=== PATIENT | male | born 1940 | race Caucasian/White ===

== ENCOUNTER 2020-08-24 06:24 | Outpatient (REF) | payer MEDICARE, SELFPAY ==
[2020-08-24 11:14] LABS: MANUAL DIFF FLAG NO
[2020-08-24 11:25] LABS: Basophils Absolute Auto 0.1 X10*3/uL (0.0-0.2); Basophils Percent Auto 0.8 % (0-2); Eosinophils Absolute Auto 0.1 X10*3/uL (0.0-0.4); Eosinophils Percent Auto 1.4 % (0-4); Hematocrit 48.1 % (42-52); Hemoglobin 15.8 g/dl (14.0-18.0); Imm Gran Abs Auto 0.03 X10*3/uL (0.00-0.03); Imm Gran Pct Auto 0.4 % (0.0-0.4); Lymphocytes Percent Auto 23.9 % (20-40); Mean Corpuscular HGB Conc 32.8 g/dl (31.0-36.0); Mean Corpuscular Hemoglobin 30.3 pg (27.0-33.0); Mean Corpuscular Volume 92.3 fL (80-98); Mean Platelet Volume 10.9 fL (9.4-12.4); Monocytes Absolute Auto 0.6 X10*3/uL (0.1-1.2); Monocytes Percent Auto 6.7 % (2-11); Neutrophils Absolute Auto 5.7 X10*3/uL (2.0-8.3); Neutrophils Percent Auto 66.8 % (45-73); Platelet Count 222 X10*3/uL (160-400); Red Blood Count 5.21 X10*6/uL (4.60-5.80); Red Cell Distribution Width 14.5 % (11.0-16.0); White Blood Count 8.5 X10*3/uL (4.8-10.8)
[2020-08-24 11:49] LABS: Alanine Aminotransferase 20 U/L (0-40); Albumin Level 4.2 g/dL (3.5-5.0); Alkaline Phosphatase 69 U/L (39-117); Anion Gap 14 (12-20); Aspartate Amino Transferase 18 U/L (5-37); Bilirubin Total 0.8 mg/dL (0.0-1.0); Blood Urea Nitrogen 22 mg/dL (9-16); Calcium 8.6 mg/dL (8.4-10.2); Carbon Dioxide 30 mmol/L (22-29); Chloride 103 mmol/L (96-108); Cholesterol 200 mg/dL; Estimated Glomerular Filt Rate > 60; Glucose Fasting 113 mg/dL (60-99); HDL Cholesterol 45 mg/dL; LDL Cholesterol Calculated 124 mg/dl; Potassium 3.8 mmol/L (3.3-5.1); Sodium 143 mmol/L (135-145); Total Protein 6.6 g/dL (6.5-8.0); Triglycerides 158 mg/dL; Uric Acid 7.2 mg/dL (3.4-7.0)
[2020-08-24 12:14] LABS: Prostate Specific Antigen 1.51 ng/mL (<0.05-4.0)
== END 2020-08-24 06:25 | disposition home or self-care (01) ==
LOC: HO.HMGCLDS 06:24
PROVIDERS: PCP Internal Medicine Medical Oncology; Visit Provider Internal Medicine Medical Oncology
DX: I10 Essential (primary) hypertension (principal); E66.9 Obesity, unspecified; E78.5 Hyperlipidemia, unspecified; Z12.5 Encounter for screening for malignant neoplasm of prostate
CPT/HCPCS: 36415; 80053; 80061; 84153; 84550; 85025

== ENCOUNTER 2020-12-04 08:53 | Day surgery (SDC) | payer MEDICARE, SELFPAY ==
[2020-11-29 10:35] VITALS: BMI 33.8
--- NOTE | 2020-12-03 09:31 | P.CONAN_ITS ---
Documented by User: Irene Gentile 12/03/20 09:32 HPI - Anesthesia Eval Consult details Narrative: 79yo M for Colonoscopy [facility] Past Medical History Medical History BPH (benign prostatic hyperplasia) History of kidney stones HTN (hypertension) Hyperlipidemia Surgical History Surgical History History of lithotripsy Hx of colonoscopy Hx of cystoscopy Social History Social History Patient Tobacco Use Status: Current everyday Tobacco user Tobacco use type: Cigarette Are you DNR?: Yes Advance Directives: No Advance Directives Information Provided: No Advance Directives on File: No Recently lost weight without trying: No Eating poorly because of decreased appetite: No Nutrition Risks: No Nutritional Risk Meds Allergies Allergy/AdvReac Type Severity Reaction Status Date / Time Iodinated Contrast Media Allergy Intermediate VOMITING Verified 12/04/20 08:54 [IV Dye, Iodine Containing] Home Medications Medication Instructions Recorded Confirmed Last Taken Type jaubtpch-tyvnt-ejn2-C-ana-bor 1 tab PO DAILY 11/29/20 11/29/20 Unknown History [Bbgmdgecyqe-Tvfkp-[facility] Complex] hydrochlorothiazide 1 tab PO DAILY 11/29/20 11/29/20 Unknown History multivitamin 1 tab PO DAILY 11/29/20 11/29/20 Unknown History potassium citrate 1 tab PO DAILY 11/29/20 11/29/20 Unknown History Exam Exam Date and Time: December 03, 2020 0931 Height,Weight and Vital Signs: Height 5 ft 10 in Weight 107.048 kg Assessment and Plan Assessment Anesthesia Assessment: Chart Reviewed Documented by User: Kady Alberto 12/04/20 10:43 [facility] Past Medical History Medical History BPH (benign prostatic hyperplasia) History of kidney stones HTN (hypertension) Hyperlipidemia Surgical History Surgical History History of lithotripsy Hx of colonoscopy Hx of cystoscopy Social History Social History Patient Tobacco Use Status: Current everyday Tobacco user Tobacco use type: Cigarette Are you DNR?: Yes Advance Directives: No Advance Directives Information Provided: No Advance Directives on File: No Recently lost weight without trying: No Eating poorly because of decreased appetite: No Nutrition Risks: No Nutritional Risk Meds Allergies Allergy/AdvReac Type Severity Reaction Status Date / Time Iodinated Contrast Media Allergy Intermediate VOMITING Verified 12/04/20 08:54 [IV Dye, Iodine Containing] Home Medications Medication Instructions Recorded Confirmed Last Taken Type jwbrkebn-gyfrd-rwq4-C-ana-bor 1 tab PO DAILY 11/29/20 11/29/20 Unknown History [Xwzdqqlmwuh-Lveuh-[facility] Complex] hydrochlorothiazide 1 tab PO DAILY 11/29/20 11/29/20 Unknown History multivitamin 1 tab PO DAILY 11/29/20 11/29/20 Unknown History potassium citrate 1 tab PO DAILY 11/29/20 11/29/20 Unknown History Exam Airway Mallampati Class: II TM Dist: >3cm Neck ROM: Limited Loose/Missing/Broken Teeth: No Heart: RRR Lungs: CTA Assessment and Plan Assessment Anesthesia Assessment: Anesthesia Plan Discussed and Chart Reviewed Final Anesthetic Review NPO: Yes ASA Class: II Final Preanesthetic Review: Meds/Allgs Chart Reviewed and Consent Obtained/Reviewed Patient Risk: Low Procedure Risk: Low Anesthetic Plan Anesthetic Plan: MAC: Disposition: Standard PACU
[2020-12-04 09:20] VITALS: BP 138/59; PULSE 73; RESP 18; TEMP 36.7; O2SAT 98
[2020-12-04] MEDS: Lactated Ringers 1,000 ML 100 ML IVCONT (09:36)
--- NOTE | 2020-12-04 10:15 | MHC.SHP ---
Pre-Procedural Eval Section A The patient is an INPATIENT: No Changes since office visit: No Cold of Flu in the past 2 weeks, No New Medical Problems, No Changes in Medication and No Patient answered all questions The History & Physical has been completed within 30 days and I have reviewed it.: Yes Section B Chief Complaint: Screening Allergies: Allergies Allergy/AdvReac Type Severity Reaction Status Date / Time Iodinated Contrast Media Allergy Intermediate VOMITING Verified 12/04/20 08:54 [IV Dye, Iodine Containing] Plan I have reviewed the history and physical and performed a pertinent physical examination on my patient. No changes have occurred unless specified.
--- NOTE | 2020-12-04 11:14 | PM.OP ---
Brief Operative Note Date of Service: 12/04/20 Pre-op diagnosis: screening Post-op diagnosis: same Procedure: colonoscopy to 70 cm Surgeon: Ted Curran Anesthesia: MAC Was an [employer] Psychologist used for this Procedure?: No Estimated blood loss (mL): 0 Pathology: none sent Condition: stable Disposition: PACU
[2020-12-04 11:15] VITALS: BP 107/62; PULSE 67; RESP 18; TEMP 36; O2SAT 96
[2020-12-04 11:33] VITALS: BP 131/68; PULSE 75; RESP 16; O2SAT 96
--- NOTE | 2020-12-04 21:32 | OP_ITS ---
SURGEON: Ted Curran MD INDICATIONS: Colon cancer screening. PREOPERATIVE DIAGNOSIS: POSTOPERATIVE DIAGNOSIS: PROCEDURE PERFORMED: Colonoscopy to 70 cm. ESTIMATED BLOOD LOSS: COMPLICATIONS: ANESTHESIA: ASSISTANTS: SPECIMENS: MEDICATIONS: Monitored anesthesia care. DESCRIPTION OF PROCEDURE: History and physical performed. The risks and benefits of the procedure were explained to the patient. Informed consent was obtained. The patient was placed in the left lateral decubitus position. A digital rectal exam was performed and was found to be normal. The Olympus pediatric video colonoscope was introduced into the rectum and advanced to 70 cm. The scope could be advanced no further due to acute angulation of the colon. Examination was performed and the scope was removed. He tolerated the procedure well and was taken to recovery area in stable condition. FINDINGS: The visualized colonic mucosa was within normal limits without evidence of masses, ulcers, or polyps at about 70 cm. There was an acute angulation of the colon that did not permit passage of the colonoscope. The mucosa appeared normal without any evidence of polyps. Retroflexed examination was normal. IMPRESSION: Incomplete colonoscopy to 70 cm. RECOMMENDATION: Consider CT colonography for further evaluation. MD CASEY Mcdonald/JAGJIT / [id number]
== END 2020-12-04 12:20 | disposition home or self-care (01) ==
PROVIDERS: PCP Internal Medicine Medical Oncology; Visit Provider Internal Medicine Gastroenterology
PROC: 0DJD8ZZ Inspection of Lower Intestinal Tract, Via Natural or Artificial Opening Endoscopic (ICD-10-PCS; CPT 45378; principal; 2020-12-04 10:20)
DX: Z12.11 Encounter for screening for malignant neoplasm of colon (principal); K56.609 Unspecified intestinal obstruction, unspecified as to partial versus complete obstruction; N40.0 Benign prostatic hyperplasia without lower urinary tract symptoms; Z87.442 Personal history of urinary calculi; E78.5 Hyperlipidemia, unspecified; Z79.899 Other long term (current) drug therapy; Z91.041 Radiographic dye allergy status; F17.210 Nicotine dependence, cigarettes, uncomplicated
CPT/HCPCS: 45330

== ENCOUNTER 2020-12-17 09:39 | Outpatient (REF) | payer MEDICARE, SELFPAY ==
[2020-12-17 11:12] LABS: MANUAL DIFF FLAG NO
[2020-12-17 11:21] LABS: Basophils Absolute Auto 0.1 X10*3/uL (0.0-0.2); Basophils Percent Auto 0.9 % (0-2); Eosinophils Absolute Auto 0.1 X10*3/uL (0.0-0.4); Eosinophils Percent Auto 0.9 % (0-4); Hematocrit 48.5 % (42-52); Imm Gran Abs Auto 0.02 X10*3/uL (0.00-0.03); Imm Gran Pct Auto 0.2 % (0.0-0.4); Lymphocytes Absolute Auto 2.2 X10*3/uL (1.2-4.9); Lymphocytes Percent Auto 27.2 % (20-40); Mean Corpuscular Hemoglobin 30.7 pg (27.0-33.0); Mean Corpuscular Volume 93.1 fL (80-98); Mean Platelet Volume 10.7 fL (9.4-12.4); Monocytes Absolute Auto 0.5 X10*3/uL (0.1-1.2); Monocytes Percent Auto 6.6 % (2-11); Neutrophils Absolute Auto 5.2 X10*3/uL (2.0-8.3); Neutrophils Percent Auto 64.2 % (45-73); Platelet Count 230 X10*3/uL (160-400); Red Blood Count 5.21 X10*6/uL (4.60-5.80); Red Cell Distribution Width 14.1 % (11.0-16.0); White Blood Count 8.2 X10*3/uL (4.8-10.8)
[2020-12-17 11:44] LABS: Alanine Aminotransferase 18 U/L (0-40); Albumin Level 4.2 g/dL (3.5-5.0); Alkaline Phosphatase 73 U/L (39-117); Anion Gap 16 (12-20); Aspartate Amino Transferase 17 U/L (5-37); Bilirubin Total 0.7 mg/dL (0.0-1.0); Blood Urea Nitrogen 20 mg/dL (9-16); Calcium 9.3 mg/dL (8.4-10.2); Carbon Dioxide 27 mmol/L (22-29); Chloride 106 mmol/L (96-108); Estimated Glomerular Filt Rate > 60; Glucose Random 103 mg/dL (60-115); Potassium 4.6 mmol/L (3.3-5.1); Sodium 144 mmol/L (135-145); Total Protein 6.6 g/dL (6.5-8.0)
== END 2020-12-17 09:40 | disposition home or self-care (01) ==
LOC: HO.HMGCLDS 09:39
PROVIDERS: PCP Internal Medicine Medical Oncology; Visit Provider Internal Medicine Medical Oncology
DX: I10 Essential (primary) hypertension (principal); E66.9 Obesity, unspecified; E78.5 Hyperlipidemia, unspecified
CPT/HCPCS: 36415; 80053; 85025

== ENCOUNTER 2021-01-28 08:50 | Outpatient (REF) | payer MEDICARE, SELFPAY ==
--- NOTE | ~2021-01-28 | US_ITS ---
EXAMINATION: US RETROPERITONEAL LIMITED (RENAL ONLY) CLINICAL INFORMATION: Renal cyst. COMPARISON: Previous renal ultrasounds most recent December 2019 TECHNIQUE: Grayscale and color imaging of the kidneys FINDINGS: RIGHT KIDNEY: 10.8 x 5.4 x 6.3 cm (SAG x AP x TRV). The kidney is normal in size, contour, and echogenicity. Renal cortical thickness is normal. There is a 1.4 x 0.9 x 1.3 cm cyst in the upper pole. No calculi. No hydronephrosis. LEFT KIDNEY: 12.3 x 6.8 x 5.7 cm (SAG x AP x TRV). The kidney is normal in size, contour, and echogenicity. Renal cortical thickness is normal. There are 2 left renal cysts measuring 1.6 x 1.3 x 1.5 cm in the lower pole and 0.6 x 0.6 x 1 cm in the lower pole. No calculi. No hydronephrosis. US/US renal BI IMPRESSION: Stable small bilateral renal cysts.
== END 2021-01-28 08:51 | disposition home or self-care (01) ==
LOC: HO.HMGCX 08:50
PROVIDERS: PCP Internal Medicine Medical Oncology; Visit Provider Urology
DX: N28.1 Cyst of kidney, acquired (principal)
CPT/HCPCS: 76775

== ENCOUNTER 2021-03-13 08:44 | Outpatient (REF) | payer MEDICARE, SELFPAY ==
--- NOTE | ~2021-03-13 | XR_ITS ---
EXAMINATION: XR CHEST CLINICAL INFORMATION: CHF COMPARISON: None TECHNIQUE: 2 views of the chest were obtained. FINDINGS: The cardiac silhouette is enlarged. There is pulmonary venous redistribution. There are increased interstitial markings and small right pleural effusion. Findings are suggestive of mild CHF. There is increased thoracic kyphosis and degenerative changes of the spine. XR/XR chest 2V IMPRESSION: Mild CHF.
[2021-03-13 11:22] LABS: MANUAL DIFF FLAG NO
[2021-03-13 11:30] LABS: Basophils Absolute Auto 0.1 X10*3/uL (0.0-0.2); Basophils Percent Auto 0.8 % (0-2); Eosinophils Absolute Auto 0.1 X10*3/uL (0.0-0.4); Eosinophils Percent Auto 0.9 % (0-4); Hematocrit 43.2 % (42-52); Hemoglobin 14.2 g/dl (14.0-18.0); Imm Gran Abs Auto 0.02 X10*3/uL (0.00-0.03); Imm Gran Pct Auto 0.3 % (0.0-0.4); Lymphocytes Absolute Auto 1.6 X10*3/uL (1.2-4.9); Lymphocytes Percent Auto 19.6 % (20-40); Mean Corpuscular HGB Conc 32.9 g/dl (31.0-36.0); Mean Corpuscular Hemoglobin 30.3 pg (27.0-33.0); Mean Corpuscular Volume 92.1 fL (80-98); Mean Platelet Volume 10.5 fL (9.4-12.4); Monocytes Absolute Auto 0.5 X10*3/uL (0.1-1.2); Monocytes Percent Auto 6.3 % (2-11); Neutrophils Absolute Auto 5.8 X10*3/uL (2.0-8.3); Neutrophils Percent Auto 72.1 % (45-73); Platelet Count 216 X10*3/uL (160-400); Red Blood Count 4.69 X10*6/uL (4.60-5.80); Red Cell Distribution Width 14.6 % (11.0-16.0)
[2021-03-13 11:58] LABS: B Type Natriuretic Peptide 265 pg/mL (<100)
[2021-03-13 12:05] LABS: Alanine Aminotransferase 31 U/L (0-40); Albumin Level 4.1 g/dL (3.5-5.0); Alkaline Phosphatase 71 U/L (39-117); Anion Gap 14 (12-20); Aspartate Amino Transferase 18 U/L (5-37); Bilirubin Total 0.8 mg/dL (0.0-1.0); Blood Urea Nitrogen 20 mg/dL (9-16); Calcium 9.3 mg/dL (8.4-10.2); Carbon Dioxide 25 mmol/L (22-29); Chloride 107 mmol/L (96-108); Estimated Glomerular Filt Rate > 60; Glucose Random 139 mg/dL (60-115); Sodium 142 mmol/L (135-145); Total Protein 6.1 g/dL (6.5-8.0)
== END 2021-03-13 08:45 | disposition home or self-care (01) ==
LOC: HO.HMGCLDS 08:44
PROVIDERS: PCP Internal Medicine Medical Oncology; Visit Provider Internal Medicine Medical Oncology
DX: I11.0 Hypertensive heart disease with heart failure (principal); I50.9 Heart failure, unspecified; E66.9 Obesity, unspecified; E78.5 Hyperlipidemia, unspecified
CPT/HCPCS: 36415; 71046; 80053; 83880; 85025

== ENCOUNTER 2021-03-22 12:17 | Outpatient (REF) | payer MEDICARE, SELFPAY ==
[2021-03-22 14:27] LABS: Alanine Aminotransferase 41 U/L (0-40); Albumin Level 4.5 g/dL (3.5-5.0); Alkaline Phosphatase 75 U/L (39-117); Anion Gap 19 (12-20); Aspartate Amino Transferase 33 U/L (5-37); Bilirubin Total 1.4 mg/dL (0.0-1.0); Blood Urea Nitrogen 48 mg/dL (9-16); Calcium 10.9 mg/dL (8.4-10.2); Carbon Dioxide 37 mmol/L (22-29); Chloride 91 mmol/L (96-108); Estimated Glomerular Filt Rate 54; Glucose Random 133 mg/dL (60-115); Potassium 2.6 mmol/L (3.3-5.1); Sodium 144 mmol/L (135-145); Total Protein 7.2 g/dL (6.5-8.0)
[2021-03-22 14:28] LABS: B Type Natriuretic Peptide 286 pg/mL (<100)
[2021-03-22 14:47] LABS: Thyroid Stimulating Hormone 0.87 uIU/mL (0.32-4.0)
== END 2021-03-22 12:18 | disposition home or self-care (01) ==
LOC: HO.HMGCLDS 12:17
PROVIDERS: PCP Internal Medicine Medical Oncology; Visit Provider Internal Medicine Medical Oncology
DX: I10 Essential (primary) hypertension (principal); E66.9 Obesity, unspecified
CPT/HCPCS: 36415; 80053; 83880; 84443

== ENCOUNTER 2021-03-25 10:09 | Outpatient (REF) | payer MEDICARE, SELFPAY ==
[2021-03-25 11:56] LABS: Anion Gap 16 (12-20); Blood Urea Nitrogen 29 mg/dL (9-16); Calcium 9.6 mg/dL (8.4-10.2); Carbon Dioxide 30 mmol/L (22-29); Chloride 104 mmol/L (96-108); Estimated Glomerular Filt Rate > 60; Potassium 4.6 mmol/L (3.3-5.1); Sodium 145 mmol/L (135-145)
[2021-03-26 16:16] LABS: Calcium (PTHI) 9.5 mg/dL (8.6-10.3); PTHI 72 pg/mL (14-64)
== END 2021-03-25 10:10 | disposition home or self-care (01) ==
LOC: HO.HMGCLDS 10:09
PROVIDERS: PCP Internal Medicine Medical Oncology; Visit Provider Internal Medicine Medical Oncology
DX: I11.0 Hypertensive heart disease with heart failure (principal); I50.9 Heart failure, unspecified; E66.9 Obesity, unspecified; E78.5 Hyperlipidemia, unspecified; I48.91 Unspecified atrial fibrillation
CPT/HCPCS: 36415; 80051; 82310; 82565; 83970; 84520; 93005; 99202

== ENCOUNTER → 2021-03-29 07:52 | Outpatient (REF) | payer MEDICARE, SELFPAY ==
--- NOTE | 2021-03-29 08:00 | CA_ITS ---
Transthoracic Echocardiogram Patient (Last, First, Middle): [place], Gender: Male Date of : 1940 Age: 80 Procedure Date: 03/29/2021 Procedure Type: Transthoracic Echocardiogram Location: OP Height: 175.26 cm Weight: 102.06 kg BSA: 2.17 m2 Heart Rate: bpm BP: 130 / 62 mmHg Doctor Of Veterinary Medicine: DSG Referring MD: Scott Hays MD Symptoms: I10 HTN I50.0 CHF Study Quality: Fair ECG Rhythm: Atrial Fibrillation Conclusions: - The left ventricular systolic function is normal. The calculated ejection fraction is 62% by biplane method. - E/E prime ratio is >15, consistent with elevated filling pressures. - The basal inferior segment is hypokinetic. The basal inferolateral segment is akinetic. - There is severe aortic valve stenosis. - Mild pulmonary hypertension is present. Findings Left Ventricle Normal left ventricular cavity size. There is mildly increased left ventricular wall thickness. The left ventricular systolic function is normal. The calculated ejection fraction is 62% by biplane method. There is evidence of regional wall motion abnormalities. Diastolic function is indeterminate on the basis of available data. E/E prime ratio is >15, consistent with elevated filling pressures. Wall Motion Rest Echo Findings The basal inferior segment is hypokinetic. The basal inferolateral segment is akinetic. Right Ventricle Normal right ventricular cavity size and systolic function. Atria Moderate biatrial enlargement. Aortic Valve There is severe calcification of the aortic valve. There is severe aortic valve stenosis. The peak aortic velocity is 4.91 m/s with a calculated peak gradient of 96 mmHg. The mean gradient is 60 mmHg. The aortic valve area is 0.65 cm2. There is mild aortic valve regurgitation. Mitral Valve There is mild anterior mitral leaflet thickening. There is mild mitral valve regurgitation. There is no mitral valve stenosis. Pulmonic Valve The pulmonic valve was not well visualized. Tricuspid Valve There is mild tricuspid valve regurgitation. The right ventricular systolic pressure is 36 mmHg. Mild pulmonary hypertension is present. Great Vessels The aortic annulus and asc aorta are normal in size. Venous The inferior vena cava is normal in size and collapses greater than 50% with inspiration. Pericardium/Pleural There is no evidence of pericardial effusion. Prior Study Comparison No prior study available for comparison. Measurements 2D Linear Measurements IVSd: 1.25 0.6-0.9/0.6-1.0 cm LVIDd: 5.28 3.9-5.3/4.2-5.9 cm LVIDd Index: 2.43 2.4-3.2/2.2-3.1 cm/m2 LVIDs: 3.85 2.0-3.6 cm LVPWd: 1.18 0.7-1.1 cm Ao Root: 2.50 2.1-3.5 cm LA Diam: 5.20 2.7-3.8/3.0-4.0 cm LAIDs Index: 2.40 1.5-2.3 cm/m2 LV Mass: 323.56 67-162/88-224 g LV Mass Index: 149.11 43-95/49-115 g/m2 LVOT Diam: 2.00 3.0+(-)1.3 cm 2D Systolic Function EF 4C: 61.00 >55% EF 2C: 59.20 >55% EF BiP: 62.00 >55% Mitral Valve MV Pk E: 1.11 MV Decel Time: 135.00 E'Lateral: 6.20 E'Medial: 6.90 E/E' Med: 16.10 E/E' Lat: 17.90 PHT: 40.00 MVA PHT: 5.50 Decel [place]: 8.21 Aortic Valve AoV Pk Marquez: 4.91 AoV Mn Marquez: 3.65 AoV VTI: 1.23 AoV Pk Grad: 96.00 Aov Mn Grad: 60.00 ABDULKADIR Cont.VTI: 0.65 AI Pk Marquez: 3.75 AI [place]: 1.44 LVOT LVOT Pk Marquez: 1.14 LVOT Mn Marquez: 0.81 LVOT VTI: 0.26 LVOT Pk Grad: 5.00 LVOT Mn Grad: 3.00 LVOT Diam: 2.00 LVOT Area: 3.14 Diastolic Function MV Pk E: 1.11 E'Medial: 6.90 E/E' Med: 16.10 E' Laterial: 6.20 E/E' Lat: 17.90 Right Ventricle TAPSE (mm): 2.44 Tricuspid Valve TR Pk Marquez: 2.86 TR Pk Grad: 33.00 RA Press: 3.00 RVSP: 36.00 Great Vessels Aorta Ao Root-2D: 2.50 2.0-3.7 cm Ao Asc: 3.30 2.1-3.4 cm Updated in Other Vendor System with Status of Final Herbie Fitzpatrick MD electronically signed on 03/29/2021 12:19:08 PM with status of Final
== END ==
LOC: HO.CARD 07:52
PROVIDERS: Visit Provider Internal Medicine Medical Oncology
DX: I11.0 Hypertensive heart disease with heart failure (principal); I50.9 Heart failure, unspecified
CPT/HCPCS: 93306

== ENCOUNTER 2021-04-17 09:30 | Outpatient (REF) | payer MEDICARE, SELFPAY ==
[2021-04-17 11:37] LABS: MANUAL DIFF FLAG NO
[2021-04-17 11:48] LABS: INTERNATIONAL NORM RATIO 1.4 (0.9-1.1); Prothrombin Time 15.6 SEC (9.9-13.0)
[2021-04-17 11:53] LABS: Basophils Absolute Auto 0.1 X10*3/uL (0.0-0.2); Eosinophils Percent Auto 0.5 % (0-4); Hematocrit 46.1 % (42-52); Hemoglobin 15.2 g/dl (14.0-18.0); Imm Gran Abs Auto 0.03 X10*3/uL (0.00-0.03); Imm Gran Pct Auto 0.4 % (0.0-0.4); Lymphocytes Absolute Auto 2.1 X10*3/uL (1.2-4.9); Lymphocytes Percent Auto 25.6 % (20-40); Mean Corpuscular Hemoglobin 30.2 pg (27.0-33.0); Mean Corpuscular Volume 91.5 fL (80-98); Mean Platelet Volume 10.4 fL (9.4-12.4); Monocytes Absolute Auto 0.4 X10*3/uL (0.1-1.2); Monocytes Percent Auto 4.5 % (2-11); Neutrophils Absolute Auto 5.4 X10*3/uL (2.0-8.3); Platelet Count 223 X10*3/uL (160-400); Red Blood Count 5.04 X10*6/uL (4.60-5.80); Red Cell Distribution Width 14.3 % (11.0-16.0)
[2021-04-17 12:03] LABS: Anion Gap 16 (12-20); Blood Urea Nitrogen 25 mg/dL (9-16); Calcium 9.3 mg/dL (8.4-10.2); Carbon Dioxide 26 mmol/L (22-29); Chloride 104 mmol/L (96-108); Estimated Glomerular Filt Rate > 60; Glucose Random 137 mg/dL (60-115); Sodium 142 mmol/L (135-145)
[2021-04-17 12:13] LABS: PSA,Total (Free>4and<10) 1.94 ng/mL (0.00-4.00)
== END 2021-04-17 09:31 | disposition home or self-care (01) ==
LOC: HO.HMGCLDS 09:30
PROVIDERS: Urology; PCP Internal Medicine Medical Oncology; Visit Provider Internal Medicine Cardiovascular Disease
DX: Z12.5 Encounter for screening for malignant neoplasm of prostate (principal); I50.22 Chronic systolic (congestive) heart failure; R97.20 Elevated prostate specific antigen [PSA]
CPT/HCPCS: 36415; 80048; 84153; 85025; 85610

== ENCOUNTER → 2021-04-19 08:26 | Outpatient (BNVA) | payer MEDICARE, SELFPAY | PROVIDERS: Visit Provider Urology | DX: N40.0 Benign prostatic hyperplasia without lower urinary tract symptoms (principal); N20.0 Calculus of kidney | CPT/HCPCS: Q3014 ==

== ENCOUNTER 2021-11-19 07:57 | Outpatient (REF) | payer MEDICARE, SELFPAY ==
[2021-11-19 11:25] LABS: MANUAL DIFF FLAG NO
[2021-11-19 11:30] LABS: Basophils Absolute Auto 0.1 X10*3/uL (0.0-0.2); Basophils Percent Auto 0.8 % (0-2); Eosinophils Absolute Auto 0.1 X10*3/uL (0.0-0.4); Eosinophils Percent Auto 0.9 % (0-4); Hemoglobin 12.4 g/dl (14.0-18.0); Imm Gran Abs Auto 0.02 X10*3/uL (0.00-0.03); Imm Gran Pct Auto 0.3 % (0.0-0.4); Immature Retic Fraction 21.7 % (2.3-13.4); Lymphocytes Absolute Auto 1.7 X10*3/uL (1.2-4.9); Lymphocytes Percent Auto 22.4 % (20-40); Mean Corpuscular HGB Conc 31.8 g/dl (31.0-36.0); Mean Corpuscular Hemoglobin 30.4 pg (27.0-33.0); Mean Corpuscular Volume 95.6 fL (80.0-98.0); Mean Platelet Volume 10.8 fL (9.4-12.4); Monocytes Absolute Auto 0.4 X10*3/uL (0.1-1.2); Monocytes Percent Auto 5.6 % (2-11); Neutrophils Absolute Auto 5.4 x10*3/uL (2.0-8.3); Platelet Count 213 X10*3/uL (160-400); Red Blood Count 4.08 X10*6/uL (4.60-5.80); Red Cell Distribution Width 16.9 % (11.0-16.0); Reticulocytes Absolute 0.162 X10*6/uL (0.026-0.095); White Blood Count 7.7 X10*3/uL (4.8-10.8)
[2021-11-19 12:04] LABS: Ferritin 233 ng/mL (20-250)
[2021-11-19 12:05] LABS: Alanine Aminotransferase 32 U/L (0-40); Albumin Level 3.9 g/dL (3.5-5.0); Alkaline Phosphatase 88 U/L (39-117); Anion Gap 13 (12-20); Aspartate Amino Transferase 29 U/L (5-37); Bilirubin Total 0.9 mg/dL (0.0-1.0); Blood Urea Nitrogen 21 mg/dL (9-16); Calcium 9.3 mg/dL (8.4-10.2); Carbon Dioxide 26 mmol/L (22-29); Chloride 108 mmol/L (96-108); Estimated Glomerular Filt Rate > 60; Glucose Random 155 mg/dL (60-115); Potassium 4.8 mmol/L (3.3-5.1); Sodium 142 mmol/L (135-145); Total Protein 6.2 g/dL (6.5-8.0)
== END 2021-11-19 07:58 | disposition home or self-care (01) ==
LOC: HO.HMGCLDS 07:57
PROVIDERS: PCP Internal Medicine Medical Oncology; Visit Provider Internal Medicine Medical Oncology
DX: E66.9 Obesity, unspecified (principal); E78.5 Hyperlipidemia, unspecified; N40.0 Benign prostatic hyperplasia without lower urinary tract symptoms
CPT/HCPCS: 36415; 80053; 82728; 85025; 85045

== ENCOUNTER 2021-12-12 06:23 | Day surgery (SDC) | payer MEDICARE, SELFPAY ==
[2021-12-06 10:42] VITALS: BMI 28.4
--- NOTE | 2021-12-11 09:24 | P.CONAN_ITS ---
Documented by User: Irene Gentile NP 12/11/21 09:43 HPI - Anesthesia Eval Consult details Narrative: 80yo M for Upper Endoscopy and Colonoscopy Eliquis for afib / TAVR (09/2021) - Cardiology OK'd holding preop [facility] Active Problems Active Problems: All Active Problems (Updated 12/06/21 @ 10:39 by Gisell Sequeira, RN) Acute congestive heart failure (Acute) Afib (Acute) Severe aortic stenosis (Acute) Nephrolithiasis (Acute) BPH (benign prostatic hyperplasia) (Acute) Past Medical History Medical History Bilateral hip pain CHF (congestive heart failure) Constipation GERD (gastroesophageal reflux disease) History of kidney stones HTN (hypertension) Hx of aortic valve stenosis Hyperlipidemia Low back pain Surgical History Surgical History (Updated 12/06/21 @ 10:36 by Gisell Sequeira, RN) Aortic valve replaced History of lithotripsy History of prostate surgery Hx of colonoscopy Hx of cystoscopy Social History Social History Are you a primary child care specialist to a significant other at home: No Do you presently have visiting nurse or other home services: No Patient Tobacco Use Status: Former Tobacco user Quit Date: 2018 Tobacco use type: Cigarette Use of substances other than those prescribed or required for medical reasons: No Have you been hit, kicked, punched, or otherwise hurt by someone within the past year? If so, by whom?: No Are you DNR?: No Advance Directives: No Advance Directives Information Provided: Yes Advance Directives on File: No Recently lost weight without trying: No Nutrition Risks: Surgical patient >75years Poor oral hygiene: No Meds Allergies Allergy/AdvReac Type Severity Reaction Status Date / Time Iodinated Contrast Media Allergy Intermediate VOMITING Verified 12/06/21 10:42 [IV Dye, Iodine Containing] Home Medications Medication Instructions Recorded Confirmed Last Taken Type glucosamine 375 li-ceagkbuza-dxi 1 tab PO DAILY 11/29/20 12/06/21 Unknown History no1 500 mg-C 15 mg-ana 0.5 mg tablet (Bkhogxsiwru-Kdnxcbjublg-FZA Complex) hydrochlorothiazide 50 mg tablet 0.5 tab PO DAILY 11/29/20 12/06/21 Unknown History multivitamin 1 tab PO DAILY 11/29/20 12/06/21 Unknown History potassium chloride 20 mEq 20 meq PO BEDTIME 04/19/21 12/06/21 Unknown History tablet,extended release omeprazole 20 mg capsule,delayed 1 cap PO QAM 12/06/21 12/12/21 12/12/21 History release aspirin 81 mg capsule mg 12/12/21 12/12/21 History Exam Exam Date and Time: December 11, 2021 0924 Height,Weight and Vital Signs: Height 5 ft 10 in Weight 89.811 kg Pertinent Lab Results Pertinent Lab Results: Laboratory Tests 11/19/21 11/19/21 08:07 08:07 WBC 7.7 Hgb 12.4 L Hct 39.0 L Plt Count 213 Sodium 142 Potassium 4.8 Chloride 108 Carbon Dioxide 26 BUN 21 H Creatinine 0.91 Narrative Narrative: ECHO 2021 per cardiology note EF 60% Mean AV grad of 16mmHg trace perivalvular aortic insufficiency EKG fib @ 52, RBBB? Assessment and Plan Assessment Anesthesia Assessment: Chart Reviewed Documented by User: Evelin Swanson MD 12/12/21 07:34 PMFSH Past Medical History Medical History Bilateral hip pain CHF (congestive heart failure) Constipation GERD (gastroesophageal reflux disease) History of kidney stones HTN (hypertension) Hx of aortic valve stenosis Hyperlipidemia Low back pain Functional capacity: independent ambulation Family History Family history of problems with anesthesia: No Surgical History Surgical History (Updated 12/06/21 @ 10:36 by Gisell Sequeira RN) Aortic valve replaced History of lithotripsy History of prostate surgery Hx of colonoscopy Hx of cystoscopy History of Problems with Anesthesia: No Social History Social History Are you a primary child care specialist to a significant other at home: No Do you presently have visiting nurse or other home services: No Patient Tobacco Use Status: Former Tobacco user Quit Date: 2018 Tobacco use type: Cigarette Use of substances other than those prescribed or required for medical reasons: No Have you been hit, kicked, punched, or otherwise hurt by someone within the past year? If so, by whom?: No Are you DNR?: No Advance Directives: No Advance Directives Information Provided: Yes Advance Directives on File: No Recently lost weight without trying: No Nutrition Risks: Surgical patient >75years Poor oral hygiene: No Meds Allergies Allergy/AdvReac Type Severity Reaction Status Date / Time Iodinated Contrast Media Allergy Intermediate VOMITING Verified 12/06/21 10:42 [IV Dye, Iodine Containing] Home Medications Medication Instructions Recorded Confirmed Last Taken Type glucosamine 375 af-veikobrgq-ngo 1 tab PO DAILY 11/29/20 12/06/21 Unknown History no1 500 mg-C 15 mg-ana 0.5 mg tablet (Gvjyyselbth-Mwaencnsdnf-UYX Complex) hydrochlorothiazide 50 mg tablet 0.5 tab PO DAILY 11/29/20 12/06/21 Unknown History multivitamin 1 tab PO DAILY 11/29/20 12/06/21 Unknown History potassium chloride 20 mEq 20 meq PO BEDTIME 04/19/21 12/06/21 Unknown History tablet,extended release omeprazole 20 mg capsule,delayed 1 cap PO QAM 12/06/21 12/12/21 12/12/21 History release aspirin 81 mg capsule mg 12/12/21 12/12/21 History Exam Airway Mallampati Class: II TM Dist: >3cm Neck ROM: Full Heart: irreg. Lungs: CTA Assessment and Plan Final Anesthetic Review Family History of Problems with Anesthesia: No History of Problems with Anesthesia: No ASA Class: III Final Preanesthetic Review: No Changes in Pt Med Stat, Meds/Allgs Chart Reviewed, Consent Obtained/Reviewed and Anes Risks/Benef Reviewed Patient Risk: Intermediate Procedure Risk: Low Anesthetic Plan Anesthetic Plan: MAC: Disposition: Standard PACU
[2021-12-12 06:37] VITALS: BP 155/52; PULSE 50; RESP 16; TEMP 36.1; O2SAT 97; BMI 28.7
[2021-12-12] MEDS: Lactated Ringers 1,000 ML 50 ML IVCONT (06:56)
--- NOTE | 2021-12-12 07:21 | MHC.SHP ---
Pre-Procedural Eval Section A Date of Service: 12/12/21 The patient is an INPATIENT: No Changes since office visit: No Cold of Flu in the past 2 weeks, No New Medical Problems, No Changes in Medication and No Patient answered all questions The History & Physical has been completed within 30 days and I have reviewed it.: Yes Section B Chief Complaint: Other fecal abnormalities,anemia Allergies: Allergies Allergy/AdvReac Type Severity Reaction Status Date / Time Iodinated Contrast Media Allergy Intermediate VOMITING Verified 12/06/21 10:42 [IV Dye, Iodine Containing] Plan I have reviewed the history and physical and performed a pertinent physical examination on my patient. No changes have occurred unless specified.
[2021-12-12 08:23] VITALS: BP 128/58; PULSE 56; RESP 16; TEMP 36.3; O2SAT 99
--- NOTE | 2021-12-12 08:27 | PM.OP ---
Brief Operative Note Date of Service: 12/12/21 Pre-op diagnosis: anemia, heme positive stool Post-op diagnosis: same (erosive gastritis, colon polyps) Procedure: egd, colonoscopy Surgeon: Ted Curran Anesthesia: MAC Was an Interstate Planner used for this Procedure?: No Estimated blood loss (mL): 2 Pathology: other (antral biopsies, colon polyps x2) Condition: stable Disposition: PACU
[2021-12-12 08:36] VITALS: BP 119/61; PULSE 51; RESP 18; TEMP 36.3; O2SAT 99
--- NOTE | 2021-12-12 10:09 | OP_ITS ---
SURGEON: Ted Curran MD INDICATIONS: Anemia and Hemoccult-positive stool. PREOPERATIVE DIAGNOSIS: POSTOPERATIVE DIAGNOSIS: PROCEDURE PERFORMED: 1. Upper endoscopy with biopsy. 2. Colonoscopy to the terminal ileum with biopsy and cold snare polypectomy. ESTIMATED BLOOD LOSS: COMPLICATIONS: ANESTHESIA: ASSISTANTS: SPECIMENS: MEDICATIONS: Monitored anesthesia care. DESCRIPTION OF PROCEDURE: History and physical were performed. The risks and benefits of the procedure were explained to the patient. An informed consent was obtained and the patient was placed in the left lateral decubitus position. The Olympus video gastroscope was introduced into the esophagus, stomach, and duodenum. Examination was performed. The scope was removed. He was repositioned for colonoscopy. Digital rectal exam was performed and was found to be normal. The Olympus pediatric video colonoscope was introduced into the rectum and advanced to the cecum without difficulty. The cecum was identified by transillumination, palpation, and identification of ileocecal valve. Examination was performed. The scope was removed. He tolerated both procedures well and was returned to recovery area in stable condition. FINDINGS: UPPER ENDOSCOPY: Esophagus: The esophagus was normal. There was no esophagitis. Stomach: The stomach showed erosive gastritis in the antrum. Biopsies were obtained from the antrum. Duodenum: There was mild duodenitis involving the bulb. There was no ulcer. Colonoscopy: On advancing the scope, the acute angulation that had been previously encountered was also encountered on this procedure. There was a slight puckering of the mucosa prior to the acute angulation suggestive of possible inguinal hernia containing a loop of colon. This was between 40 and 60 cm. The scope was reduced and pulled back and pressure was applied over the left inguinal area and the scope was then advanced without difficulty. The cecum was then easily reached. The terminal ileum was normal. In the cecum was a less than 5 mm sessile polyp, which was removed with biopsy forceps. No other abnormalities were identified in the cecum. At 20 cm was a 6 mm polyp, which was removed with a cold snare and biopsy forceps. Retroflexed examination showed internal hemorrhoids. The quality of the prep was good. IMPRESSION: 1. Erosive gastritis. 2. Colon polyps. RECOMMENDATION: Follow up the biopsy results. MD CASEY Mcdonald/RAOULL / [id number] [facility]
== END 2021-12-12 09:26 | disposition home or self-care (01) ==
PROVIDERS: PCP Internal Medicine Medical Oncology; Visit Provider Internal Medicine Gastroenterology
PROC: (CPT 45385; principal; 2021-12-12 07:30)
DX: R19.5 Other fecal abnormalities (principal); D64.9 Anemia, unspecified; K63.5 Polyp of colon; K64.8 Other hemorrhoids; K56.2 Volvulus; K29.60 Other gastritis without bleeding; K29.80 Duodenitis without bleeding; N40.0 Benign prostatic hyperplasia without lower urinary tract symptoms; I10 Essential (primary) hypertension; E78.5 Hyperlipidemia, unspecified; Z95.2 Presence of prosthetic heart valve; Z79.01 Long term (current) use of anticoagulants; Z79.82 Long term (current) use of aspirin; Z79.899 Other long term (current) drug therapy; Z87.442 Personal history of urinary calculi; F17.210 Nicotine dependence, cigarettes, uncomplicated
CPT/HCPCS: 45385; 45380; 88305; 88342

== ENCOUNTER 2021-12-19 20:51 | Emergency (ER) | payer MEDICARE, SELFPAY ==
--- NOTE | ~2021-12-19 | CT_ITS ---
EXAMINATION: CT BRAIN AND CT CERVICAL SPINE WITHOUT CONTRAST. CLINICAL INFORMATION: Head injury. Fall. COMPARISON: None TECHNIQUE: 5 mm thin axial and reformatted 2 mm thin sagittal and coronal images of brain were obtained. Axial 3 mm thin and reformatted 2 mm thin sagittal and coronal images of cervical spine were obtained without contrast. DLP 1214 FINDINGS: There is no acute intra-axial, extra-axial bleed, masses or midline shift. Both lateral ventricles are symmetrical in size and configuration without enlargement. Bone windows reveal no calvarial abnormality. Bilateral paranasal sinuses and mastoid air cells are well-aerated. There is moderate size left parietal scalp hematoma without calvarial fracture. Bilateral paranasal sinuses and mastoid air cells are well-aerated. Cervical spine: There is normal cervical lordosis with loss of C4-C5, C5-C6 and C6-C7 disc heights with mild ventral and posterior spondylosis. The vertebral heights and alignment appears normal. The craniovertebral junction and the C1-C2 alignment is normal. There is no visible acute fracture, dislocation or subluxation seen. The prevertebral and paravertebral soft tissues are normal. CT/CT cervical spine wo con IMPRESSION: Left parietal scalp hematoma without calvarial fracture. No acute intracranial process seen. There are degenerative disc changes cervical spine with spondylosis but no visible acute fracture, dislocation or subluxation seen.
--- NOTE | ~2021-12-19 | CT_ITS ---
EXAMINATION: CT BRAIN AND CT CERVICAL SPINE WITHOUT CONTRAST. CLINICAL INFORMATION: Head injury. Fall. COMPARISON: None TECHNIQUE: 5 mm thin axial and reformatted 2 mm thin sagittal and coronal images of brain were obtained. Axial 3 mm thin and reformatted 2 mm thin sagittal and coronal images of cervical spine were obtained without contrast. DLP 1214 FINDINGS: There is no acute intra-axial, extra-axial bleed, masses or midline shift. Both lateral ventricles are symmetrical in size and configuration without enlargement. Bone windows reveal no calvarial abnormality. Bilateral paranasal sinuses and mastoid air cells are well-aerated. There is moderate size left parietal scalp hematoma without calvarial fracture. Bilateral paranasal sinuses and mastoid air cells are well-aerated. Cervical spine: There is normal cervical lordosis with loss of C4-C5, C5-C6 and C6-C7 disc heights with mild ventral and posterior spondylosis. The vertebral heights and alignment appears normal. The craniovertebral junction and the C1-C2 alignment is normal. There is no visible acute fracture, dislocation or subluxation seen. The prevertebral and paravertebral soft tissues are normal. CT/CT head/brain wo con IMPRESSION: Left parietal scalp hematoma without calvarial fracture. No acute intracranial process seen. There are degenerative disc changes cervical spine with spondylosis but no visible acute fracture, dislocation or subluxation seen.
--- NOTE | 2021-12-19 21:07 | ED_ITS ---
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 Had a few drinks. Subsequently accidentally fell. Hitting his head. Patient is on Eliquis. Denies any loss of consciousness no nausea no vomiting. No chest pain. Moving all arms and legs. Patient is from home. Lives with daughter. Related Data Home Medications Medication Instructions Recorded Confirmed glucosamine 375 mg-prhmyiuyn-qvv 1 tab PO DAILY 11/29/20 12/06/21 no1 500 mg-C 15 mg-ana 0.5 mg tablet (Cfabygseylq-Sjxmrhrmgce-YJH Complex) hydrochlorothiazide 50 mg tablet 0.5 tab PO DAILY 11/29/20 12/06/21 multivitamin 1 tab PO DAILY 11/29/20 12/06/21 potassium chloride 20 mEq 20 meq PO BEDTIME 04/19/21 12/06/21 tablet,extended release omeprazole 20 mg capsule,delayed 1 cap PO QAM 12/06/21 12/12/21 release aspirin 81 mg capsule mg 12/12/21 Previous Rx's Medication Instructions Recorded apixaban 5 mg tablet 5 mg PO BID #60 tabs 03/25/21 furosemide 20 mg tablet (Lasix) 20 mg PO DAILY #60 tabs 03/25/21 terazosin 10 mg capsule 10 mg PO BEDTIME 90 days #90 caps 04/19/21 Allergies Allergy/AdvReac Type Severity Reaction Status Date / Time Iodinated Contrast Media Allergy Intermediate VOMITING Verified 12/06/21 10:42 [IV Dye, Iodine Containing] Review of Systems Review of Systems: No fever no chills no chest pain or shortness of breath no nausea no vomiting Yes all other systems are reviewed and are negative [facility] Past Medical History Attestation statement: The following information was validated with the patient. Medical History Bilateral hip pain CHF (congestive heart failure) Constipation GERD (gastroesophageal reflux disease) History of kidney stones HTN (hypertension) Hx of aortic valve stenosis Hyperlipidemia Low back pain Surgical History Aortic valve replaced History of lithotripsy History of prostate surgery Hx of colonoscopy Hx of cystoscopy Social History Social History Are you a primary personal care aide to a significant other at home: No Do you presently have visiting nurse or other home services: No Patient Tobacco Use Status: Former Tobacco user Quit Date: 2018 Tobacco use type: Cigarette Advance Directives: No Advance Directives Information Provided: Yes Physical Exam Vital Signs: Vital Signs: Last Vital Signs Temp 97.8 F 12/19/21 22:08 Pulse 51 12/19/21 22:08 Resp 16 12/19/21 22:08 BP 137/53 L 12/19/21 22:08 Pulse Ox 96 12/19/21 22:08 O2 Del Method 12/19/21 22:08 BMI result Body Mass Index 28.1 Appearance: Alert. Oriented X3. No acute distress. positive abrasion contusion to the forehead Eyes: Pupils equal, round and reactive to light. ENT: Pharynx normal. Neck: Normal inspection. Neck supple. No lymph nodes noted. No crepitus. No posterior C-spine tenderness elicited C-spine immobilized secondary to distracting injury CVS: Normal heart rate and rhythm. Pulses normal. Normal S1 and S2 Respiratory: No respiratory distress. Breath sounds normal. No Wheezing. No rales. No chest wall tenderness elicited on palpation Abdomen: Soft and nontender. No rigidity. No distention. good BS x4 Skin: Skin warm and dry. Normal skin color. Normal skin turgor. Extremities: No lower extremity edema. Neurovascular intact to all extremities. No Lacerations. No Rash Neuro: Oriented X 3. No motor deficit. No sensory deficit. Moving all extermities. No slurred speech MDM - Head Injury MDM Narrative Medical decision making narrative: CT scan of the head and C-spine were both grossly negative for any acute evidence of bleeding. No fracture no malalignment. Patient's alcohol was approximately 100. Will discharge patient home to family. Currently in stable condition. Head injury precautions. Medical Records Attestation: I reviewed the patient's medical records. Lab Data Attestation: I reviewed the patient's lab results. Result diagrams: 12/19/21 21:34 12/19/21 21:34 Labs: Lab Results 12/19/21 12/19/21 12/19/21 Range/Units 21:34 21:34 21:34 WBC 9.3 (4.8-10.8) X10*3/uL RBC 4.59 L (4.60-5.80) X10*6/uL Hgb 14.0 (14.0-18.0) g/dl Hct 41.7 L (42.0-52.0) % MCV 90.8 (80.0-98.0) fL MCH 30.5 (27.0-33.0) pg MCHC 33.6 (31.0-36.0) g/dl RDW 14.6 (11.0-16.0) % Plt Count 192 (160-400) X10*3/uL MPV 10.6 (9.4-12.4) fL Immature Gran % (Auto) 0.8 H (0.0-0.4) % Neut % (Auto) 69.5 (45-73) % Lymph % (Auto) 22.2 (20-40) % Ponce % (Auto) 5.8 (2-11) % Eos % (Auto) 0.9 (0-4) % Baso % (Auto) 0.8 (0-2) % Lymph # (Auto) 2.1 (1.2-4.9) X10*3/uL Ponce # (Auto) 0.5 (0.1-1.2) X10*3/uL Eos # (Auto) 0.1 (0.0-0.4) X10*3/uL Baso # (Auto) 0.1 (0.0-0.2) X10*3/uL Abs Immat Gran (auto) 0.07 H (0.00-0.03) X10*3/uL Absolute Neuts (auto) 6.5 (2.0-8.3) x10*3/uL Absolute Nucleated RBC 0.000 (0.0-0.012) X10*3/uL Nucleated RBC % (auto) 0.0 (0.0-0.2) /100WBC Sodium 140 (135-145) mmol/L Potassium 3.1 L D (3.3-5.1) mmol/L Chloride 104 (96-108) mmol/L Carbon Dioxide 23 (22-29) mmol/L Anion Gap 16 (12-20) BUN 24 H (9-16) mg/dL Creatinine 1.03 (0.5-1.4) mg/dL Estim Creat Clear Calc 64.2 Estimated GFR > 60 Random Glucose 118 H (60-115) mg/dL Calcium 8.6 D (8.4-10.2) mg/dL Ethyl Alcohol 106 mg/dL Discharge Plan Discharge Clinical Impression: Head injury Patient Disposition: Home, Self-Care Instructions: Head Injury (ED), Alcohol Intoxication (ED) Prescriptions: No Action terazosin 10 mg capsule 10 mg PO BEDTIME 90 Days Qty: 90 3RF multivitamin Tablet 1 tab PO DAILY hydrochlorothiazide 50 mg tablet 0.5 tab PO DAILY Wvittsjpjbb-Dmorl-LVY Complex 806-947-86-0.5 mg Tablet 1 tab PO DAILY omeprazole 20 mg capsule,delayed release(DR/EC) 1 cap PO QAM aspirin 81 mg Capsule potassium chloride 20 mEq tablet extended release 20 meq PO BEDTIME furosemide [Lasix] 20 mg tablet 20 mg PO DAILY Qty: 60 3RF apixaban 5 mg tablet 5 mg PO BID Qty: 60 3RF Referrals: Physician,Unknown J [Primary Care Provider] - ( Please monitor patient carefully tonight. Any nausea vomiting change in mental status return to the emergency department.)
[2021-12-19 21:09] VITALS: BP 128/36; BP 154/62; PULSE 56; PULSE 64; RESP 19; TEMP 36.6; O2SAT 100; O2SAT 97; BMI 28.1
[2021-12-19 21:39] LABS: MANUAL DIFF FLAG NO
[2021-12-19 21:48] LABS: Basophils Absolute Auto 0.1 X10*3/uL (0.0-0.2); Basophils Percent Auto 0.8 % (0-2); Eosinophils Absolute Auto 0.1 X10*3/uL (0.0-0.4); Eosinophils Percent Auto 0.9 % (0-4); Hematocrit 41.7 % (42.0-52.0); Imm Gran Abs Auto 0.07 X10*3/uL (0.00-0.03); Imm Gran Pct Auto 0.8 % (0.0-0.4); Lymphocytes Absolute Auto 2.1 X10*3/uL (1.2-4.9); Lymphocytes Percent Auto 22.2 % (20-40); Mean Corpuscular HGB Conc 33.6 g/dl (31.0-36.0); Mean Corpuscular Hemoglobin 30.5 pg (27.0-33.0); Mean Corpuscular Volume 90.8 fL (80.0-98.0); Mean Platelet Volume 10.6 fL (9.4-12.4); Monocytes Absolute Auto 0.5 X10*3/uL (0.1-1.2); Monocytes Percent Auto 5.8 % (2-11); Neutrophils Absolute Auto 6.5 x10*3/uL (2.0-8.3); Neutrophils Percent Auto 69.5 % (45-73); Platelet Count 192 X10*3/uL (160-400); Red Blood Count 4.59 X10*6/uL (4.60-5.80); Red Cell Distribution Width 14.6 % (11.0-16.0); White Blood Count 9.3 X10*3/uL (4.8-10.8)
[2021-12-19 21:56] LABS: Anion Gap 16 (12-20); Blood Urea Nitrogen 24 mg/dL (9-16); Calcium 8.6 mg/dL (8.4-10.2); Carbon Dioxide 23 mmol/L (22-29); Chloride 104 mmol/L (96-108); Creatinine Clr Calc Pharmacy 64.2; Estimated Glomerular Filt Rate > 60; Glucose Random 118 mg/dL (60-115); Potassium 3.1 mmol/L (3.3-5.1); Sodium 140 mmol/L (135-145)
[2021-12-19 22:03] LABS: Ethanol 106 mg/dL
[2021-12-19 22:08] VITALS: BP 137/53; PULSE 51; RESP 16; TEMP 36.6; O2SAT 96
[2021-12-19] MEDS: Diphth,Pertus(ACell),Tet Adult 0.5 ML SYRINGE IM (23:25)
== END 2021-12-19 23:35 | disposition home or self-care (01) ==
PROVIDERS: Emergency Provider Emergency Medicine Emergency Medical Services
DX: S09.90XA Unspecified injury of head, initial encounter (principal); S00.81XA Abrasion of other part of head, initial encounter; I11.0 Hypertensive heart disease with heart failure; I50.9 Heart failure, unspecified; Z95.2 Presence of prosthetic heart valve; Z79.01 Long term (current) use of anticoagulants; W19.XXXA Unspecified fall, initial encounter; Y93.9 Activity, unspecified; Y92.9 Unspecified place or not applicable; Y99.9 Unspecified external cause status
CPT/HCPCS: 36415; 70450; 72125; 80048; 82077; 85025; 90471; 90715; 99283; 99284

== ENCOUNTER 2021-12-31 06:33 | Outpatient (REF) | payer MEDICARE, SELFPAY ==
[2021-12-31 11:47] LABS: Hematocrit 43.9 % (42.0-52.0); Hemoglobin 14.4 g/dl (14.0-18.0); Mean Corpuscular HGB Conc 32.8 g/dl (31.0-36.0); Mean Corpuscular Hemoglobin 30.4 pg (27.0-33.0); Mean Corpuscular Volume 92.6 fL (80.0-98.0); Platelet Count 223 X10*3/uL (160-400); Red Blood Count 4.74 X10*6/uL (4.60-5.80); Red Cell Distribution Width 14.5 % (11.0-16.0); White Blood Count 8.1 X10*3/uL (4.8-10.8)
[2021-12-31 12:14] LABS: Atypical Lymph Absolute Manual 0.3 x10*3/uL; Atypical Lymphs Percent Manual 4 % (0-6); Band Neutrophils Percent 0 % (3-5); Lymphocytes Absolute Manual 2.4 X10*3/uL (1.2-4.9); Lymphocytes Percent Manual 30 % (20-40); Monocytes Absolute Manual 0.2 X10*3/uL (0.1-1.2); Monocytes Percent Manual 2 % (2-11); Neutrophils Absolute Manual 5.2 X10*3/uL (2.0-8.3); Neutrophils Percent Manual 64 % (45-73)
[2021-12-31 12:17] LABS: Platelet Estimate NORMAL (NORMAL); Platelet Morphology Comment NORMAL; RBC Morphology NORMAL
[2021-12-31 12:29] LABS: Prostate Specific Antigen 1.44 ng/mL (<0.05-4.0)
[2021-12-31 12:39] LABS: Alanine Aminotransferase 25 U/L (0-40); Alkaline Phosphatase 89 U/L (39-117); Anion Gap 12 (12-20); Aspartate Amino Transferase 25 U/L (5-37); Bilirubin Total 0.8 mg/dL (0.0-1.0); Blood Urea Nitrogen 30 mg/dL (9-16); Calcium 8.8 mg/dL (8.4-10.2); Carbon Dioxide 28 mmol/L (22-29); Chloride 106 mmol/L (96-108); Cholesterol 201 mg/dL; Estimated Glomerular Filt Rate > 60; Glucose Fasting 116 mg/dL (60-99); HDL Cholesterol 35 mg/dL; LDL Cholesterol Calculated 140 mg/dl; Potassium 3.7 mmol/L (3.3-5.1); Sodium 142 mmol/L (135-145); Total Protein 6.2 g/dL (6.5-8.0); Triglycerides 132 mg/dL
[2021-12-31 13:37] LABS: Creatinine Urine 102.03 mg/dL
[2021-12-31 14:11] LABS: Microalbum/Creatinine Ratio Ur 14.7 ug/mg cr
== END 2021-12-31 06:34 | disposition home or self-care (01) ==
LOC: HO.HMGCLDS 06:33
PROVIDERS: PCP Internal Medicine Medical Oncology; Visit Provider Internal Medicine Medical Oncology
DX: Z12.5 Encounter for screening for malignant neoplasm of prostate (principal); I11.0 Hypertensive heart disease with heart failure; I50.9 Heart failure, unspecified; E78.5 Hyperlipidemia, unspecified; N40.0 Benign prostatic hyperplasia without lower urinary tract symptoms
CPT/HCPCS: 36415; 80053; 80061; 82043; 84153; 85007; 85025; 85027

== ENCOUNTER 2022-02-21 09:03 | Outpatient (REF) | payer MEDICARE, SELFPAY ==
[2022-02-21 12:21] LABS: Anion Gap 18 (12-20); Blood Urea Nitrogen 19 mg/dL (9-16); Calcium 9.1 mg/dL (8.4-10.2); Carbon Dioxide 25 mmol/L (22-29); Chloride 104 mmol/L (96-108); Estimated Glomerular Filt Rate > 60; Glucose Random 133 mg/dL (60-115); Potassium 4.8 mmol/L (3.3-5.1); Sodium 142 mmol/L (135-145)
== END 2022-02-21 09:04 | disposition home or self-care (01) ==
LOC: HO.HMGCLDS 09:03
PROVIDERS: PCP Internal Medicine Medical Oncology; Visit Provider Physician Assistant
DX: I10 Essential (primary) hypertension (principal)
CPT/HCPCS: 36415; 80048

== ENCOUNTER 2022-03-31 09:48 | Outpatient (REF) | payer MEDICARE, SELFPAY ==
--- NOTE | ~2022-03-31 | US_ITS ---
EXAMINATION: US RETROPERITONEAL LIMITED (RENAL ONLY) CLINICAL INFORMATION: Calculus of kidney. COMPARISON: Ultrasound renal 01/28/2021. Ultrasound renal cyst only 01/23/2020. TECHNIQUE: Real-time imaging of the kidneys. FINDINGS: RIGHT KIDNEY: 11.7 x 4.9 x 5.7 cm (SAG x AP x TRV). The kidney is normal in size, contour, and echogenicity. Renal cortical thickness is normal. No renal calculi or hydronephrosis. There is anechoic cyst lower pole measuring 1.3 x 1.1 x 1.4 cm LEFT KIDNEY: 12.2 x 5.7 x 5.6 cm (SAG x AP x TRV). The kidney is normal in size, contour, and echogenicity. Renal cortical thickness is normal. No renal calculi or hydronephrosis. There are several anechoic cysts. Lower pole cysts measure 2.3 x 2.6. 2.2 cm and 0.9 x 0.9 x 1.1 cm. The midpole cyst measures 1.2 x 1.2 x 1.1 cm and 0.6 x 0.6 x 0.5 cm. US/US renal BI IMPRESSION: Multiple left renal and a solitary right renal simple cyst. There are no echogenic renal calculi or hydronephrosis.
== END 2022-03-31 09:49 | disposition home or self-care (01) ==
LOC: HO.HMGCX 09:48
PROVIDERS: PCP Internal Medicine Medical Oncology; Visit Provider Urology
DX: N20.0 Calculus of kidney (principal)
CPT/HCPCS: 76775

== ENCOUNTER 2022-05-01 09:22 | Inpatient (IN) | payer MEDICARE, SELFPAY ==
--- NOTE | 2022-05-01 | ECG_ITS ---
Test Reason : cp Blood Pressure : / mmHG Vent. Rate : 069 BPM Atrial Rate : 000 BPM P-R Int : 000 ms QRS Dur : 132 ms QT Int : 474 ms P-R-T Axes : 000 063 -05 degrees QTc Int : 507 ms Atrial fibrillation with premature ventricular or aberrantly conducted complexes Right bundle branch block Abnormal ECG When compared with ECG of 24-JUL-2011 11:32, Atrial fibrillation has replaced Sinus rhythm Right bundle branch block is now Present Referred By: Saulo Lara Electronically Signed By:BRANDO FRANCOIS MD
--- NOTE | ~2022-05-01 | CT_ITS ---
EXAMINATION: CT ABDOMEN AND PELVIS WITHOUT CONTRAST CLINICAL INFORMATION: Hematuria. History of colic. Evaluate for stone or mass. COMPARISON: Renal ultrasound 03/31/2022. CT performed 10/29/2011 TECHNIQUE: Multidetector volumetric imaging was performed from the superior aspect of the liver through the pubic symphysis. Sagittal and coronal reformatted images were obtained on the technologist's workstation. This CT examination was performed using dose optimization techniques as appropriate, variously including the following: *Automated exposure control *Adjustment of mA and/or kV according to patient size (this includes techniques or standardized protocols for targeted exams where dose is matched to indication/reason for exam; i.e. extremities or head) *Use of iterative reconstruction technique DLP: 597 mGy-cm FINDINGS: LUNG BASES: The visualized lung bases are unremarkable. LIVER, GALLBLADDER, AND BILIARY TREE: The liver is normal in size, shape, and attenuation. Redemonstration of a cyst in the left lobe of the liver along the falciform. No solid hepatic lesion or biliary ductal dilatation is present. The gallbladder is unremarkable with no evidence of radiopaque gallstones, gallbladder wall thickening, or obvious pericholecystic inflammatory changes. PANCREAS: Unremarkable. SPLEEN: Unremarkable. ADRENAL GLANDS: Bilateral adrenal gland thickening with no focal nodule. KIDNEYS AND URETERS: The kidneys are normal in size, shape, and attenuation. No hydronephrosis or hydroureter. Simple cysts of both kidneys for which no specific follow-up is recommended. 0.3 cm left lower pole renal calculus is 12 cm from the posterior axillary line. BLADDER: Abnormal appearance of the bladder. Multiple bladder diverticula. Within the bladder lumen there is a hyperattenuating lobulated structure measuring 6 x 4.3 x 5.2 cm. GASTROINTESTINAL TRACT: The stomach is unremarkable. Normal caliber small bowel. No obstruction. No colonic wall thickening or acute inflammation. Normal appendix. No free air or free fluid. ABDOMINAL WALL: Prior ventral abdominal wall hernia repair with mesh. Small fat-containing left inguinal hernia. LYMPH NODES: Normal. VASCULAR: Normal caliber aorta with moderate atherosclerotic vascular calcification. PELVIC VISCERA: Enlarged prostate measuring 5.5 cm transverse. The seminal vesicles are unremarkable. OSSEOUS STRUCTURES: No acute or suspicious osseous abnormality. Degenerative changes throughout the spine. Vacuum disc phenomenon throughout the lumbar spine. CT/CT abdomen pelvis wo IV con IMPRESSION: 1. Abnormal appearance of the bladder. Hyperattenuating lobulated structure within the bladder lumen. This could represent blood products. Cannot exclude a bladder mass. Consider cystoscopy. 2. Nonobstructing left lower pole renal calculus. Fleischner guidelines were followed.
[2022-05-01 09:56] VITALS: BP 145/57; PULSE 50; RESP 18; O2SAT 98; BMI 28.1
[2022-05-01 10:10] LABS: MANUAL DIFF FLAG NO
[2022-05-01 10:15] LABS: Basophils Absolute Auto 0.1 X10*3/uL (0.0-0.2); Basophils Percent Auto 0.9 % (0-2); Eosinophils Percent Auto 0.4 % (0-4); Hematocrit 46.1 % (42.0-52.0); Hemoglobin 15.2 g/dl (14.0-18.0); Imm Gran Abs Auto 0.04 X10*3/uL (0.00-0.03); Imm Gran Pct Auto 0.5 % (0.0-0.4); Lymphocytes Absolute Auto 1.4 X10*3/uL (1.2-4.9); Lymphocytes Percent Auto 16.6 % (20-40); Mean Corpuscular Hemoglobin 30.1 pg (27.0-33.0); Mean Corpuscular Volume 91.3 fL (80.0-98.0); Mean Platelet Volume 9.7 fL (9.4-12.4); Monocytes Absolute Auto 0.4 X10*3/uL (0.1-1.2); Monocytes Percent Auto 4.8 % (2-11); Neutrophils Absolute Auto 6.5 x10*3/uL (2.0-8.3); Neutrophils Percent Auto 76.8 % (45-73); Platelet Count 196 X10*3/uL (160-400); Red Blood Count 5.05 X10*6/uL (4.60-5.80); Red Cell Distribution Width 15.7 % (11.0-16.0); White Blood Count 8.5 X10*3/uL (4.8-10.8)
[2022-05-01 10:28] LABS: Anion Gap 16 (12-20); Blood Urea Nitrogen 25 mg/dL (9-16); Calcium 9.4 mg/dL (8.4-10.2); Carbon Dioxide 22 mmol/L (22-29); Chloride 106 mmol/L (96-108); Creatinine Clr Calc Pharmacy 77.8; Estimated Glomerular Filt Rate > 60; Glucose Random 121 mg/dL (60-115); Potassium 4.4 mmol/L (3.3-5.1); Sodium 140 mmol/L (135-145)
[2022-05-01 10:32] LABS: Appearance Urine Turbid; Color Urine RED; Glucose Urine UA 100 mg/dL (Negative); Nitrite Urine Positive (Negative); PH 6.5 (5.0-9.0); Specific Gravity - Urine 1.025 (1.005-1.025); UMIC TRIGGER UACC YES; Urine Blood Large (3+) (Negative); Urine Ketones Trace mg/dL (Negative); Urine Protein 100 (2+) mg/dL (Neg-Trace)
[2022-05-01 10:34] LABS: Leukocyte Esterase Urine Trace (Negative)
[2022-05-01 10:36] LABS: UACC Culture Trigger YES; WBC Urine 21-50 /HPF (0-5)
[2022-05-01 10:37] LABS: Bacteria Urine None Seen (None Seen); RBC Urine >20 /HPF (0-2)
[2022-05-01 10:44] VITALS: BP 139/44; PULSE 54; RESP 20; TEMP 36.9; O2SAT 96
--- OUTSIDE RECORDS SUMMARY | 2022-05-01 10:50 | XMS_ITS | Continuity of Care Document ---
:1940 Author Organization [facility] Address [address] [phone]- Care Team Providers Name Role Phone Scott Hays MD Primary Care Physician Encounter [facility] [place] Date(s): 10/28/21 - 03/14/[address] [address] Encounter Diagnosis Nonrheumatic aortic valve disorder, unspecified (Final) - Discharge Disposition: A-D/C Home Attending Physician: Jd Rodriguez MD Admitting Physician: Jd Rodriguez MD Referring Physician: Jd Rodriguez MD Allergies, Adverse Reactions, Alerts Substance Reaction Severity Status Contrast Dye Active Medications acetaminophen 325 mg oral tablet 650 mg, By Mouth, Every 8 hours, PRN, Refills 0, Maintenance, Pain , Mild, 10/03/21 13:41:00 EDT, Partial fill upon patient request if the prescription is for a schedule II opioid drug. Start Date: 10/03/21 Status: Orderedapixaban 5 mg oral tablet 1 tablet = 5 mg, By Mouth, 2 times a day, # 60 tablet, 0 Refills, Maintenance, 05/01/21 9:18:00 EDT,Tablet, Partial fill upon patient request if the prescription is for a schedule II opioid drug. Start Date: 05/01/21 Status: Orderedaspirin 81 mg oral capsule = 81 mg, By Mouth, Daily, # 30 capsule, 0 Refills, Maintenance, 10/03/21 13:40:00 EDT, Capsule, [facility], Partial fill upon patient request if the prescription is for a schedule II opioid drug., 178, cm, 10/03/21 13:18:00 EDT, Height,... Start Date: 10/03/21 Status: Orderedfurosemide 40 mg oral tablet 40 mg, 1, tablet, By Mouth, Daily, Refills 0, Maintenance, 05/01/21 9:20:00 EDT, Partial fill upon patient request if the prescription is for a schedule II opioid drug. Start Date: 05/01/21 Status: Orderedglucosamine 500 mg oral capsule 1 capsule = 500 mg, By Mouth, Daily, # 90 capsule, 0 Refills, Maintenance, 05/01/21 9:19:00 EDT, Capsule, Partial fill upon patient request if the prescription is for a schedule II opioid drug. Start Date: 05/01/21 Status: Orderedhydrochlorothiazide 25 mg oral tablet 25 mg, 1, tablet, By Mouth, Daily, Refills 0, Maintenance, 05/01/21 9:20:00 EDT, Partial fill upon patient request if the prescription is for a schedule II opioid drug. Start Date: 05/01/21 Status: OrderedMultivitamin Daily, 1 tablet daily, 0 Refills, Maintenance, 05/01/21 9:21:00 EDT, Partial fill upon patient request if the prescription is for a schedule II opioid drug. Start Date: 05/01/21 Status: Orderedpotassium citrate 10 mEq oral tablet 1 tablet = 10 mEq, By Mouth, Daily, 0 Refills, Maintenance, 05/01/21 9:21:00 EDT, Partial fill upon patient request if the prescription is for a schedule II opioid drug. Start Date: 05/01/21 Status: Orderedterazosin 10 mg oral capsule 10 mg, 1, capsule, By Mouth, Daily at bedtime, Refills 0, Maintenance, 05/01/21 9:22:00 EDT, Partialfill upon patient request if the prescription is for a schedule II opioid drug. Start Date: 05/01/21 Status: Ordered Problem List Condition Effective Dates Status Health Status Informant Obese class I(Confirmed) Active Care Team PersonnelName: Scott Hays MD Address: [address] [place] [address] [address] [place], [place] [address]
--- OUTSIDE RECORDS SUMMARY | 2022-05-01 10:50 | XMS_ITS | Continuity of Care Document ---
:1940 Author Organization [facility] Address [address] [place] [phone]- Care Team Providers Name Role Phone Lis CHAIREZ, Scott Jordan Primary Care Physician Encounter [facility] [place] Date(s): 04/09/21 - 05/14/[address] [address] Attending Physician: Joe Wesley MD Admitting Physician: Joe Wesley MD Allergies, Adverse Reactions, Alerts Substance Reaction Severity Status Contrast Dye Active Medications apixaban 5 mg oral tablet 1 tablet = 5 mg, By Mouth, 2 times a day, # 60 tablet, 0 Refills, Maintenance, 05/01/21 9:18:00 EDT,Tablet, Partial fill upon patient request if the prescription is for a schedule II opioid drug. Start Date: 05/01/21 Status: Orderedfamotidine 20 mg oral tablet 20 mg, 1, tablet, By Mouth, 2 times a day, take 1 tablet morning prior to scheduled CTA scan. Take next tablet in the evening prior to scheduled CTA exam. Take last tablet morning of scheduled CTA exam., # 3 tablet, Refills 0, Tot. Refills 0, Maintena... Start Date: 05/14/21 Status: Orderedfurosemide 40 mg oral tablet 40 [...] II opioid drug. Start Date: 05/01/21 Status: OrderedpredniSONE 50 mg oral tablet 1 tablet = 50 mg, By Mouth, 2 times a day, take 1 tablet morning prior to scheduled CTA scan. Take next tablet in the evening prior to scheduled CTA exam. Take last tablet morning of scheduled CTA exam., # 3 tablet, 0 Refills, Maintenance, 05/14/21 10... Start Date: 05/14/21 Status: Orderedterazosin 10 mg oral capsule 10 mg, 1, capsule, By Mouth, Daily at bedtime, Refills 0, Maintenance, 05/01/21 9:22:00 EDT, Partialfill upon patient request if the prescription is for a schedule II opioid drug. Start Date: 05/01/21 Status: Ordered
--- OUTSIDE RECORDS SUMMARY | 2022-05-01 10:50 | XMS_ITS | Continuity of Care Document ---
:1940 Author Organization [facility] Address [address] [place] [phone]- Care Team Providers Name Role Phone Lis CHAIREZ, Scott Jordan Primary Care Physician [place] [facility] [place] - 04/09/[address] [address] Discharge Disposition: A-D/C Home Attending Physician: Joe Wesley MD Admitting Physician: Joe Wesley MD Referring Physician: Joe Wesley MD
--- OUTSIDE RECORDS SUMMARY | 2022-05-01 10:50 | XMS_ITS | Continuity of Care Document ---
:1940 Author Organization [facility] Address [address] [place] [address]- Care Team Providers Name Role Phone Scott Hays MD Primary Care Physician [place] [facility] [place](s[place] 10/22/21 - 11/21/21 [facility] [address] [place] [id number]- Allergies, Adverse Reactions, Alerts Substance Reaction Severity [...]
--- OUTSIDE RECORDS SUMMARY | 2022-05-01 10:50 | XMS_ITS | Continuity of Care Document ---
:1940 Author Organization [facility] Address [address] [place] [address]- Care Team Providers Name Role Phone Lis CHAIREZ, Scott Jordan Primary Care Physician [place] [facility] [place] 10/03/[address] [id number] Discharge Disposition: A-D/C Home Attending Physician: Felecia CHAIREZ, Abdirahman Hussein Admitting Physician: Ernesto Patel MD Referring Physician: Jennifer CHAIREZ, Jd Ramos Allergies, Adverse Reactions, Alerts Substance Reaction Severity [...] Health Status Informant Obese class I(Confirmed) Active Results Radiology Reports Exam Date Time Procedure Performing Provider Status 10/03/21 6:17 AM Chest Portable Chago Rodas; Auth (Verified) Notes:(Chest Portable) Reason For Exam: S/P TAVR;PostopRESULT: Chest Portable Chest Portable Reason: Postop TAVR; Clinical Question(s): Cardiac Tamponade COMPARISON: Chest radiograph 10/02/2021 FINDINGS: LINES AND TUBES: None. LUNGS AND PLEURA: Improving aeration of the right lung base without significant effusion or atelectasis bilaterally. No pneumothorax. HEART, MEDIASTINUM AND EMILIANO: Mild to moderate cardiomegaly unchanged.. TAVR prosthesis in place. Normal upper mediastinal and hilar contour. BONES AND SOFT TISSUES: No acute abnormality. IMPRESSION: Mild to moderate persistent cardiomegaly. Status post TAVR. I have personally reviewed the images and I agree with this report. WSN: [id number] Ordering Physician: Tani Cobian Dictated By: Piyush Decker DO Dictated Date/Time: 10/03/21 10:22 a Reviewed By: Christopher Christopher MD, V Signed By: Christopher Christopher MD, V Signed Date/Time: 10/03/21 10:27 am Transcribed By: DONALD Transcribed Date/Time: 10/03/21 10:00 am Exam Date Time Procedure Performing Provider Status 10/02/21 9:52 AM Chest Portable April Cabrera; Ronan (Verif ied) Notes:(Chest Portable) Reason For Exam: Other:RESULT: Chest Portable Chest Portable INDICATION: Postop / Postop COMPARISON: None. FINDINGS: LINES AND TUBES: None. LUNGS AND PLEURA: Mild blunting of the right costophrenic angle. Left lung and pleural space are clear. No pneumothorax. HEART, MEDIASTINUM AND EMILIANO: Mild prominence of the cardiac silhouette. Status post TAVR. BONES AND SOFT TISSUES: No acute abnormality. IMPRESSION: Mild right basilar atelectasis and/or small pleural effusion. WSN: [id number] Ordering Physician: Jd Rodriguez Dictated By: Johnathan Wong MD Dictated Date/Time: 10/02/21 12:32 p Reviewed By: Johnathan Wong MD Signed By: Johnathan Wong MD Signed Date/Time: 10/02/21 12:32 pm Transcribed By: DONALD Transcribed Date/Time: 10/02/21 12:31 pm Vital Signs Most recent to oldest [Reference 1 2 3 Range]: Height 178 cm 178 cm 178 cm (10/03/21 1:18 PM) (10/03/21 7:15 AM) (10/03/21 4:20 A M) Weight 95.8 kg 96.6 kg 96.6 kg (10/03/21 6:34 AM) (10/02/21 7:18 AM) (10/02/21 7:16 A M) Oxygen Saturation [94-100 %] 97 % 98 % 94 % (10/03/21 1:18 PM) (10/03/21 7:15 AM) (10/03/21 4:20 A M) Pulse Rate [55-90 bpm] 52 bpm 78 bpm 46 bpm *L* (10/03/21 7:15 AM) *L* (10/03/21 1:18 PM) (10/03/21 4:20 AM ) Body Mass Index [18.5-24.99] 30.49 *>HHI* (10/02/21 7:18 AM) Blood Pressure [90-138/55-84 mm 164/61 mm Hg 164/53 mm Hg 146/57 mm Hg Hg] *H* *H* *H* (10/03/21 1:18 PM) (10/03/21 7:15 AM) (10/03/21 4:20 A M) Respiratory Rate [16-30 br/min] 18 br/min 18 br/min 18 br/min (10/03/21 1:18 PM) (10/03/21 7:15 AM) (10/03/21 12:17 AM) Temperature [96.8-100.4 DegF] 97.9 DegF 97.6 DegF 97 .7 DegF (10/03/21 1:18 PM) (10/03/21 7:15 AM) (10/03/21 4:20 A M) Mode of Delivery (Oxygen) Room air Room air Room a ir (10/03/21 1:18 PM) (10/03/21 7:15 AM) (10/03/21 4:20 A M) Blood pressure sites Arm, right Arm, right Arm, right (10/03/21 1:18 PM) (10/03/21 7:15 AM) (10/03/21 4:20 A M) Temperature Route Oral Oral Oral (10/03/21 1:18 PM) (10/03/21 7:15 AM) (10/03/21 12:17 AM) Weight Obtained Via Bed scale Standing scale (10/03/21 6:34 AM) (10/02/21 7:16 AM)
--- OUTSIDE RECORDS SUMMARY | 2022-05-01 10:50 | XMS_ITS | Continuity of Care Document ---
:1940 Author Organization [facility] Address [address] [place] [phone]- Care Team Providers Name Role Phone Scott Hays MD Primary Care Physician [place] [facility] [place] [facility] [address] [place] [id number] Attending Physician: Lauren Hobbs Admitting Physician: Lauren Hobbs Referring Physician: AdmtrLauren Allergies, Adverse Reactions, Alerts Substance Reaction Severity [...] tablet, By Mouth, 2 times a day, 07/02/21 take 1 tablet morning 07/02/21 take 1 tablet evening07/03/21 take 1 tablet morning before coming to the hospital for your procedure., # 3 tablet, Refills 0, Tot. Refills 0, Maintenance, 06/14/21 15:28:... Start Date: 06/14/21 Status: Orderedfurosemide 40 mg oral tablet 40 [...] mg, By Mouth, 2 times a day, 07/02/21 take 1 tablet morning 07/02/21 take 1 tablet evening07/03/21 take 1 tablet morning before coming to the hospital for your procedure., # 3 tablet, 0 Refills, Maintenance, 06/14/21 15:28:00 EST, [facility]... Start Date: 06/14/21 Status: Orderedterazosin 10 mg oral capsule 10 mg, 1, capsule, By Mouth, Daily at bedtime, Refills 0, Maintenance, 05/01/21 9:22:00 EDT, Partialfill upon patient request if the prescription is for a schedule II opioid drug. Start Date: 05/01/21 Status: Ordered
--- OUTSIDE RECORDS SUMMARY | 2022-05-01 10:50 | XMS_ITS | Continuity of Care Document ---
:1940 Author Organization [facility] Address [address] [place] [id number]- Care Team Providers Name Role Phone Lis CHAIREZ, Scott Jordan Primary Care Physician Encounter [facility] [place] Date(s): 06/13/21 - 07/26/[address] [id number] Attending Physician: Abdirahman Izquierdo MD Referring Physician: Jd Rodriguez MD Allergies, [...]
--- OUTSIDE RECORDS SUMMARY | 2022-05-01 10:50 | XMS_ITS | Continuity of Care Document ---
:1940 Author Organization [facility] Address [address] [place] [id number]- Care Team Providers Name Role Phone Lis CHAIREZ, Scott Jordan Primary Care Physician Encounter [facility] [place] Date(s): 05/01/21 - 05/01/[address] [address]- Discharge Disposition: A-D/C Home Attending Physician: Jd Rodriguez MD Admitting Physician: Jd Rodriguez MD Referring Physician: Zulema Tracy MD Allergies, Adverse Reactions, Alerts Substance Reaction Severity Status Contrast Dye Active Medications apixaban 5 mg oral tablet 1 tablet = 5 mg, By Mouth, 2 times a day, # 60 tablet, 0 Refills, Maintenance, 05/01/21 9:18:00 EDT,Tablet, Partial fill upon patient request if the prescription is for a schedule II opioid drug. Start Date: 05/01/21 Status: Orderedfurosemide 40 mg oral tablet 40 [...] opioid drug. Start Date: 05/01/21 Status: Ordered Vital Signs Most recent to oldest 1 2 3 [Reference Range]: Height 178 cm 178 cm (05/01/21 7:45 AM) (05/01/21 7:45 AM) Weight 101.9 kg 101.9 kg (05/01/21 7:45 AM) (05/01/21 7:45 AM) Oxygen Saturation [94-100 %] 96 % 95 % 96 % (05/01/21 3:00 PM) (05/01/21 2:30 PM) (05/01/21 2:1 5 PM) Pulse Rate [55-90 bpm] 64 bpm (05/01/21 7:45 AM) Body Mass Index [18.5-24.99] 32.16 *>HHI* (05/01/21 7:45 AM) Blood Pressure [90-138/55-84 mm 138/46 mm Hg 132/59 mm Hg 123/40 mm Hg Hg] (05/01/21 3:30 PM) (05/01/21 3:00 PM) (05/01/21 2:3 0 PM) Respiratory Rate [16-30 br/min] 24 br/min 19 br/min 20 br/min (05/01/21 3:30 PM) (05/01/21 3:00 PM) (05/01/21 2:3 0 PM) Temperature [96.8-100.4 DegF] 97.6 DegF (05/01/21 7:45 AM) Mode of Delivery (Oxygen) Room air Room air Room a ir (05/01/21 3:00 PM) (05/01/21 2:30 PM) (05/01/21 2:1 5 PM) Blood pressure sites Arm, left Arm, left Arm, left (05/01/21 3:00 PM) (05/01/21 2:30 PM) (05/01/21 2:1 5 PM) Temperature Route Temporal (05/01/21 7:45 AM) Dry Weight 101.9 kg 101.9 kg (05/01/21 7:45 AM) (05/01/21 7:45 AM) Weight Obtained Via Standing scale Standing scale (05/01/21 7:45 AM) (05/01/21 7:45 AM) Dry Weight Obtained Via Standing scale Standing scale (05/01/21 7:45 AM) (05/01/21 7:45 AM)
--- NOTE | 2022-05-01 11:06 | ED_ITS ---
HPI - Male Genitourinary General Chief complaint: Urogenital-Male Stated complaint: Urine in Blood Time Seen by Provider: 05/01/22 10:34 Source: patient Mode of arrival: ambulatory Limitations: no limitations History of Present Illness HPI Narrative: Is an 81-year-old male with a history of renal colic, congestive heart failure, AFib, aortic valve replacement on Eliquis who presents with hematuria for 2 days. Patient reports some slight discomfort with urination but no associated back pain, abdominal pain, fever or vomiting. Patient held his Eliquis and aspirin last night as well as this morning. He reports he has had history of intermittent hematuria in the past seen by Urology. He has had cystoscopies. No history of prostate cancer or bladder cancer. Patient did have a prostate procedure will 15 yrs ago in which they shaved his prostate. Related Data Home Medications Medication Instructions Recorded Confirmed glucosamine 375 ut-tmbdunryd-iwz 1 tab PO DAILY 11/29/20 12/06/21 no1 500 mg-C 15 mg-ana 0.5 mg tablet (Fczhnyocaiv-Wdgpaonmnno-AMI Complex) hydrochlorothiazide 50 mg tablet 0.5 tab PO DAILY 11/29/20 12/06/21 multivitamin 1 tab PO DAILY 11/29/20 12/06/21 potassium chloride 20 mEq 20 meq PO BEDTIME 04/19/21 12/06/21 tablet,extended release omeprazole 20 mg capsule,delayed 1 cap PO QAM 12/06/21 12/12/21 release aspirin 81 mg capsule mg 12/12/21 Previous Rx's Medication Instructions Recorded apixaban 5 mg tablet 5 mg PO BID #60 tabs 03/25/21 furosemide 20 mg tablet (Lasix) 20 mg PO DAILY #60 tabs 03/25/21 terazosin 10 mg capsule 10 mg PO BEDTIME 90 days #90 caps 04/19/21 Allergies Allergy/AdvReac Type Severity Reaction Status Date / Time Iodinated Contrast Media Allergy Intermediate VOMITING Verified 12/06/21 10:42 [IV Dye, Iodine Containing] Review of Systems Review of Systems: Yes all other systems are reviewed and are negative Constitutional: Constitutional: Reports no additional constitutional complaints, Denies body ache(s), Denies chills, Denies fever(s), Denies headache(s) and Denies weakness Eyes: Eyes: Reports no additional eye complaints and Denies change in vision ENT: Reports system reviewed and no additional complaints, except as documented, Denies dizziness, Denies headache(s), Denies nasal congestion, Denies nasal discharge and Denies neck pain Cardiovascular: Cardiovascular: Reports no additional cardiovascular complaints, Denies chest pain, Denies leg edema and Denies dyspnea Respiratory: Respiratory: Reports no additional respiratory complaints, Denies cough and Denies dyspnea Gastrointestinal: Gastrointestinal: Reports no additional gastrointestinal complaints, Denies abdominal pain, Denies diarrhea, Denies nausea and Denies vomiting Genitourinary: Genitourinary: Reports hematuria, Reports dysuria, Denies flank pain, Denies testicular mass, Denies testicular pain, Denies urinary hesitancy, Denies urinary incontinence and Denies urinary urgency Musculoskeletal: Musculoskeletal: Reports no additional musculoskeletal complaints, Denies back pain, Denies arthralgias, Denies joint swelling, Denies neck pain, Denies numbness and Denies tingling Integumentary/Breasts: Skin/Breast: Reports system reviewed and no additional complaints, except as docu and Denies rash Neurologic: Reports system reviewed and no additional complaints, except as documented, Denies Abnormal speech present, Denies dizziness, Denies headache(s), Denies numbness, Denies tingling and Denies weakness PMFSH Past Medical History Attestation statement: The following information was validated with the patient. Source: old records reviewed and nursing notes reviewed Medical History Bilateral hip pain BPH (benign prostatic hyperplasia) CHF (congestive heart failure) Constipation GERD (gastroesophageal reflux disease) History of kidney stones HTN (hypertension) Hx of aortic valve stenosis Hyperlipidemia Low back pain Surgical History Aortic valve replaced History of lithotripsy History of prostate surgery Hx of colonoscopy Hx of cystoscopy Social History Social History Are you a primary acute care certified nursing assistant to a significant other at home: No Do you presently have visiting nurse or other home services: No Patient Tobacco Use Status: Former Tobacco user Quit Date: 2018 Tobacco use type: Cigarette Advance Directives: No Physical Exam Vital Signs: Vital Signs: Last Vital Signs Temp 98.1 F 05/01/22 12:10 Pulse 43 L 05/01/22 13:51 Resp 20 05/01/22 13:51 BP 129/43 L 05/01/22 13:51 Pulse Ox 99 05/01/22 13:51 O2 Del Method 05/01/22 13:51 BMI result Body Mass Index 28.1 Const: General: cooperative, healthy appearing, comfortable and no acute distress Orientation/consciousness: patient oriented x3 Limitations: no limitations HEENT: Head: Yes normal to inspection Ears: hearing grossly normal bilaterally General nose exam: Normal external nose present Face and sinus: Yes normal facial exam Mouth: Normal oral and palatal mucosa present Throat: Yes posterior oropharynx normal Eyes: General: appearance normal, both eyes and all related structures Pupils: Equal, round and reactive pupils present Neck: Neck: Yes normal visual inspection Chest: Chest palpation & inspection: normal inspection of the chest Resp: Effort & Inspection: normal respiratory effort Auscultation: clear to auscultation bilaterally Cardio: Rate: regular rate Rhythm: regular rhythm Peripheral pulses: Peripheral pulses 2+ throughout GI: Inspection: Yes normal to inspection Palpation (GI): Soft to palpation and nontender Auscultation: normal bowel sounds : General: Yes no CVA tenderness Back/Spine/Pelvis: Back: no CVA tenderness Thoracic/Lumbar Spine: thoracic and lumbar spine normal to inspection Skin: General skin exam: no rashes or lesions noted Neuro: General: patient oriented x3, no focal motor deficits and normal sensation to monofilament Cranial nerves: Yes Equal, round and reactive pupils present Cognition (Neuro): normal cognition Speech: No Abnormal speech present Gait exam (Neuro): Normal gait present Motor exam (neuro): 5/5 motor strength present throughout Extrem: General: Yes normal to inspection Course Course Course Narrative: CT is negative for renal colic. There are some blood clots and products seen within the bladder. No other acute finding on CT scan. Patient has been irrigating with CBI for 5 hours. Patient continues with gross hematuria. Patient is on Eliquis and aspirin. Will consult Urology. Anticipate admission for observation Consultations Consultation #1: Spoke to Urology. Plan for cystoscopy tomorrow. Should consult Medicine for admission Consultation #2: Dr Villa will admit MDM - Male Genitourinary MDM Narrative Medical decision making narrative: 81-year-old male here with gross hematuria with some slight dysuria for the last 2 days. No flank pain, abdominal pain, fever or vomiting. Urine from triage is grossly bloody and also appears infected. Patient will need labs, blood cultures, lactic acid. Patient history of renal colic. No no reports of flank or abdominal pain however will check CT abdomen pelvis without contrast. Patient will have a Portillo catheter place with CBI for irrigation Medical Records Attestation: I reviewed the patient's medical records. Lab Data Attestation: I reviewed the patient's lab results. Result diagrams: 05/01/22 10:06 05/01/22 10:06 Labs: Lab Results 05/01/22 05/01/22 05/01/22 Range/Units 10:06 10:06 10:13 WBC 8.5 (4.8-10.8) X10*3/uL RBC 5.05 (4.60-5.80) X10*6/uL Hgb 15.2 (14.0-18.0) g/dl Hct 46.1 (42.0-52.0) % MCV 91.3 (80.0-98.0) fL MCH 30.1 (27.0-33.0) pg MCHC 33.0 (31.0-36.0) g/dl RDW 15.7 (11.0-16.0) % Plt Count 196 (160-400) X10*3/uL MPV 9.7 (9.4-12.4) fL Immature Gran % (Auto) 0.5 H (0.0-0.4) % Neut % (Auto) 76.8 H (45-73) % Lymph % (Auto) 16.6 L (20-40) % [place] % (Auto) 4.8 (2-11) % Eos % (Auto) 0.4 (0-4) % Baso % (Auto) 0.9 (0-2) % Lymph # (Auto) 1.4 (1.2-4.9) X10*3/uL [place] # (Auto) 0.4 (0.1-1.2) X10*3/uL Eos # (Auto) 0.0 (0.0-0.4) X10*3/uL Baso # (Auto) 0.1 (0.0-0.2) X10*3/uL Abs Immat Gran (auto) 0.04 H (0.00-0.03) X10*3/uL Absolute Neuts (auto) 6.5 (2.0-8.3) x10*3/uL Absolute Nucleated RBC 0.000 (0.0-0.012) X10*3/uL Nucleated RBC % (auto) 0.0 (0.0-0.2) /100WBC Sodium 140 (135-145) mmol/L Potassium 4.4 (3.3-5.1) mmol/L Chloride 106 (96-108) mmol/L Carbon Dioxide 22 (22-29) mmol/L Anion Gap 16 (12-20) BUN 25 H (9-16) mg/dL Creatinine 0.85 (0.5-1.4) mg/dL Estim Creat Clear Calc 77.8 Estimated GFR > 60 Random Glucose 121 H (60-115) mg/dL Lactic Acid (0.5-2.0) mmol/L Calcium 9.4 (8.4-10.2) mg/dL Urine Color RED Urine Appearance Turbid Urine pH 6.5 (5.0-9.0) Ur Specific [place] 1.025 (1.005-1.025) Urine Protein 100 (2+) H (Neg-Trace) mg/dL Urine Glucose (UA) 100 H (Negative) mg/dL Urine Ketones Trace (Negative) mg/dL Urine Blood Large (3+) H (Negative) Urine Nitrite Positive H (Negative) Ur Leukocyte Esterase Trace H (Negative) Urine RBC >20 H (0-2) /HPF Urine WBC 21-50 (0-5) /HPF Ur Squamous Epith Cells Not Reportable Urine Bacteria None Seen (None Seen) Hyaline Casts Not Reportable 05/01/22 Range/Units 11:00 WBC (4.8-10.8) X10*3/uL RBC (4.60-5.80) X10*6/uL Hgb (14.0-18.0) g/dl Hct (42.0-52.0) % MCV (80.0-98.0) fL MCH (27.0-33.0) pg MCHC (31.0-36.0) g/dl RDW (11.0-16.0) % Plt Count (160-400) X10*3/uL MPV (9.4-12.4) fL Immature Gran % (Auto) (0.0-0.4) % Neut % (Auto) (45-73) % Lymph % (Auto) (20-40) % [place] % (Auto) (2-11) % Eos % (Auto) (0-4) % Baso % (Auto) (0-2) % Lymph # (Auto) (1.2-4.9) X10*3/uL [place] # (Auto) (0.1-1.2) X10*3/uL Eos # (Auto) (0.0-0.4) X10*3/uL Baso # (Auto) (0.0-0.2) X10*3/uL Abs Immat Gran (auto) (0.00-0.03) X10*3/uL Absolute Neuts (auto) (2.0-8.3) x10*3/uL Absolute Nucleated RBC (0.0-0.012) X10*3/uL Nucleated RBC % (auto) (0.0-0.2) /100WBC Sodium (135-145) mmol/L Potassium (3.3-5.1) mmol/L Chloride (96-108) mmol/L Carbon Dioxide (22-29) mmol/L Anion Gap (12-20) BUN (9-16) mg/dL Creatinine (0.5-1.4) mg/dL Estim Creat Clear Calc Estimated GFR Random Glucose (60-115) mg/dL Lactic Acid 1.1 (0.5-2.0) mmol/L Calcium (8.4-10.2) mg/dL Urine Color Urine Appearance Urine pH (5.0-9.0) Ur Specific [place] (1.005-1.025) Urine Protein (Neg-Trace) mg/dL Urine Glucose (UA) (Negative) mg/dL Urine Ketones (Negative) mg/dL Urine Blood (Negative) Urine Nitrite (Negative) Ur Leukocyte Esterase (Negative) Urine RBC (0-2) /HPF Urine WBC (0-5) /HPF Ur Squamous Epith Cells Urine Bacteria (None Seen) Hyaline Casts Imaging Data CT scan - abdomen: Attestation: I personally reviewed and interpreted this imaging study as follows: Radiologist's impression: FINDINGS: LUNG BASES: The visualized lung bases are unremarkable.? LIVER, GALLBLADDER, AND BILIARY TREE: The liver is normal in size, shape, and attenuation. Redemonstration of a cyst in the left lobe of the liver along the falciform. No solid hepatic lesion or biliary ductal dilatation is present. The gallbladder is unremarkable with no evidence of radiopaque gallstones, gallbladder wall thickening, or obvious pericholecystic inflammatory changes.? PANCREAS: Unremarkable.? SPLEEN: Unremarkable.? ADRENAL GLANDS: Bilateral adrenal gland thickening with no focal nodule.? KIDNEYS AND URETERS: The kidneys are normal in size, shape, and attenuation. No hydronephrosis or hydroureter. Simple cysts of both kidneys for which no specific follow-up is recommended. 0.3 cm left lower pole renal calculus is 12 cm from the posterior axillary line. BLADDER: Abnormal appearance of the bladder. Multiple bladder diverticula. Within the bladder lumen there is a hyperattenuating lobulated structure measuring 6 x 4.3 x 5.2 cm.? GASTROINTESTINAL TRACT: The stomach is unremarkable. Normal caliber small bowel. No obstruction. No colonic wall thickening or acute inflammation. Normal appendix. No free air or free fluid.? ABDOMINAL WALL: Prior ventral abdominal wall hernia repair with mesh. Small fat-containing left inguinal hernia.? LYMPH NODES: Normal. VASCULAR: Normal caliber aorta with moderate atherosclerotic vascular calcification. PELVIC VISCERA: Enlarged prostate measuring 5.5 cm transverse. The seminal vesicles are unremarkable.? OSSEOUS STRUCTURES: No acute or suspicious osseous abnormality. Degenerative changes throughout the spine. Vacuum disc phenomenon throughout the lumbar spine.? CT/CT abdomen pelvis wo IV con IMPRESSION: 1.? Abnormal appearance of the bladder. Hyperattenuating lobulated structure within the bladder lumen. This could represent blood products. Cannot exclude a bladder mass. Consider cystoscopy. 2.? Nonobstructing left lower pole renal calculus. ? Discharge Plan Discharge Clinical Impression: Urinary tract infection, Gross hematuria Patient Disposition: Admitted As Inpatient
[2022-05-01 11:18] LABS: Lactic Acid 1.1 mmol/L (0.5-2.0)
[2022-05-01] MEDS: cefTRIAXone sodium 1 GM in 0.9 % Sodium Chloride 50 ML IV (11:34)
[2022-05-01] MEDS: Lidocaine HCl 2 % Urojet 10 ML JEL.PF.APP TOPICAL (11:34)
[2022-05-01 12:10] VITALS: BP 121/52; PULSE 51; RESP 18; TEMP 36.7; O2SAT 97
--- NOTE | 2022-05-01 12:18 | PC.NURSE ---
3 way 18g cath placed. tolerated well. cbi set up and already clearing up after 500ml output. from dark red to light pink in color. no noted clots at this time.
--- NOTE | 2022-05-01 13:27 | PC.NURSE ---
tolerating cbi well. still light pink output on second 3l bag
[2022-05-01 13:51] VITALS: BP 129/43; PULSE 43; RESP 20; O2SAT 99
--- NOTE | 2022-05-01 15:04 | PC.NURSE ---
CBI ON PAUSE FOR NOW. WILL REASSESS.
--- NOTE | 2022-05-01 15:47 | P.HPHOSP_ITS ---
History of Present Illness Date of Service: 05/01/22 Chief Complaint: Hematuria This is 81-year-old male with pertinent history of aortic wall replacement on Eliquis, congestive heart failure, unspecified ejection fraction, essential hypertension ER, gastroesophageal reflux disease, benign prostatic hyperplasia, history of recurrent kidney stones who presents to the emergency department for evaluation of hematuria. Patient states he 1st noticed hematuria Thursday evening. He did not take his eliquis or aspirin but hematuria did not subside. It was painless with yared blood in urine. No blood clots. Patient continued to stay home and decided to present today at the behest of his daughter. The hematuria was continuous and painless throughout. No abdominal or flank pain. No fever, chills, nausea, vomiting. Patient states he has a history of kidney stones and has had hematuria before. Also had a cystoscopy previously, unsure of findings. No history of bladder or prostate cancer. Does have BPH and is compliant with terazosin. Patient denies chest discomfort, palpitations, shortness of breath, dizziness, lightheadedness, changes in bowel habits Review of Systems Constitutional: Constitutional: Reports no additional constitutional complaints Cardiovascular: Cardiovascular: Reports no additional cardiovascular complaints Respiratory: Respiratory: Reports no additional respiratory complaints Gastrointestinal: Gastrointestinal: Reports no additional gastrointestinal complaints Genitourinary: Genitourinary: Reports hematuria Neurologic: Reports system reviewed and no additional complaints, except as documented Psychiatric: Psychiatric: Reports no additional psychiatric complaints [facility] Medical History (Updated 05/01/22 @ 16:13 by Adela Villa MD) Bilateral hip pain BPH (benign prostatic hyperplasia) CHF (congestive heart failure) Constipation GERD (gastroesophageal reflux disease) History of kidney stones HTN (hypertension) Hx of aortic valve stenosis Hyperlipidemia Low back pain Surgical History Aortic valve replaced History of lithotripsy History of prostate surgery Hx of colonoscopy Hx of cystoscopy Social History Are you a primary director of health care marketing to a significant other at home: No Do you presently have visiting nurse or other home services: No Patient Tobacco Use Status: Former Tobacco user Quit Date: 2018 Tobacco use type: Cigarette Advance Directives: No Meds Allergies Allergy/AdvReac Type Severity Reaction Status Date / Time Iodinated Contrast Media Allergy Intermediate VOMITING Verified 12/06/21 10:42 [IV Dye, Iodine Containing] Active Medications: Current Medications Pharmacy Consult (Consult Rx Perform Med Rec) 1 each MISCELLANE ONCE PRN PRN Reason: Consult order Home Medications Medication Instructions Recorded Confirmed Last Taken Type glucosamine 375 mx-tvmepukwn-ljt 1 tab PO DAILY 11/29/20 12/06/21 Unknown History no1 500 mg-C 15 mg-ana 0.5 mg tablet (Eqzaxqrhirf-Qjycfucjkkz-WIF Complex) hydrochlorothiazide 50 mg tablet 0.5 tab PO DAILY 11/29/20 12/06/21 Unknown History multivitamin 1 tab PO DAILY 11/29/20 12/06/21 Unknown History potassium chloride 20 mEq 20 meq PO BEDTIME 04/19/21 12/06/21 Unknown History tablet,extended release omeprazole 20 mg capsule,delayed 1 cap PO QAM 12/06/21 12/12/21 12/12/21 History release aspirin 81 mg capsule mg 12/12/21 12/12/21 History Physical Exam Vital Signs and Narrative: Vital Signs: Last Vital Signs Temp 98.1 F 05/01/22 12:10 Pulse 43 L 05/01/22 13:51 Resp 20 05/01/22 13:51 BP 129/43 L 05/01/22 13:51 Pulse Ox 99 05/01/22 13:51 O2 Del Method 05/01/22 13:51 BMI result Body Mass Index 28.1 Elderly male lying in bed in no distress Neck supple, no JVD Regular rate and rhythm, S1-S2 heard Regular breath sounds bilaterally, no wheezing or crackles appreciated Abdomen soft nontender, no guarding, no rigidity ; Portillo catheter in place with CBI a Patient is awake, alert and oriented to self, place, time and person ; no focal motor deficit Psych: Normal mood No pedal edema Results Labs CBC and Chem 7: 05/01/22 10:06 05/01/22 10:06 Labs: Laboratory Results - last 24 hr 05/01/22 05/01/22 05/01/22 10:06 10:06 10:13 MCV 91.3 MCH 30.1 MCHC 33.0 RDW 15.7 Plt Count 196 MPV 9.7 Immature Gran % (Auto) 0.5 H Neut % (Auto) 76.8 H Lymph % (Auto) 16.[address] [place] % (Auto) 4.8 Eos % (Auto) 0.4 Baso % (Auto) 0.9 Lymph # (Auto) 1.4 [place] # (Auto) 0.4 Eos # (Auto) 0.0 Baso # (Auto) 0.1 Abs Immat Gran (auto) 0.04 H Absolute Neuts (auto) 6.5 Absolute Nucleated RBC 0.000 Nucleated RBC % (auto) 0.0 Anion Gap 16 Estim Creat Clear Calc 77.8 Estimated GFR > 60 Random Glucose 121 H Lactic Acid Calcium 9.4 Urine Color RED Urine Appearance Turbid Urine pH 6.5 Ur Specific [place] 1.025 Urine Protein 100 (2+) H Urine Glucose (UA) 100 H Urine Ketones Trace Urine Blood Large (3+) H Urine Nitrite Positive H Ur Leukocyte Esterase Trace H Urine RBC >20 H Urine WBC 21-50 Ur Squamous Epith Cells Not Reportable Urine Bacteria None Seen Hyaline Casts Not Reportable 05/01/22 11:00 MCV MCH MCHC RDW Plt Count MPV Immature Gran % (Auto) Neut % (Auto) Lymph % (Auto) [place] % (Auto) Eos % (Auto) Baso % (Auto) Lymph # (Auto) [place] # (Auto) Eos # (Auto) Baso # (Auto) Abs Immat Gran (auto) Absolute Neuts (auto) Absolute Nucleated RBC Nucleated RBC % (auto) Anion Gap Estim Creat Clear Calc Estimated GFR Random Glucose Lactic Acid 1.1 Calcium Urine Color Urine Appearance Urine pH Ur Specific [place] Urine Protein Urine Glucose (UA) Urine Ketones Urine Blood Urine Nitrite Ur Leukocyte Esterase Urine RBC Urine WBC Ur Squamous Epith Cells Urine Bacteria Hyaline Casts Imaging Radiologist's Impressions: Impressions Abdomen/Pelvis CT 05/01/22 11:25 IMPRESSION: 1. Abnormal appearance of the bladder. Hyperattenuating lobulated structure within the bladder lumen. This could represent blood products. Cannot exclude a bladder mass. Consider cystoscopy. 2. Nonobstructing left lower pole renal calculus. Fleischner guidelines were followed. Assessment and Plan (1) Gross hematuria: Status: Acute (2) Severe aortic stenosis: Status: Acute (3) BPH (benign prostatic hyperplasia): Status: Acute (4) Congestive heart failure: Status: Acute (5) HTN (hypertension): Status: Acute Plan This is 81-year-old male with pertinent history of aortic wall replacement on Eliquis, congestive heart failure, unspecified ejection fraction, essential hypertension ER, gastroesophageal reflux disease, benign prostatic hyperplasia, history of recurrent kidney stones who presents to the emergency department for evaluation of hematuria. #. Painless hematuria -Will admit patient with CBI. Urology consulted, noted plans for cytoscopy tomorrow. Will hold eliquis and aspirin. Monitor H&H and will keep npo after midnight #. Severe aortic stenosis s/p aortic valve replcement -Hold eliquis as above #. Congestive heart failure, unspecified EF -compensated. Hold lasix until hematuria resolves #. Essential hypertension -Hold until hematuria resolves. Resume as appropriate #. BPH -on terazosin #. GERD -on omeprazole DVT prophylaxis: SCDs Diet : Cardiac diet. Npo after midnight DNR/DNI. Discussed with daughter and patient at bedside. Admit as inpatient and will require two night minimum hospital stay for need for CBI. Urology consult and cystoscopy pending. Quality Stroke Does the patient have a stroke diagnosis?: No VTE Prior VTE?: No VTE Risk Level:: Medical - moderate - high VTE Device Contraindication: N/A - Device Ordered VTE Drug Contraindication: Treatment Not Indicated
--- NOTE | 2022-05-01 15:47 | PM.UROCN ---
History of Present Illness Consult details Consult date: 05/01/22 Narrative: New is an 81-year-old male with PM history of aortic wall replacement on Eliquis, congestive heart failure, hypertension, gastroesophageal reflux disease, benign prostatic hyperplasia, history of recurrent kidney stones who presents to the emergency department for evaluation for hematuria.? Patient states he 1st noticed hematuria 2 days ago. He did not take his eliquis or aspirin but hematuria did not subside. Denies pain with urination. Denies abdominal or flank pain.? No fever, chills, nausea, vomiting.? Patient states he has a history of kidney stones and has had hematuria before.?CoMorbidity h/o Nicotine use quit 2019. On terazsin for BPH followed by Dr. Kaplan.? Patient denies chest discomfort, palpitations, shortness of breath, dizziness, lightheadedness, changes in bowel habits. Catheter and CBI started in the ED. CAT Abd/pelvis completed. Pertinent CT findings: KIDNEYS AND URETERS: The kidneys are normal in size, shape, and attenuation. No hydronephrosis or hydroureter. Simple cysts of both kidneys for which no specific follow-up is recommended. 0.3 cm left lower pole renal calculus. BLADDER: Abnormal appearance of the bladder. Multiple bladder diverticula. Within the bladder lumen there is a hyperattenuating lobulated structure measuring 6 x 4.3 x 5.2 cm.? Review of Systems Review of Systems: 10 point ROS negative other than stated in HPI [facility] Past Medical History Medical History Bilateral hip pain BPH (benign prostatic hyperplasia) CHF (congestive heart failure) Constipation GERD (gastroesophageal reflux disease) History of kidney stones HTN (hypertension) Hx of aortic valve stenosis Hyperlipidemia Low back pain Surgical History Surgical History Aortic valve replaced History of lithotripsy History of prostate surgery Hx of colonoscopy Hx of cystoscopy Social History Social History Are you a primary home care and home health aides teacher to a significant other at home: No Do you presently have visiting nurse or other home services: No Patient Tobacco Use Status: Former Tobacco user Quit Date: 2018 Tobacco use type: Cigarette Advance Directives: No Meds Allergies Allergy/AdvReac Type Severity Reaction Status Date / Time Iodinated Contrast Media Allergy Intermediate VOMITING Verified 12/06/21 10:42 [IV Dye, Iodine Containing] Active Medications: Current Medications Pharmacy Consult (Consult Rx Perform Med Rec) 1 each MISCELLANE ONCE PRN PRN Reason: Consult order Home Medications Medication Instructions Recorded Confirmed Last Taken Type glucosamine 375 vf-stzkhroyu-fyx 1 tab PO BID 11/29/20 05/01/22 05/01/22 History no1 500 mg-C 15 mg-ana 0.5 mg tablet (Tvuuobgadlx-Oojyvucghnc-OYC Complex) hydrochlorothiazide 50 mg tablet 0.5 tab PO DAILY 11/29/20 05/01/22 05/01/22 History multivitamin 1 tab PO DAILY 11/29/20 05/01/22 05/01/22 History potassium chloride 20 mEq 20 meq PO BEDTIME 04/19/21 05/01/22 04/30/22 History tablet,extended release omeprazole 20 mg capsule,delayed 1 cap PO DAILY@0630 12/06/21 05/01/22 05/01/22 History release aspirin 81 mg tablet,delayed 81 mg PO DAILY 05/01/22 05/01/22 04/30/22 History release furosemide 20 mg tablet 2 tab PO DAILY 05/01/22 05/01/22 04/30/22 History lisinopril 5 mg tablet 1 tab PO DAILY 05/01/22 05/01/22 05/01/22 History Physical Exam Vital Signs: Vital Signs: Last Vital Signs Temp 98.1 F 05/01/22 12:10 Pulse 43 L 05/01/22 13:51 Resp 20 05/01/22 13:51 BP 129/43 L 05/01/22 13:51 Pulse Ox 99 05/01/22 13:51 O2 Del Method 05/01/22 13:51 BMI result Body Mass Index 28.1 Const: General: no acute distress and well developed Orientation/consciousness: patient oriented x3 HEENT: Head: Yes normocephalic and Yes atraumatic Eyes: Conjunctivae: conjunctivae normal Neck: Neck: Yes normal visual inspection Chest: Chest palpation & inspection: normal inspection of the chest Resp: Effort & Inspection: normal respiratory effort Cardio: Rate: regular rate GI: Inspection: Yes normal to inspection : Other: buitrago in place strawberry colored urine, CBI going: Skin: General skin exam: no rashes or lesions noted Neuro: General: patient oriented x3 Extrem: General: No pedal edema Psych: Appearance: grossly normal Affect: normal affect Results Labs Result diagrams: 05/01/22 10:06 05/01/22 10:06 Labs: Abnormal lab results 05/01/22 05/01/22 05/01/22 Range/Units 10:06 10:06 10:13 Immature Gran % (Auto) 0.5 H (0.0-0.4) % Neut % (Auto) 76.8 H (45-73) % Lymph % (Auto) 16.6 L (20-40) % Abs Immat Gran (auto) 0.04 H (0.00-0.03) X10*3/uL BUN 25 H (9-16) mg/dL Random Glucose 121 H (60-115) mg/dL Urine Protein 100 (2+) H (Neg-Trace) mg/dL Urine Glucose (UA) 100 H (Negative) mg/dL Urine Blood Large (3+) H (Negative) Urine Nitrite Positive H (Negative) Ur Leukocyte Esterase Trace H (Negative) Urine RBC >20 H (0-2) /HPF Short CBC 05/01/22 Range/Units 10:06 WBC 8.5 (4.8-10.8) X10*3/uL Hgb 15.2 (14.0-18.0) g/dl Hct 46.1 (42.0-52.0) % Plt Count 196 (160-400) X10*3/uL BMP 05/01/22 10:06 Sodium 140 Potassium 4.4 Chloride 106 Carbon Dioxide 22 BUN 25 H Creatinine 0.85 Calcium 9.4 Urine 05/01/22 Range/Units 10:13 Urine Color RED Urine Appearance Turbid Urine pH 6.5 (5.0-9.0) Ur Specific [place] 1.025 (1.005-1.025) Urine Protein 100 (2+) H (Neg-Trace) mg/dL Urine Glucose (UA) 100 H (Negative) mg/dL Imaging Abdomen CT scan report/results: report reviewed and image reviewed CT scan - pelvis: report reviewed and image reviewed Additional studies: Date of Service: 05/01/22 EXAMINATION: CT ABDOMEN AND PELVIS WITHOUT CONTRAST? CLINICAL INFORMATION: Hematuria. History of colic. Evaluate for stone or mass.? COMPARISON: Renal ultrasound 03/31/2022. CT performed 10/29/2011? FINDINGS: LUNG BASES: The visualized lung bases are unremarkable.? LIVER, GALLBLADDER, AND BILIARY TREE: The liver is normal in size, shape, and attenuation. Redemonstration of a cyst in the left lobe of the liver along the falciform. No solid hepatic lesion or biliary ductal dilatation is present. The gallbladder is unremarkable with no evidence of radiopaque gallstones, gallbladder wall thickening, or obvious pericholecystic inflammatory changes.? PANCREAS: Unremarkable.? SPLEEN: Unremarkable.? ADRENAL GLANDS: Bilateral adrenal gland thickening with no focal nodule.? KIDNEYS AND URETERS: The kidneys are normal in size, shape, and attenuation. No hydronephrosis or hydroureter. Simple cysts of both kidneys for which no specific follow-up is recommended. 0.3 cm left lower pole renal calculus is 12 cm from the posterior axillary line. BLADDER: Abnormal appearance of the bladder. Multiple bladder diverticula. Within the bladder lumen there is a hyperattenuating lobulated structure measuring 6 x 4.3 x 5.2 cm.? GASTROINTESTINAL TRACT: The stomach is unremarkable. Normal caliber small bowel. No obstruction. No colonic wall thickening or acute inflammation. Normal appendix. No free air or free fluid.? ABDOMINAL WALL: Prior ventral abdominal wall hernia repair with mesh. Small fat-containing left inguinal hernia.? LYMPH NODES: Normal. VASCULAR: Normal caliber aorta with moderate atherosclerotic vascular calcification. PELVIC VISCERA: Enlarged prostate measuring 5.5 cm transverse. The seminal vesicles are unremarkable.? OSSEOUS STRUCTURES: No acute or suspicious osseous abnormality. Degenerative changes throughout the spine. Vacuum disc phenomenon throughout the lumbar spine.? IMPRESSION: 1.? Abnormal appearance of the bladder. Hyperattenuating lobulated structure within the bladder lumen. This could represent blood products. Cannot exclude a bladder mass. Consider cystoscopy. 2.? Nonobstructing left lower pole renal calculus. Assessment and Plan (1) Gross hematuria: Status: Acute (2) BPH (benign prostatic hyperplasia): Status: Acute Plan Gentle IVF Hydration Continue bladder irrigation Cystoscopy tomorrow, NPO past MN Procedures Date of Service Date of Service: 05/01/22
--- NOTE | 2022-05-01 16:58 | PC.NURSE ---
Pt amabulates to the restroom to move the bowels. Bag #4 of CBI completed. Bag #5 started.
--- NOTE | 2022-05-01 17:11 | PHA.MEDREC ---
Pharmacy Consult ? Medication Reconciliation Pharmacy has completed the medication reconciliation. sPOKE WITH PATIENT IN ED. PATIENT HAD LIST OF MEDICATIONS WITH HIM
[2022-05-01 18:00] LABS: COVID-19 Test Negative (Negative)
[2022-05-01] MEDS: Tamsulosin HCL 0.4 MG CAPSULE PO (18:41)
--- NOTE | 2022-05-01 20:31 | PC.NURSE ---
Report given to JOHNATHAN Buckner at overflow
--- NOTE | 2022-05-01 21:43 | MHC.CM.PN ---
IMM 05/01. Met with admitted patient in ED overflow with bed assignment pending. A&Ox4. Lives alone. Independent. Drives. No DME/services. [employer]. Not vet connected. No services. HCP reviewed, completed and signed. Copies given. Uploaded into [facility] and [facility] [employer] HCP/daughter Zuleyka Daniel ([phone]). Pt to have cystoscopy in the morning. D/C plan: home without services. Daughter will transport. CM to follow for d/c needs.
[2022-05-01 22:28] VITALS: BP 144/46; PULSE 49; RESP 12; O2SAT 98
--- NOTE | 2022-05-01 22:46 | PC.NURSE ---
heart monitor applied approx 2019, notified heart rate 30s to 40s afib. asymptomatic. EKG being obtained currently. CBI flushed immediately upon transfer from ED for multiple small clots. CBI currently flowing and urine output from punch to light pink.
[2022-05-01] MEDS: Doxazosin Mesylate 2 MG TABLET 8 MG PO (23:05)
[2022-05-01] MEDS: 0.9 % Sodium Chloride Flush 3 ML SYRINGE IVFLUSH ×2 (23:05→23:55)
[2022-05-01 23:53] VITALS: BP 150/54; PULSE 56; RESP 20; TEMP 36.4; O2SAT 97
[2022-05-02] VITALS (10 sets, daily range): BP systolic 119–167; BP diastolic 47–72; PULSE 38–51; RESP 13–23; TEMP 36.3–36.6; O2SAT 95–97; BMI 28.1; BMI 28.5
--- NOTE | 2022-05-02 00:05 | PC.NURSE ---
CBI being maintained. Urine remains punch colored with small clots.
[2022-05-02 06:28] LABS: MANUAL DIFF FLAG NO
[2022-05-02 06:33] LABS: Basophils Absolute Auto 0.1 X10*3/uL (0.0-0.2); Basophils Percent Auto 0.9 % (0-2); Eosinophils Absolute Auto 0.1 X10*3/uL (0.0-0.4); Eosinophils Percent Auto 0.6 % (0-4); Hematocrit 42.3 % (42.0-52.0); Hemoglobin 13.9 g/dl (14.0-18.0); Imm Gran Abs Auto 0.04 X10*3/uL (0.00-0.03); Imm Gran Pct Auto 0.4 % (0.0-0.4); Lymphocytes Absolute Auto 1.7 X10*3/uL (1.2-4.9); Lymphocytes Percent Auto 17.6 % (20-40); Mean Corpuscular HGB Conc 32.9 g/dl (31.0-36.0); Mean Corpuscular Volume 91.4 fL (80.0-98.0); Mean Platelet Volume 10.2 fL (9.4-12.4); Monocytes Absolute Auto 0.6 X10*3/uL (0.1-1.2); Monocytes Percent Auto 6.5 % (2-11); Platelet Count 194 X10*3/uL (160-400); Red Blood Count 4.63 X10*6/uL (4.60-5.80); Red Cell Distribution Width 15.5 % (11.0-16.0); White Blood Count 9.5 X10*3/uL (4.8-10.8)
[2022-05-02 06:47] LABS: Anion Gap 16 (12-20); Blood Urea Nitrogen 23 mg/dL (9-16); Calcium 9.2 mg/dL (8.4-10.2); Carbon Dioxide 26 mmol/L (22-29); Chloride 107 mmol/L (96-108); Creatinine Clr Calc Pharmacy 78.7; Estimated Glomerular Filt Rate > 60; Glucose Random 107 mg/dL (60-115); Potassium 4.9 mmol/L (3.3-5.1); Sodium 144 mmol/L (135-145)
[2022-05-02] MEDS: 0.9 % Sodium Chloride Flush 3 ML SYRINGE IVFLUSH ×2 (08:23→21:31)
--- NOTE | 2022-05-02 09:28 | PC.NURSE ---
pt buitrago bag drained 3000ml, pt pads changed on bed. pt sitting up on the edge of the bed, no complaints
--- NOTE | 2022-05-02 10:44 | P.PNIM_ITS ---
Subjective Subjective Date of Service: 05/02/22 Interval History: f/u on hematuria interval history: persistent hematuria, ongoing cbi Review of Systems hematuria, no fever, no sob Physical Exam Vital Signs: Vital Signs: Last Vital Signs Temp 97.3 F 05/02/22 07:40 Pulse 48 L 05/02/22 07:40 Resp 13 05/02/22 07:40 BP 131/54 L 05/02/22 07:40 Pulse Ox 97 05/02/22 07:40 O2 Del Method 05/02/22 07:40 BMI result Body Mass Index 28.1 Const: Other: General: AO X 3, no acute distress Resp: CTA bilateral CVS: S1,S2,RRR GI: +BS, NT, no distention CBI in place with punch color Skin: No rash Neuro: motor grossly intact Psych: appropriate affect Objective Data Active Medications Acetaminophen (Acetaminophen 325 Mg Tablet) 650 mg PO Q6H PRN PRN Reason: Pain, Mild (Pain Scale 1-3) Doxazosin Mesylate (Doxazosin Mesylate 2 Mg Tablet) 8 mg PO BEDTIME [facility] Last Admin: 05/01/22 23:05 Dose: 8 mg Documented By: KAITLIN Melatonin (Melatonin 3 Mg Tablet) 6 mg PO BEDTIME PRN PRN Reason: Insomnia Omeprazole (Omeprazole 20 Mg Capsule.Dr) 20 mg PO DAILY@0630 [facility] Last Admin: 05/02/22 04:25 Dose: Not Given Documented By: SAMMIE Non-Admin Reason: NPO Ondansetron HCl (Ondansetron Hcl 4 Mg/2 Ml Vial) 4 mg IVPUSH Q8H PRN PRN Reason: Nausea and Vomiting Sodium Chloride (0.9 % Sodium Chloride Flush 3 Ml Syringe) 3 ml IVFLUSH QSHIFT [facility] Last Admin: 05/02/22 08:23 Dose: 3 ml Documented By: DICK Labs CBC & Chem 7: 05/02/22 06:09 05/02/22 06:09 Labs: Laboratory Results - last 24 hr 05/01/22 05/01/22 05/01/22 10:13 11:00 17:39 MCV MCH MCHC RDW Plt Count MPV Immature Gran % (Auto) Neut % (Auto) Lymph % (Auto) [place] % (Auto) Eos % (Auto) Baso % (Auto) Lymph # (Auto) [place] # (Auto) Eos # (Auto) Baso # (Auto) Abs Immat Gran (auto) Absolute Neuts (auto) Absolute Nucleated RBC Nucleated RBC % (auto) Anion Gap Estim Creat Clear Calc Estimated GFR Random Glucose Lactic Acid 1.1 Calcium Urine Color RED Urine Appearance Turbid Urine pH 6.5 Ur Specific [place] 1.025 Urine Protein 100 (2+) H Urine Glucose (UA) 100 H Urine Ketones Trace Urine Blood Large (3+) H Urine Nitrite Positive H Ur Leukocyte Esterase Trace H Urine RBC >20 H Urine WBC 21-50 Urine Bacteria None Seen COVID-19 ([place]) Negative COVID-19 Clin Com See Note 05/02/22 05/02/22 06:09 06:09 MCV 91.4 MCH 30.0 MCHC 32.9 RDW 15.5 Plt Count 194 MPV 10.2 Immature Gran % (Auto) 0.4 Neut % (Auto) 74.0 H Lymph % (Auto) 17.6 L [place] % (Auto) 6.5 Eos % (Auto) 0.6 Baso % (Auto) 0.9 Lymph # (Auto) 1.7 [place] # (Auto) 0.6 Eos # (Auto) 0.1 Baso # (Auto) 0.1 Abs Immat Gran (auto) 0.04 H Absolute Neuts (auto) 7.0 Absolute Nucleated RBC 0.000 Nucleated RBC % (auto) 0.0 Anion Gap 16 Estim Creat Clear Calc 78.7 Estimated GFR > 60 Random Glucose 107 Lactic Acid Calcium 9.2 Urine Color Urine Appearance Urine pH Ur Specific [place] Urine Protein Urine Glucose (UA) Urine Ketones Urine Blood Urine Nitrite Ur Leukocyte Esterase Urine RBC Urine WBC Urine Bacteria COVID-19 ([place]) COVID-19 Clin Com Assessment and Plan (1) Gross hematuria: Status: Acute Plan This is 81-year-old male with pertinent history of aortic wall replacement on Eliquis, congestive heart failure, unspecified ejection fraction, essential hypertension ER, gastroesophageal reflux disease, benign prostatic hyperplasia, history of recurrent kidney stones who presents to the emergency department for evaluation of hematuria. #. Painless hematuria with ongoing CBI, Cystoscopy planned for today. Hold Eliquis, ASA, Monitor H/H #. Severe aortic stenosis s/p aortic valve replcement -Hold eliquis as above #. Congestive heart failure, unspecified EF -compensated. Hold lasix until hematuria resolves #. Essential hypertension -Hold until hematuria resolves. Resume as appropriate #. BPH -on terazosin #. GERD -on omeprazole DVT prophylaxis: SCDs Diet : Cardiac diet. Npo after midnight DNR/DNI.? Discussed with daughter and patient at bedside. Admit as inpatient and will require two night minimum hospital stay for need for CBI.? Urology consult and cystoscopy pending.? Quality Stroke Does the patient have a stroke diagnosis?: No VTE Prior VTE?: No VTE Risk Level:: Medical - moderate - high VTE Device Contraindication: N/A - Device Ordered VTE Drug Contraindication: Treatment Not Indicated
--- NOTE | 2022-05-02 14:37 | HO.ANESPROP2 ---
HPI - Anesthesia Eval Consult details Narrative: 81yo male patient for cystoscopy, evacuation of hematoma, possible biopsy and fulguration [facility] Active Problems Active Problems: All Active Problems (Updated 05/01/22 @ 16:13 by Adela Villa MD) HTN (hypertension) (Acute) Congestive heart failure (Acute) Acute congestive heart failure (Acute) Afib (Acute) Severe aortic stenosis (Acute) Nephrolithiasis (Acute) Urinary tract infection (Acute) Gross hematuria (Acute) BPH (benign prostatic hyperplasia) (Acute) Past Medical History Medical History Bilateral hip pain BPH (benign prostatic hyperplasia) CHF (congestive heart failure) Constipation GERD (gastroesophageal reflux disease) History of kidney stones HTN (hypertension) Hx of aortic valve stenosis Hyperlipidemia Low back pain Family History Family history of problems with anesthesia: No Surgical History Surgical History Aortic valve replaced History of lithotripsy History of prostate surgery Hx of colonoscopy Hx of cystoscopy History of Problems with Anesthesia: No Social History Social History Are you a primary vp care management to a significant other at home: No Do you presently have visiting nurse or other home services: No Patient Tobacco Use Status: Former Tobacco user Quit Date: 2018 Tobacco use type: Cigarette Advance Directives: No service: Yes Current occupational status: retired Meds Allergies Allergy/AdvReac Type Severity Reaction Status Date / Time Iodinated Contrast Media Allergy Intermediate VOMITING Verified 12/06/21 10:42 [IV Dye, Iodine Containing] Active Medications: Current Medications Acetaminophen (Acetaminophen 325 Mg Tablet) 650 mg PO Q6H PRN PRN Reason: Pain, Mild (Pain Scale 1-3) Doxazosin Mesylate (Doxazosin Mesylate 2 Mg Tablet) 8 mg PO BEDTIME [facility] Last Admin: 05/01/22 23:05 Dose: 8 mg Melatonin (Melatonin 3 Mg Tablet) 6 mg PO BEDTIME PRN PRN Reason: Insomnia Omeprazole (Omeprazole 20 Mg Capsule.Dr) 20 mg PO DAILY@0630 [facility] Last Admin: 05/02/22 04:25 Dose: Not Given Ondansetron HCl (Ondansetron Hcl 4 Mg/2 Ml Vial) 4 mg IVPUSH Q8H PRN PRN Reason: Nausea and Vomiting Sodium Chloride (0.9 % Sodium Chloride Flush 3 Ml Syringe) [facility] Last Admin: 05/02/22 08:23 Dose: 3 ml Home Medications Medication Instructions Recorded Confirmed Last Taken Type glucosamine 375 vs-ibtnbpoco-cgr 1 tab PO BID 11/29/20 05/01/22 05/01/22 History no1 500 mg-C 15 mg-ana 0.5 mg tablet (Wfpcnojzlyc-Fjfkaemjuoj-IAB Complex) hydrochlorothiazide 50 mg tablet 0.5 tab PO DAILY 11/29/20 05/01/22 05/01/22 History multivitamin 1 tab PO DAILY 11/29/20 05/01/22 05/01/22 History potassium chloride 20 mEq 20 meq PO BEDTIME 04/19/21 05/01/22 04/30/22 History tablet,extended release omeprazole 20 mg capsule,delayed 1 cap PO DAILY@0630 12/06/21 05/01/22 05/01/22 History release aspirin 81 mg tablet,delayed 81 mg PO DAILY 05/01/22 05/01/22 04/30/22 History release furosemide 20 mg tablet 2 tab PO DAILY 05/01/22 05/01/22 04/30/22 History lisinopril 5 mg tablet 1 tab PO DAILY 05/01/22 05/01/22 05/01/22 History Exam Exam Date and Time: May 02, 2022 1437 Height,Weight and Vital Signs: Height 5 ft 10 in Weight 88.904 kg Last Vital Signs Temp 97.3 F 05/02/22 07:40 Pulse 48 L 05/02/22 07:40 Resp 13 05/02/22 07:40 BP 131/54 L 05/02/22 07:40 Pulse Ox 97 05/02/22 07:40 O2 Del Method 05/02/22 07:40 Pertinent Lab Results Pertinent Lab Results: Laboratory Tests 05/01/22 05/01/22 05/01/22 10:06 10:06 10:13 WBC 8.5 RBC 5.05 Hgb 15.2 Hct 46.1 MCV 91.3 MCH 30.1 MCHC 33.0 RDW 15.7 Plt Count 196 MPV 9.7 Immature Gran % (Auto) 0.5 H Neut % (Auto) 76.8 H Lymph % (Auto) 16.6 L [place] % (Auto) 4.8 Eos % (Auto) 0.4 Baso % (Auto) 0.9 Lymph # (Auto) 1.4 [place] # (Auto) 0.4 Eos # (Auto) 0.0 Baso # (Auto) 0.1 Abs Immat Gran (auto) 0.04 H Absolute Neuts (auto) 6.5 Absolute Nucleated RBC 0.000 Nucleated RBC % (auto) 0.0 Sodium 140 Potassium 4.4 Chloride 106 Carbon Dioxide 22 Anion Gap 16 BUN 25 H Creatinine 0.85 Estim Creat Clear Calc 77.8 Estimated GFR > 60 Random Glucose 121 H Lactic Acid Calcium 9.4 Urine Color RED Urine Appearance Turbid Urine pH 6.5 Ur Specific [place] 1.025 Urine Protein 100 (2+) H Urine Glucose (UA) 100 H Urine Ketones Trace Urine Blood Large (3+) H Urine Nitrite Positive H Ur Leukocyte Esterase Trace H Urine RBC >20 H Urine WBC 21-50 Ur Squamous Epith Cells Not Reportable Urine Bacteria None Seen Hyaline Casts Not Reportable COVID-19 ([place]) COVID-19 Clin Com 05/01/22 05/01/22 05/02/22 11:00 17:39 06:09 WBC 9.5 RBC 4.63 Hgb 13.9 L Hct 42.3 MCV 91.4 MCH 30.0 MCHC 32.9 RDW 15.5 Plt Count 194 MPV 10.2 Immature Gran % (Auto) 0.4 Neut % (Auto) 74.0 H Lymph % (Auto) 17.6 L [place] % (Auto) 6.5 Eos % (Auto) 0.6 Baso % (Auto) 0.9 Lymph # (Auto) 1.7 [place] # (Auto) 0.6 Eos # (Auto) 0.1 Baso # (Auto) 0.1 Abs Immat Gran (auto) 0.04 H Absolute Neuts (auto) 7.0 Absolute Nucleated RBC 0.000 Nucleated RBC % (auto) 0.0 Sodium Potassium Chloride Carbon Dioxide Anion Gap BUN Creatinine Estim Creat Clear Calc Estimated GFR Random Glucose Lactic Acid 1.1 Calcium Urine Color Urine Appearance Urine pH Ur Specific [place] Urine Protein Urine Glucose (UA) Urine Ketones Urine Blood Urine Nitrite Ur Leukocyte Esterase Urine RBC Urine WBC Ur Squamous Epith Cells Urine Bacteria Hyaline Casts COVID-19 ([place]) Negative COVID-19 Clin Com See Note 05/02/22 06:09 WBC RBC Hgb Hct MCV MCH MCHC RDW Plt Count MPV Immature Gran % (Auto) Neut % (Auto) Lymph % (Auto) [place] % (Auto) Eos % (Auto) Baso % (Auto) Lymph # (Auto) [place] # (Auto) Eos # (Auto) Baso # (Auto) Abs Immat Gran (auto) Absolute Neuts (auto) Absolute Nucleated RBC Nucleated RBC % (auto) Sodium 144 Potassium 4.9 Chloride 107 Carbon Dioxide 26 Anion Gap 16 BUN 23 H Creatinine 0.84 Estim Creat Clear Calc 78.7 Estimated GFR > 60 Random Glucose 107 Lactic Acid Calcium 9.2 Urine Color Urine Appearance Urine pH Ur Specific [place] Urine Protein Urine Glucose (UA) Urine Ketones Urine Blood Urine Nitrite Ur Leukocyte Esterase Urine RBC Urine WBC Ur Squamous Epith Cells Urine Bacteria Hyaline Casts COVID-19 ([place]) COVID-19 Clin Com Assessment and Plan Final Anesthetic Review Family History of Problems with Anesthesia: No History of Problems with Anesthesia: No
--- NOTE | 2022-05-02 16:20 | HO.ANESPROP2 ---
[facility] Active Problems Active Problems: All Active Problems (Updated 05/01/22 @ 16:13 by Adela Villa MD) HTN (hypertension) (Acute) Congestive heart failure (Acute) Acute congestive heart failure (Acute) Afib (Acute) Severe aortic stenosis (Acute) Nephrolithiasis (Acute) Urinary tract infection (Acute) Gross hematuria (Acute) BPH (benign prostatic hyperplasia) (Acute) Past Medical History Medical History Bilateral hip pain BPH (benign prostatic hyperplasia) CHF (congestive heart failure) Constipation GERD (gastroesophageal reflux disease) History of kidney stones HTN (hypertension) Hx of aortic valve stenosis Hyperlipidemia Low back pain Functional capacity: independent ambulation Family History Family history of problems with anesthesia: No Surgical History Surgical History Aortic valve replaced History of lithotripsy History of prostate surgery Hx of colonoscopy Hx of cystoscopy History of Problems with Anesthesia: No Social History Social History Are you a primary care coordinator to a significant other at home: No Do you presently have visiting nurse or other home services: No Patient Tobacco Use Status: Former Tobacco user Quit Date: 2018 Tobacco use type: Cigarette service: Yes Current occupational status: retired Meds Allergies Allergy/AdvReac Type Severity Reaction Status Date / Time Iodinated Contrast Media Allergy Intermediate VOMITING Verified 12/06/21 10:42 [IV Dye, Iodine Containing] Active Medications: Current Medications Acetaminophen (Acetaminophen 325 Mg Tablet) 650 mg PO Q6H PRN PRN Reason: Pain, Mild (Pain Scale 1-3) Doxazosin Mesylate (Doxazosin Mesylate 2 Mg Tablet) 8 mg PO BEDTIME [facility] Last Admin: 05/01/22 23:05 Dose: 8 mg Melatonin (Melatonin 3 Mg Tablet) 6 mg PO BEDTIME PRN PRN Reason: Insomnia Omeprazole (Omeprazole 20 Mg Capsule.Dr) 20 mg PO DAILY@0630 [facility] Last Admin: 05/02/22 04:25 Dose: Not Given Ondansetron HCl (Ondansetron Hcl 4 Mg/2 Ml Vial) 4 mg IVPUSH Q8H PRN PRN Reason: Nausea and Vomiting Sodium Chloride (0.9 % Sodium Chloride Flush 3 Ml Syringe) 3 ml IVFLUSH QSHIFT [facility] Last Admin: 05/02/22 08:23 Dose: 3 ml Home Medications Medication Instructions Recorded Confirmed Last Taken Type glucosamine 375 eg-xddkcjqld-cap 1 tab PO BID 11/29/20 05/01/22 05/01/22 History no1 500 mg-C 15 mg-ana 0.5 mg tablet (Xwpkbkzptht-Iussparrmix-XNA Complex) hydrochlorothiazide 50 mg tablet 0.5 tab PO DAILY 11/29/20 05/01/22 05/01/22 History multivitamin 1 tab PO DAILY 11/29/20 05/01/22 05/01/22 History potassium chloride 20 mEq 20 meq PO BEDTIME 04/19/21 05/01/22 04/30/22 History tablet,extended release omeprazole 20 mg capsule,delayed 1 cap PO DAILY@0630 12/06/21 05/01/22 05/01/22 History release aspirin 81 mg tablet,delayed 81 mg PO DAILY 05/01/22 05/01/22 04/30/22 History release furosemide 20 mg tablet 2 tab PO DAILY 05/01/22 05/01/22 04/30/22 History lisinopril 5 mg tablet 1 tab PO DAILY 05/01/22 05/01/22 05/01/22 History Exam Exam Date and Time: May 02, 2022 1620 Height,Weight and Vital Signs: Height 5 ft 10 in Weight 88.904 kg Last Vital Signs Temp 97.8 F 05/02/22 15:45 Pulse 45 L 05/02/22 15:45 Resp 16 05/02/22 15:45 BP 119/49 L 05/02/22 15:45 Pulse Ox 96 05/02/22 15:45 O2 Del Method 05/02/22 15:45 Pertinent Lab Results Pertinent Lab Results: Laboratory Tests 05/01/22 05/01/22 05/01/22 10:06 10:06 10:13 WBC 8.5 RBC 5.05 Hgb 15.2 Hct 46.1 MCV 91.3 MCH 30.1 MCHC 33.0 RDW 15.7 Plt Count 196 MPV 9.7 Immature Gran % (Auto) 0.5 H Neut % (Auto) 76.8 H Lymph % (Auto) 16.6 L Wirt % (Auto) 4.8 Eos % (Auto) 0.4 Baso % (Auto) 0.9 Lymph # (Auto) 1.4 Wirt # (Auto) 0.4 Eos # (Auto) 0.0 Baso # (Auto) 0.1 Abs Immat Gran (auto) 0.04 H Absolute Neuts (auto) 6.5 Absolute Nucleated RBC 0.000 Nucleated RBC % (auto) 0.0 Sodium 140 Potassium 4.4 Chloride 106 Carbon Dioxide 22 Anion Gap 16 BUN 25 H Creatinine 0.85 Estim Creat Clear Calc 77.8 Estimated GFR > 60 Random Glucose 121 H Lactic Acid Calcium 9.4 Urine Color RED Urine Appearance Turbid Urine pH 6.5 Ur Specific [place] 1.025 Urine Protein 100 (2+) H Urine Glucose (UA) 100 H Urine Ketones Trace Urine Blood Large (3+) H Urine Nitrite Positive H Ur Leukocyte Esterase Trace H Urine RBC >20 H Urine WBC 21-50 Ur Squamous Epith Cells Not Reportable Urine Bacteria None Seen Hyaline Casts Not Reportable COVID-19 ([place]) COVID-19 Clin Com 05/01/22 05/01/22 05/02/22 11:00 17:39 06:09 WBC 9.5 RBC 4.63 Hgb 13.9 L Hct 42.3 MCV 91.4 MCH 30.0 MCHC 32.9 RDW 15.5 Plt Count 194 MPV 10.2 Immature Gran % (Auto) 0.4 Neut % (Auto) 74.0 H Lymph % (Auto) 17.6 L Wirt % (Auto) 6.5 Eos % (Auto) 0.6 Baso % (Auto) 0.9 Lymph # (Auto) 1.7 Wirt # (Auto) 0.6 Eos # (Auto) 0.1 Baso # (Auto) 0.1 Abs Immat Gran (auto) 0.04 H Absolute Neuts (auto) 7.0 Absolute Nucleated RBC 0.000 Nucleated RBC % (auto) 0.0 Sodium Potassium Chloride Carbon Dioxide Anion Gap BUN Creatinine Estim Creat Clear Calc Estimated GFR Random Glucose Lactic Acid 1.1 Calcium Urine Color Urine Appearance Urine pH Ur Specific [place] Urine Protein Urine Glucose (UA) Urine Ketones Urine Blood Urine Nitrite Ur Leukocyte Esterase Urine RBC Urine WBC Ur Squamous Epith Cells Urine Bacteria Hyaline Casts COVID-19 ([place]) Negative COVID-19 Clin Com See Note 05/02/22 06:09 WBC RBC Hgb Hct MCV MCH MCHC RDW Plt Count MPV Immature Gran % (Auto) Neut % (Auto) Lymph % (Auto) Wirt % (Auto) Eos % (Auto) Baso % (Auto) Lymph # (Auto) Wirt # (Auto) Eos # (Auto) Baso # (Auto) Abs Immat Gran (auto) Absolute Neuts (auto) Absolute Nucleated RBC Nucleated RBC % (auto) Sodium 144 Potassium 4.9 Chloride 107 Carbon Dioxide 26 Anion Gap 16 BUN 23 H Creatinine 0.84 Estim Creat Clear Calc 78.7 Estimated GFR > 60 Random Glucose 107 Lactic Acid Calcium 9.2 Urine Color Urine Appearance Urine pH Ur Specific [place] Urine Protein Urine Glucose (UA) Urine Ketones Urine Blood Urine Nitrite Ur Leukocyte Esterase Urine RBC Urine WBC Ur Squamous Epith Cells Urine Bacteria Hyaline Casts COVID-19 ([place]) COVID-19 Clin Com Assessment and Plan Final Anesthetic Review Family History of Problems with Anesthesia: No History of Problems with Anesthesia: No
--- NOTE | 2022-05-02 16:54 | PC.NURSE ---
Patient on cellphone with daughter/hcp, Zuleyka, to review plan of care. Patient upset regarding perceived delay in surgery and needing to remain in hospital overnight. Patient Dnr/DNI status reviewed and clarification form completed. Patient adamant does not want any heroic measures will consent ONLY to endotracheal intubation for airway protection during the procedure if needed. No further Resuscitation measures to be utilized. Daughter and HCP made aware of form and patient preference.
[2022-05-02] MEDS: Gentamicin Sulfate/NaCl 80 MG/100 ML PIGGYBACK 100 MG IV (17:20)
--- NOTE | 2022-05-02 19:03 | W.PM.OPN ---
Operative Note Operative Note Date of Service: 05/02/22 Narrative: PREOP DIAGNOSIS: GROSS HEMATURIA POSTOP DIAGNOSIS: SAME Enlarged prostate PROCEDURE: CYSTOSCOPY EVACUATION BLADDER CLOTS ANESTHESIA: General Indications: New is an 81-year-old male with PM history of aortic wall replacement on Eliquis, congestive heart failure, hypertension, gastroesophageal reflux disease, benign prostatic hyperplasia, history of recurrent kidney stones who presents to the emergency department for evaluation for hematuria.? CoMorbidity h/o Nicotine use quit 2018. Pertinent CT findings:? KIDNEYS AND URETERS: The kidneys are normal in size, shape, and attenuation. No hydronephrosis or hydroureter. . 0.3 cm left lower pole renal calculus. BLADDER: Abnormal appearance of the bladder. Multiple bladder diverticula. Within the bladder lumen there is a hyperattenuating lobulated structure measuring 6 x 4.3 x 5.2 cm.? Details of procedure: The patient was brought into the operating room placed on the OR table in supine position. Antibiotics - Ampicillin 2 gm and Gentamycin 80 mg adminstered IV. General anesthesia was administered. The patient was repositioned into lithotomy position, prepped and draped in the usual sterile fashion. Time-out was done per protocol. The 24 fr resectoscope was passed under direct visualization. The bulbous urethra was within normal limits. The prostatic urethra was noted to have trilobar enlargement. Visualization of the bladder with 30 and 70 degree lens, moderate clots, significant trabeculations, small bladder diverticul, no suspicious lesions noted, the right lobe of the prostate was bulging into the bladder neck, prostate mildly inflamed, no active bleeding. The CristalWrapp evacuator was used to irrigate out the clot material. A [address] catheter 30 cc balloon was passed without difficulty. CBI was started in the OR with normal saline. The patient was brought out of anesthesia and taken to recovery in stable condition. Complications: None Drains: [address]
[2022-05-02] MEDS: Doxazosin Mesylate 2 MG TABLET 8 MG PO (21:31)
[2022-05-03] VITALS (9 sets, daily range): BP systolic 90–161; BP diastolic 56–68; PULSE 37–92; RESP 18–20; TEMP 36–36.9; O2SAT 93–98
[2022-05-03] MEDS: Omeprazole 20 MG CAPSULE.DR PO (06:17)
--- NOTE | 2022-05-03 09:00 | HO.PM.IMPN ---
Subjective Subjective Date of Service: 05/03/22 Interval History: f/u on hematuria interval history: persistent hematuria s/p cystoscopy, cbi clear this morning Review of Systems hematuria, no fever, no sob Physical Exam Vital Signs: Vital Signs: Last Vital Signs Temp 97.3 F 05/03/22 07:55 Pulse 42 L 05/03/22 07:55 Resp 20 05/03/22 07:55 BP 161/67 H 05/03/22 07:55 Pulse Ox 97 05/03/22 07:55 O2 Del Method 05/03/22 07:55 BMI result Body Mass Index 28.5 Const: Other: General: AO X 3, no acute distress Resp: CTA bilateral CVS: S1,S2,RRR GI: +BS, NT, no distention CBI in place with punch color Skin: No rash Neuro: motor grossly intact Psych: appropriate affect Objective Data Active Medications Acetaminophen (Acetaminophen 325 Mg Tablet) 650 mg PO Q6H PRN PRN Reason: Pain, Mild (Pain Scale 1-3) Doxazosin Mesylate (Doxazosin Mesylate 2 Mg Tablet) 8 mg PO BEDTIME [facility] Last Admin: 05/02/22 21:31 Dose: 8 mg Documented By: REYES Melatonin (Melatonin 3 Mg Tablet) 6 mg PO BEDTIME PRN PRN Reason: Insomnia Omeprazole (Omeprazole 20 Mg Capsule.Dr) 20 mg PO DAILY@0630 [facility] Last Admin: 05/03/22 06:17 Dose: 20 mg Documented By: REYES Ondansetron HCl (Ondansetron Hcl 4 Mg/2 Ml Vial) 4 mg IVPUSH Q8H PRN PRN Reason: Nausea and Vomiting Sodium Chloride (0.9 % Sodium Chloride Flush 3 Ml Syringe) 3 ml IVFLUSH QSHIFT [facility] Last Admin: 05/02/22 21:31 Dose: 3 ml Documented By: REYES Labs CBC & Chem 7: 05/02/22 06:09 05/02/22 06:09 Microbiology Microbiology Results: Microbiology 05/01/22 11:00 Blood Culture - Preliminary Blood - Venous No growth after 24 hours. 05/01/22 11:01 Blood Culture - Preliminary Blood - Venous No growth after 24 hours. 05/01/22 00:00 Urine Culture - Final Urine clean catch - Urine pineda top No growth. Assessment and Plan (1) Gross hematuria: Status: Acute Plan This is 81-year-old male with pertinent history of aortic wall replacement on Eliquis, congestive heart failure, unspecified ejection fraction, essential hypertension ER, gastroesophageal reflux disease, benign prostatic hyperplasia, history of recurrent kidney stones who presents to the emergency department for evaluation of hematuria. #. Painless hematuria with ongoing CBI, Cystoscopy 05/02 showing ?Within the bladder lumen there is a hyperattenuating lobulated structure measuring 6 x 4.3 x 5.2 cm--concern for bladder cancer . Holding Eliquis, ASA, Monitor H/H, attempt to clamp CBI #. Severe aortic stenosis s/p aortic valve replcement -Hold eliquis as above #. Congestive heart failure, unspecified EF -compensated. Hold lasix until hematuria resolves #. Essential hypertension -Hold until hematuria resolves. Resume as appropriate #. BPH -on terazosin #. GERD -on omeprazole DVT prophylaxis: SCDs Diet : Cardiac diet. Npo after midnight DNR/DNI.? Discussed with daughter and patient at bedside. need for inpatient: Ongoing hematurina on CBI Quality Stroke Does the patient have a stroke diagnosis?: No VTE Prior VTE?: No VTE Risk Level:: Medical - moderate - high VTE Device Contraindication: N/A - Device Ordered VTE Drug Contraindication: Treatment Not Indicated
--- NOTE | 2022-05-03 10:32 | P.PNUR_ITS ---
Subjective Subjective Date of Service: 05/03/22 Patient reports: no new complaints and feels better Interval history: New is an 81-year-old male with PM history of aortic wall replacement on Eliquis, congestive heart failure, hypertension, gastroesophageal reflux disease, benign prostatic hyperplasia, history of recurrent kidney stones who presented to the emergency department for evaluation for hematuria.?CoMorbidity h/o Nicotine use quit 2019. On terazsin for BPH.? Patient denies chest discomfort, palpitations, shortness of breath, dizziness, lightheadedness, changes in bowel habits. Catheter and CBI started in the ED 05/01/22.? CAT Abd/pelvis 05/01/[address] findings:? KIDNEYS AND URETERS: No hydronephrosis or hydroureter. Simple cysts of both kidneys for which no specific follow-up is recommended. 0.3 cm left lower pole renal calculus. BLADDER: Abnormal appearance of the bladder. Multiple bladder diverticula. Within the bladder lumen there is a hyperattenuating lobulated structure measuring 6 x 4.3 x 5.2 cm.? s/p Cysto evacuation bladder clots 05/02/22 - Findings: No suspicious lesions, Enlarged Prostate. Recommend start 5 alpha reductase inhibitor, proscar or avodart, continue terazosin 05/03/22 Urine persistent hematuria, Continue CBI Physical Exam Vital Signs: Vital Signs: Last Vital Signs Temp 97.3 F 05/03/22 07:55 Pulse 42 L 05/03/22 07:55 Resp 20 05/03/22 07:55 BP 161/67 H 05/03/22 07:55 Pulse Ox 97 05/03/22 07:55 O2 Del Method 05/03/22 07:55 BMI result Body Mass Index 28.5 Const: General: no acute distress and well developed Orientation /consciousness: patient oriented x3 HEENT: Head: Yes normocephalic and Yes atraumatic Eyes: Conjunctivae: conjunctivae normal Neck: Neck: Yes normal visual inspection Chest: Chest palpation & inspection: normal inspection of the chest Resp: Effort & Inspection: normal respiratory effort Cardio: Rate: regular rate GI: Inspection: Yes normal to inspection : Other: CBI discontinued earlier this AM, urine blood tinged, martines color no clots. Skin: General skin exam: no rashes or lesions noted Neuro: General: patient oriented x3 Psych: Appearance: grossly normal Affect: normal affect Urology Results Labs CBC & Chem 7: 05/02/22 06:09 05/02/22 06:09 Progress Note: A&P Assessment and plan (1) Gross hematuria: Status: Acute (2) BPH (benign prostatic hyperplasia): Status: Acute Plan s/p Cysto evacuation bladder clots 05/02/22 - Findings: No suspicious lesions, Enlarged Prostate. Recommend start 5 alpha reductase inhibitor, proscar or avodart, continue terazosin 05/03/22 Urine persistent hematuria, Continue CBI Time Spent With Patient Time: Total time spent is greater than 50% in coordination of care (as documented) at patient's floor/unit and/or counseling patient: Progress Note: Quality Stroke Does the patient have a stroke diagnosis?: No
[2022-05-03] MEDS: 0.9 % Sodium Chloride Flush 3 ML SYRINGE IVFLUSH ×2 (10:58→16:21)
--- NOTE | 2022-05-03 17:37 | HO.POSTANES ---
Post Anesthesia Evaluation Post Anesthesia Evaluation Vital Signs: Vital Signs Temp Pulse Resp BP Pulse Ox O2 Del Method 05/03/22 15:28 98 F 92 18 90/68 93 Room Air 05/03/22 15:22 97.1 F 38 L 18 151/61 H 98 Room Air 05/03/22 12:00 97.7 F 41 L 20 152/58 H 98 Room Air 05/03/22 07:55 97.3 F 42 L 20 161/67 H 97 Room Air Mental Status: Awake Pain Control: Satisfactory Nausea/Vomiting: None Hydration: Adequate Anesthesia-Related Issues: No Anes. Related Issues
[2022-05-03] MEDS: Doxazosin Mesylate 2 MG TABLET 8 MG PO (20:46)
[2022-05-04] MEDS: 0.9 % Sodium Chloride Flush 3 ML SYRINGE IVFLUSH ×2 (00:27→07:43)
[2022-05-04 03:52] VITALS: BP 153/72; PULSE 38; RESP 18; TEMP 36.6; O2SAT 97
[2022-05-04] MEDS: Omeprazole 20 MG CAPSULE.DR PO (06:18)
--- NOTE | 2022-05-04 07:31 | PM.DS ---
DS: Providers Provider Date of Service: 05/04/22 Date of admission: 05/01/22 15:47 Primary care physician: Scott Hays MD Consults: 05/01/22 15:24 Consult to Urology Stat Consulting Provider: Silvestre Villanueva Reason for consultation: hematuria DS: Diagnosis Discharge Diagnosis (1) Gross hematuria: Status: Acute (2) BPH (benign prostatic hyperplasia): Status: Acute DS: Summary Hospital Course Hospital Course: Chief Complaint: Hematuria This is 81-year-old male with pertinent history of aortic wall replacement on Eliquis, congestive heart failure, unspecified ejection fraction, essential hypertension ER, gastroesophageal reflux disease, benign prostatic hyperplasia, history of recurrent kidney stones who presents to the emergency department for evaluation of hematuria.? Patient states he 1st noticed hematuria Thursday evening. He did not take his eliquis or aspirin but hematuria did not subside. It was painless with yared blood in urine.? No blood clots.? Patient continued to stay home and decided to present today at the behest of his daughter.? The hematuria was continuous and painless throughout. No abdominal or flank pain.? No fever, chills, nausea, vomiting.? Patient states he has a history of kidney stones and has had hematuria before.? Also had a cystoscopy previously, unsure of findings.? No history of bladder or prostate cancer.? Does have BPH and is compliant with terazosin.? Patient denies chest discomfort, palpitations, shortness of breath, dizziness, lightheadedness, changes in bowel habits Hospital course: #. Painless hematuria with ongoing CBI. CT of abdomen and pelvis showed hyperattenuating lobulated structure measuring 6 x 4.3 x 5.2 cm But Cystoscopy on 05/[address] Villanueva showed clot, enlarged prostate and no suspcious lesions. He was on CBI before and after cystoscopy and urine is now clear. #. Severe aortic stenosis s/p aortic valve replcement -Hold eliquis as above #. Congestive heart failure, unspecified EF -compensated. Hold lasix until hematuria resolves #. Essential hypertension -Hold until hematuria resolves. Resume as appropriate #. BPH -on terazosin #. GERD -on omeprazole Time Spent with Patient Time attestation: Total time spent providing and/or coordinating discharge services: Discharge coordination time: Greater than 30 minutes Quality: Safe Use of Opioids Does Pt have an Active Cancer Diagnosis on the Problem List?: No Quality: Stroke Does the patient have a stroke diagnosis?: No Physical Exam Vital Signs: Vital Signs: Last Vital Signs Temp 97.9 F 05/04/22 03:52 Pulse 38 L 05/04/22 03:52 Resp 18 05/04/22 03:52 BP 153/72 H 05/04/22 03:52 Pulse Ox 97 05/04/22 03:52 O2 Del Method 05/04/22 03:52 BMI result Body Mass Index 28.5 DS: Data Data Completed and Pending Labs on day of discharge: Preliminary micro results at discharge 05/01/22 11:00 Blood Culture - Preliminary Blood - Venous No growth after 48 hours. 05/01/22 11:01 Blood Culture - Preliminary Blood - Venous No growth after 48 hours. Discharge Plan Discharge Anticipated Discharge Date/Time: 05/04/22 07:27 Patient Disposition: Home, Self-Care Discharge Diagnosis: Gross hematuria Referrals: Scott Hays MD [Primary Care Provider] - 1 Week Discharge Medications: Continued terazosin 10 mg capsule 10 mg PO BEDTIME 90 Days Qty: 90 3RF multivitamin Tablet 1 tab PO DAILY hydrochlorothiazide 50 mg tablet 0.5 tab PO DAILY Gbcqvmszqrn-Hlgbz-EMO Complex [id number] mg Tablet 1 tab PO BID aspirin 81 mg Tablet,Delayed Release (Dr/Ec) 81 mg PO DAILY lisinopril 5 mg tablet 1 tab PO DAILY furosemide 20 mg tablet 2 tab PO DAILY omeprazole 20 mg capsule,delayed release(DR/EC) 1 cap PO DAILY@0630 potassium chloride 20 mEq tablet extended release 20 meq PO BEDTIME apixaban 5 mg tablet 5 mg PO BID Qty: 60 3RF Diet: Advance to usual diet Activity on Discharge: As tolerated Stand Alone Forms: Patient Portal Discharge page Care Plan Goals: Resolution of hematuria Health Concerns: hematuria, enlarged prostate Plan of Treatment: thierry royal for now Assessment: as above
[2022-05-04 07:41] VITALS: BP 148/67; PULSE 48; RESP 20; TEMP 36.3; O2SAT 98
[2022-05-04 08:26] LABS: Hematocrit 43.2 % (42.0-52.0); Hemoglobin 13.9 g/dl (14.0-18.0); Mean Corpuscular HGB Conc 32.2 g/dl (31.0-36.0); Mean Corpuscular Volume 93.1 fL (80.0-98.0); Mean Platelet Volume 10.1 fL (9.4-12.4); Platelet Count 184 X10*3/uL (160-400); Red Blood Count 4.64 X10*6/uL (4.60-5.80); Red Cell Distribution Width 15.6 % (11.0-16.0); White Blood Count 9.2 X10*3/uL (4.8-10.8)
--- NOTE | 2022-05-04 09:52 | P.PNUR_ITS ---
Subjective Subjective Date of Service: 05/04/22 Patient reports: no new complaints Interval history: New is an 81-year-old male with PM history of aortic wall replacement on Eliquis, congestive heart failure, hypertension, gastroesophageal reflux disease, benign prostatic hyperplasia, history of recurrent kidney stones who presented to the emergency department for evaluation for hematuria.?CoMorbidity h/o Nicotine use quit 2019. On terazsin for BPH.? Patient denies chest discomfort, palpitations, shortness of breath, dizziness, lightheadedness, changes in bowel habits. Catheter and CBI started in the ED 05/01/22.? CAT Abd/pelvis 05/01/[address] findings:? KIDNEYS AND URETERS: No hydronephrosis or hydroureter. Simple cysts of both kidneys for which no specific follow-up is recommended. 0.3 cm left lower pole renal calculus. BLADDER: Abnormal appearance of the bladder. Multiple bladder diverticula. Within the bladder lumen there is a hyperattenuating lobulated structure measuring 6 x 4.3 x 5.2 cm.? s/p Cysto evacuation bladder clots 05/02/22 - Findings: No suspicious lesions, Enlarged Prostate. Recommend start 5 alpha reductase inhibitor, proscar or avodart, continue terazosin 05/04/22 - Urine is clear off CBI today, plan d/c with buitrago Physical Exam Vital Signs: Vital Signs: Last Vital Signs Temp 97.3 F 05/04/22 07:41 Pulse 48 L 05/04/22 07:41 Resp 20 05/04/22 07:41 BP 148/67 H 05/04/22 07:41 Pulse Ox 98 05/04/22 07:41 O2 Del Method 05/04/22 07:41 BMI result Body Mass Index 28.5 Const: General: no acute distress and well developed Orientation/cons ciousness: patient oriented x3 HEENT: Head: Yes normocephalic and Yes atraumatic Eyes: Conjunctivae: conjunctivae normal Neck: Neck: Yes normal visual inspection Chest: Chest palpation & inspection: normal inspection of the chest Resp: Effort & Inspection: normal respiratory effort Cardio: Rate: regular rate GI: Inspection: Yes normal to inspection : Other: buitrago, draining well Skin: General skin exam: no rashes or lesions noted Neuro: General: patient oriented x3 Psych: Appearance: grossly normal Affect: normal affect Urology Results Labs CBC & Chem 7: 05/04/22 07:48 05/02/22 06:09 Labs: Laboratory Results - last 24 hr 05/04/22 05/04/22 07:48 07:48 WBC Cancelled 9.2 RBC Cancelled 4.64 Hgb Cancelled 13.9 L Hct Cancelled 43.2 MCV Cancelled 93.1 MCH Cancelled 30.0 MCHC Cancelled 32.2 RDW Cancelled 15.6 Plt Count Cancelled 184 MPV Cancelled 10.1 Absolute Nucleated RBC Cancelled 0.000 Nucleated RBC % (auto) Cancelled 0.0 Progress Note: A&P Assessment and plan (1) Gross hematuria: Status: Acute (2) BPH (benign prostatic hyperplasia): Status: Acute Plan s/p Cysto evacuation bladder clots 05/02/22 - Findings: No suspicious lesions, Enlarged Prostate. Recommend start 5 alpha reductase inhibitor, proscar or avodart, continue terazosin 05/04/22 - Urine clear off CBI, Discharge with buitrago FU next week for voiding trial with me in the office. VNA services Time Spent With Patient Time: Total time spent is greater than 50% in coordination of care (as documented) at patient's floor/unit and/or counseling patient: Progress Note: Quality Stroke Does the patient have a stroke diagnosis?: No
--- NOTE | 2022-05-04 10:54 | W.MHC.F2F ---
Service Date Service Date: 05/04/22 Encounter Date of encounter: 05/04/22 Reasons for Services Signs and symptoms assessed: buitrago catheter care Reason for long-term: postoperative assessment and/or care, GI/ assessment and other (irrigate with normal saline prn for clots ) MD Overseeing Care: Silvestre Villanueva Homebound: Leaving the home is medically contraindicated at this time without the asist of a device and/or another person due th the listed conditions above and below. Reason homebound: other Homebound supporting statement: Status post cystoscopy clot evacuation for gross hematuria, discharged with buitrago to gravity Certification: Based on the above findings, I certify that this patient is confined to the home and needs intermittent long-term care, physical therapy and/or speech therapy, or continues to need occupational therapy. The patient is under my care, and I have initiated the establishment of the plan of care. The patient will be followed by a physician who will periodically review the plan of care.
--- NOTE | 2022-05-04 10:56 | MHC.CM.PN ---
Patient has been medically cleared for dc to home today. Patient's Urologist here at the hospital requested a VNA d/t Patient going home with a buitrago catheter in place. CM met with Patient who explains that his Daughter is a PA and he is not opposed to the VNA but would feel comfortable going home without the VNA if obtaining a VNA were an issue. A referral was made to Darek MCKOY, who is aware of today's dc. IMM addressed with Patient at bedside and the original was given to him and a copy has been placed on the chart.
[2022-05-04 11:31] VITALS: BP 161/72; PULSE 53; RESP 20; TEMP 36.5; O2SAT 95
== END 2022-05-04 13:45 | disposition home health service (06) | DRG 696 ==
LOC: HO.ED 16:01 → HO.EDOVER 16:09 → HO.IMC 05-02 16:05
PROVIDERS: Emergency Medicine; Nurse Practitioner Family; Urology; Admitting Provider Student in an Organized Health Care Education/Training Program; Emergency Provider Emergency Medicine; PCP Internal Medicine Medical Oncology; Visit Provider Internal Medicine
DX: R31.0 Gross hematuria (principal); N40.0 Benign prostatic hyperplasia without lower urinary tract symptoms; I11.0 Hypertensive heart disease with heart failure; I50.9 Heart failure, unspecified; N32.89 Other specified disorders of bladder; N32.3 Diverticulum of bladder; Z66 Do not resuscitate; K21.9 Gastro-esophageal reflux disease without esophagitis; Z20.822 Contact with and (suspected) exposure to COVID-19; Z95.2 Presence of prosthetic heart valve; Z87.442 Personal history of urinary calculi; Z87.891 Personal history of nicotine dependence; Z91.041 Radiographic dye allergy status; Z79.01 Long term (current) use of anticoagulants; Z79.82 Long term (current) use of aspirin; Z79.899 Other long term (current) drug therapy
CPT/HCPCS: 36415; 74176; 80048; 81001; 83605; 85025; 85027; 87040; 87086; 87635; 93005; 99285; C1758; J0290; J0461; J0690; J0696; J1100; J1580; J2250; J3010

== ENCOUNTER 2022-05-05 06:37 | Emergency (ER) | payer MEDICARE, SELFPAY ==
[2022-05-05 07:06] VITALS: BP 160/85; PULSE 56; RESP 18; TEMP 36.8; O2SAT 98; BMI 28.1
--- NOTE | 2022-05-05 07:25 | ED.MALEGU ---
HPI - Male Genitourinary General Chief complaint: Urogenital-Male Stated complaint: had surgery Thursday, feel unwell, has paperwork Time Seen by Provider: 05/05/22 07:24 Source: patient Mode of arrival: ambulatory Limitations: no limitations History of Present Illness HPI Narrative: Last week seen for hematuria, was admitted for bladder irrigation. Had a cystoscopy that was negative. Patient has a catheter and leg bag but is bleeding again. Denies fever or chills MD Complaint: other (hematuria) Onset (ago): day(s) Duration: intermittent Severity: moderate Relieving factors: none Exacerbating factors: none Related Data Home Medications Medication Instructions Recorded Confirmed glucosamine 375 gr-cbsuolinw-cgn 1 tab PO BID 11/29/20 05/01/22 no1 500 mg-C 15 mg-ana 0.5 mg tablet (Liwnfpbulgs-Gfwwaykbwvw-SVR Complex) hydrochlorothiazide 50 mg tablet 0.5 tab PO DAILY 11/29/20 05/01/22 multivitamin 1 tab PO DAILY 11/29/20 05/01/22 potassium chloride 20 mEq 20 meq PO BEDTIME 04/19/21 05/01/22 tablet,extended release omeprazole 20 mg capsule,delayed 1 cap PO DAILY@0630 12/06/21 05/01/22 release aspirin 81 mg tablet,delayed 81 mg PO DAILY 05/01/22 05/01/22 release furosemide 20 mg tablet 2 tab PO DAILY 05/01/22 05/01/22 lisinopril 5 mg tablet 1 tab PO DAILY 05/01/22 05/01/22 Previous Rx's Medication Instructions Recorded apixaban 5 mg tablet 5 mg PO BID #60 tabs 03/25/21 dutasteride 0.5 mg capsule 0.5 mg PO DAILY #180 caps 05/04/22 (Avodart) terazosin 10 mg capsule 10 mg PO BEDTIME #30 caps 05/04/22 Allergies Allergy/AdvReac Type Severity Reaction Status Date / Time Iodinated Contrast Media Allergy Intermediate VOMITING Verified 12/06/21 10:42 [IV Dye, Iodine Containing] Review of Systems Constitutional: Constitutional: Reports no additional constitutional complaints Eyes: Eyes: Reports no additional eye complaints ENT: Denies dizziness Cardiovascular: Cardiovascular: Reports no additional cardiovascular complaints Respiratory: Respiratory: Reports as per HPI Gastrointestinal: Gastrointestinal: Reports no additional gastrointestinal complaints Musculoskeletal: Musculoskeletal: Reports no additional musculoskeletal complaints Integumentary/Breasts: Skin/Breast: Denies rash Neurologic: Reports system reviewed and no additional complaints, except as documented, Denies dizziness and Denies Sensory deficit (Neuro) Psychiatric: Psychiatric: Denies anxiety [facility] Past Medical History Medical History Bilateral hip pain BPH (benign prostatic hyperplasia) CHF (congestive heart failure) Constipation GERD (gastroesophageal reflux disease) History of kidney stones HTN (hypertension) Hx of aortic valve stenosis Hyperlipidemia Low back pain Surgical History Aortic valve replaced History of lithotripsy History of prostate surgery Hx of colonoscopy Hx of cystoscopy Social History Social History Household Members: None Housing: Condominium Are you a primary care provider to a significant other at home: No Do you presently have visiting nurse or other home services: No Alcohol intake: former Patient Tobacco Use Status: Former Tobacco user Quit Date: 2016 Tobacco use type: Cigarette Cigarettes Per Day: 10 Advance Directives Date on File: 05/01/22 service: Yes Current occupational status: retired Physical Exam Vital Signs: Vital Signs: Last Vital Signs Temp 98.3 F 05/05/22 07:06 Pulse 56 05/05/22 07:06 Resp 18 05/05/22 07:06 BP 160/85 H 05/05/22 07:06 Pulse Ox 98 05/05/22 07:06 O2 Del Method 05/05/22 07:06 BMI result Body Mass Index 28.1 Const: General: healthy appearing Nutritional Appearance: average body habitus Orientation/consciousness: oriented to person and patient oriented x3 Limitations: no limitations HEENT: Head: Yes normal to inspection Ears: external ears normal General nose exam: Normal external nose present Mouth: Normal oral and palatal mucosa present and oropharynx normal Throat: Yes posterior oropharynx normal Eyes: General: appearance normal, both eyes and all related structures Neck: Other: supple Neck: Yes normal visual inspection Chest: Chest palpation & inspection: normal inspection of the chest Resp: Auscultation: clear to auscultation bilaterally Cardio: Jugular venous distension: no JVD Rate: regular rate Rhythm: regular rhythm Heart sounds: S1 normal heart sound present and S2 normal heart sound present GI: Inspection: Yes normal to inspection Palpation (GI): Soft to palpation, nontender and No hepatosplenomegaly present Auscultation: normal bowel sounds : General: Yes no CVA tenderness Back/Spine/Pelvis: Back: no CVA tenderness Skin: General skin exam: no rashes or lesions noted Neuro: General: oriented to person and patient oriented x3 Cranial nerves: Yes CN's II-XII intact bilaterally Motor exam (neuro): 5/5 motor strength present throughout Sensory Exam: No Sensory deficit (Neuro) Extrem: General: Yes normal to inspection Psych: Appearance: grossly normal Course Reevaluation(s) Reevaluation #1: Discussed with Dr. Villanueva no need for admission at this time will give a few hours of bladder irrigation Reevaluation #2: irrigation happened, bleeding improved will dc home Time: 11:22 [facility] - Male Genitourinary Lab Data Result diagrams: 05/05/22 07:47 05/05/22 07:47 Labs: Lab Results 05/05/22 05/05/22 05/05/22 Range/Units 07:47 07:47 07:47 WBC 9.8 (4.8-10.8) X10*3/uL RBC 4.77 (4.60-5.80) X10*6/uL Hgb 14.1 (14.0-18.0) g/dl Hct 44.2 (42.0-52.0) % MCV 92.7 (80.0-98.0) fL MCH 29.6 (27.0-33.0) pg MCHC 31.9 (31.0-36.0) g/dl RDW 15.3 (11.0-16.0) % Plt Count 184 (160-400) X10*3/uL MPV 9.9 (9.4-12.4) fL Immature Gran % (Auto) 0.4 (0.0-0.4) % Neut % (Auto) 80.8 H (45-73) % Lymph % (Auto) 12.4 L (20-40) % Cedar % (Auto) 5.4 (2-11) % Eos % (Auto) 0.2 (0-4) % Baso % (Auto) 0.8 (0-2) % Lymph # (Auto) 1.2 (1.2-4.9) X10*3/uL [place]edar # (Auto) 0.5 (0.1-1.2) X10*3/uL Eos # (Auto) 0.0 (0.0-0.4) X10*3/uL Baso # (Auto) 0.1 (0.0-0.2) X10*3/uL Abs Immat Gran (auto) 0.04 H (0.00-0.03) X10*3/uL Absolute Neuts (auto) 8.0 (2.0-8.3) x10*3/uL Absolute Nucleated RBC 0.000 (0.0-0.012) X10*3/uL Nucleated RBC % (auto) 0.0 (0.0-0.2) /100WBC Sodium 143 (135-145) mmol/L Potassium 4.8 (3.3-5.1) mmol/L Chloride 107 (96-108) mmol/L Carbon Dioxide 24 (22-29) mmol/L Anion Gap 17 (12-20) BUN 17 H (9-16) mg/dL Creatinine 0.82 (0.5-1.4) mg/dL Estim Creat Clear Calc 80.6 Estimated GFR > 60 Random Glucose 116 H (60-115) mg/dL Calcium 9.1 (8.4-10.2) mg/dL Urine Color RED Urine Appearance Hazy Urine pH 6.5 (5.0-9.0) Ur Specific [place] 1.025 (1.005-1.025) Urine Protein 300 (3+) H (Neg-Trace) mg/dL Urine Glucose (UA) 100 H (Negative) mg/dL Urine Ketones Trace (Negative) mg/dL Urine Blood Large (3+) H (Negative) Urine Nitrite See Note (Negative) Ur Leukocyte Esterase See Note (Negative) Urine RBC >20 H (0-2) /HPF Urine WBC 0-5 (0-5) /HPF Ur Squamous Epith Cells 0-2 (0-2) /HPF Urine Bacteria Trace (None Seen) Hyaline Casts 0-2 (0-2) /LPF Discharge Plan Discharge Clinical Impression: Hematuria Patient Disposition: Home, Self-Care Instructions: Hematuria (ED) Prescriptions: No Action dutasteride [Avodart] 0.5 mg capsule 0.5 mg PO DAILY Qty: 180 3RF multivitamin Tablet 1 tab PO DAILY hydrochlorothiazide 50 mg tablet 0.5 tab PO DAILY Rnlxzitefgj-Gahqn-CNZ Complex 380-675-42-0.5 mg Tablet 1 tab PO BID aspirin 81 mg Tablet,Delayed Release (Dr/Ec) 81 mg PO DAILY Hold Instructions: Resume on 05/07/22. lisinopril 5 mg tablet 1 tab PO DAILY furosemide 20 mg tablet 2 tab PO DAILY terazosin 10 mg capsule 10 mg PO BEDTIME Qty: 30 0RF omeprazole 20 mg capsule,delayed release(DR/EC) 1 cap PO DAILY@0630 potassium chloride 20 mEq tablet extended release 20 meq PO BEDTIME apixaban 5 mg tablet 5 mg PO BID Qty: 60 3RF Hold Instructions: Resume on 05/07/22. Referrals: Silvestre Villanueva MD [Physician] - 3 days
[2022-05-05] MEDS: Furosemide 20 MG TABLET PO (07:43)
[2022-05-05 07:51] LABS: MANUAL DIFF FLAG NO
[2022-05-05 07:55] LABS: Basophils Absolute Auto 0.1 X10*3/uL (0.0-0.2); Basophils Percent Auto 0.8 % (0-2); Eosinophils Percent Auto 0.2 % (0-4); Hematocrit 44.2 % (42.0-52.0); Hemoglobin 14.1 g/dl (14.0-18.0); Imm Gran Abs Auto 0.04 X10*3/uL (0.00-0.03); Imm Gran Pct Auto 0.4 % (0.0-0.4); Lymphocytes Absolute Auto 1.2 X10*3/uL (1.2-4.9); Lymphocytes Percent Auto 12.4 % (20-40); Mean Corpuscular HGB Conc 31.9 g/dl (31.0-36.0); Mean Corpuscular Hemoglobin 29.6 pg (27.0-33.0); Mean Corpuscular Volume 92.7 fL (80.0-98.0); Mean Platelet Volume 9.9 fL (9.4-12.4); Monocytes Absolute Auto 0.5 X10*3/uL (0.1-1.2); Monocytes Percent Auto 5.4 % (2-11); Neutrophils Percent Auto 80.8 % (45-73); Platelet Count 184 X10*3/uL (160-400); Red Blood Count 4.77 X10*6/uL (4.60-5.80); Red Cell Distribution Width 15.3 % (11.0-16.0); White Blood Count 9.8 X10*3/uL (4.8-10.8)
[2022-05-05 07:59] LABS: Appearance Urine Hazy; Glucose Urine UA 100 mg/dL (Negative); PH 6.5 (5.0-9.0); Specific Gravity - Urine 1.025 (1.005-1.025); UMIC TRIGGER UACC YES; Urine Blood Large (3+) (Negative); Urine Ketones Trace mg/dL (Negative); Urine Protein 300 (3+) mg/dL (Neg-Trace)
[2022-05-05 08:03] LABS: Color Urine RED
[2022-05-05 08:05] LABS: Anion Gap 17 (12-20); Blood Urea Nitrogen 17 mg/dL (9-16); Calcium 9.1 mg/dL (8.4-10.2); Carbon Dioxide 24 mmol/L (22-29); Chloride 107 mmol/L (96-108); Creatinine Clr Calc Pharmacy 80.6; Estimated Glomerular Filt Rate > 60; Glucose Random 116 mg/dL (60-115); Potassium 4.8 mmol/L (3.3-5.1); Sodium 143 mmol/L (135-145)
--- NOTE | 2022-05-05 08:05 | PC.NURSE ---
patient a/ox4 . nickyrla . heart rate regular at 60 beats per minute . lungs clear . skin pink warm and dry . abdomen soft not tender . positive bowel sounds in all four quadrants . patient has non pitting edema noted in lower extremities bilaterally . medicated with Lasix as ordered .patient has no pain . Labs obtained and sent . patient aware of plan of care .
[2022-05-05 08:07] LABS: RBC Urine >20 /HPF (0-2); Squamous Epithelial Cell Urine 0-2 /HPF (0-2)
[2022-05-05 08:08] LABS: Bacteria Urine Trace (None Seen); Hyaline Casts Urine 0-2 /LPF (0-2); WBC Urine 0-5 /HPF (0-5)
--- NOTE | 2022-05-05 10:37 | PC.NURSE ---
CBI initiated and completed as ordered by provider patient tolerated well instilled 6,000 ml of normal saline till urine ran clear . no blood clots noted at this time . patient was given new leg bag . will monitor for a period of time to see if CBI was successful . patient aware of plan of care .
--- NOTE | 2022-05-05 11:34 | PC.NURSE ---
patient a/ox4 . VSS . breathing even and unlabored . went over discharge instructions as ordered by provider . patient to follow up with urology . patient to return to Ed if symptoms worsen . patient aware of plan care .
== END 2022-05-05 11:36 | disposition home or self-care (01) ==
PROVIDERS: Emergency Provider Emergency Medicine; PCP Internal Medicine Medical Oncology
DX: R31.9 Hematuria, unspecified (principal); I11.0 Hypertensive heart disease with heart failure; I50.9 Heart failure, unspecified; E78.5 Hyperlipidemia, unspecified; I48.91 Unspecified atrial fibrillation; Z87.891 Personal history of nicotine dependence; Z79.01 Long term (current) use of anticoagulants; Z79.82 Long term (current) use of aspirin; Z79.899 Other long term (current) drug therapy; Z96.0 Presence of urogenital implants
CPT/HCPCS: 36415; 51700; 80048; 81001; 81003; 85025; 99284

== ENCOUNTER → 2022-05-09 08:21 | Outpatient (BNVA) | payer MEDICARE, SELFPAY | PROVIDERS: PCP Internal Medicine Medical Oncology; Visit Provider Urology | DX: Z13.89 Encounter for screening for other disorder (principal) | CPT/HCPCS: 51700; 51798; 99212 ==

== ENCOUNTER 2022-05-09 12:57 | Emergency (ER) | payer MEDICARE, SELFPAY ==
[2022-05-09 13:14] VITALS: BP 210/84; BP 214/88; PULSE 74; PULSE 87; RESP 20; TEMP 37.4; O2SAT 96; O2SAT 97; BMI 28.1
[2022-05-09 14:08] LABS: Appearance Urine Clear; Color Urine Yellow; Glucose Urine UA Negative (Negative); Leukocyte Esterase Urine Small (1+) (Negative); Nitrite Urine Negative (Negative); UMIC TRIGGER UACC YES; Urine Blood Large (3+) (Negative); Urine Ketones Negative (Negative); Urine Protein Trace mg/dL (Neg-Trace)
[2022-05-09 14:10] LABS: Bacteria Urine None Seen (None Seen); Hyaline Casts Urine 0-2 /LPF (0-2); RBC Urine >20 /HPF (0-2); Squamous Epithelial Cell Urine 0-2 /HPF (0-2); UACC Culture Trigger YES
--- NOTE | 2022-05-09 14:56 | ED_ITS ---
HPI - Male Genitourinary General Chief complaint: Urogenital-Male Stated complaint: URINARY RETENTION+PAIN S/P CATH REMOVAL Time Seen by Provider: 05/09/22 13:18 Source: patient and EMS Mode of arrival: EMS History of Present Illness HPI Narrative: 81-year-old male with a past medical history of aortic wall replacement on Eliquis and ASA, CHF, HTN, GERD, BPH, recurrent stones, recent admission to our facility for hematuria requiring CBI and CHF, s/p trial to void in the Urology office this morning where Portillo catheter was removed presenting to the ED complaining of urinary retention since 08:30AM with lower/ suprapubic abdominal tenderness. Denies fever, chills, nausea, vomiting, dysuria, lightheadedness/dizziness Onset (ago): hour(s) Related Data Home Medications Medication Instructions Recorded Confirmed glucosamine 375 cr-betqhcbdq-szl 1 tab PO BID 11/29/20 05/09/22 no1 500 mg-C 15 mg-ana 0.5 mg tablet (Ysqayqngfyx-Velyxexkxjp-GHD Complex) hydrochlorothiazide 50 mg tablet 0.5 tab PO DAILY 11/29/20 05/09/22 multivitamin 1 tab PO DAILY 11/29/20 05/09/22 potassium chloride 20 mEq 20 meq PO BEDTIME 04/19/21 05/09/22 tablet,extended release omeprazole 20 mg capsule,delayed 1 cap PO DAILY@0630 12/06/21 05/09/22 release aspirin 81 mg tablet,delayed 81 mg PO DAILY 05/01/22 05/09/22 release furosemide 20 mg tablet 2 tab PO DAILY 05/01/22 05/09/22 lisinopril 5 mg tablet 1 tab PO DAILY 05/01/22 05/09/22 Previous Rx's Medication Instructions Recorded apixaban 5 mg tablet 5 mg PO BID #60 tabs 03/25/21 dutasteride 0.5 mg capsule 0.5 mg PO DAILY #180 caps 05/04/22 (Avodart) terazosin 10 mg capsule 10 mg PO BEDTIME #30 caps 05/04/22 cefuroxime axetil 250 mg tablet 250 mg PO BID 7 days #14 tabs 05/09/22 Allergies Allergy/AdvReac Type Severity Reaction Status Date / Time Iodinated Contrast Media Allergy Intermediate VOMITING Verified 12/06/21 10:42 [IV Dye, Iodine Containing] Review of Systems Review of Systems: Constitutional: No Fever, No Chills, No Fatigue, No Malaise ENT/Mouth: No Ear Pain, No Nasal Congestion, No Sinus Pain, No Hoarseness, No sore throat, No Rhinorrhea, No Swallowing Difficulty Eyes: No Eye Pain, No Swelling, No Redness, No Discharge, No Vision Changes Cardiovascular: No Chest Pain, No SOB, No Edema, No Palpitations Respiratory: No Cough, No Sputum, No Dyspnea Gastrointestinal: No Nausea, No Vomiting, No Diarrhea, No Constipation, + Abdominal pain Genitourinary: No irregular bleeding, No Dysuria, No Urinary Frequency, No Hematuria, No Urinary Incontinence, +retention, No Urgency, No Flank Pain, No Urinary Flow Changes, No Hesitancy Musculoskeletal: No joint pain, No Myalgias, No Joint Swelling Skin: No Skin Lesions, No rash Neuro: No Weakness, No Numbness, No Paresthesias, No Headache Yes all other systems are reviewed and are negative Constitutional: Constitutional: Reports as per [facility] Past Medical History Attestation statement: The following information was validated with the patient. Medical History Bilateral hip pain BPH (benign prostatic hyperplasia) CHF (congestive heart failure) Constipation GERD (gastroesophageal reflux disease) History of kidney stones HTN (hypertension) Hx of aortic valve stenosis Hyperlipidemia Low back pain Surgical History Aortic valve replaced History of lithotripsy History of prostate surgery Hx of colonoscopy Hx of cystoscopy Social History Social History Household Members: None Housing: Condominium Are you a primary director of home care hospice to a significant other at home: No Do you presently have visiting nurse or other home services: No Alcohol intake: former Patient Tobacco Use Status: Former Tobacco user Quit Date: 2016 Tobacco use type: Cigarette Cigarettes Per Day: 10 Advance Directives: Yes Advance Directives on File: Yes Advance Directives Date on File: 05/01/22 service: Yes Current occupational status: retired Physical Exam Vital Signs: Vital Signs: Last Vital Signs Temp 99.3 F 05/09/22 13:14 Pulse 74 05/09/22 13:14 Resp 20 05/09/22 13:14 BP 214/88 H 05/09/22 13:14 Pulse Ox 97 05/09/22 13:14 O2 Del Method 05/09/22 13:14 BMI result Body Mass Index 28.1 Const: Other: uncomfortable General: cooperative, healthy appearing and no acute distress Orientation/consciousness: patient oriented x3 Limitations: no limitations HEENT: Head: Yes normal to inspection and Yes atraumatic Ears: hearing grossly normal bilaterally General nose exam: Normal external nose present Face and sinus: Yes normal facial exam Eyes: General: appearance normal, both eyes and all related structures EOM: EOMs intact bilaterally Neck: Neck: Yes normal visual inspection and Yes no meningeal signs Resp: Effort & Inspection: normal respiratory effort and no respiratory distress Auscultation: clear to auscultation bilaterally Cardio: Rate: regular rate Heart sounds: S1 normal heart sound present and S2 normal heart sound present GI: Inspection: Yes normal to inspection Palpation (GI): Soft to palpation, Tenderness to palpation present (GI) suprapubicly, no guarding and not rigid : General: Yes no CVA tenderness Back/Spine/Pelvis: Back: no CVA tenderness Skin: Rashes: no rashes Wounds: no wounds Neuro: General: patient oriented x3, tone normal and no meningeal signs Gait exam (Neuro): Normal gait present Extrem: General: Yes normal to inspection Course Course Course Narrative: - immediate return of 1000 mL of urine upon Portillo catheter placement. Initially blood tinged then cleared. Patient's symptoms immediately improved. -1516-- UA infected will initiate patient on Ceftin and discussed close Urology follow-up Results discussed with patient including worrisome signs and symptoms and strict return precautions, and when to return to the emergency department. They verbalized understanding and feel safe for discharge at this time. MDM - Male Genitourinary MDM Narrative Medical decision making narrative: 81-year-old male with a past medical history of aortic wall replacement on Eliquis and ASA, CHF, HTN, GERD, BPH, recurrent stones, presenting to the ED complaining of urinary retention since 08:30AM with lower/ suprapubic abdominal tenderness s/p trial to void in the urology office this morning. On exam hypertensive likely from pain, abdomen soft with suprapubic tenderness. 921 mL on bladder scan. Will place Portillo catheter and send UA Differential Diagnosis Differential diagnosis: Likely urinary tract infection and acute retention of urine Medical Records Attestation: I reviewed the patient's medical records. Lab Data Attestation: I reviewed the patient's lab results. Labs: Lab Results 05/09/22 Range/Units 14:01 Urine Color Yellow Urine Appearance Clear Urine pH 6.0 (5.0-9.0) Ur Specific [place] 1.010 (1.005-1.025) Urine Protein Trace (Neg-Trace) mg/dL Urine Glucose (UA) Negative (Negative) mg/dL Urine Ketones Negative (Negative) mg/dL Urine Blood Large (3+) H (Negative) Urine Nitrite Negative (Negative) Ur Leukocyte Esterase Small (1+) H (Negative) Urine RBC >20 H (0-2) /HPF Urine WBC 11-20 H (0-5) /HPF Ur Squamous Epith Cells 0-2 (0-2) /HPF Urine Bacteria None Seen (None Seen) Hyaline Casts 0-2 (0-2) /LPF Discharge Plan Discharge Clinical Impression: Acute urinary retention Patient Disposition: Home, Self-Care Instructions: Urinary Retention in Men (ED) Additional Instructions: urine urinary retention. Portillo catheter was placed, keep in until you follow- up with the urology office. Call today to make aware that you returned to the emergency department after your visit your urine appears infected. Ceftin as an antibiotic please take as prescribed If you develop urinary retention again, have abdominal pain, nausea, vomiting, fever return to the emergency department Prescriptions: New cefuroxime axetil 250 mg tablet 250 mg PO BID 7 Days Qty: 14 0RF No Action dutasteride [Avodart] 0.5 mg capsule 0.5 mg PO DAILY Qty: 180 3RF multivitamin Tablet 1 tab PO DAILY hydrochlorothiazide 50 mg tablet 0.5 tab PO DAILY Tyafugzgxpd-Blezq-XRZ Complex 603-087-61-0.5 mg Tablet 1 tab PO BID aspirin 81 mg Tablet,Delayed Release (Dr/Ec) 81 mg PO DAILY Hold Instructions: Resume on 05/07/22. lisinopril 5 mg tablet 1 tab PO DAILY furosemide 20 mg tablet 2 tab PO DAILY terazosin 10 mg capsule 10 mg PO BEDTIME Qty: 30 0RF omeprazole 20 mg capsule,delayed release(DR/EC) 1 cap PO DAILY@0630 potassium chloride 20 mEq tablet extended release 20 meq PO BEDTIME apixaban 5 mg tablet 5 mg PO BID Qty: 60 3RF Hold Instructions: Resume on 05/07/22. Referrals: [facility] [place] Urology Services [Provider Group] - 5 days ( call today)
[2022-05-09 16:21] VITALS: BP 116/61; PULSE 61; RESP 16; TEMP 36.9; O2SAT 96
== END 2022-05-09 16:24 | disposition home or self-care (01) ==
PROVIDERS: Physician Assistant; Emergency Provider Emergency Medicine; PCP Internal Medicine Medical Oncology
DX: R33.9 Retention of urine, unspecified (principal); Z79.01 Long term (current) use of anticoagulants; Z87.891 Personal history of nicotine dependence; Z79.899 Other long term (current) drug therapy
CPT/HCPCS: 51700; 51798; 81001; 87086; 99212; 99284

== ENCOUNTER 2022-05-11 14:57 | Inpatient (IN) | payer MEDICARE, SELFPAY ==
--- NOTE | ~2022-05-11 | CT_ITS ---
EXAMINATION: CT ABDOMEN AND PELVIS WITHOUT CONTRAST CLINICAL INFORMATION: Hematuria. COMPARISON: Most recent CT of the abdomen/pelvis dated 05/01/2022. TECHNIQUE: Multidetector volumetric imaging was performed from the superior aspect of the liver through the pubic symphysis. Sagittal and coronal reformatted images were obtained on the technologist's workstation. This CT examination was performed using dose optimization techniques as appropriate, variously including the following: *Automated exposure control *Adjustment of mA and/or kV according to patient size (this includes techniques or standardized protocols for targeted exams where dose is matched to indication/reason for exam; i.e. extremities or head) *Use of iterative reconstruction technique DLP: 628 mGy-cm FINDINGS: LUNG BASES: The visualized lung bases are unremarkable. LIVER, GALLBLADDER, AND BILIARY TREE: The liver is normal in size, shape, and attenuation. Hepatic hypodensities are unchanged and likely represent cysts. No new focal hepatic lesion or biliary ductal dilatation is present. The gallbladder is unremarkable with no evidence of radiopaque gallstones, gallbladder wall thickening, or obvious pericholecystic inflammatory changes. PANCREAS: Unremarkable. SPLEEN: Unremarkable. ADRENAL GLANDS: Mild bilateral adrenal gland thickening is unchanged. KIDNEYS AND URETERS: The kidneys are normal in size, shape, and attenuation. No hydronephrosis, hydroureter, or calculi seen. Simple left lower pole renal cyst, unchanged. Findings are not clinically significant. No perinephric stranding. BLADDER: Partially distended urinary bladder with a Portillo catheter in place. Mild wall thickening appears new when compared to the prior examination. There is layering hyperdensity within the bladder which could represent blood or blood products. Redemonstration of prostatomegaly with mass effect on the adjacent urinary bladder. GASTROINTESTINAL TRACT: No small or large bowel obstruction. No bowel wall thickening or inflammatory change. Unremarkable appendix. PERITONEAL CAVITY: No intra-abdominal free air or free fluid. ABDOMINAL WALL: Anterior abdominal wall hernia repair, unchanged. Small, fat-containing anterior abdominal wall hernia, unchanged. No associated bowel loops or inflammatory change. LYMPH NODES: No significant lymphadenopathy. VASCULAR: Atherosclerotic calcifications. No abdominal aortic dilatation. PELVIC VISCERA: Prostatomegaly is redemonstrated. Central prostate calcifications are again noted. OSSEOUS STRUCTURES: Degenerative disc disease within the lumbar spine. No acute osseous abnormality. CT/CT abdomen pelvis wo IV con IMPRESSION: 1. Partially distended urinary bladder with a Portillo catheter in place. Mild wall thickening appears new when compared to the prior examination. Layering hyperdensity within the bladder which could represent blood or blood products decreased when compared to the prior examination. Prostatomegaly is redemonstrated with mass effect on the adjacent urinary bladder. 2. No renal or ureteral stone. No hydronephrosis or hydroureter. 3. Additional chronic findings are unchanged. Fleischner guidelines were followed.
[2022-05-11 15:12] VITALS: BP 140/57; PULSE 65; RESP 18; TEMP 36.9; O2SAT 97; BMI 28.7
[2022-05-11 15:33] LABS: Hematocrit 43.8 % (42.0-52.0); Hemoglobin 14.6 g/dl (14.0-18.0); Mean Corpuscular HGB Conc 33.3 g/dl (31.0-36.0); Mean Corpuscular Hemoglobin 30.1 pg (27.0-33.0); Mean Corpuscular Volume 90.3 fL (80.0-98.0); Mean Platelet Volume 9.5 fL (9.4-12.4); Platelet Count 213 X10*3/uL (160-400); Red Blood Count 4.85 X10*6/uL (4.60-5.80); Red Cell Distribution Width 14.9 % (11.0-16.0); White Blood Count 11.3 X10*3/uL (4.8-10.8)
[2022-05-11 15:49] LABS: Appearance Urine Cloudy; Glucose Urine UA Negative (Negative); Leukocyte Esterase Urine Moderate (2+) (Negative); Nitrite Urine Negative (Negative); UMIC TRIGGER UACC YES; Urine Blood Large (3+) (Negative); Urine Ketones Negative (Negative); Urine Protein 100 (2+) mg/dL (Neg-Trace)
[2022-05-11 15:50] LABS: Color Urine RED
[2022-05-11 15:51] LABS: Bacteria Urine Trace (None Seen); Hyaline Casts Urine 0-2 /LPF (0-2); RBC Urine >20 /HPF (0-2); Squamous Epithelial Cell Urine 0-2 /HPF (0-2); WBC Urine 0-5 /HPF (0-5)
[2022-05-11 15:58] LABS: Anion Gap 17 (12-20); Blood Urea Nitrogen 21 mg/dL (9-16); Calcium 9.2 mg/dL (8.4-10.2); Carbon Dioxide 28 mmol/L (22-29); Chloride 99 mmol/L (96-108); Creatinine Clr Calc Pharmacy 64.7; Estimated Glomerular Filt Rate > 60; Glucose Random 126 mg/dL (60-115); Potassium 3.6 mmol/L (3.3-5.1); Sodium 140 mmol/L (135-145)
--- NOTE | 2022-05-11 17:02 | ED_ITS ---
HPI - Male Genitourinary General Chief complaint: Urogenital-Male Stated complaint: catheter bleeding Time Seen by Provider: 05/11/22 17:02 Source: patient Mode of arrival: ambulatory Limitations: no limitations History of Present Illness HPI Narrative: This is a 81-year-old male history of aortic wall replacement, GERD, kidney stones, hypertension, CHF, atrial fibrillation, BPH currently anticoagulated on apixaban presents to the emergency department with complaints of painless hematuria. According to patient he had stopped his blood thinners for a while per doctor's order, when he started taking them again he is now having hematuria. Reports this buitrago was placed on thursday after he failed a voiding trial,he had one in before Thursday as welll. He reports that at home he noted bright red blood within his leg bag, it also had some clots, he tells me he has had blood in urine before however never this much. Reports he was recently admitted for this 1 week ago and had a cystoscopy w/o any findings. Patient reports he is currently taking 250 mg p.o. b.i.d. of Ceftin for UTI. Patient denies fevers, chills, nausea, vomiting, abdominal pain, headache, vision changes, dizziness, chest pain, shortness of breath, bladder spasms. Related Data Home Medications Medication Instructions Recorded Confirmed glucosamine 375 hn-pirydlwuj-avi 1 tab PO BID 11/29/20 05/09/22 no1 500 mg-C 15 mg-ana 0.5 mg tablet (Xfajshthvfr-Rczazsokaxl-JGE Complex) hydrochlorothiazide 50 mg tablet 0.5 tab PO DAILY 11/29/20 05/09/22 multivitamin 1 tab PO DAILY 11/29/20 05/09/22 potassium chloride 20 mEq 20 meq PO BEDTIME 04/19/21 05/09/22 tablet,extended release omeprazole 20 mg capsule,delayed 1 cap PO DAILY@0630 12/06/21 05/09/22 release aspirin 81 mg tablet,delayed 81 mg PO DAILY 05/01/22 05/09/22 release furosemide 20 mg tablet 2 tab PO DAILY 05/01/22 05/09/22 lisinopril 5 mg tablet 1 tab PO DAILY 05/01/22 05/09/22 Previous Rx's Medication Instructions Recorded apixaban 5 mg tablet 5 mg PO BID #60 tabs 03/25/21 dutasteride 0.5 mg capsule 0.5 mg PO DAILY #180 caps 05/04/22 (Avodart) terazosin 10 mg capsule 10 mg PO BEDTIME #30 caps 05/04/22 cefuroxime axetil 250 mg tablet 250 mg PO BID 7 days #14 tabs 05/09/22 Allergies Allergy/AdvReac Type Severity Reaction Status Date / Time Iodinated Contrast Media Allergy Intermediate VOMITING Verified 12/06/21 10:42 [IV Dye, Iodine Containing] Review of Systems Review of Systems: Constitutional : No Weight loss, No Fever, No Chills, No Fatigue, No Malaise ENT/Mouth : No sore throat, No Rhinorrhea Eyes: No Eye Pain, No Swelling, No Redness Cardiovascular : No Chest Pain, No SOB, No Dyspnea on Exertion, No Orthopnea, No Edema, No Palpitations Respiratory : No Cough, No Sputum, No Wheezing Gastrointestinal : No Nausea, No Vomiting, No Diarrhea, No Constipation, No abdominal Pain, No Hematochezia, No Melena Genitourinary : No Dysuria, No Urinary Frequency, + Hematuria, Musculoskeletal : No joint pain, No Myalgias, No Joint Swelling Skin : No Skin Lesions, No rash Neuro : No Weakness, No Numbness, No Dizziness, No Headache Psych : No Anxiety/Panic, No Depression All other systems reviewed and are negative Yes all other systems are reviewed and are negative [facility] Past Medical History Attestation statement: The following information was validated with the patient. Source: old records reviewed and nursing notes reviewed Medical History Bilateral hip pain BPH (benign prostatic hyperplasia) CHF (congestive heart failure) Constipation GERD (gastroesophageal reflux disease) History of kidney stones HTN (hypertension) Hx of aortic valve stenosis Hyperlipidemia Low back pain Surgical History Aortic valve replaced History of lithotripsy History of prostate surgery Hx of colonoscopy Hx of cystoscopy Social History Social History Household Members: None Housing: Condominium Are you a primary point of care specialist to a significant other at home: No Do you presently have visiting nurse or other home services: No Alcohol intake: former Patient Tobacco Use Status: Former Tobacco user Quit Date: 2016 Tobacco use type: Cigarette Cigarettes Per Day: 10 Advance Directives: Yes Advance Directives on File: Yes Advance Directives Date on File: 05/01/22 service: Yes Current occupational status: retired Physical Exam Vital Signs: Vital Signs: Last Vital Signs Temp 98.4 F 05/11/22 15:12 Pulse 65 05/11/22 15:12 Resp 18 05/11/22 15:12 BP 140/57 H 05/11/22 15:12 Pulse Ox 97 05/11/22 15:12 O2 Del Method 05/11/22 15:12 BMI result Body Mass Index 28.7 vss Appearance: Alert.? Oriented X3.? No acute distress.? Head: Normocephalic, atraumatic, no step-offs or deformities Eyes: Pupils equal, round and reactive to light.? ENT: Pharynx normal.? Neck: Normal inspection.? Neck supple.? CVS: Normal heart rate and rhythm.? Pulses normal.? Respiratory: No respiratory distress.? Breath sounds normal.? Abdomen: Soft and nontender.? Skin: Skin warm and dry.? Normal skin color.? Normal skin turgor.? Extremities: No lower extremity edema.? No calf ttp. 5/5 strength to bilateral upper and lower extremities Back: No midline tenderness, no C-spine tenderness, full range of motion, no CVA tenderness bilaterally Neuro: Oriented X 3.? No motor deficit.? No sensory deficit. CN 2-12 intact Course Reevaluation(s) Reevaluation #1: CBC with slight leukocytosis, chemistry with no electrolyte abnormalities requiring intervention. Urine with infection despite patient currently being treated with p.o. antibiotics. Lactic acid elevated 2.1, will hydrate and give antibiotics for suspected UTI. Pending CT of the abdomen and pelvis then will do manual irrigation. Time: 18:13 Reevaluation #2: Repeat CBC w/o drop in H&H. CT of abdomen and pelvis pending. Time: 19:00 Reevaluation #3: CT of the abdomen and pelvis with a partially distended urinary bladder with Buitrago cath in place, mild wall thickening appears new when compared to prior examination. Hyperdensity within the bladder could represent blood, in this scenario most likely blood. At this time manual irrigation done, however still clots, will start CBI. When compared to previous urine it appears as though they are still infection despite patient being on Ceftin, therefore I gave 1 g of IV ceftriaxone. I did discuss this case with Urology patient will be admi tted for IV antibiotics for UTI and will be followed by Urology while in the hospital. Discussed this case with hospitalist who will admit patient. Time: 19:53 Medications Administered Discontinued Medications Generic Name Dose Route Start Last Admin Trade Name Freq PRN Reason Stop Dose Admin Sodium Chloride 1,000 mls @ 999 mls/hr 05/11/22 18:15 05/11/22 18:36 Ns IV 05/11/22 19:15 999 mls/hr .Q1H1M NAM Administration Ceftriaxone Sodium 1 gm/ 50 mls @ 100 mls/hr 05/11/22 18:12 05/11/22 18:36 Sodium Chloride IV 05/11/22 18:41 100 mls/hr ONCE ONE Administration MDM - Male Genitourinary MDM Narrative Medical decision making narrative: 1705 81-year-old male presents w/ painless yared hematuria in leg bag. Recently started his anticoagulant again. Upon chart review it is noted that patient was seen here and hospitalized from May 01 to May 04 for BPH, hematuria. Patient was admitted and had continuous bladder irrigation done, Urology was consulted and they did a cystoscopy, at that time aspirin and Eliquis were held. Cystoscopy showed no suspicious lesions, and a large prostate. Physical exam- benign however patient's leg bag is noted to be filled with dark red blood with clots. Plan at this time basic labs, blood cultures, lactic, urine. Will rule out infection, acute blood loss anemia. Patient not complaining of dizziness, headache, vision changes, weakness, no tachycardia unlikely symptomatic anemia. Medical Records Attestation: I reviewed the patient's medical records. Lab Data Attestation: I reviewed the patient's lab results. Result diagrams: 05/11/22 18:28 05/11/22 15:27 Labs: Lab Results 05/11/22 05/11/22 05/11/22 Range/Units 15:27 15: 15:28 WBC 11.3 H (4.8-10.8) X10*3/uL RBC 4.85 (4.60-5.80) X10*6/uL Hgb 14.6 (14.0-18.0) g/dl Hct 43.8 (42.0-52.0) % MCV 90.3 (80.0-98.0) fL MCH 30.1 (27.0-33.0) pg MCHC 33.3 (31.0-36.0) g/dl RDW 14.9 (11.0-16.0) % Plt Count 213 (160-400) X10*3/uL MPV 9.5 (9.4-12.4) fL Immature Gran % (Auto) (0.0-0.4) % Neut % (Auto) (45-73) % Lymph % (Auto) (20-40) % [place] % (Auto) (2-11) % Eos % (Auto) (0-4) % Baso % (Auto) (0-2) % Lymph # (Auto) (1.2-4.9) X10*3/uL [place] # (Auto) (0.1-1.2) X10*3/uL Eos # (Auto) (0.0-0.4) X10*3/uL Baso # (Auto) (0.0-0.2) X10*3/uL Abs Immat Gran (auto) (0.00-0.03) X10*3/uL Absolute Neuts (auto) (2.0-8.3) x10*3/uL Absolute Nucleated RBC 0.000 (0.0-0.012) X10*3/uL Nucleated RBC % (auto) 0.0 (0.0-0.2) /100WBC Sodium 140 (135-145) mmol/L Potassium 3.6 D (3.3-5.1) mmol/L Chloride 99 (96-108) mmol/L Carbon Dioxide 28 (22-29) mmol/L Anion Gap 17 (12-20) BUN 21 H (9-16) mg/dL Creatinine 1.03 (0.5-1.4) mg/dL Estim Creat Clear Calc 64.7 Estimated GFR > 60 Random Glucose 126 H (60-115) mg/dL Lactic Acid (0.5-2.0) mmol/L Calcium 9.2 (8.4-10.2) mg/dL Total Bilirubin 0.6 (0.0-1.0) mg/dL Direct Bilirubin 0.3 (0.0-0.5) mg/dL AST 31 (5-37) U/L ALT 42 H (0-40) U/L Alkaline Phosphatase 113 D (39-117) U/L Total Protein 6.5 (6.5-8.0) g/dL Albumin 4.1 (3.5-5.0) g/dL Urine Color RED Urine Appearance Cloudy Urine pH 6.0 (5.0-9.0) Ur Specific [place] 1.020 (1.005-1.025) Urine Protein 100 (2+) H (Neg-Trace) mg/dL Urine Glucose (UA) Negative (Negative) mg/dL Urine Ketones Negative (Negative) mg/dL Urine Blood Large (3+) H (Negative) Urine Nitrite Negative (Negative) Ur Leukocyte Esterase Moderate (2+) H (Negative) Urine RBC >20 H (0-2) /HPF Urine WBC 0-5 (0-5) /HPF Ur Squamous Epith Cells 0-2 (0-2) /HPF Urine Bacteria Trace (None Seen) Hyaline Casts 0-2 (0-2) /LPF Blood Type Antibody Screen 05/11/22 05/11/22 05/11/22 Range/Units 17:44 17:48 18:28 WBC 10.7 (4.8-10.8) X10*3/uL RBC 4.67 (4.60-5.80) X10*6/uL Hgb 14.3 (14.0-18.0) g/dl Hct 42.0 (42.0-52.0) % MCV 89.9 (80.0-98.0) fL MCH 30.6 (27.0-33.0) pg MCHC 34.0 (31.0-36.0) g/dl RDW 14.9 (11.0-16.0) % Plt Count 199 (160-400) X10*3/uL MPV 9.3 L (9.4-12.4) fL Immature Gran % (Auto) 0.4 (0.0-0.4) % Neut % (Auto) 71.2 (45-73) % Lymph % (Auto) 20.5 (20-40) % [place] % (Auto) 6.3 (2-11) % Eos % (Auto) 0.7 (0-4) % Baso % (Auto) 0.9 (0-2) % Lymph # (Auto) 2.2 (1.2-4.9) X10*3/uL [place] # (Auto) 0.7 (0.1-1.2) X10*3/uL Eos # (Auto) 0.1 (0.0-0.4) X10*3/uL Baso # (Auto) 0.1 (0.0-0.2) X10*3/uL Abs Immat Gran (auto) 0.04 H (0.00-0.03) X10*3/uL Absolute Neuts (auto) 7.6 (2.0-8.3) x10*3/uL Absolute Nucleated RBC 0.000 (0.0-0.012) X10*3/uL Nucleated RBC % (auto) 0.0 (0.0-0.2) /100WBC Sodium (135-145) mmol/L Potassium (3.3-5.1) mmol/L Chloride (96-108) mmol/L Carbon Dioxide (22-29) mmol/L Anion Gap (12-20) BUN (9-16) mg/dL Creatinine (0.5-1.4) mg/dL Estim Creat Clear Calc Estimated GFR Random Glucose (60-115) mg/dL Lactic Acid 2.1 H* (0.5-2.0) mmol/L Calcium (8.4-10.2) mg/dL Total Bilirubin (0.0-1.0) mg/dL Direct Bilirubin (0.0-0.5) mg/dL AST (5-37) U/L ALT (0-40) U/L Alkaline Phosphatase (39-117) U/L Total Protein (6.5-8.0) g/dL Albumin (3.5-5.0) g/dL Urine Color Urine Appearance Urine pH (5.0-9.0) Ur Specific [place] (1.005-1.025) Urine Protein (Neg-Trace) mg/dL Urine Glucose (UA) (Negative) mg/dL Urine Ketones (Negative) mg/dL Urine Blood (Negative) Urine Nitrite (Negative) Ur Leukocyte Esterase (Negative) Urine RBC (0-2) /HPF Urine WBC (0-5) /HPF Ur Squamous Epith Cells (0-2) /HPF Urine Bacteria (None Seen) Hyaline Casts (0-2) /LPF Blood Type O Positive Antibody Screen NEGATIVE Critical Care Time Critical Care Time Critical Care Time: Yes Total Critical Care Time: 35 Attestation: I attest to this time spent taking care of the patient, obtaining history, physical, reviewing labs, imaging, speaking to my attending, speaking to specialist. Discharge Plan Discharge Clinical Impression: Gross hematuria, Benign prostatic hyperplasia, Urinary tract infection Patient Disposition: Admitted As Inpatient
[2022-05-11 18:12] LABS: Lactic Acid 2.1 mmol/L (0.5-2.0)
[2022-05-11 18:32] LABS: MANUAL DIFF FLAG NO
[2022-05-11 18:34] LABS: Basophils Absolute Auto 0.1 X10*3/uL (0.0-0.2); Basophils Percent Auto 0.9 % (0-2); Eosinophils Absolute Auto 0.1 X10*3/uL (0.0-0.4); Eosinophils Percent Auto 0.7 % (0-4); Hemoglobin 14.3 g/dl (14.0-18.0); Imm Gran Abs Auto 0.04 X10*3/uL (0.00-0.03); Imm Gran Pct Auto 0.4 % (0.0-0.4); Lymphocytes Absolute Auto 2.2 X10*3/uL (1.2-4.9); Lymphocytes Percent Auto 20.5 % (20-40); Mean Corpuscular Hemoglobin 30.6 pg (27.0-33.0); Mean Corpuscular Volume 89.9 fL (80.0-98.0); Mean Platelet Volume 9.3 fL (9.4-12.4); Monocytes Absolute Auto 0.7 X10*3/uL (0.1-1.2); Monocytes Percent Auto 6.3 % (2-11); Neutrophils Absolute Auto 7.6 x10*3/uL (2.0-8.3); Neutrophils Percent Auto 71.2 % (45-73); Platelet Count 199 X10*3/uL (160-400); Red Blood Count 4.67 X10*6/uL (4.60-5.80); Red Cell Distribution Width 14.9 % (11.0-16.0); White Blood Count 10.7 X10*3/uL (4.8-10.8)
[2022-05-11] MEDS: 0.9 % Sodium Chloride 1,000 ML 999 ML IV (18:36)
[2022-05-11] MEDS: cefTRIAXone sodium 1 GM in 0.9 % Sodium Chloride 50 ML IV (18:36)
[2022-05-11 18:45] LABS: Alanine Aminotransferase 42 U/L (0-40); Albumin Level 4.1 g/dL (3.5-5.0); Alkaline Phosphatase 113 U/L (39-117); Aspartate Amino Transferase 31 U/L (5-37); Bilirubin Direct 0.3 mg/dL (0.0-0.5); Bilirubin Total 0.6 mg/dL (0.0-1.0); Total Protein 6.5 g/dL (6.5-8.0)
--- NOTE | 2022-05-11 19:44 | PC.NURSE ---
Bladder manually irrigated with 60cc sterile water per mdl. Pt tolerated well.
--- NOTE | 2022-05-11 19:52 | PM.IMHP ---
History of Present Illness Date of Service: 05/11/22 Chief Complaint: Hematuria This is 81-year-old male with pertinent history of aortic wall replacement on Eliquis, congestive heart failure, unspecified ejection fraction, essential hypertension ER, gastroesophageal reflux disease, benign prostatic hyperplasia, history of recurrent kidney stones who presents to the emergency department for evaluation of hematuria. Patient was recently admitted to [facility] on 05/01 and discharged on 05/04 for hematuria. Cystoscopy was done which did not reveal any significant lesions. Patient again had some blood clots on 05/05 and was discharged from the ER. Patient followed urology as an outpatient on 05/09 when he failed voiding trial and Portillo was re-inserted. He started Eliquis on 05/08 and noticed significant hematuria today. It is painless with yared blood in urine. No abdominal or flank pain.? No fever, chills, nausea, vomiting.? Patient states he has a history of kidney stones.?No history of bladder or prostate cancer.? Does have BPH and is compliant with terazosin.? Patient denies chest discomfort, palpitations, shortness of breath, dizziness, lightheadedness, changes in bowel habits. In the emergency department, urology was consulted who recommended CBI and will evaluate in am Review of Systems Constitutional: Constitutional: Reports no additional constitutional complaints Cardiovascular: Cardiovascular: Reports no additional cardiovascular complaints Respiratory: Respiratory: Reports no additional respiratory complaints Gastrointestinal: Gastrointestinal: Reports no additional gastrointestinal complaints Genitourinary: Genitourinary: Reports hematuria Neurologic: Reports system reviewed and no additional complaints, except as documented Psychiatric: Psychiatric: Reports no additional psychiatric complaints [facility] Medical History Bilateral hip pain BPH (benign prostatic hyperplasia) CHF (congestive heart failure) Constipation GERD (gastroesophageal reflux disease) History of kidney stones HTN (hypertension) Hx of aortic valve stenosis Hyperlipidemia Low back pain Surgical History Aortic valve replaced History of lithotripsy History of prostate surgery Hx of colonoscopy Hx of cystoscopy Social History Household Members: None Housing: Condominium Are you a primary patient care technician instructor to a significant other at home: No Do you presently have visiting nurse or other home services: No Alcohol intake: former Patient Tobacco Use Status: Former Tobacco user Quit Date: 2016 Tobacco use type: Cigarette Cigarettes Per Day: 10 Advance Directives: Yes Advance Directives on File: Yes Advance Directives Date on File: 05/01/22 service: Yes Current occupational status: retired Meds Allergies Allergy/AdvReac Type Severity Reaction Status Date / Time Iodinated Contrast Media Allergy Intermediate VOMITING Verified 12/06/21 10:42 [IV Dye, Iodine Containing] Active Medications: Current Medications Pharmacy Consult (Consult Rx Perform Med Rec) 1 each MISCELLANE ONCE PRN PRN Reason: Consult order Home Medications Medication Instructions Recorded Confirmed Last Taken Type glucosamine 375 lp-nhneyoeuf-cht 1 tab PO BID 11/29/20 05/09/22 05/01/22 History no1 500 mg-C 15 mg-ana 0.5 mg tablet (Ojrymmmjtyz-Mbuormctnug-ITU Complex) hydrochlorothiazide 50 mg tablet 0.5 tab PO DAILY 11/29/20 05/09/22 05/01/22 History multivitamin 1 tab PO DAILY 11/29/20 05/09/22 05/01/22 History potassium chloride 20 mEq 20 meq PO BEDTIME 04/19/21 05/09/22 04/30/22 History tablet,extended release omeprazole 20 mg capsule,delayed 1 cap PO DAILY@0630 12/06/21 05/09/22 05/01/22 History release aspirin 81 mg tablet,delayed 81 mg PO DAILY 05/01/22 05/09/22 04/30/22 History release furosemide 20 mg tablet 2 tab PO DAILY 05/01/22 05/09/22 04/30/22 History lisinopril 5 mg tablet 1 tab PO DAILY 05/01/22 05/09/22 05/01/22 History Physical Exam Vital Signs and Narrative: Vital Signs: Last Vital Signs Temp 98.4 F 05/11/22 15:12 Pulse 65 05/11/22 15:12 Resp 18 05/11/22 15:12 BP 140/57 H 05/11/22 15:12 Pulse Ox 97 05/11/22 15:12 O2 Del Method 05/11/22 15:12 BMI result Body Mass Index 28.7 Elderly male lying in bed in no distress Neck supple, no JVD Regular rate and rhythm, S1-S2 heard Regular breath sounds bilaterally, no wheezing or crackles appreciated Abdomen soft nontender, no guarding, no rigidity ; Portillo catheter in place with yared blood Patient is awake, alert and oriented to self, place, time and person ; no focal motor deficit Psych: Normal mood No pedal edema Results Labs CBC and Chem 7: 05/11/22 18:28 05/11/22 15:27 Labs: Laboratory Results - last 24 hr 05/11/22 05/11/22 05/11/22 15:27 15:27 15:28 MCV 90.3 MCH 30.1 MCHC 33.3 RDW 14.9 Plt Count 213 MPV 9.5 Immature Gran % (Auto) Neut % (Auto) Lymph % (Auto) [place] % (Auto) Eos % (Auto) Baso % (Auto) Lymph # (Auto) [place] # (Auto) Eos # (Auto) Baso # (Auto) Abs Immat Gran (auto) Absolute Neuts (auto) Absolute Nucleated RBC 0.000 Nucleated RBC % (auto) 0.0 Anion Gap 17 Estim Creat Clear Calc 64.7 Estimated GFR > 60 Random Glucose 126 H Lactic Acid Calcium 9.2 Total Bilirubin 0.6 Direct Bilirubin 0.3 AST 31 ALT 42 H Alkaline Phosphatase 113 D Total Protein 6.5 Albumin 4.1 Urine Color RED Urine Appearance Cloudy Urine pH 6.0 Ur Specific [place] 1.020 Urine Protein 100 (2+) H Urine Glucose (UA) Negative Urine Ketones Negative Urine Blood Large (3+) H Urine Nitrite Negative Ur Leukocyte Esterase Moderate (2+) H Urine RBC >20 H Urine WBC 0-5 Ur Squamous Epith Cells 0-2 Urine Bacteria Trace Hyaline Casts 0-2 Blood Type Antibody Screen 05/11/22 05/11/22 05/11/22 17:44 17:48 18:28 MCV 89.9 MCH 30.6 MCHC 34.0 RDW 14.9 Plt Count 199 MPV 9.3 L Immature Gran % (Auto) 0.4 Neut % (Auto) 71.2 Lymph % (Auto) 20.5 [place] % (Auto) 6.3 Eos % (Auto) 0.7 Baso % (Auto) 0.9 Lymph # (Auto) 2.2 [place] # (Auto) 0.7 Eos # (Auto) 0.1 Baso # (Auto) 0.1 Abs Immat Gran (auto) 0.04 H Absolute Neuts (auto) 7.6 Absolute Nucleated RBC 0.000 Nucleated RBC % (auto) 0.0 Anion Gap Estim Creat Clear Calc Estimated GFR Random Glucose Lactic Acid 2.1 H* Calcium Total Bilirubin Direct Bilirubin AST ALT Alkaline Phosphatase Total Protein Albumin Urine Color Urine Appearance Urine pH Ur Specific [place] Urine Protein Urine Glucose (UA) Urine Ketones Urine Blood Urine Nitrite Ur Leukocyte Esterase Urine RBC Urine WBC Ur Squamous Epith Cells Urine Bacteria Hyaline Casts Blood Type O Positive Antibody Screen NEGATIVE Imaging Radiologist's Impressions: Impressions Abdomen/Pelvis CT 05/11/22 18:11 IMPRESSION: 1. Partially distended urinary bladder with a Portillo catheter in place. Mild wall thickening appears new when compared to the prior examination. Layering hyperdensity within the bladder which could represent blood or blood products decreased when compared to the prior examination. Prostatomegaly is redemonstrated with mass effect on the adjacent urinary bladder. 2. No renal or ureteral stone. No hydronephrosis or hydroureter. 3. Additional chronic findings are unchanged. Fleischner guidelines were followed. Assessment and Plan (1) Gross hematuria: Status: Acute (2) Benign prostatic hyperplasia: Status: Acute (3) HTN (hypertension): Status: Acute (4) Congestive heart failure: Status: Acute (5) Severe aortic stenosis: Status: Acute (6) History of kidney stones: Status: Acute Plan This is 81-year-old male with pertinent history of aortic wall replacement on Eliquis, congestive heart failure, unspecified ejection fraction, essential hypertension ER, gastroesophageal reflux disease, benign prostatic hyperplasia, history of recurrent kidney stones who presents to the emergency department for evaluation of hematuria. #. Painless hematuria -Will admit patient with CBI. Urology consulted, will evaluate in am. Will hold eliquis and aspirin. Monitor H&H and will keep npo after midnight #. Severe aortic stenosis s/p aortic valve replcement -Hold eliquis as above. #. Congestive heart failure, unspecified EF -compensated. Hold lasix until hematuria resolves #. Essential hypertension -Hold until hematuria resolves. Resume as appropriate #. BPH -on terazosin #. GERD -on omeprazole Med rec pending DVT prophylaxis: SCDs Diet : Cardiac diet. Npo after midnight DNR/DNI.? Discussed with daughter and patient at bedside. Admit as inpatient and will require two night minimum hospital stay for need for CBI.? Urology consult pending. Quality Stroke Does the patient have a stroke diagnosis?: No VTE Prior VTE?: No VTE Risk Level:: Medical - moderate - high VTE Device Contraindication: N/A - Device Ordered VTE Drug Contraindication: Treatment Not Indicated
[2022-05-11 19:53] LABS: Reflex Lactate? Lactic Acid Added
[2022-05-11 21:14] LABS: COVID-19 Test Negative (Negative); IDNOW Serial# 08D9AD1C
[2022-05-11 21:40] VITALS: BP 144/45; PULSE 48; RESP 18; TEMP 36.7; O2SAT 96
--- NOTE | 2022-05-11 21:43 | PC.NURSE ---
Portillo cath removed and new 22G [address] catheter inserted as ordered for CBI. Procedure tolerated well by pt. At this time there is no flow to he CBI system as there seems to be a clot blocking its pathway. [place] text sent to Dr. Villa for further evaluation/instructions.
--- NOTE | 2022-05-11 21:54 | PC.NURSE ---
Yo text sent to Dr Kaplan per Dr. Villa.
[2022-05-11] MEDS: Lidocaine HCl 2 % Urojet 10 ML JEL.PF.APP TOPICAL ×2 (22:24)
[2022-05-11 23:54] VITALS: BP 158/66; PULSE 44; RESP 20; TEMP 36.6; O2SAT 98
[2022-05-12] VITALS (7 sets, daily range): BP systolic 133–178; BP diastolic 60–80; PULSE 38–78; RESP 17–20; TEMP 36.1–37.1; O2SAT 95–98; BMI 27.6
--- NOTE | 2022-05-12 | ECG_ITS ---
Test Reason : bradycardia Blood Pressure : / mmHG Vent. Rate : 047 BPM Atrial Rate : 000 BPM P-R Int : 000 ms QRS Dur : 128 ms QT Int : 508 ms P-R-T Axes : 000 081 -10 degrees QTc Int : 449 ms Atrial fibrillation with slow ventricular response Right bundle branch block Nonspecific T wave abnormality Abnormal ECG When compared with ECG of 01-MAY-2022 22:46, Criteria for Septal infarct are no longer Present No significant changes seen Referred By: Georgia Roger Electronically Signed By:BRANDO FRANCOIS MD
[2022-05-12] MEDS: LORazepam 0.5 MG TABLET PO (00:01)
[2022-05-12] MEDS: Morphine Sulfate 2 MG/ML CARTRIDGE IVPUSH (00:01)
[2022-05-12] MEDS: 0.9 % Sodium Chloride Flush 3 ML SYRINGE IVFLUSH ×4 (00:35→23:51)
[2022-05-12 05:32] LABS: MANUAL DIFF FLAG NO
[2022-05-12 05:37] LABS: Basophils Absolute Auto 0.1 X10*3/uL (0.0-0.2); Basophils Percent Auto 0.9 % (0-2); Eosinophils Absolute Auto 0.1 X10*3/uL (0.0-0.4); Eosinophils Percent Auto 1.1 % (0-4); Hematocrit 42.3 % (42.0-52.0); Hemoglobin 13.9 g/dl (14.0-18.0); Imm Gran Abs Auto 0.04 X10*3/uL (0.00-0.03); Imm Gran Pct Auto 0.4 % (0.0-0.4); Lymphocytes Absolute Auto 2.3 X10*3/uL (1.2-4.9); Lymphocytes Percent Auto 23.7 % (20-40); Mean Corpuscular HGB Conc 32.9 g/dl (31.0-36.0); Mean Corpuscular Hemoglobin 29.9 pg (27.0-33.0); Mean Platelet Volume 9.8 fL (9.4-12.4); Monocytes Absolute Auto 0.7 X10*3/uL (0.1-1.2); Monocytes Percent Auto 7.2 % (2-11); Neutrophils Absolute Auto 6.4 x10*3/uL (2.0-8.3); Neutrophils Percent Auto 66.7 % (45-73); Platelet Count 206 X10*3/uL (160-400); Red Blood Count 4.65 X10*6/uL (4.60-5.80); Red Cell Distribution Width 14.9 % (11.0-16.0); White Blood Count 9.6 X10*3/uL (4.8-10.8)
[2022-05-12 05:53] LABS: Anion Gap 12 (12-20); Blood Urea Nitrogen 17 mg/dL (9-16); Calcium 8.7 mg/dL (8.4-10.2); Carbon Dioxide 29 mmol/L (22-29); Chloride 104 mmol/L (96-108); Estimated Glomerular Filt Rate > 60; Glucose Random 99 mg/dL (60-115); Potassium 3.9 mmol/L (3.3-5.1); Sodium 141 mmol/L (135-145)
--- NOTE | 2022-05-12 09:15 | PHA.MEDREC ---
Pharmacy Consult ? Medication Reconciliation Pharmacy has completed the medication reconciliation. Spoke with patient in his room. Patient has a list of medications with him. He last took his medications yesterday am
--- NOTE | 2022-05-12 10:22 | MHC.CM.PN ---
IMM 05/12/22, EMR REVIEWED, PT ADMISTTED W/HEMATURIA AND CURRENTLY ON BREAK FROM CBI, CM MET W/PT WHO IS A&OX4, PT REPORTS HE LIVES ALONE, ONLY DME IS A INDWELLING MONTELONGO CATH THAT HE REPORTS WAS REMOVED AT UROLOGY OFFICE AND HE WAS SENT HOME TOO SOON SO HAD TO GO BACK IN D/T RETENTION AND HAD NEW MONTELONGO INSERTED AND NOW W/HEMATURIA. PT REPORTS A NEW VNA STARTED LAST THURSDAY HOWEVER HE DOES NOT RECALL THE NAME OF THE VNA COMPANY, PT REPORTS THEY TYPICALLY CALL DAILY SO HE WILL ASK WHEN THEY CALL TODAY. PT VERIFIES PCP IS JIM HENDERSON X4 AND HCP IS DTSALLY ANGELA [phone] AND COPY ON FILE IN EXPANSE. ANTIC PT WILL D/C HOME W/RESUMP OF VNA ONCE MEDICALLY CLEARED W/FAMILY FOR TRANSPORT
--- NOTE | 2022-05-12 15:55 | HO.PM.IMPN ---
Subjective Subjective Date of Service: 05/12/22 Interval History: Seen in follow-up for gross hematuria requiring CBI Interval history: Patient reports he is upset as he has not been seen yet by Urology. His CBI on hold at this time, passing clear yellow urine without evidence of clots. He reports feeling bladder spasms. Denies any nausea, vomiting, dysuria, abdominal pain. No shortness of breath, lightheadedness, chest pain. Review of Systems General: No fevers, malaise, unintentional weight loss Cardiovascular: No chest pain, palpitations, or leg edema Respiratory: No shortness of breath, wheezing, cough GI: No abdominal pain, nausea, vomiting, diarrhea, constipation, melena, hematochezia : +hematuria. No dysuria, hematuria, increased urinary frequency, decreased urinary output MSK: No myalgia, back pain Neuro: No headaches, weakness, paresthesias Skin: No rashes or lesions Physical Exam Vital Signs: Vital Signs: Last Vital Signs Temp 97.6 F 05/12/22 15:15 Pulse 44 L 05/12/22 15:15 Resp 17 05/12/22 15:15 BP 153/70 H 05/12/22 15:15 Pulse Ox 98 05/12/22 15:15 O2 Del Method 05/12/22 15:15 BMI result Body Mass Index 27.6 Constitutional - Awake and Alert, No apparent distress Eyes - PERRLA, EOMI Cardiovascular - S1S2, RRR, No edema Respiratory - Normal lung expansion, Normal respiratory effort, No respiratory distress, CTA bilaterally - No CVA tenderness. buitrago in place draininge clear yellow urin, no clots. CBI on hold Extremities - no calf tenderness bilaterally, no swelling Skin - Warm/Dry Neurological - Alert & oriented x3, CN II-XII in tact, 5/5 strength BUE and BLE Psychological - Appropriate affect Objective Data Active Medications Acetaminophen (Acetaminophen 325 Mg Tablet) 650 mg PO Q6H PRN PRN Reason: Pain, Mild (Pain Scale 1-3) Apixaban (Apixaban 5 Mg Tablet) 5 mg PO BID [facility] Aspirin (Aspirin Enteric Coated 81 Mg Tablet.) 81 mg PO DAILY [facility] Cefuroxime Axetil (Cefuroxime Axetil 250 Mg Tablet) 250 mg PO BID [facility] Doxazosin Mesylate (Doxazosin Mesylate 2 Mg Tablet) 8 mg PO DAILY NAM Furosemide (Furosemide 40 Mg Tablet) 40 mg PO DAILY NAM; Protocol Hydrochlorothiazide (Hydrochlorothiazide 25 Mg Tablet) 25 mg PO DAILY NAM; Protocol Lisinopril (Lisinopril 5 Mg Tablet) 5 mg PO DAILY NAM; Protocol Melatonin (Melatonin 3 Mg Tablet) 6 mg PO BEDTIME PRN PRN Reason: Insomnia Multivitamins/Vitamin C (Multivitamin Tablet) 1 tab PO DAILY NAM Non-Formulary Medication (Dutasteride [Avodart]) 0.5 mg PO DAILY NAM Omeprazole (Omeprazole 20 Mg Capsule.Dr) 20 mg PO DAILY@0630 NAM Ondansetron HCl (Ondansetron Hcl 4 Mg/2 Ml Vial) 4 mg IVPUSH Q8H PRN PRN Reason: Nausea and Vomiting Pharmacy Consult (Consult Rx Perform Med Rec) 1 each MISCELLANE ONCE PRN PRN Reason: Consult order Potassium Chloride (Potassium Chloride Er 20 Meq Tab.Er.Prt) 20 meq PO BEDTIME [facility] Sodium Chloride (0.9 % Sodium Chloride Flush 3 Ml Syringe) 3 ml IVFLUSH QSHIFT NAM Last Admin: 05/12/22 10:42 Dose: 3 ml Documented By: AUTUMN Labs CBC & Chem 7: 05/12/22 05:11 05/12/22 05:11 Labs: Laboratory Results - last 24 hr 05/11/22 05/11/22 05/11/22 15:27 15:27 17:44 MCV MCH MCHC RDW Plt Count MPV Immature Gran % (Auto) Neut % (Auto) Lymph % (Auto) [place] % (Auto) Eos % (Auto) Baso % (Auto) Lymph # (Auto) [place] # (Auto) Eos # (Auto) Baso # (Auto) Abs Immat Gran (auto) Absolute Neuts (auto) Absolute Nucleated RBC Nucleated RBC % (auto) Anion Gap 17 Estim Creat Clear Calc 64.7 Estimated GFR > 60 Random Glucose 126 H Lactic Acid Lactic Acid F/U @ 2Hr Calcium 9.2 Total Bilirubin 0.6 Direct Bilirubin 0.3 AST 31 ALT 42 H Alkaline Phosphatase 113 D Total Protein 6.5 Albumin 4.1 Urine Color RED Urine Appearance Cloudy Urine pH 6.0 Ur Specific [place] 1.020 Urine Protein 100 (2+) H Urine Glucose (UA) Negative Urine Ketones Negative Urine Blood Large (3+) H Urine Nitrite Negative Ur Leukocyte Esterase Moderate (2+) H Urine RBC >20 H Urine WBC 0-5 Ur Squamous Epith Cells 0-2 Urine Bacteria Trace Hyaline Casts 0-2 COVID-19 ([place]) COVID-19 Clin Com Blood Type O Positive Antibody Screen NEGATIVE 05/11/22 05/11/22 05/11/22 17:48 18:28 20:49 MCV 89.9 MCH 30.6 MCHC 34.0 RDW 14.9 Plt Count 199 MPV 9.3 L Immature Gran % (Auto) 0.4 Neut % (Auto) 71.2 Lymph % (Auto) 20.5 [place] % (Auto) 6.3 Eos % (Auto) 0.7 Baso % (Auto) 0.9 Lymph # (Auto) 2.2 [place] # (Auto) 0.7 Eos # (Auto) 0.1 Baso # (Auto) 0.1 Abs Immat Gran (auto) 0.04 H Absolute Neuts (auto) 7.6 Absolute Nucleated RBC 0.000 Nucleated RBC % (auto) 0.0 Anion Gap Estim Creat Clear Calc Estimated GFR Random Glucose Lactic Acid 2.1 H* Lactic Acid F/U @ 2Hr 1.0 Calcium Total Bilirubin Direct Bilirubin AST ALT Alkaline Phosphatase Total Protein Albumin Urine Color Urine Appearance Urine pH Ur Specific [place] Urine Protein Urine Glucose (UA) Urine Ketones Urine Blood Urine Nitrite Ur Leukocyte Esterase Urine RBC Urine WBC Ur Squamous Epith Cells Urine Bacteria Hyaline Casts COVID-19 ([place]) COVID-19 Clin Com Blood Type Antibody Screen 05/11/22 05/12/22 05/12/22 20:55 05:11 05:11 MCV 91.0 MCH 29.9 MCHC 32.9 RDW 14.9 Plt Count 206 MPV 9.8 Immature Gran % (Auto) 0.4 Neut % (Auto) 66.7 Lymph % (Auto) 23.7 [place] % (Auto) 7.2 Eos % (Auto) 1.1 Baso % (Auto) 0.9 Lymph # (Auto) 2.3 [place] # (Auto) 0.7 Eos # (Auto) 0.1 Baso # (Auto) 0.1 Abs Immat Gran (auto) 0.04 H Absolute Neuts (auto) 6.4 Absolute Nucleated RBC 0.000 Nucleated RBC % (auto) 0.0 Anion Gap 12 Estim Creat Clear Calc 77.0 Estimated GFR > 60 Random Glucose 99 Lactic Acid Lactic Acid F/U @ 2Hr Calcium 8.7 Total Bilirubin Direct Bilirubin AST ALT Alkaline Phosphatase Total Protein Albumin Urine Color Urine Appearance Urine pH Ur Specific [place] Urine Protein Urine Glucose (UA) Urine Ketones Urine Blood Urine Nitrite Ur Leukocyte Esterase Urine RBC Urine WBC Ur Squamous Epith Cells Urine Bacteria Hyaline Casts COVID-19 ([place]) Negative COVID-19 Clin Com See Note Blood Type Antibody Screen Assessment and Plan (1) Benign prostatic hyperplasia: Status: Acute (2) Gross hematuria: Status: Resolved Plan This is 81-year-old male with pertinent history of aortic wall replacement on Eliquis, congestive heart failure, unspecified ejection fraction, essential hypertension ER, gastroesophageal reflux disease, benign prostatic hyperplasia, history of recurrent kidney stones who presents to the emergency department for evaluation of hematuria. #. Painless hematuria -Continue CBI -Appreciate urology input -Hold asa and eliquis #. Severe aortic stenosis s/p aortic valve replcement -Hold eliquis as above. #. Congestive heart failure, unspecified EF -compensated. Hold lasix until hematuria resolves -Resume lasix am #. Essential hypertension -Hold until hematuria resolves. -Resume lisinopril. Resume remainder BP meds am if no further bleeding and BP stable #. BPH -on terazosin #. GERD -on omeprazole DVT prophylaxis: SCDs Diet : Cardiac diet. Npo after midnight DNR/DNI.? requires ongoing inpatient stay for maangement of gross hematuria requiring CBI and close monitoring of H/H and hemodynamically stability with expert consultation Quality Stroke Does the patient have a stroke diagnosis?: No VTE Prior VTE?: No VTE Risk Level:: Medical - moderate - high VTE Device Contraindication: N/A - Device Ordered VTE Drug Contraindication: Treatment Not Indicated
[2022-05-12] MEDS: lisinopriL 5 MG TABLET PO (17:14)
--- NOTE | 2022-05-12 19:06 | PC.NURSE ---
CBI stopped by Dr. Kaplan ,buitrago is draining pink tinged urine,no clots.
[2022-05-12] MEDS: Potassium Chloride ER 20 MEQ TAB.ER.PRT PO (21:06)
[2022-05-13] MEDS: Cyclobenzaprine HCl 10 MG TABLET PO (00:27)
[2022-05-13 02:58] VITALS: BP 168/73; PULSE 50; RESP 17; TEMP 36.2; O2SAT 97
[2022-05-13] MEDS: Omeprazole 20 MG CAPSULE.DR PO (06:12)
[2022-05-13 08:00] VITALS: BP 146/65; PULSE 50; RESP 18; TEMP 36.2; O2SAT 100
[2022-05-13] MEDS: lisinopriL 5 MG TABLET PO (08:04)
[2022-05-13] MEDS: Multivitamin TABLET 1 TAB PO (08:04)
[2022-05-13] MEDS: hydroCHLOROthiazide 25 MG TABLET PO (08:04)
[2022-05-13] MEDS: Doxazosin Mesylate 2 MG TABLET 8 MG PO (08:04)
[2022-05-13] MEDS: Furosemide 40 MG TABLET PO (08:04)
[2022-05-13] MEDS: 0.9 % Sodium Chloride Flush 3 ML SYRINGE IVFLUSH (08:05)
[2022-05-13 11:56] VITALS: BP 120/57; PULSE 52; RESP 18; TEMP 36.2; O2SAT 97
--- NOTE | 2022-05-13 13:12 | PM.DS ---
DS: Providers Provider Date of Service: 05/13/22 Date of admission: 05/11/22 19:50 Primary care physician: Scott Hays MD Consults: 05/11/22 20:02 Consult to Urology Stat Consulting Provider: Jacky Kaplan Reason for consultation: hematuria DS: Diagnosis Discharge Diagnosis (1) Benign prostatic hyperplasia: Status: Acute (2) Gross hematuria: Status: Resolved DS: Summary Hospital Course Hospital Course: 81-year-old male with pertinent history of aortic wall replacement on Eliquis, congestive heart failure, unspecified ejection fraction, essential hypertension ER, gastroesophageal reflux disease, benign prostatic hyperplasia, history of recurrent kidney stones who presents to the emergency department for evaluation of hematuria. Patient was recently admitted to [facility] on 05/01 and discharged on 05/04 for hematuria.? Cystoscopy was done which did not reveal any significant lesions.? Patient again had some blood clots on 05/05 and was discharged from the ER.? Patient followed urology as an outpatient on 05/09 when he failed voiding trial and Buitrago was re-inserted.? He started Eliquis on 05/08 and noticed significant hematuria today. It is painless with yared blood in urine. No abdominal or flank pain.? No fever, chills, nausea, vomiting.? Patient states he has a history of kidney stones.?No history of bladder or prostate cancer.? Does have BPH and is compliant with terazosin.? Patient denies chest discomfort, palpitations, shortness of breath, dizziness, lightheadedness, changes in bowel habits. In the emergency department, urology was consulted who recommended CBI?. Hospital course: patient admitted for gross hematuria for, has history of BPH- subsequently seen by Urology and is Eliquis and aspirin was placed on hold hematuria seems to be improving still has slightly pinkish urine but otherwise significantly hematuria seems to be improving. patient s/p Cysto evacuation bladder clots 05/02/22 - Findings:? No suspicious lesions, Enlarged Prostate. follow-up with Cardiology and Urology out patiently- and start Eliquis/aspirin when okay. patient will advised to continue his BPH medications. Has Buitrago urology recommended- to keep it for 1 week- and follow-up with Urology outpatient. Above management discussed with patient in detail length he understand and in agreement with the above plan. Time Spent with Patient Time attestation: Total time spent providing and/or coordinating discharge services: Discharge coordination time: Greater than 30 minutes Quality: Safe Use of Opioids Does Pt have an Active Cancer Diagnosis on the Problem List?: No Quality: Stroke Does the patient have a stroke diagnosis?: No Physical Exam Vital Signs: Vital Signs: Last Vital Signs Temp 97.2 F 05/13/22 11:56 Pulse 52 05/13/22 11:56 Resp 18 05/13/22 11:56 BP 120/57 L 05/13/22 11:56 Pulse Ox 97 05/13/22 11:56 O2 Del Method 05/13/22 11:56 BMI result Body Mass Index 27.6 Appearance: Alert.? Oriented X3.? not in distress.? Eyes: Pupils equal, round and reactive to light.? Sclera nonicteric.? ENT: Pharynx normal.? Moist mucous membranes. cvs: rrr, [id number] , no murmur res: clear to auscultation ,no rhonchii or wheezing abd: no rebound or guarding ,nt, bs present. : has buitrago ,slight pinkish colous ,no clots. ext pulses present , no cyanosis . neuro: axo3 , nonfocal. DS: Data Data Completed and Pending Completed studies during hospitalization [Text1]: Procedures Extirpation of Matter from Bladder, Via Natural or Artificial Opening Endoscopic (05/01/22) Labs on day of discharge: Preliminary micro results at discharge 05/11/22 17:44 Blood Culture - Preliminary Blood - Venous No growth after 24 hours. 05/11/22 17:48 Blood Culture - Preliminary Blood - Venous No growth after 24 hours. ? 05/11/22 05/11/22 05/11/22 ? 15:27 15:27 17:44 MCV ? ? ? MCH ? ? ? MCHC ? ? ? RDW ? ? ? Plt Count ? ? ? MPV ? ? ? Immature Gran % (Auto) ? ? ? Neut % (Auto) ? ? ? Lymph % (Auto) ? ? ? [place] % (Auto) ? ? ? Eos % (Auto) ? ? ? Baso % (Auto) ? ? ? Lymph # (Auto) ? ? ? [place] # (Auto) ? ? ? Eos # (Auto) ? ? ? Baso # (Auto) ? ? ? Abs Immat Gran (auto) ? ? ? Absolute Neuts (auto) ? ? ? Absolute Nucleated RBC ? ? ? Nucleated RBC % (auto) ? ? ? Anion Gap ?17 ? ? Estim Creat Clear Calc ?64.7 ? ? Estimated GFR ?> 60 ? ? Random Glucose ?126 H ? ? Lactic Acid ? ? ? Lactic Acid F/U @ 2Hr ? ? ? Calcium ?9.2 ? ? Total Bilirubin ?0.6 ? ? Direct Bilirubin ?0.3 ? ? AST ?31 ? ? ALT ?42 H ? ? Alkaline Phosphatase ?113? D ? ? Total Protein ?6.5 ? ? Albumin ?4.1 Additional Comments Additional comments: CT/CT abdomen pelvis wo IV con IMPRESSION: 1.? Partially distended urinary bladder with a Buitrago catheter in place. Mild wall thickening appears new when compared to the prior examination. Layering hyperdensity within the bladder which could represent blood or blood products decreased when compared to the prior examination. Prostatomegaly is redemonstrated with mass effect on the adjacent urinary bladder. ? 2.? No renal or ureteral stone. No hydronephrosis or hydroureter. ? 3.? Additional chronic findings are unchanged. ? Fleischner guidelines were followed. Discharge Plan Discharge Anticipated Discharge Date/Time: 05/13/22 13:02 Patient Disposition: Home Health Service Discharge Diagnosis: BPH, hematuria Referrals: Darek Huber [Outside] - 1 Day (RESUMPTION OF CARE ) Scott Hays MD [Primary Care Provider] - 1 Week Discharge Medications: New oxybutynin chloride 5 mg Tablet Extended Release 24hr 5 mg PO DAILY PRN (Reason: bladder spasm) Qty: 14 0RF Continued dutasteride [Avodart] 0.5 mg capsule 0.5 mg PO DAILY Qty: 180 3RF multivitamin Tablet 1 tab PO DAILY hydrochlorothiazide 50 mg tablet 0.5 tab PO DAILY [id number] Complex 196-255-62-0.5 mg Tablet 1 tab PO BID lisinopril 5 mg tablet 1 tab PO DAILY furosemide 20 mg tablet 2 tab PO DAILY omeprazole 20 mg capsule,delayed release(DR/EC) 1 cap PO DAILY@0630 cefuroxime axetil 250 mg tablet 250 mg PO BID 7 Days Qty: 14 0RF terazosin 10 mg capsule 10 mg PO DAILY potassium chloride 20 mEq tablet extended release 20 meq PO BEDTIME Held aspirin 81 mg Tablet,Delayed Release (Dr/Ec) 81 mg PO DAILY Hold Instructions: Resume on 05/07/22. apixaban 5 mg tablet 5 mg PO BID Qty: 60 3RF Hold Instructions: Resume on 05/07/22. Discharge Orders: Discharge Order (Routine); Ordered 05/13/22 Ordered By: Evan Marshall Diet: Advance to usual diet Activity on Discharge: As tolerated Stand Alone Forms: Patient Portal Discharge page Care Plan Goals: patient admitted for gross hematuria for, has history of BPH- subsequently seen by Urology and is Eliquis and aspirin was placed on hold hematuria seems to be improving still has slightly pinkish urine but otherwise significantly hematuria seems to be improving. follow-up with Cardiology and Urology out patiently- and start Eliquis/aspirin when okay. patient will advised to continue his BPH medications. Has Buitrago urology recommended- to keep it for 1 week- and follow-up with Urology outpatient. Health Concerns: as above. Plan of Treatment: As above. Assessment: As above.
--- NOTE | 2022-05-13 13:18 | MHC.CM.PN ---
PT MEDICALLY CLEARED TO D/C HOME W/RESUMP OF [facility] AND FAMILY FOR TRANSPORT.
== END 2022-05-13 15:50 | disposition home health service (06) | DRG 696 ==
LOC: HO.ED 19:52 → HO.EDOVER 19:57 → HO.S3 22:01
PROVIDERS: Physician Assistant; Admitting Provider Student in an Organized Health Care Education/Training Program; Emergency Provider Emergency Medicine; PCP Internal Medicine Medical Oncology; Visit Provider Internal Medicine
DX: R31.0 Gross hematuria (principal); I11.0 Hypertensive heart disease with heart failure; N39.0 Urinary tract infection, site not specified; Z66 Do not resuscitate; I50.9 Heart failure, unspecified; Z20.822 Contact with and (suspected) exposure to COVID-19; Z95.2 Presence of prosthetic heart valve; Z87.891 Personal history of nicotine dependence; Z87.442 Personal history of urinary calculi; Z91.041 Radiographic dye allergy status; Z79.82 Long term (current) use of aspirin; Z79.01 Long term (current) use of anticoagulants; Z79.899 Other long term (current) drug therapy
CPT/HCPCS: 36415; 51700; 51798; 74176; 80048; 80076; 81001; 83605; 85025; 85027; 86850; 86900; 86901; 87040; 87086; 87635; 93005; 99212; 99284; 99285; C1758; J0696; J2270

== ENCOUNTER → 2022-05-29 13:20 | Outpatient (BNVA) | payer MEDICARE, SELFPAY | PROVIDERS: PCP Internal Medicine Medical Oncology; Visit Provider Urology | DX: N40.0 Benign prostatic hyperplasia without lower urinary tract symptoms (principal); R31.0 Gross hematuria; N20.0 Calculus of kidney; Z87.442 Personal history of urinary calculi | CPT/HCPCS: 99212 ==

== ENCOUNTER 2022-06-10 06:02 | Day surgery (SDC) | payer MEDICARE, SELFPAY ==
[2022-06-04 16:42] VITALS: BMI 26.6
--- NOTE | 2022-06-09 09:43 | P.CONAN_ITS ---
Documented by User: Irene Gentile NP 06/09/22 09:54 HPI - Anesthesia Eval Consult details Narrative: 81yo M for TUR Prostate Cardiology cleared. Noted to be alysa prior to last procedure. Per cardiology clearance note, consider MAC instead of GA. See clearance note on chart for full cardiology recommendations. 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 PMFSH Active Problems Active Problems: All Active Problems (Updated 06/04/22 @ 16:37 by Gisell Sequeira RN) Acute congestive heart failure (Acute) Afib (Acute) Nephrolithiasis (Acute) History of kidney stones (Acute) Kidney stone on left side (Acute) Benign prostatic hyperplasia (Acute) Past Medical History Medical History (Updated 06/04/22 @ 16:37 by Gisell Sequeira RN) Bilateral hip pain BPH (benign prostatic hyperplasia) CHF (congestive heart failure) Congestive heart failure Constipation GERD (gastroesophageal reflux disease) Gross hematuria History of kidney stones HTN (hypertension) Hx of aortic valve stenosis Hyperlipidemia Indwelling Portillo catheter present Low back pain Severe aortic stenosis Family History Family history of problems with anesthesia: No Surgical History Surgical History (Updated 06/04/22 @ 16:39 by Gisell Sequeira RN) Aortic valve replaced History of lithotripsy History of prostate surgery Hx of colonoscopy Hx of cystoscopy History of Problems with Anesthesia: No Social History Social History Household Members: None Housing: Apartment Housing Other:: condo Are you a primary career development engineer to a significant other at home: No Do you presently have visiting nurse or other home services: Yes (VNA once a week) Alcohol intake: former Patient Tobacco Use Status: Former Tobacco user Quit Date: years ago Tobacco use type: Cigarette Cigarettes Per Day: 10 e-Cigarette/Vaping Use: Never Used Second Hand Smoke Exposure: No Have you been hit, kicked, punched, or otherwise hurt by someone within the past year? If so, by whom?: No Are you DNR?: No Advance Directives: Yes Advance Directives Information Provided: No Advance Directives on File: Yes Advance Directives Date on File: 05/01/22 Nutrition Risks: Surgical patient >75years service: Yes Current occupational status: retired Meds Allergies Allergy/AdvReac Type Severity Reaction Status Date / Time Iodinated Contrast Media Allergy Intermediate VOMITING Verified 05/29/22 13:39 [IV Dye, Iodine Containing] Home Medications Medication Instructions Recorded Confirmed Last Taken Type glucosamine 375 jk-mzzlmdpbe-evz 1 tab PO BID 11/29/20 06/04/22 05/11/22 History no1 500 mg-C 15 mg-ana 0.5 mg tablet (Fndesirosey-Ukunlnhyrem-MCF Complex) hydrochlorothiazide 50 mg tablet 0.5 tab PO DAILY 11/29/20 06/04/22 05/11/22 History multivitamin 1 tab PO DAILY 11/29/20 06/04/22 05/11/22 History potassium chloride 20 mEq 20 meq PO BEDTIME 04/19/21 06/04/22 05/11/22 History tablet,extended release omeprazole 20 mg capsule,delayed 1 cap PO DAILY@0630 12/06/21 06/04/22 06/10/22 History release aspirin 81 mg tablet,delayed 81 mg PO DAILY 05/01/22 05/29/22 05/27/22 History release furosemide 20 mg tablet 2 tab PO DAILY 05/01/22 06/04/22 05/11/22 History lisinopril 5 mg tablet 1 tab PO DAILY 05/01/22 06/04/22 05/11/22 History Exam Exam Date and Time: June 09, 2022 0943 Height,Weight and Vital Signs: Height 5 ft 10 in Weight 84.368 kg Pertinent Lab Results Pertinent Lab Results: Laboratory Tests 05/12/22 05/12/22 05:11 05:11 WBC 9.6 Hgb 13.9 L Hct 42.3 Plt Count 206 Sodium 141 Potassium 3.9 Chloride 104 Carbon Dioxide 29 BUN 17 H Creatinine 0.79 Narrative Narrative: ECHO 10/2021 per cardiology note EF 60% Mean AV grad of 16mmHg trace perivalvular aortic insufficiency EKG 04/2022 Vent. Rate : 047 BPM ? ? Atrial Rate : 000 BPM ?? P-R Int : 000 ms? QRS Dur : 128 ms ? ? QT Int : 508 ms ? ? ? P-R-T Axes : 000 081 -10 degrees ?? QTc Int : 449 ms ? Atrial fibrillation with slow ventricular response Right bundle branch block Nonspecific T wave abnormality Abnormal ECG When compared with ECG of 01-MAY-2022 22:46, Criteria for Septal infarct are no longer Present No significant changes seen Assessment and Plan Assessment Anesthesia Assessment: Chart Reviewed Final Anesthetic Review Family History of Problems with Anesthesia: No History of Problems with Anesthesia: No Documented by User: Rob Bradshaw MD 06/10/22 07:34 [facility] Past Medical History Medical History (Updated 06/04/22 @ 16:37 by Gisell Sequeira RN) Bilateral hip pain BPH (benign prostatic hyperplasia) CHF (congestive heart failure) Congestive heart failure Constipation GERD (gastroesophageal reflux disease) Gross hematuria History of kidney stones HTN (hypertension) Hx of aortic valve stenosis Hyperlipidemia Indwelling Portillo catheter present Low back pain Severe aortic stenosis Surgical History Surgical History (Updated 06/04/22 @ 16:39 by Gisell Sequeira, JOHNATHAN) Aortic valve replaced History of lithotripsy History of prostate surgery Hx of colonoscopy Hx of cystoscopy Social History Social History Household Members: None Housing: Apartment Housing Other:: condo Are you a primary career development engineer to a significant other at home: No Do you presently have visiting nurse or other home services: Yes (VNA once a week) Alcohol intake: former Patient Tobacco Use Status: Former Tobacco user Quit Date: years ago Tobacco use type: Cigarette Cigarettes Per Day: 10 e-Cigarette/Vaping Use: Never Used Second Hand Smoke Exposure: No Have you been hit, kicked, punched, or otherwise hurt by someone within the past year? If so, by whom?: No Are you DNR?: No Advance Directives: Yes Advance Directives Information Provided: No Advance Directives on File: Yes Advance Directives Date on File: 05/01/22 Nutrition Risks: Surgical patient >75years service: Yes Current occupational status: retired Meds Allergies Allergy/AdvReac Type Severity Reaction Status Date / Time Iodinated Contrast Media Allergy Intermediate VOMITING Verified 12/01/22 13:39 [IV Dye, Iodine Containing] Home Medications Medication Instructions Recorded Confirmed Last Taken Type glucosamine 375 il-dsfglhxtq-jnr 1 tab PO BID 11/29/20 06/04/22 05/11/22 History no1 500 mg-C 15 mg-ana 0.5 mg tablet (Erhmkqemmkh-Jzhphmryujq-UEE Complex) hydrochlorothiazide 50 mg tablet 0.5 tab PO DAILY 11/29/20 06/04/22 05/11/22 History multivitamin 1 tab PO DAILY 11/29/20 06/04/22 05/11/22 History potassium chloride 20 mEq 20 meq PO BEDTIME 04/19/21 06/04/22 05/11/22 History tablet,extended release omeprazole 20 mg capsule,delayed 1 cap PO DAILY@0630 12/06/21 06/04/22 06/10/22 History release aspirin 81 mg tablet,delayed 81 mg PO DAILY 05/01/22 05/29/22 05/27/22 History release furosemide 20 mg tablet 2 tab PO DAILY 05/01/22 06/04/22 05/11/22 History lisinopril 5 mg tablet 1 tab PO DAILY 05/01/22 06/04/22 05/11/22 History Exam Airway Mallampati Class: II TM Dist: >3cm Neck ROM: Full Heart: irr slow Lungs: clear Assessment and Plan Final Anesthetic Review NPO: Yes ASA Class: III Final Preanesthetic Review: No Changes in Pt Med Stat, Meds/Allgs Chart Reviewed, Consent Obtained/Reviewed and Anes Risks/Benef Reviewed Patient Risk: Intermediate Procedure Risk: Low Anesthetic Plan Anesthetic Plan: GA Disposition: Standard PACU
[2022-06-10] VITALS (14 sets, daily range): BP systolic 118–145; BP diastolic 41–65; PULSE 42–52; RESP 12–18; TEMP 36.3–37; O2SAT 95–99; BMI 26.6
[2022-06-10] MEDS: Lactated Ringers 1,000 ML 50 ML IVCONT (06:56)
[2022-06-10] MEDS: ceFAZolin Sodium/Dextrose,Iso 2 GM/50 ML PIGGYBACK IV (07:30)
[2022-06-10 07:40] LABS: COVID-19 Test Negative (Negative); IDNOW Serial# BCCEAD1C
--- NOTE | 2022-06-10 07:44 | MHC.SHP ---
Pre-Procedural Eval Section A Date of Service: 06/10/22 The patient is an INPATIENT: No The History & Physical has been completed within 30 days and I have reviewed it.: Yes Section B Chief Complaint: Gross hematuria Allergies: Allergies Allergy/AdvReac Type Severity Reaction Status Date / Time Iodinated Contrast Media Allergy Intermediate VOMITING Verified 05/29/22 13:39 [IV Dye, Iodine Containing] Plan Diagnosis/Plan: Unchanged I have reviewed the history and physical and performed a pertinent physical examination on my patient. No changes have occurred unless specified. Cystoscopy, TURP. Discussed risks to include but not limited to, blood in the urine, burning with urination, urgency. Time Spent With Patient Time: Total time managing care of this patient today ____ minutes.
--- NOTE | 2022-06-10 07:46 | PC.NURSE ---
late entry. durring preop assessment, pt with afib bradycardia 40-s50's with freq dip to 37 asymptomatic, denies chest pain/dizziness/light headedness states per stem crusher baseline is as low as 31. Dr. Bradshaw & Dr. Walker aware. & pt evaluated. ok to proceed with turp.
--- NOTE | 2022-06-10 07:49 | PC.NURSE ---
covid swabbed per admission protocol negative
--- NOTE | 2022-06-10 09:28 | W.PM.OPN ---
Operative Note Operative Note Date of Service: 06/10/22 Narrative: PREOP DIAGNOSIS: Bladder outlet obstruction, enlarged prostate, Urinary retention POSTOP DIAGNOSIS: Bladder outlet obstruction, enlarged prostate, Urinary retention PROCEDURE: CYSTOSCOPY TRANSURETHRAL RESECTION OF Prostate Anesthesia: General Details of procedure: The patient was brought into the operating room placed on the OR table in supine position. Gentamycin 120 mg, 2 g of Ancef IV. General anesthesia was administered. The patient was repositioned into lithotomy position, buitrago removed, prepped and draped in the usual sterile fashion. Time-out was done per protocol. The 24 Hungarian resectoscope was passed transurethrally into the bladder. The bulbous urethra was within normal limits. The prostatic urethra - trilobar enlargement with obstructive median lobe. Visualization of the bladder, trigone in normal position, moderate trabeculations and cellulle changes. The loop resectoscope was used to resect the prostate, the right, left and median lobe, care was taken to preserve the Veru, the Ellik was used to irrigate out the prostatic chips, the roller ball was used to obtain adequate hemostatsis.. Once there was good hemostasis the resectoscope was removed. A [address] catheter 30 cc balloon was passed without difficulty. 45 mL H20 injected into the balloon, buitrago placed on tension. CBI with Normal Saline was started in OR. The patient was brought out of anesthesia and taken to recovery in stable condition. Complications: None Drains: [address] catheter 30 cc balloon
[2022-06-10] MEDS: 0.9 % Sodium Chloride 1,000 ML 50 ML IVCONT (11:02)
--- NOTE | 2022-06-10 19:27 | PHA.MEDREC ---
Pharmacy Consult ? Medication Reconciliation Pharmacy has completed the medication reconciliation.
[2022-06-10] MEDS: Docusate Sodium 100 MG CAPSULE PO (21:14)
[2022-06-11 07:00] LABS: MANUAL DIFF FLAG NO
[2022-06-11 07:20] LABS: Anion Gap 13 (12-20); Blood Urea Nitrogen 20 mg/dL (9-16); Calcium 8.8 mg/dL (8.4-10.2); Carbon Dioxide 26 mmol/L (22-29); Chloride 106 mmol/L (96-108); Creatinine Clr Calc Pharmacy 83.3; Estimated Glomerular Filt Rate > 60; Glucose Random 95 mg/dL (60-115); Potassium 3.9 mmol/L (3.3-5.1); Sodium 141 mmol/L (135-145)
[2022-06-11 07:22] LABS: Basophils Absolute Auto 0.1 X10*3/uL (0.0-0.2); Basophils Percent Auto 0.6 % (0-2); Eosinophils Absolute Auto 0.1 X10*3/uL (0.0-0.4); Eosinophils Percent Auto 0.9 % (0-4); Hematocrit 41.7 % (42.0-52.0); Hemoglobin 13.5 g/dl (14.0-18.0); Imm Gran Abs Auto 0.05 X10*3/uL (0.00-0.03); Imm Gran Pct Auto 0.4 % (0.0-0.4); Lymphocytes Absolute Auto 2.2 X10*3/uL (1.2-4.9); Lymphocytes Percent Auto 20.1 % (20-40); Mean Corpuscular HGB Conc 32.4 g/dl (31.0-36.0); Mean Corpuscular Hemoglobin 29.6 pg (27.0-33.0); Mean Corpuscular Volume 91.4 fL (80.0-98.0); Mean Platelet Volume 10.1 fL (9.4-12.4); Monocytes Absolute Auto 0.6 X10*3/uL (0.1-1.2); Monocytes Percent Auto 5.6 % (2-11); Neutrophils Absolute Auto 8.1 x10*3/uL (2.0-8.3); Neutrophils Percent Auto 72.4 % (45-73); Platelet Count 202 X10*3/uL (160-400); Red Blood Count 4.56 X10*6/uL (4.60-5.80); Red Cell Distribution Width 14.6 % (11.0-16.0); White Blood Count 11.2 X10*3/uL (4.8-10.8)
[2022-06-11 07:33] VITALS: BP 148/68; PULSE 36; RESP 16; TEMP 36.2; O2SAT 98
[2022-06-11] MEDS: 0.9 % Sodium Chloride 1,000 ML 50 ML IVCONT (08:18)
--- NOTE | 2022-06-11 11:31 | PM.UROPN ---
Subjective Subjective Date of Service: 06/11/22 Patient reports: bowel movement and other (blood around buitrago, bladder spasms) Interval history: Roderik is s/p Turp for NEGRON, enlarged prostate urinary retention. The patient has been up OOB, ambulating. CBI, urine blood tinged no clots. Plan cont CBI. Physical Exam Vital Signs: Vital Signs: Last Vital Signs Temp 97.2 F 06/11/22 07:33 Pulse 36 L 06/11/22 07:33 Resp 16 06/11/22 07:33 BP 148/68 H 06/11/22 07:33 Pulse Ox 98 06/11/22 07:33 O2 Del Method 06/11/22 07:33 O2 Flow Rate 2 06/10/22 10:24 BMI result Body Mass Index 26.6 Const: General: healthy appearing, no acute distress and well developed Orientation/consciousness: patient oriented x3 HEENT: Head: Yes normocephalic and Yes atraumatic Eyes: Conjunctivae: conjunctivae normal Neck: Neck: Yes normal visual inspection Chest: Chest palpation & inspection: normal inspection of the chest Resp: Effort & Inspection: normal respiratory effort GI: Inspection: Yes normal to inspection Palpation (GI): Soft to palpation : Scrotum: scrotum normal Skin: General skin exam: no rashes or lesions noted Neuro: General: patient oriented x3 Extrem: General: No pedal edema Psych: Appearance: grossly normal Affect: normal affect Urology Results Labs CBC & Chem 7: 06/11/22 05:47 06/11/22 05:47 Labs: Laboratory Results - last 24 hr 06/11/22 06/11/22 05:47 05:47 WBC 11.2 H RBC 4.56 L Hgb 13.5 L Hct 41.7 L MCV 91.4 MCH 29.6 MCHC 32.4 RDW 14.6 Plt Count 202 MPV 10.1 Immature Gran % (Auto) 0.4 Neut % (Auto) 72.4 Lymph % (Auto) 20.1 [place] % (Auto) 5.6 Eos % (Auto) 0.9 Baso % (Auto) 0.6 Lymph # (Auto) 2.2 [place] # (Auto) 0.6 Eos # (Auto) 0.1 Baso # (Auto) 0.1 Abs Immat Gran (auto) 0.05 H Absolute Neuts (auto) 8.1 Absolute Nucleated RBC 0.000 Nucleated RBC % (auto) 0.0 Sodium 141 Potassium 3.9 Chloride 106 Carbon Dioxide 26 Anion Gap 13 BUN 20 H Creatinine 0.73 Estim Creat Clear Calc 83.3 Estimated GFR > 60 Random Glucose 95 Calcium 8.8 Progress Note: A&P Assessment and plan (1) Gross hematuria: Status: Resolved (2) BPH (benign prostatic hyperplasia): Status: Resolved (3) Urinary retention: Status: Acute Plan s/p Turp hematuria Cont CBI Time Spent With Patient Time: Total time managing care of this patient today ____ minutes.
[2022-06-11 13:28] VITALS: BP 123/60; PULSE 47; RESP 16; TEMP 36.6; O2SAT 97
[2022-06-11] MEDS: hydroCHLOROthiazide 25 MG TABLET PO (13:46)
[2022-06-11] MEDS: Omeprazole 20 MG CAPSULE.DR PO (13:47)
[2022-06-11] MEDS: lisinopriL 5 MG TABLET PO (13:47)
[2022-06-11] MEDS: Doxazosin Mesylate 2 MG TABLET 8 MG PO (13:47)
[2022-06-11 15:22] VITALS: BP 124/61; PULSE 62; RESP 17; TEMP 36.6; O2SAT 97
[2022-06-11] MEDS: 0.9 % Sodium Chloride Flush 3 ML SYRINGE IVFLUSH (15:29)
[2022-06-11 20:04] VITALS: BP 122/56; PULSE 40; RESP 18; TEMP 36.2; O2SAT 97
[2022-06-11] MEDS: Potassium Chloride ER 20 MEQ TAB.ER.PRT PO (20:08)
[2022-06-12] VITALS: BP 125/58; PULSE 35; RESP 14; TEMP 36; O2SAT 95
[2022-06-12] MEDS: Omeprazole 20 MG CAPSULE.DR PO (06:07)
[2022-06-12 08:00] VITALS: BP 127/49; PULSE 38; RESP 16; TEMP 36.8; O2SAT 98
[2022-06-12] MEDS: Furosemide 40 MG TABLET PO (09:04)
[2022-06-12] MEDS: 0.9 % Sodium Chloride Flush 3 ML SYRINGE IVFLUSH (09:04)
[2022-06-12] MEDS: hydroCHLOROthiazide 25 MG TABLET PO (09:05)
[2022-06-12] MEDS: Doxazosin Mesylate 2 MG TABLET 8 MG PO (09:05)
[2022-06-12] MEDS: lisinopriL 5 MG TABLET PO (09:05)
--- NOTE | 2022-06-12 09:32 | HO.POSTANES ---
Post Anesthesia Evaluation Post Anesthesia Evaluation Vital Signs: Vital Signs Temp Pulse Resp BP Pulse Ox O2 Del Method 06/12/22 08:00 98.3 F 38 L 16 127/49 L 98 Room Air 06/12/22 00:00 96.8 F 35 L 14 125/58 L 95 Room Air Anesthesia: General Mental Status: Awake Pain Control: Satisfactory Nausea/Vomiting: None Hydration: Adequate Anesthesia-Related Issues: No Anes. Related Issues
--- NOTE | 2022-06-12 13:31 | PM.DS ---
DS: Providers Provider Date of Service: 06/10/22 Date of discharge: 06/12/22 Primary care physician: Scott Hays MD Admitting clinician: Silvestre Villanueva Attending physician on admission: Silvestre Villanueva Attending physician on discharge: Silvestre Villanueva Discharging clinician: Silvestre Villanueva DS: Diagnosis Discharge Diagnosis (1) Gross hematuria: Status: Resolved (2) BPH (benign prostatic hyperplasia): Status: Resolved (3) Urinary retention: Status: Acute DS: Summary Hospital Course Hospital Course: Status post TURP 06/10/22, post op course, CBI for hematuria. buitrago d/c'd 06/12/22, voiding without difficulty, PVR 74 mL Status at Discharge Cognitive/behavioral status at discharge: Stabe Functional status at discharge: independent ambulation Overall status at discharge: patient is back to baseline Time Spent with Patient Time attestation: Total time managing care of this patient today ____ minutes. Discharge coordination time: Greater than 30 minutes Quality: Safe Use of Opioids Does Pt have an Active Cancer Diagnosis on the Problem List?: No Quality: Stroke Does the patient have a stroke diagnosis?: No Physical Exam Vital Signs: Vital Signs: Last Vital Signs Temp 98.3 F 06/12/22 08:00 Pulse 38 L 06/12/22 08:00 Resp 16 06/12/22 08:00 BP 127/49 L 06/12/22 08:00 Pulse Ox 98 06/12/22 08:00 O2 Del Method 06/12/22 08:00 O2 Flow Rate 2 06/10/22 10:24 BMI result Body Mass Index 26.6 Const: General: no acute distress and well developed Orientation/consciousness: patient oriented x3 HEENT: Head: Yes normocephalic and Yes atraumatic Eyes: Conjunctivae: conjunctivae normal Neck: Neck: Yes normal visual inspection Chest: Chest palpation & inspection: normal inspection of the chest Resp: Effort & Inspection: normal respiratory effort Cardio: Rate: regular rate GI: Inspection: Yes normal to inspection Palpation (GI): Soft to palpation : Penis: normal penis Scrotum: scrotum normal Skin: General skin exam: no rashes or lesions noted Neuro: General: patient oriented x3 Extrem: General: No pedal edema Psych: Appearance: grossly normal Affect: normal affect DS: Data Data Completed and Pending Completed studies during hospitalization [Text1]: Procedures Extirpation of Matter from Bladder, Via Natural or Artificial Opening Endoscopic (05/01/22) Pending studies at discharge: Pending at discharge 06/10/22 09:11 Surgical [PTH] Routine Discharge Plan Discharge Patient Disposition: Home, Self-Care Referrals: Scott Hays MD [Primary Care Provider] - 1 Week Discharge Medications: New cephalexin 500 mg capsule 500 mg PO BID 7 Days Qty: 14 0RF No Action dutasteride [Avodart] 0.5 mg capsule 0.5 mg PO DAILY Qty: 180 3RF terazosin 10 mg capsule 10 mg PO DAILY 90 Days Qty: 90 1RF multivitamin Tablet 1 tab PO DAILY hydrochlorothiazide 50 mg tablet 0.5 tab PO DAILY Easxtdmgdxv-Lvuto-QCM Complex [id number] mg Tablet 1 tab PO BID aspirin 81 mg Tablet,Delayed Release (Dr/Ec) 81 mg PO DAILY Hold Instructions: Resume on 05/19/22. lisinopril 5 mg tablet 1 tab PO DAILY furosemide 20 mg tablet 2 tab PO DAILY omeprazole 20 mg capsule,delayed release(DR/EC) 1 cap PO DAILY@0630 oxybutynin chloride 5 mg tablet extended release 24hr 5 mg PO BID PRN (Reason: bladder spasm) potassium chloride 20 mEq tablet extended release 20 meq PO BEDTIME apixaban 5 mg tablet 5 mg PO BID Qty: 60 3RF Hold Instructions: Resume on 05/19/22. Discharge Orders: Discharge Order (Routine); Ordered 06/12/22 Ordered By: Silvestre Villanueva Diet: Advance to usual diet Activity on Discharge: No heavy lifting
== END 2022-06-12 14:30 | disposition home or self-care (01) ==
LOC: HO.SSS 06:02 → HO.S3 18:24
PROVIDERS: PCP Internal Medicine Medical Oncology; Visit Provider Urology
PROC: 0VT08ZZ Resection of Prostate, Via Natural or Artificial Opening Endoscopic (ICD-10-PCS; CPT 52601; principal; 2022-06-10 07:30)
DX: N40.1 Benign prostatic hyperplasia with lower urinary tract symptoms (principal); N13.8 Other obstructive and reflux uropathy; R33.8 Other retention of urine; I11.0 Hypertensive heart disease with heart failure; I50.9 Heart failure, unspecified; I48.91 Unspecified atrial fibrillation; Z95.2 Presence of prosthetic heart valve; Z79.82 Long term (current) use of aspirin; Z79.899 Other long term (current) drug therapy; Z91.041 Radiographic dye allergy status; Z20.822 Contact with and (suspected) exposure to COVID-19
CPT/HCPCS: 52601; 36415; 80048; 85025; 87086; 87088; 87186; 87635; 88305; C1758; J0461; J0690; J1580; J2405; J3010

== ENCOUNTER 2022-06-18 10:40 | Outpatient (REF) | payer MEDICARE, SELFPAY | END 2022-06-18 10:41 | disposition home or self-care (01) | LOC: HO.LNP 10:40 | PROVIDERS: Visit Provider Internal Medicine Medical Oncology | DX: R31.9 Hematuria, unspecified (principal) | CPT/HCPCS: 51798; 87086; 99212 ==

== ENCOUNTER 2022-08-28 08:01 | Outpatient (REF) | payer MEDICARE, SELFPAY ==
[2022-08-28 11:32] LABS: MANUAL DIFF FLAG NO
[2022-08-28 11:42] LABS: Basophils Absolute Auto 0.1 X10*3/uL (0.0-0.2); Basophils Percent Auto 0.9 % (0-2); Eosinophils Absolute Auto 0.1 X10*3/uL (0.0-0.4); Eosinophils Percent Auto 0.7 % (0-4); Hematocrit 48.3 % (42.0-52.0); Hemoglobin 15.8 g/dl (14.0-18.0); Imm Gran Abs Auto 0.03 X10*3/uL (0.00-0.03); Imm Gran Pct Auto 0.4 % (0.0-0.4); Lymphocytes Absolute Auto 1.5 X10*3/uL (1.2-4.9); Lymphocytes Percent Auto 20.4 % (20-40); Mean Corpuscular HGB Conc 32.7 g/dl (31.0-36.0); Mean Corpuscular Volume 91.8 fL (80.0-98.0); Mean Platelet Volume 10.4 fL (9.4-12.4); Monocytes Absolute Auto 0.5 X10*3/uL (0.1-1.2); Monocytes Percent Auto 6.1 % (2-11); Neutrophils Absolute Auto 5.3 x10*3/uL (2.0-8.3); Neutrophils Percent Auto 71.5 % (45-73); Platelet Count 236 X10*3/uL (160-400); Red Blood Count 5.26 X10*6/uL (4.60-5.80); Red Cell Distribution Width 14.6 % (11.0-16.0); White Blood Count 7.4 X10*3/uL (4.8-10.8)
[2022-08-28 12:07] LABS: Alanine Aminotransferase 20 U/L (0-40); Albumin Level 4.1 g/dL (3.5-5.0); Alkaline Phosphatase 94 U/L (39-117); Anion Gap 13 (12-20); Aspartate Amino Transferase 22 U/L (5-37); Bilirubin Total 1.4 mg/dL (0.0-1.0); Blood Urea Nitrogen 21 mg/dL (9-16); Carbon Dioxide 30 mmol/L (22-29); Chloride 101 mmol/L (96-108); Cholesterol 223 mg/dL; Estimated Glomerular Filt Rate > 60; Glucose Fasting 106 mg/dL (60-99); HDL Cholesterol 43 mg/dL; LDL Cholesterol Calculated 159 mg/dl; Sodium 140 mmol/L (135-145); Total Protein 6.3 g/dL (6.5-8.0); Triglycerides 105 mg/dL
[2022-08-28 12:30] LABS: Prostate Specific Antigen 0.19 ng/mL (<0.05-4.0)
== END 2022-08-28 08:02 | disposition home or self-care (01) ==
LOC: HO.HMGCLDS 08:01
PROVIDERS: PCP Internal Medicine Medical Oncology; Visit Provider Internal Medicine Medical Oncology
DX: I11.0 Hypertensive heart disease with heart failure (principal); I50.9 Heart failure, unspecified; N40.0 Benign prostatic hyperplasia without lower urinary tract symptoms; E78.5 Hyperlipidemia, unspecified; Z12.5 Encounter for screening for malignant neoplasm of prostate
CPT/HCPCS: 36415; 80053; 80061; 84153; 85025

== ENCOUNTER 2022-09-29 10:03 | Outpatient (REF) | payer MEDICARE, SELFPAY ==
[2022-09-29 11:15] LABS: MANUAL DIFF FLAG NO
[2022-09-29 11:59] LABS: Basophils Absolute Auto 0.1 X10*3/uL (0.0-0.2); Basophils Percent Auto 0.9 % (0-2); Eosinophils Absolute Auto 0.1 X10*3/uL (0.0-0.4); Eosinophils Percent Auto 0.7 % (0-4); Hematocrit 47.4 % (42.0-52.0); Hemoglobin 15.7 g/dl (14.0-18.0); Imm Gran Abs Auto 0.04 X10*3/uL (0.00-0.03); Imm Gran Pct Auto 0.4 % (0.0-0.4); Lymphocytes Absolute Auto 2.3 X10*3/uL (1.2-4.9); Lymphocytes Percent Auto 23.1 % (20-40); Mean Corpuscular HGB Conc 33.1 g/dl (31.0-36.0); Mean Corpuscular Volume 90.5 fL (80.0-98.0); Mean Platelet Volume 10.3 fL (9.4-12.4); Monocytes Absolute Auto 0.5 X10*3/uL (0.1-1.2); Monocytes Percent Auto 5.5 % (2-11); Neutrophils Absolute Auto 6.9 x10*3/uL (2.0-8.3); Neutrophils Percent Auto 69.4 % (45-73); Platelet Count 225 X10*3/uL (160-400); Red Blood Count 5.24 X10*6/uL (4.60-5.80); Red Cell Distribution Width 14.9 % (11.0-16.0); White Blood Count 9.9 X10*3/uL (4.8-10.8)
[2022-09-29 12:31] LABS: Anion Gap 14 (12-20); Blood Urea Nitrogen 22 mg/dL (9-16); Calcium 9.4 mg/dL (8.4-10.2); Carbon Dioxide 29 mmol/L (22-29); Chloride 101 mmol/L (96-108); Estimated Glomerular Filt Rate > 60; Glucose Random 110 mg/dL (60-115); Potassium 3.7 mmol/L (3.3-5.1); Sodium 140 mmol/L (135-145)
== END 2022-09-29 10:04 | disposition home or self-care (01) ==
LOC: HO.HMGCLDS 10:03
PROVIDERS: PCP Internal Medicine Medical Oncology; Visit Provider Internal Medicine
DX: I48.91 Unspecified atrial fibrillation (principal)
CPT/HCPCS: 36415; 80048; 85025

== ENCOUNTER 2023-03-10 06:56 | Outpatient (REF) | payer MEDICARE, SELFPAY ==
[2023-03-10 11:22] LABS: MANUAL DIFF FLAG NO
[2023-03-10 11:39] LABS: Basophils Absolute Auto 0.1 X10*3/uL (0.0-0.2); Basophils Percent Auto 1.1 % (0-2); Eosinophils Absolute Auto 0.1 X10*3/uL (0.0-0.4); Eosinophils Percent Auto 1.7 % (0-4); Hematocrit 49.4 % (42.0-52.0); Hemoglobin 16.2 g/dl (14.0-18.0); Imm Gran Abs Auto 0.03 X10*3/uL (0.00-0.03); Imm Gran Pct Auto 0.4 % (0.0-0.4); Lymphocytes Absolute Auto 2.6 X10*3/uL (1.2-4.9); Lymphocytes Percent Auto 30.4 % (20-40); Mean Corpuscular HGB Conc 32.8 g/dl (31.0-36.0); Mean Corpuscular Hemoglobin 30.3 pg (27.0-33.0); Mean Corpuscular Volume 92.3 fL (80.0-98.0); Mean Platelet Volume 10.4 fL (9.4-12.4); Monocytes Absolute Auto 0.6 X10*3/uL (0.1-1.2); Monocytes Percent Auto 6.7 % (2-11); Neutrophils Percent Auto 59.7 % (45-73); Platelet Count 205 X10*3/uL (160-400); Red Blood Count 5.35 X10*6/uL (4.60-5.80); White Blood Count 8.4 X10*3/uL (4.8-10.8)
[2023-03-10 11:53] LABS: Alanine Aminotransferase 21 U/L (0-40); Albumin Level 3.9 g/dL (3.5-5.0); Alkaline Phosphatase 72 U/L (39-117); Anion Gap 11 (12-20); Aspartate Amino Transferase 23 U/L (5-37); Blood Urea Nitrogen 23 mg/dL (9-16); Calcium 9.3 mg/dL (8.4-10.2); Carbon Dioxide 26 mmol/L (22-29); Chloride 108 mmol/L (96-108); Cholesterol 193 mg/dL (<200); Estimated Glomerular Filt Rate > 60; Glucose Fasting 106 mg/dL (60-99); HDL Cholesterol 41 mg/dL (>40); LDL Cholesterol Calculated 131 mg/dL (<100); Potassium 3.7 mmol/L (3.3-5.1); Sodium 141 mmol/L (135-145); Total Protein 6.4 g/dL (6.5-8.0); Triglycerides 105 mg/dL (<150)
== END 2023-03-10 06:57 | disposition home or self-care (01) ==
LOC: HO.HMGCLDS 06:56
PROVIDERS: PCP Internal Medicine Medical Oncology; Visit Provider Internal Medicine Medical Oncology
DX: Z00.00 Encounter for general adult medical examination without abnormal findings (principal); I10 Essential (primary) hypertension; E78.5 Hyperlipidemia, unspecified; E66.3 Overweight
CPT/HCPCS: 36415; 80053; 80061; 85025

== ENCOUNTER 2023-06-09 06:31 | Outpatient (REF) | payer MEDICARE, SELFPAY ==
[2023-06-09 08:41] LABS: B Type Natriuretic Peptide 103 pg/mL (<100)
[2023-06-09 11:23] LABS: MANUAL DIFF FLAG NO
[2023-06-09 11:25] LABS: Basophils Absolute Auto 0.1 X10*3/uL (0.0-0.2); Basophils Percent Auto 1.3 % (0-2); Eosinophils Absolute Auto 0.1 X10*3/uL (0.0-0.4); Eosinophils Percent Auto 0.9 % (0-4); Hematocrit 49.8 % (42.0-52.0); Hemoglobin 16.3 g/dl (14.0-18.0); Imm Gran Abs Auto 0.01 X10*3/uL (0.00-0.03); Imm Gran Pct Auto 0.1 % (0.0-0.4); Lymphocytes Absolute Auto 1.8 X10*3/uL (1.2-4.9); Lymphocytes Percent Auto 26.2 % (20-40); Mean Corpuscular HGB Conc 32.7 g/dl (31.0-36.0); Mean Corpuscular Hemoglobin 30.6 pg (27.0-33.0); Mean Corpuscular Volume 93.6 fL (80.0-98.0); Mean Platelet Volume 10.8 fL (9.4-12.4); Monocytes Absolute Auto 0.4 X10*3/uL (0.1-1.2); Monocytes Percent Auto 6.5 % (2-11); Neutrophils Absolute Auto 4.4 x10*3/uL (2.0-8.3); Platelet Count 193 X10*3/uL (160-400); Red Blood Count 5.32 X10*6/uL (4.60-5.80); Red Cell Distribution Width 14.6 % (11.0-16.0); White Blood Count 6.7 X10*3/uL (4.8-10.8)
[2023-06-09 12:00] LABS: Prostate Specific Antigen 0.19 ng/mL (<0.05-4.0)
[2023-06-09 12:00] LABS: Alanine Aminotransferase 23 U/L (0-40); Alkaline Phosphatase 85 U/L (39-117); Anion Gap 12 (12-20); Aspartate Amino Transferase 23 U/L (5-37); Bilirubin Total 0.9 mg/dL (0.0-1.0); Blood Urea Nitrogen 21 mg/dL (9-16); Calcium 9.5 mg/dL (8.4-10.2); Carbon Dioxide 28 mmol/L (22-29); Chloride 106 mmol/L (96-108); Cholesterol 181 mg/dL (<200); Estimated Glomerular Filt Rate > 60; Glucose Fasting 110 mg/dL (60-99); HDL Cholesterol 41 mg/dL (>40); LDL Cholesterol Calculated 121 mg/dL (<100); Potassium 3.8 mmol/L (3.3-5.1); Sodium 142 mmol/L (135-145); Total Protein 6.7 g/dL (6.5-8.0); Triglycerides 97 mg/dL (<150)
== END 2023-06-09 06:32 | disposition home or self-care (01) ==
LOC: HO.HMGCLDS 06:31
PROVIDERS: PCP Internal Medicine Medical Oncology; Visit Provider Internal Medicine Medical Oncology
DX: Z12.5 Encounter for screening for malignant neoplasm of prostate (principal); I11.0 Hypertensive heart disease with heart failure; I50.9 Heart failure, unspecified; I35.0 Nonrheumatic aortic (valve) stenosis; E66.3 Overweight
CPT/HCPCS: 36415; 80053; 80061; 83880; 84153; 85025

== ENCOUNTER 2023-09-10 07:26 | Outpatient (REF) | payer MEDICARE, SELFPAY ==
[2023-09-10 09:29] LABS: B Type Natriuretic Peptide 91 pg/mL (<100)
[2023-09-10 11:38] LABS: MANUAL DIFF FLAG NO
[2023-09-10 11:47] LABS: Basophils Absolute Auto 0.1 X10*3/uL (0.0-0.2); Basophils Percent Auto 1.3 % (0-2); Eosinophils Absolute Auto 0.1 X10*3/uL (0.0-0.4); Hematocrit 50.2 % (42.0-52.0); Hemoglobin 16.7 g/dl (14.0-18.0); Imm Gran Abs Auto 0.01 X10*3/uL (0.00-0.03); Imm Gran Pct Auto 0.1 % (0.0-0.4); Lymphocytes Absolute Auto 2.4 X10*3/uL (1.2-4.9); Lymphocytes Percent Auto 33.8 % (20-40); Mean Corpuscular HGB Conc 33.3 g/dl (31.0-36.0); Mean Corpuscular Hemoglobin 30.4 pg (27.0-33.0); Mean Corpuscular Volume 91.3 fL (80.0-98.0); Mean Platelet Volume 10.4 fL (9.4-12.4); Monocytes Absolute Auto 0.5 X10*3/uL (0.1-1.2); Monocytes Percent Auto 6.6 % (2-11); Neutrophils Absolute Auto 4.1 x10*3/uL (2.0-8.3); Neutrophils Percent Auto 57.2 % (45-73); Platelet Count 198 X10*3/uL (160-400); Red Cell Distribution Width 15.8 % (11.0-16.0); White Blood Count 7.2 X10*3/uL (4.8-10.8)
[2023-09-10 12:08] LABS: Alanine Aminotransferase 19 U/L (0-40); Albumin Level 3.9 g/dL (3.5-5.0); Alkaline Phosphatase 99 U/L (39-117); Anion Gap 15 (12-20); Aspartate Amino Transferase 23 U/L (5-37); Bilirubin Total 1.2 mg/dL (0.0-1.0); Blood Urea Nitrogen 24 mg/dL (9-16); Calcium 9.7 mg/dL (8.4-10.2); Carbon Dioxide 26 mmol/L (22-29); Chloride 106 mmol/L (96-108); Cholesterol 190 mg/dL (<200); Estimated Glomerular Filt Rate > 60; Glucose Fasting 99 mg/dL (60-99); HDL Cholesterol 41 mg/dL (>40); LDL Cholesterol Calculated 133 mg/dL (<100); Potassium 3.8 mmol/L (3.3-5.1); Sodium 143 mmol/L (135-145); Total Protein 6.6 g/dL (6.5-8.0); Triglycerides 80 mg/dL (<150)
== END 2023-09-10 07:27 | disposition home or self-care (01) ==
LOC: HO.HMGCLDS 07:26
PROVIDERS: PCP Internal Medicine Medical Oncology; Visit Provider Internal Medicine Medical Oncology
DX: I11.0 Hypertensive heart disease with heart failure (principal); I50.9 Heart failure, unspecified; I35.0 Nonrheumatic aortic (valve) stenosis; E66.3 Overweight
CPT/HCPCS: 36415; 80053; 80061; 83880; 85025

== ENCOUNTER 2024-01-06 06:16 | Outpatient (REF) | payer MEDICARE, SELFPAY ==
[2024-01-06 08:27] LABS: B Type Natriuretic Peptide 129 pg/mL (<100)
[2024-01-06 10:03] LABS: MANUAL DIFF FLAG NO
[2024-01-06 10:12] LABS: Basophils Absolute Auto 0.1 X10*3/uL (0.0-0.2); Eosinophils Absolute Auto 0.1 X10*3/uL (0.0-0.4); Eosinophils Percent Auto 1.5 % (0-4); Hematocrit 46.9 % (42.0-52.0); Imm Gran Abs Auto 0.02 X10*3/uL (0.00-0.03); Imm Gran Pct Auto 0.3 % (0.0-0.4); Lymphocytes Absolute Auto 1.8 X10*3/uL (1.2-4.9); Mean Corpuscular HGB Conc 34.1 g/dl (31.0-36.0); Mean Corpuscular Hemoglobin 31.8 pg (27.0-33.0); Mean Corpuscular Volume 93.2 fL (80.0-98.0); Mean Platelet Volume 10.1 fL (9.4-12.4); Monocytes Absolute Auto 0.5 X10*3/uL (0.1-1.2); Monocytes Percent Auto 7.1 % (2-11); Neutrophils Absolute Auto 4.3 x10*3/uL (2.0-8.3); Neutrophils Percent Auto 63.1 % (45-73); Platelet Count 190 X10*3/uL (160-400); Red Blood Count 5.03 X10*6/uL (4.60-5.80); Red Cell Distribution Width 15.3 % (11.0-16.0); White Blood Count 6.8 X10*3/uL (4.8-10.8)
[2024-01-06 10:38] LABS: Alanine Aminotransferase 22 U/L (0-40); Albumin Level 3.7 g/dL (3.5-5.0); Alkaline Phosphatase 96 U/L (39-117); Anion Gap 12 (12-20); Aspartate Amino Transferase 22 U/L (5-37); Bilirubin Total 1.1 mg/dL (0.0-1.0); Blood Urea Nitrogen 23 mg/dL (9-16); Carbon Dioxide 26 mmol/L (22-29); Chloride 108 mmol/L (96-108); Cholesterol 160 mg/dL (<200); Estimated Glomerular Filt Rate > 60; Glucose Fasting 119 mg/dL (60-99); HDL Cholesterol 39 mg/dL (>40); LDL Cholesterol Calculated 109 mg/dL (<100); Potassium 3.6 mmol/L (3.3-5.1); Sodium 142 mmol/L (135-145); Total Protein 6.2 g/dL (6.5-8.0); Triglycerides 62 mg/dL (<150)
== END 2024-01-06 06:17 | disposition home or self-care (01) ==
LOC: HO.HMGCLDS 06:16
PROVIDERS: PCP Internal Medicine Medical Oncology; Visit Provider Internal Medicine Medical Oncology
DX: E78.5 Hyperlipidemia, unspecified (principal); I50.9 Heart failure, unspecified; I35.0 Nonrheumatic aortic (valve) stenosis; E66.3 Overweight; I48.20 Chronic atrial fibrillation, unspecified
CPT/HCPCS: 36415; 80053; 80061; 83880; 85025

== ENCOUNTER 2024-02-16 13:58 | Outpatient (REF) | payer MEDICARE, SELFPAY ==
[2024-02-16 16:40] LABS: Blood Urea Nitrogen 19 mg/dL (9-16); Estimated Glomerular Filt Rate > 60
== END 2024-02-16 13:59 | disposition home or self-care (01) ==
LOC: HO.HMGCLDS 13:58
PROVIDERS: PCP Internal Medicine Medical Oncology; Visit Provider Radiology Vascular & Interventional Radiology
DX: R79.9 Abnormal finding of blood chemistry, unspecified (principal); R94.4 Abnormal results of kidney function studies
CPT/HCPCS: 36415; 82565; 84520

== ENCOUNTER 2024-08-02 15:43 | Outpatient (REF) | payer MEDICARE, SELFPAY ==
--- NOTE | ~2024-08-02 | XR_ITS ---
EXAMINATION: XR FOOT, LEFT CLINICAL INFORMATION: PERIPHERAL EDEMA, LEFT LEG PAIN COMPARISON: None available. TECHNIQUE: AP, lateral, and oblique views of the left foot. FINDINGS: No fracture, dislocation, or suspicious bone lesion. Mild pes planus deformity. Moderate size plantar calcaneal spur. Mild arthritic changes in the first MTP joint. Mild arthritic changes in the intertarsal joints. Diffuse subcutaneous soft tissue edema. XR/XR foot LT min 3V IMPRESSION: 1. No acute bony abnormalities. 2. Diffuse subcutaneous soft tissue edema. Electronically signed by: Cuong Farooq MD 08/02/2024 04:47 PM EST
--- NOTE | ~2024-08-02 | XR_ITS ---
EXAMINATION: XR TIBIA AND FIBULA, LEFT CLINICAL INFORMATION: Pain and swelling, no known injury. COMPARISON: None available. TECHNIQUE: AP and lateral views of the left tibia and fibula were obtained. FINDINGS: No fracture, dislocation, or suspicious bone lesion. The imaged joints appear normal. Diffuse subcutaneous soft tissue edema. XR/XR tibia fibula LT 2V IMPRESSION: No acute bony abnormalities. Diffuse subcutaneous soft tissue edema. Electronically signed by: Cuong Farooq MD 08/02/2024 04:45 PM EST
--- NOTE | ~2024-08-02 | XR_ITS ---
EXAMINATION: XR ANKLE, LEFT CLINICAL INFORMATION: PERIPHERAL EDEMA, LEFT LEG PAIN ; no known injury. COMPARISON: None available. TECHNIQUE: AP, lateral, and mortise views of the left ankle. FINDINGS: No fracture, dislocation, or suspicious bone lesion. No malalignment. The talar dome is intact. The ankle mortise is preserved. The syndesmosis is normal. The subtalar joints appear normal. There is a moderate-sized plantar calcaneal spur. There is diffuse subcutaneous soft tissue edema present. XR/XR ankle LT min 3V IMPRESSION: No acute bony findings left ankle. Diffuse subcutaneous soft tissue edema. Electronically signed by: Cuogn Farooq MD 08/02/2024 04:44 PM EST
--- OUTSIDE RECORDS SUMMARY | 2024-08-02 15:50 | XMS_ITS | Clinical Summary ---
Author Organization [facility] [employer] Address [address] [place] [address] Phone Care Team Providers Care Senior Buyer Planner Name Role Phone Scott Hays MD Primary Care Provider [phone] Allergies Active Allergy Reactions Criticality Noted Date Comments Iodinated Contrast Media Flushing,Nausea And Vomiting 04/15/2021 Medications Medication Sig Dispensed Refills Start Date End Date Status furosemide (LASIX) 20 mg tablet Take 2 tablets (40 mg total) by mouth 1 (one) time each day. 06/19/2023 Active apixaban (ELIQUIS) 5 mg tablet Take 1 tablet (5 mg total) by mouth 1 (one) time each day. Active dutasteride (AVODART) 0.5 mg capsule Take 1 capsule (0.5 mg total) by mouth 1 (one) time each day. Active aspirin 81 mg EC tablet Take 1 tablet (81 mg total) by mouth 1 (one) time each day. 05/28/2022 Active omeprazole (PriLOSEC) [address] capsule Take 1 capsule (20 mg total) by mouth 1 (one) time each day. Active glucos sul 2KCl/msm/chond/C/Mn (GLUCOSAMINE CHONDROITIN ORAL) Take 500 mg by mouth 2 (two) times a day. Active terazosin (HYTRIN) 10 mg capsule Take 1 capsule (10 mg total) by mouth at bedtime. Active hydroCHLOROthiazide (HYDRODIURIL) 50 mg tablet Take 0.5 tablets (25 mg total) by mouth 1 (one) time each day. 04/15/2021 Active multivit-min/iron/foli c acid/K (ADULTS MULTIVITAMIN ORAL) Take 1 tablet by mouth 1 (one) time each day. Active lisinopriL (PRINIVIL,ZESTRIL) 10 mg tablet Take 1 tablet (10 mg total) by mouth 1 (one) time each day. for 180 days Active potassium chloride (KLOR-CON) 10 mEq CR tablet Take 1 tablet (10 mEq total) by mouth 1 (one) time each day. 90 tablet 06/20/2024 Active Active Problems Problem Noted Date Diagnosed Date Bradycardia 11/02/2023 Overview (06/12/2024): Last Assessment & Plan: Longstanding and unchanged. Patient has no symptoms related to this. Continue to monitor. Avoid all AV tommy blocking agents. 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 Rodriguez - Preprocedural cardiac cath of note showed no obstructive coronary disease - Most recent echo on 10/13/2023 showed mild, concentric left ventricular hypertrophy with normal cavity size and systolic function, normal regional wall motion with an ejection fraction of 60 to 65%, moderate biatrial enlargement, enlarged RV size with mildly reduced systolic function, status post TAVR bioprosthesis in the aortic position-valve is well-seated with physiologic performance and no aortic insufficiency, mild pulmonary hypertension with RV systolic pressure 41 mmHg- compared with prior echo from 2022, RV function had dropped slightly and PA pressures were slightly higher Last Assessment & Plan: symptomatically doing well with well-functioning valve. Exam is also reassuring. At this point, we will continue with surveillance echocardiograms yearly. I will order one for next year. Otherwise, recommended he start a regular exercise program-possibly days 3 of cardiac rehab which she enjoyed in the past. See below regarding blood pressure management. Hypertension 04/11/2021 Overview (06/12/2024): Last Assessment & Plan: Suboptimal control today and has been suboptimally controlled during prior visits. At this point, I taken the liberty to increase his lisinopril to 10 mg. To offset, I am cutting his potassium supplement to 10 mEq. My hope is that the reduction in afterload will assist in pump function and possibly improve PA pressures. Furthermore, it will reduce risk of stroke in the future. For now continue current hydrochlorothiazide. He is on an unusual regimen of both hydrochlorothiazide and loop diuretic. I will verify that he is not taking both at the same time and only taking the diuretic as needed. Repeat BMP in one month. Pt has an upcoming appointment with his PCP in month or so anyways and will be getting lab work prior. Atrial fibrillation 04/11/2021 Overview (06/12/2024): - Auto rate controlled and on Eliquis for CVA prophylaxis Last Assessment & Plan: Continue Eliquis 5 twice daily for CVA prophylaxis Immunizations Name Administration Dates Next Due Influenza Quadravalent, 0.5m l (Fluad) 65yo and older 03/27/2023,03/21/2022,02/16/2020 Influenza Quadravalent, 0.5m l (Fluzone High-dose) 65yo and older 03/08/2021,03/09/2018,03/11/2017 Influenza trivalent, 0.5mL ( Fluad) 65yo and older 03/02/2019 Tdap Tetanus diptheria acell ular pertussis (Boostrix; Adacel) 7yo and older 2021 Medical History Medical History Date Comments Renal lithiasis DX:Renal lithias is BPH (benign prostatic hyperplasia) DX:BPH (benign prostatic hyperplasia) Overweight DX:Overweight Family History Medical History Relation Name Comments No Known Problems Daughter COPD Father Hypertension Father Breast cancer Mother Other cancer Mother No Known Problems Son Relation Name Status Comments Daughter Alive Father Mother Son Alive Social History Tobacco Use Types Packs/Day Years Used Date Smoking Tobacco: Former Smokeless Tobacco: Never Alcohol Use Standard Drinks/Week Comments Not Currently 0 (1 standard drink = 0.6 oz pur e alcohol) Sex and Gender Information Value Date Recorded Sex Assigned at Not on file Gender Identity Not on file Sexual Orientation Not on file Obstetrics History Last Filed Vital Signs Vital Sign Reading Time Taken Comments Blood Pressure 140/60 11/02/2023 8:49 AM EDT Sit ting L Arm Pulse 51 11/02/2023 8:49 AM EDT Temperature - - Respiratory Rate - - Oxygen Saturation - - Inhaled Oxygen Concentration - - Weight 94.8 kg (209 lb) 11/02/2023 8:49 AM EDT Height 177.8 cm (5' 10 ) 11/02/2023 8:49 AM EDT Body Mass Index 29.99 11/02/2023 8:49 AM EDT Plan of Treatment Upcoming Encounters Date Type Department Care Team (Late st Contact Info) Description 11/01/2024 10:00 AM EDT Ancillary Procedure [facility] - [address] [place] [address] Health Maintenance Due Date Last Done Comments Zoster Vaccines (1 of 2) 12/20/1991 Pneumococcal Vaccine: 65+ Years (1 of 1 - PCV) 2006 RSV Immunization Patients 60+ Years Old (1 - 1-dose 75+ series) 2016 Cholesterol Screening (Lipid Panel) 06/08/2022 Depression Screening 06/08/2022 Falls Risk Assessment 06/08/2022 Hypertension/CHF/CAD Annual BMP Blood Test 06/08/2022 Social Influencers of Health Screening 06/08/2022 Medicare Annual Wellness Visit 01/10/2024 01/09/2023 COVID-19 Vaccine ( - season) 2024 Influenza Vaccine (#1) 2024 3, 03/21/2022, 03/08/2021, Additional history exists DTaP,Tdap,and Td Vaccines (2 - Td or Tdap) 12/20/2031 2021 HIB Vaccines Aged Out No longer eligi ble based on patient's age to complete this topic HPV Vaccines Aged Out No longer eligi ble based on patient's age to complete this topic Hepatitis A Vaccines Aged Out No long er eligible based on patient's age to complete this topic Hepatitis B Vaccines Aged Out No long er eligible based on patient's age to complete this topic IPV Vaccines Aged Out No longer eligi ble based on patient's age to complete this topic MMR Vaccines Aged Out No longer eligi ble based on patient's age to complete this topic Meningococcal ACWY Vaccine Aged Out N o longer eligible based on patient's age to complete this topic RSV Immunization Patients Under 20 months Aged Out No longer eligible based on patient's age to complete this topic Varicella Vaccines Aged Out No longer eligible based on patient's age to complete this topic Care Teams Senior Buyer Planner Relationship Specialty Start Date End Date Scott Hays MD [address] [place] [address] PCP - General 04/11/21
== END 2024-08-02 15:44 | disposition home or self-care (01) ==
LOC: HO.XRAY 15:43
PROVIDERS: PCP Internal Medicine Medical Oncology; Visit Provider Internal Medicine Medical Oncology
DX: R60.9 Edema, unspecified (principal); M79.605 Pain in left leg; M79.672 Pain in left foot
CPT/HCPCS: 73590; 73610; 73630

== ENCOUNTER → 2024-08-02 15:52 | Outpatient (BNV) | payer MEDICARE, SELFPAY | PROVIDERS: PCP Internal Medicine Medical Oncology; Visit Provider Radiology Diagnostic Radiology | DX: R22.42 Localized swelling, mass and lump, left lower limb (principal) | CPT/HCPCS: 73590; 73610; 73630 ==

== ENCOUNTER 2024-08-17 08:32 | Outpatient (AMB) | payer MEDICARE, SELFPAY ==
--- NOTE | 2024-08-17 08:33 | A.OFFVIS_ITS ---
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 Patient tripped and fell when he was going for a walk in the morning. He states that he has a lot of swelling his his foot and ankle. He is having a little tenderness around his ankle. Patient mentions that he did his own at home exercises which gave him a lot of relief. 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 Andino is an 83-year-old male who presents to the office today for left ankle injury that he sustained on 07/27/2024. He reports that he was walking outside when he twisted his ankle resulting in a mechanical fall. He was able to crawl to a nearby mailbox to assist with standing up. He waited a few days to see if his symptoms would improve. However, he reports that his pain began to increase and therefore he presented to his PCP office who sent him for x-rays and a referral to orthopedics. [facility] Medical History Bilateral hip pain BPH (benign prostatic hyperplasia) CHF (congestive heart failure) Congestive heart failure Constipation GERD (gastroesophageal reflux disease) Gross hematuria History of kidney stones HTN (hypertension) Hx of aortic valve stenosis Hyperlipidemia Indwelling Portillo catheter present Low back pain Severe aortic stenosis Surgical History Aortic valve replaced History of lithotripsy History of prostate surgery Hx of colonoscopy Hx of cystoscopy Social History Household Members: None Housing: Apartment Housing Other:: condo Are you a primary manager long term care to a significant other at home: No Do you presently have visiting nurse or other home services: Yes ([facility] once a week) Alcohol intake: former Comment: aware of trip hazard Patient Tobacco Use Status: Former Tobacco user Tobacco use type: Cigarette Cigarettes Per Day: 10 e-Cigarette/Vaping Use: Never Used Second Hand Smoke Exposure: No Advance Directives Date on File: 05/01/22 service: Yes Current occupational status: retired Review of Systems Const All systems reviewed & are unremarkable except as noted in HPI and below Physical Exam Const General: cooperative, healthy appearing and no acute distress Resp Effort & Inspection: normal respiratory effort and able to speak in complete sentences Cardio Rate: regular rate Peripheral pulses: Peripheral pulses 2+ throughout Skin Lesions: no lesions Rashes: no rashes Extrem Other: Left ankle mild to moderate circumferential edema. Slight tenderness to palpation over the peroneal tendons. No tenderness to palpation over the tibial or deltoid tendons. Able to dorsiflex and plantar flex. Sensation intact. Pedal pulse intact Assessment & Plan Assessment & Plan (1) Left ankle sprain: Code(s): S93.402A - Sprain of unspecified ligament of left ankle, initial encounter Category: Medical Plan Mr. Andino is an 83-year-old male who presents to the office today for left ankle injury that he sustained on 07/27/2024. He reports that he was walking outside when he twisted his ankle resulting in a mechanical fall. He was able to crawl to a nearby mailbox to assist with standing up. He waited a few days to see if his symptoms would improve. However, he reports that his pain began to increase and therefore he presented to his PCP office who sent him for x-rays and a referral to orthopedics. Since his injury, the patient has tried to remain as active as possible walking in his home. He does report that his symptoms have been gradually improving. While in the office today we discussed weaning back into normal activities as tolerated. He may have episodes of edema that waxes and wanes. He will use pain as his guide to resume back to normal activities. We deferred on physical therapy as the patient is doing very well. He will follow up p.r.n., sooner if needed. X-rays of the left ankle which were obtained on 08/02/2024 were reviewed by me, Nubia Lazo PA-C, revealed no acute fracture or dislocation. Coding Level of Care Code New Pt Level 3 (54104) Diagnoses Left ankle sprain S93.402A
--- OUTSIDE RECORDS SUMMARY | 2024-08-17 08:36 | XMS_ITS | Patient Health Record ---
Author Organization [facility] Address [address] [place] [address] Care Team Providers Care Power Originator Name Role Phone Scott Hays MD [facility] Unavailable [phone] ALLERGIES Allergen (clinical drug ingredient) Drug/Non Drug Allergy documented on EMR Reaction Allergy Type Onset Date Status IVP DYE (uncoded) Unknown Allergy Ac tive REASON FOR REFERRAL No Information MEDICATIONS Medication SIG (Take, Route, Frequency, Duration) Notes Start Date End Date Status MiraLax (colon prep) 8.3 oun ce ((238) grams mixed with Gatorade or Crystal Light orally begin at 5:00 p.m. the day before the procedure for 1 day 11/21/2020 Active Glucosamine Chondr Complex Active Eliquis 5 MG as directed Orally Active Omeprazole 20 MG 1 capsule 30 minutes before morning meal Orally Once a day for 30 day(s) Active Furosemide 20 MG 1 tablet Orally Once a day for 30 day(s) Active Terazosin HCl 10 MG Orally Active Potassium Citrate ER 10 MEQ (1080 MG) 1 tablet with meals Orally Twice a day Active Multivitamin Active hydroCHLOROthiazide 50 MG Orally Active IMMUNIZATIONS Vaccine Route Administration Date Status Comme nts Influenza Unknown 04/11/2020 Administered Influenza Unknown 05/21/2021 Administered SOCIAL HISTORY Tobacco Use: Social History Observation Description Date Details (start date - stop date) Current Smoker NA - NA Sex Assigned At : Social History Observation Description Sex Assigned At Unknown Tobacco Use/Smoking Question Answer Notes Patient is a current smoker When did you start smoking? 18 years old How often do you smoke cigarettes? every day How many cigarettes a day do you smoke? 6-10 How soon after you wake up do you smoke your fir st cigarette? 31-60 minutes Are you interested in quitting? Ready to quit Alcohol Screen Question Answer Notes Did you have a drink contain ing alcohol in the past year? Yes How often did you have a dri nk containing alcohol in the past year? 2 to 4 times a month (2 points) How often did you have 6 or more drinks on one occasion in the past year? Never (0 point) Points 2 Interpretation Negative PROBLEMS Problem Type ICD Code Onset Dates Problem Status W/U Status Risk SNOMED Code Notes Problem Colon cancer screening (Z12.11) Active confirmed 887496850 Problem nursing home current use of diuretic (Z79.899) Active confirmed 12864639286137978 Problem Anemia, unspecified type (D64.9) Active confirmed 721796867 Problem Heme positive stool (R19.5) Active confirmed 87880279 Problem Iron deficiency anemia (D50.9) Active confirmed Iron deficien cy anemia (26699558) Problem Erosive gastritis (K29.60) Active confirmed Erosive gastrit is (0890249981800298) PLAN OF TREATMENT Future Test Test Name Order Date COLONOSCOPY 11/21/2020 UPPER GI ENDOSCOPY 11/20/2021 COLONOSCOPY 11/20/2021 Insurance Providers Payer Name Payer Address Payer Phone Subscriber Number Group Number Insured Name Patient Relationship to Insured Coverage Start Date Coverage End Date MEDICARE OF [place] [address] [place] [address] [id number] UBALDO BROWN Self - patient is the insured [employer] ATT[employer] CLAIMS [address] [place] [phone] [id number] UBALDO BROWN Self - patient is the insured MEDICAL (GENERAL) HISTORY Medical History History ICD Code nephrolithiasis BPH hypertension hyperlipidemia elevated BMI aortic stenosis Surgical History Surgery Date(Month/Year) TAVR procedure multiple ESWL/cystoscopies Colonoscopy 01/16 to 70 cm, patient decli larissa CT colonography Hospitalization History Reason Date(Month/Year) in and out of [facility] for aortic stenos is 2021
--- OUTSIDE RECORDS SUMMARY | 2024-08-17 08:36 | XMS_ITS | Clinical Summary ---
Author Organization [facility] Address [address] [place] [address] Phone Care Team Providers Care Laborer Driver Name Role Phone Scott Hays MD Primary Care Provider [phone] Allergies Active Allergy Reactions Criticality Noted Date Comments Iodinated Contrast Media Flushing,Nausea And Vomiting 04/15/2021 Medications furosemide (LASIX) 20 mg tablet Take 2 tablets (40 mg total) by mouth 1 (one) time each day. 3 Active apixaban (ELIQUIS) 5 mg tablet Take 1 tablet (5 mg total) by mouth 1 (one) time each day. Active dutasteride (AVODART) 0.5 mg capsule Take 1 capsule (0.5 mg total) by mouth 1 (one) time each day. Active aspirin 81 mg EC tablet Take 1 tablet (81 mg total) by mouth 1 (one) time each day. 2 Active omeprazole (PriLOSEC) [address] capsule Take 1 capsule (20 mg total) by mouth 1 (one) time each day. Active glucos sul 2KCl/msm/chond/C/ Mn (GLUCOSAMINE CHONDROITIN ORAL) Take 500 mg by mouth 2 (two) times a day. Active terazosin (HYTRIN) 10 mg capsule Take 1 capsule (10 mg total) by mouth at bedtime. Active hydroCHLOROthiazi de (HYDRODIURIL) 50 mg tablet Take 0.5 tablets (25 mg total) by mouth 1 (one) time each day. 1 Active multivit-min/iron /folic acid/K (ADULTS MULTIVITAMIN ORAL) Take 1 tablet by mouth 1 (one) time each day. Active lisinopriL (PRINIVIL,ZESTRIL ) 10 mg tablet Take 1 tablet (10 mg total) by mouth 1 (one) time each day. for 180 days Active potassium chloride (KLOR-CON) 10 mEq CR tablet Take 1 tablet (10 mEq total) by mouth 1 (one) time each day. 90 tablet Active Active Problems Problem Noted Date Diagnosed [...] the fall 2020-echo at the time at [facility] confirm severe aortic stenosis - Status [...] Recorded Sex Assigned at Not on file Legal Sex Male 3:57 PM EST Gender Identity Not on file Sexual Orientation [...] Description 11/01/2024 10:00 AM EDT Ancillary Procedure [facility] [address] [facility] [address] [place] [address] Health Maintenance Due Date Last Done Comments Pneumococcal Vaccine: 50+ Years (1 of 1 - PCV) 12/20/1991 Zoster Vaccines (1 of 2) 12/20/1991 RSV Immunization Patients 60+ Years Old (1 - 1-dose 75+ series) 2016 Cholesterol Screening (Lipid Panel) 06/08/2022 Depression Screening 06/08/2022 Falls Risk Assessment 06/08/2022 Hypertension/CHF/CAD Annual BMP Blood Test 06/08/2022 Social Influencers of Health Screening 06/08/2022 Medicare Annual Wellness Visit 01/10/2024 01/09/2023 COVID-19 Vaccine ( season) 2024 Influenza Vaccine (#1) 2024 3, [...] patient's age to complete this topic Meningococcal B Vacine Aged Out No lo nger eligible based on patient's age to complete this topic RSV Immunization Patients Under 20 months Aged Out No longer eligible based on patient's age to complete this topic Varicella Vaccines Aged Out No longer eligible based on patient's age to complete this topic Insurance MEDICARE [facility] Care Teams Laborer Driver Relationship Specialty Start Date End Date Scott Hays MD [address] [address] PCP - General 04/11/21
--- OUTSIDE RECORDS SUMMARY | 2024-08-17 08:36 | XMS_ITS ---
Author Organization Scott Hays III, MD Address [address] [place] [address] [place] [address] Care Team Providers Care Ultrasound Manager Name Role Phone Scott Hays Primary Care Provider Allergies Allergen (clinical drug ingredient) Drug/Non Drug Allergy documented on EMR Reaction Allergy Type Onset Date Status Iodinated contrast media (substance) Iodinated Diagnostic Agents Unknown Drug Allergy Active Results Component Value Reference Range Notes XR ankle LT min 3V Reviewed date:08/03/2024 11:51:24 AM Interpretation: Performing Lab: Notes/Report: [address] [address] XRay Report Signed Patient: New Brown MR#: [id number] [birth year] : 1940 Acct:[id number] Age/Sex: 83 / M ADM Date: 08/02/24 Loc: HO.XRAY Attending Dr: Scott Hays MD Ordering Physician: Scott Hays MD Date of Service: 08/02/24 Procedure(s): XR ankle LT min 3V Accession Number(s): [id number] cc: Scott Hays MD EXAMINATION: XR ANKLE, LEFT CLINICAL INFORMATION: PERIPHERAL EDEMA, LEFT LEG PAIN ; no known injury. COMPARISON: None available. TECHNIQUE: AP, lateral, and mortise views of the left ankle. FINDINGS: No fracture, dislocation, or suspicious bone lesion. No malalignment. The talar dome is intact. The ankle mortise is preserved. The syndesmosis is normal. The subtalar joints appear normal. There is a moderate-sized plantar calcaneal spur. There is diffuse subcutaneous soft tissue edema present. XR/XR ankle LT min 3V IMPRESSION: No acute bony findings left ankle. Diffuse subcutaneous soft tissue edema. Electronically signed by: Cuong Farooq MD 08/02/2024 04:44 PM EST RP Dictated By: Cuong Farooq MD Signed By: <Electronically signed by Cuong Farooq MD in OV> 08/02/24 1644 DD/ 1600 TD/TT: 08/02/24 1612 It Systems Analyst: [place] [address] XRay Report Signed Patient: Derrick Brown MR#: [id number] [birth year] : 1940 Acct:[id number] Age/Sex: 83 / M ADM Date: 08/02/24 Loc: HO.XRAY Attending Dr: Scott Hays MD Ordering Physician: Scott Hays MD Date of Service: 08/02/24 Procedure(s): XR ankle LT min 3V Accession Number(s): [id number] cc: Scott Hays MD EXAMINATION: XR ANKLE, LEFT CLINICAL INFORMATION: PERIPHERAL EDEMA, LE FT LEG PAIN ; no known injury. COMPARISON: None available. TECHNIQUE: AP, lateral, and mor tise views of the left ankle. FINDINGS: No fracture, disloca tion, or suspicious bone lesion. No malalignment. The talar dome is in tact. The ankle mortise is preserved. The syndesmosis is normal. The subtalar joints appear normal. There is a moderate-sized plantar calcaneal spur. There is diffuse sub cutaneous soft tissue edema present. X R/XR ankle LT min 3V IMPRESSION: No acute bony findin gs left ankle. Diffuse subcutaneous soft tissue edema. Electronically naveed d by: Cuong Farooq MD 08/02/2024 04:44 PM EST RP Dictated By: Cuong Farooq MD Signed By: <Radha franco signed by Cuong Farooq MD in OV> 08/02/24 1644 DD/ 1600 TD/TT: 08/02/24 161 It Systems Analyst: XR tibia fibula LT 2V Reviewed date:08/03/2024 11:51:24 AM Interpretation: Performing Lab: Notes/Report: [address] [address] XRay Report Signed Patient: New Brown MR#: [id number] [birth year] : 1940 Acct:[id number] Age/Sex: 83 / M ADM Date: 08/02/24 Loc: HO.XRJAZMIN Attending Dr: Scott Hays MD Ordering Physician: Scott Hays MD Date of Service: 08/02/24 Procedure(s): XR tibia fibula LT 2V Accession Number(s): [id number] cc: Scott Hays MD EXAMINATION: XR TIBIA AND FIBULA, LEFT CLINICAL INFORMATION: Pain and swelling, no known injury. COMPARISON: None available. TECHNIQUE: AP and lateral views of the left tibia and fibula were obtained. FINDINGS: No fracture, dislocation, or suspicious bone lesion. The imaged joints appear normal. Diffuse subcutaneous soft tissue edema. XR/XR tibia fibula LT 2V IMPRESSION: No acute bony abnormalities. Diffuse subcutaneous soft tissue edema. Electronically signed by: Cuong Farooq MD 08/02/2024 04:45 PM EST RP Dictated By: Cuong Farooq MD Signed By: <Electronically signed by Cuong Farooq MD in OV> 08/02/241644 DD/ 1552 TD/TT: 08/02/24 161 It Systems Analyst: [address] [address] XRay Report Signed Patient: Derrick Brown MR#: [id number] [birth year] : 1940 Acct:[id number] Age/Sex: 83 / M ADM Date: 08/02/24 Loc: HO.XRJAZMIN Attending Dr: Scott Hays MD Ordering Physician: Scott Hays MD Date of Service: 08/02/24 Procedure(s): XR tib ia fibula LT 2V Accession Number(s): [id number] cc: Scott Hays MD EXAMINATION: XR TIBIA AND FIBULA, LEFT CLINICAL INFORMATION: Pain and swelling, n o known injury. COMPARISON: None available. TECHNIQUE: AP and lateral views of the left tibia and fibula were obtained. FINDINGS: No fracture, disloca tion, or suspicious bone lesion. The imaged joints appear normal. Diffuse subcutaneous soft tissue edema. X R/XR tibia fibula LT 2V IMPRESSION: No acute bony abnormalities. Diffuse subcutaneous soft tissue edema. Electronically naveed d by: Cuong Farooq MD 08/02/2024 04:45 PM [facility] Dictated By: Cuong Farooq MD Signed By: <Electron ically signed by Cuong Farooq MD in OV> 08/02/24 1645 DD/ 1552 TD/TT: 08/02/24 1612 It Systems Analyst: XR foot LT min 3V Reviewed date:08/03/2024 11:51:24 AM Interpretation: Performing Lab: Notes/Report: [address] [address] XRay Report Signed Patient: New Brown MR#: [id number] [birth year] : 1940 Acct:[id number] Age/Sex: 83 / M ADM Date: 08/02/24 Loc: HO.XRAY Attending Dr: Scott Hays MD Ordering Physician: Scott Hays MD Date of Service: 08/02/24 Procedure(s): XR foot LT min 3V Accession Number(s): [id number] cc: Scott Hays MD EXAMINATION: XR FOOT, LEFT CLINICAL INFORMATION: PERIPHERAL EDEMA, LEFT LEG PAIN COMPARISON: None available. TECHNIQUE: AP, lateral, and oblique views of the left foot. FINDINGS: No fracture, dislocation, or suspicious bone lesion. Mild pes planus deformity. Moderate size plantar calcaneal spur. Mild arthritic changes in the first MTP joint. Mild arthritic changes in the intertarsal joints. Diffuse subcutaneous soft tissue edema. XR/XR foot LT min 3V IMPRESSION: 1. No acute bony abnormalities. 2. Diffuse subcutaneous soft tissue edema. Electronically signed by: Cuong Farooq MD 08/02/2024 04:47 PM EST RP Dictated By: Cuong Farooq MD Signed By: <Electronically signed by Cuong Farooq MD in OV> 08/02/24 164 DD/ 1553 TD/TT: 08/02/24 1612 It Systems Analyst: [place] [address] XRay Report Signed Patient: Derrick Brown ick MR#: [id number] [birth year] : 1940 Acct:[id number] Age/Sex: 83 / M ADM Date: 08/02/24 Loc: HO.XRAY Attending Dr: Scott Hays MD Ordering Physician: Scott Hays MD Date of Service: 08/02/24 Procedure(s): XR foot LT min 3V Accession Number(s): [id number] cc: Scott Hays MD EXAMINATION: XR FOOT, LEFT CLINICAL INFORMATION: PERIPHERAL EDEMA, LEFT LEG PAIN COMPARISON: None available. TECHNIQUE: AP, lateral, and obl ique views of the left foot. FINDINGS: No fracture, disloca tion, or suspicious bone lesion. Mild pes planus deformity. Moderate size planta r calcaneal spur. Mild arthritic jaimes es in the first MTP joint. Mild arthritic jaimes es in the intertarsal joints. Diffuse subcutaneous soft tissue edema. X R/XR foot LT min 3V IMPRESSION: 1. No acute bony abnormalities. 2. Diffuse subcutane ous soft tissue edema. Electronically naveed d by: Cuong Farooq MD 08/02/2024 04:47 PM EST RP Dictated By: Cuong Farooq MD Signed By: <Electron joan signed by Cuong Farooq MD in OV> 08/02/24 164 DD/ 1553 TD/TT: 08/02/24 1612 It Systems Analyst: Reason For Referral Reason Consult and Treat Diagnosis 1 Left leg pain (M79.6 05) Diagnosis 2 Left foot pain (M79. 672) Diagnosis 3 Ankle pain (M25.579) Referral Organization Scott Hays III, MD Referring Provider First Name Scott Referring Provider Last Name Lis Referring Provider Speciality Internal M edicine Referred Provider [facility] er, Orthopedic Surgeons Referred Provider Specialty Orthopedic S maday General Notes DeannaChasity BUN PANNER 08/03 10:28:48 AM > Ref/demo/progress note /X rays faxed to [facility] de[facility] asking for appt Deanna PICKARD Chasity [facility] 08/09/2024 10:56:41 I called [facility] [phone] spoke to administrative assistant front desk pt has appt with Nubia ZAVALA on 08/17/2024 at 9am Referral Priority Routine Referral Appointment Date 08/17/2024 REASON FOR VISIT left lower leg swelling and painful x 1 week, Hypertension, Benign prostatic hypertrophy, Ureterolithiasis, CHF, Atrial fibrillation, Anticoagulated, Tobacco dependence Medications Medication SIG (Take, Route, Frequency, Duration) Notes Start Date End Date Status Omeprazole 20 MG 1 capsule 30 minutes before morning meal Orally Once a day 11/18/2021 Active Potassium Chloride ER 20 MEQ TAKE ONE TA BLET BY MOUTH EVERY DAY WITH FOOD Active Lisinopril 5 MG 1 tablet Orally Once a day Active Furosemide 20 MG TAKE TWO TABLETS BY MOUTH ONCE DAILY Oral Active Eliquis 5 MG TAKE ONE TABLET BY MOUTH TWICE A DAY Active Glucosamine Chondr 1500 Complx Active hydroCHLOROthiazide 25 MG TAKE ONE TABLE T BY MOUTH EVERY DAY Active Terazosin HCl 10 MG TAKE ONE CAPSULE BY MOUTH EVERY DAY AT BEDTIME Active Dutasteride 0.5 MG TAKE ONE CAPSULE BY MOUTH EVERY DAY Active Amoxicillin 500 MG TAKE 4 CAPSULES BY MOUTH BEFORE DENTAL WORK Active Aspirin 81 81 MG 1 tablet Orally Once a day Active Multivitamin Active Social History Tobacco Use: Social History [...] Additional Findings: Tobacco Non-User Ex-cigaret te smoker Problems Problem Type SNOMED Code ICD Code Onset Dates Problem Status W/U Status Risk Notes Problem [id number] Sprain of left ankle, unspecified ligament, initial encounter (S93.402A) Active confirmed X-rays obtained today showed no fracture. Diffuse soft tissue edema was noted. This is a severe sprain that significantly limited ambulation. The left foot will need for mobilization and orthopedic care. He is referred for urgent orthopedic care. Until that happens he will stay at home and elevate the leg and avoid weightbearing. I have recommended acetaminophen for pain. Vital Signs Temperature 98.1 degrees Fahrenheit 08/02/19 25 Blood pressure systolic 140 mm Hg 08/02/19 25 Blood pressure diastolic 76 mm Hg 025 Heart Rate 49 /min 08/02/2024 Height 70 in 08/02/2024 Weight 204 lbs 08/02/2024 BMI 29.27 kg/m2 08/02/2024 Oximetry 97.0 % 08/02/2024 Encounters Encounter Location Date Provider Diagnosis Scott Hays III, MD [address] [place] [address] [place] [address] 08/02/2024 Scott Hays Sprain of left ankle , unspecified ligament, initial encounter S93.402A ; Essential hypertension I10 ; BPH w/o urinary obs/LUTS N40.0 ; Ureterolithiasis N20.1 ; Hyperlipidemia E78.5 ; Overweight E66.3 ; Critical aortic valve stenosis I35.0 ; CHF (congestive heart failure) I50.9 ; Tobacco dependence F17.200 and Anticoagulated Z79.01 Assessments Encounter Date Diagnosis (ICD Code) Assessment Notes T reatment Notes Treatment Clinical Notes 08/02/2024 Sprain of left ankle , unspecified ligament, [...] weightbearing. I have recommended acetaminophen for pain. 08/02/2024 Essential hypertensi on (ICD-10 - I10) His blood pressure is stable. No change in his regimen was needed today. 08/02/2024 BPH w/o urinary obs/LUTS (ICD-10 - N40.0) He rises frrom sleep once or twice a night. He is trying to limit nocturnal fluids. We discussed lifestyle modifications he could make to reduce nocturia. 08/02/2024 Ureterolithiasis (ICD-10 - N20.1) Since his last visit he has had no episodes of renal colic or hematuria. 08/02/2024 Hyperlipidemia (ICD- 10 - E78.5) Comprehensive blood work has been ordered prior to his next visiit. 08/02/2024 Overweight (ICD-10 - E66.3) He has gained 3 pounds. We discussed his weight loss strategy and detail. He will lose weight at a rate of one half of a pound per week. 08/02/2024 Critical aortic valv e stenosis (ICD-10 - I35.0) His aortic stenosis has been read repaired via TAVR. He is very pleased with the result. 08/02/2024 CHF (congestive hear t failure) (ICD-10 - I50.9) His heart failure is well compensated he is asymptomatic today. 08/02/2024 Tobacco dependence (ICD-10 - F17.200) He continues to smoke a few cigarettes daily. We made a plan to reduce smoking and then discontinue the use of tobacco. 08/02/2024 Anticoagulated (ICD- 10 - Z79.01) He is anticoagulated because of his atrial fibrillation. No major bleeding episodes have been witnessed. He was instructed to stop this medication 3 days prior to the procedure. He will resume once a day following. Plan Of Treatment Medication Medication Name Sig Start Date Stop Date Notes Omeprazole 20 MG 1 capsule 30 minutes before morning meal Orally Once a day 11/18/2021 Potassium Chloride ER 20 MEQ TAKE ONE TA BLET BY MOUTH EVERY DAY WITH FOOD Lisinopril 5 MG 1 tablet Orally Once a day Furosemide 20 MG TAKE TWO TABLETS BY MOUTH ONCE DAILY Oral Eliquis 5 MG TAKE ONE TABLET BY M OUTH TWICE A DAY Glucosamine Chondr 1500 Complx hydroCHLOROthiazide 25 MG TAKE ONE TABLE T BY MOUTH EVERY DAY Terazosin HCl 10 MG TAKE ONE CAPSULE BY MOUTH EVERY DAY AT BEDTIME Dutasteride 0.5 MG TAKE ONE CAPSULE BY MOUTH EVERY DAY Amoxicillin 500 MG TAKE 4 CAPSULES BY M OUTH BEFORE DENTAL WORK Aspirin 81 81 MG 1 tablet Orally Once a day Multivitamin Referrals Referral Date Details 08/02/2024 08/02/2024, Consult and Treat, [facility] Next Appt Details Follow Up: 1 D, Tomorrow shanit edward, Reason: Telehealth, To discuss X-ray results and further treatment plan Provider Name:Scott Hays, 09/14/2024 10:45:00 AM, [address] [place] [address] [place], [place], [address], Provider Name:Scott Hays, 01/17/2025 10:00:00 AM, [address] [place] [address] [place], [place], [address], Progress Notes * Antolin BROWNkDOB: [birth year] (83 yo M)Acc No.[id number]:08/02/2024 Patient:?New BROWN Provider:?Scott Hays MD :1940???Age:83 Y???Sex:Male Lyndon e:08/02/2024 Address:[address] [place] [address] [place], [phone] Subjective: * Chief Complaints: * ???Left lower leg swelling a nd painful x 1 weekHypertensionBenign prostatic hypertrophyUreterolithiasisCHFAtrial fibrillationAnticoagulatedTobacco dependence * HPI: ???COVID-19 Screening:?Questions?Have you had any new onset fever, chills, cough, congestion, sore throat, shortness of breath, muscle aches??No ???:? The patient, an 83-year-old male, reported a fall that occurred a week ago while he was out for a walk in the morning. He tripped and fell, but did not hit his head. He reported that he was not paying attention to the ground when he fell. Following the fall, he experienced a lot of bleeding and soft tissue injury. He also reported that his ankle was very tender and he had difficulty walking. The patient also mentioned that he had a lot of bleeding and a hematoma. The patient's symptoms seemed to improve initially but worsened after a few days. The patient denied any chest pain, trouble swallowing, or head injury. * ROS:?General/Constitutional:?pain?Left ankle and foot.?Chills?denies.?Fatigue?admits.?Fever?denies.?ENT:?Decreased hearing?denies.?Respiratory:?Denies?Chest pain.?Cough?denies.?Cardiovascular:?Chest pain with exertion?denies.?Dyspnea on exertion?denies.?Shortness of breath?with exertion.?Gastrointestinal:?Constipation?occasional.?Decreased appetite?denies.?Diarrhea?denies.?Heartburn?denies.?Nausea?denies.?Rectal bleeding?denies.?Vomiting?denies.?Hematology:?bruising?Left ankle and foot.?petechiae?denies.?Swollen glands?none have been noted.?Genitourinary:?Frequent urination?once a night.?Musculoskeletal:?Muscle aches?denies.?Painful joints?denies.?Sciatica?denies.?Weakness?denies.?Podiatric:?Admits?Difficulty walking,?Pain to weight-bearing on left ankle, severe, limits ambulation.?Skin:?Itching?denies.?Rash?denies.?Skin lesion(s)?denies.?Neurologic:?Difficulty speaking?denies.?Dizziness?denies.?Headache?denies.?Low back pain?denies.?Psychiatric:?Depressed mood?denies.? * Medical History:? 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 .? He has no siblings. * Social History:?Tobacco Use:?Tobacco Use/Smoking?Patient is a?current smoker ?How often do you smoke cigarettes??some days, but not every day ?How many cigarettes a day do you smoke??5 or less ?How soon after you wake up do you smoke your first cigarette??after 60 minutes ?Are you interested in quitting??Ready to quit ?Additional Findings: Tobacco User?Light cigarette smoker ((1-9 cigs/day) ?Additional Findings: Tobacco Non-User?Ex-cigarette smoker ???He is and has two children a son, Kenan, and a daughter, Oseas. 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 He was born in [place]. * Medications:?TakingTerazosin HCl 10 MG Capsule TAKE ONE CAPSULE BY MOUTH EVERY DAY AT BEDTIME Amoxicillin 500 MG Capsule TAKE 4 CAPSULES BY MOUTH BEFORE DENTAL WORK Eliquis 5 MG Tablet TAKE ONE TABLET [...] TAKE ONE CAPSULE BY MOUTH EVERY DAY Medication List reviewed and reconciled with the patientTaking Terazosin HCl 10 MG Capsule TAKE ONE CAPSULE BY MOUTH EVERY DAY AT BEDTIME Taking Amoxicillin 500 MG Capsule TAKE 4 CAPSULES BY MOUTH BEFORE DENTAL WORK Taking Eliquis 5 MG Tablet TAKE ONE [...] TAKE ONE CAPSULE BY MOUTH EVERY DAY Medication List reviewed and reconciled with the patient * Allergies:?Iodinated Diagnos tic Agentsno[Allergies Verified] Objective: * Vitals:?Ht: 70, Wt:204, BMI: 29.27, BP:140/76, HR:49, Temp:98.1, Oxygen sat %:97.0, Ht-cm: 177.8, Wt-k.53. * Examination: ???General Examination: ?GENERAL APPEARANCE:?pleasant, well nourished, well developed, in no acute distress, calm and relaxed, overweight, elderly man.?HEAD:?atraumatic, normocephalic.?EYES:?eomi, perrla, anicteric, conjugate.?EARS:?normal.?NOSE:?septum intact.?ORAL CAVITY:?normal, unremarkable.?NECK/THYROID:?no jugular venous distention, no carotid bruit, thyroid normal.?LYMPH NODES:?no enlarged lymph nodes,spleen normal.?SKIN:?no suspicious lesions, anicteric.?HEART:?no clicks, gallops, murmurs, or rubs, irregular rhythm, S1, S2 normal, no s3, or vascular bruits.?LUNGS:?clear to auscultation .?BREASTS:??no masses palpable bilaterally.?ABDOMEN:?bowel sounds normal, no ascites, no organomegaly, no mass, overweight.?RECTAL EXAM:?not examined.?MUSCULOSKELETAL:?Antalgic gait on the left, severe edema dorsum left foot and distal left leg, pain to range of motion of ankle, extensive bruising distal leg and foot.?PERIPHERAL PULSES:?normal.?NEUROLOGIC:?alert and oriented, cranial nerves 2-12 grossly intact, deep tendon reflexes 2+ symmetrical, motor strength normal upper and lower extremities, sensory exam intact.?PSYCH:?alert, oriented.? Assessment: * Assessment: 1.?Sprain of left ankle, uns pecified ligament, initial encounter - S93.402A (Primary)???Notes :X-rays obtained today showed no fracture.? Diffuse soft tissue edema was noted.? This is a severe sprain that significantly limited ambulation.? The left foot will need for mobilization and orthopedic care.? He is referred for urgent orthopedic care.? Until that happens he will stay at home and elevate the leg and avoid weightbearing.? I have recommended acetaminophen for pain.???2.?Essential hypertension - I10???Notes :His blood pressure is stable. No change in his regimen was needed today.???3.?BPH w/o urinary obs/LUTS - N40.0???Notes :He rises frrom sleep once or twice a night. He is trying to limit nocturnal fluids. We discussed lifestyle modifications he could make to reduce nocturia.???4.?Ureterolithiasis - N20.1???Notes :Since his last visit he has had no episodes of renal colic or hematuria.???5.?Hyperlipidemia - E78.5???Notes :Comprehensive blood work has been ordered prior to his next visiit.???6.?Overweight - E66.3???Notes :He has gained 3 pounds. We discussed his weight loss strategy and detail. He will lose weight at a rate of one half of a pound per week.???7.?Critical aortic valve stenosis - I35.0???Notes :His aortic stenosis has been read repaired via TAVR. He is very pleased with the result.???8.?CHF (congestive heart failure) - I50.9???Notes :His heart failure is well compensated he is asymptomatic today.???9.?Tobacco dependence - F17.200???Notes :He continues to smoke a few cigarettes daily. We made a plan to reduce smoking and then discontinue the use of tobacco.???10.?Anticoagulated - Z79.01???Notes :He is anticoagulated because of his atrial fibrillation. No major bleeding episodes have been witnessed. He was instructed to stop this medication 3 days prior to the procedure. He will resume once a day following.??? Plan: * Treatment: * Imaging:? * ?Imaging: XR ankle LT mi n 3V (Performed Date - 08/02/2024) ?Imaging: XR tibia fibul a LT 2V (Performed Date - 08/02/2024) ?Imaging: XR foot LT min 3V (Performed Date - 08/02/2024) * Procedure Codes:?49385 MEASU RE BLOOD OXYGEN LEVEL * Preventive Medicine:? ??Counseling:?Care goal follow-up plan:?Counseling for abnormal BMI given?Yes ?Above Normal BMI Follow-up?Dietary management education, guidance, and counseling, Dietary needs education, Exercise promotion: strength training, Exercise promotion: stretching, Feeding regime, Giving encouragement to exercise, Lifestyle education regarding diet, Nutrition / feeding management, Nutrition therapy, Prescribed activity/exercise education, Prescribed diet education, Prescribed dietary intake, Special diet education, Weight monitoring , Intervention, Order not done: Medical or Other reason not done ?Smoking/Tobacco Use?Patient counseled on the dangers of tobacco use and urged to quit.?08/02/2024 ?Patient Lifestyle Goals?Patient wants to quit ?Treatment Goals?Set a quit date, Cut down by 1 cigarette a week ?Barriers?Stress, Social smoker ?Self-Management Plan?Make a plan to cut down number of cigarettes over time and set a date to work towards quitting * Follow Up:?1 D, Tomorrow shanti edward (Reason: Telehealth, To discuss X-ray results and further treatment plan) * Images: * Sign off status: Completed true * Provider:?Scott Hays MD Date:?09/2024 Generated for Abilioi sonia/Miguel/eTransmitting on:?08/17/2024 08:36 AM EST History and Physical Notes * HPI (History of Present Illness) Category Sub-Category Detail Notes COVID-19 Screening Questions Have you had any new onset fever, chills, cough, congestion, sore throat, shortness of breath, muscle aches?: No Examination Category Sub-Category Detail Notes General Examination GENERAL APPEARANCE: pleasant , well nourished, well developed, in no acute distress, calm and relaxed, overweight, elderly man HEAD: atraumatic, normocep halic EYES: eomi, perrla, anicte dayana, conjugate EARS: normal NOSE: septum intact NECK/THYROID: no jugular venous di stention, no carotid bruit, thyroid normal HEART: no clicks, gallops, murmurs, or rubs, irregular rhythm, S1, S2 normal, no s3, or vascular bruits LUNGS: clear to auscultatio n ABDOMEN: bowel sounds normal, no ascites, no organomegaly, no mass, overweight NEUROLOGIC: alert and oriented, cranial nerves 2-12 grossly intact, deep tendon reflexes 2+ symmetrical, motor strength normal upper and lower extremities, sensory exam intact SKIN: no suspicious lesion s, anicteric PERIPHERAL PULSES: normal BREASTS: no masses palpable b ilaterally MUSCULOSKELETAL: Antalgic gait on the left, severe edema dorsum left foot and distal left leg, pain to range of motion of ankle, extensive bruising distal leg and foot LYMPH NODES: no enlarged lymph no aidee,spleen normal RECTAL EXAM: not examined PSYCH: alert, oriented ORAL CAVITY: normal, unremarkable Consultation Request Notes Referral Date Referring Provider Referred Provider Not es 08/02/2024 Lis [facility], Orthopedic Surgeons Consult and Treat
--- OUTSIDE RECORDS SUMMARY | 2024-08-17 08:36 | XMS_ITS ---
Author Organization Scott Hays III, MD Address [address] [place] [address] [place] [address] Care Team Providers Care Automotive Sales Manager Name Role Phone Scott Hays Primary Care Provider REASON FOR VISIT Fall Social History Sex Assigned At : Social History Observation Description Sex Assigned At Male Encounters Encounter Location Date Provider Diagnosis Scott Hays III, MD [address] [place] [address] [place] [address] 08/02/2024 Scott Hays Plan Of Treatment Next Appt Details Provider Name:Scott Hays, 09/14/2024 10:45:00 AM, [address] [place] [address] [place], [address], Provider Name:Scott Hays, 01/17/2025 10:00:00 AM, [address] [place] [address] [place], [address], Progress Notes * Antolin BROWNkDOB: 2 (83 yo M)Acc No.[id number]:08/02/2024 Patient:?New BROWN :1940???Age:83 Y???Sex:Male Address:[address] [place], [place] [address] * true * Date:? Generated for Braxton scott/Miguel/Cb on:?08/17/2024 08:36 AM EST
--- OUTSIDE RECORDS SUMMARY | 2024-08-17 08:36 | XMS_ITS ---
Author Organization Scott Hays III, MD Address [address] [place] [address] [place] [address] Care Team Providers Care Global Creative Chairman Name Role Phone Scott Hays Primary Care [...] Provider Diagnosis Scott Hays III, MD [address] [place] [address] [place] [address] 08/03/2024 Scott Hays Sprain of left ankle [...] scheduled, Debbi son: OV Provider Name:Scott Hays, 09/14/2024 10:45:00 AM, [address] [place] [address] [address], [place], [address], Provider Name:Scott Hays, 01/17/2025 10:00:00 AM, [address] [place] [address] [address], [place], [address], Progress Notes * Elvira BROWNOB: 2 (83 yo M)Acc No.[id number]:08/03/2024 Patient:?New BROWN Provider:?Scott Hays MD :1940???Age:83 Y???Sex:Male Lyndon e:08/03/2024 Address:[address] [place] [address] [place], [id number] Subjective: * Chief Complaints: * ???Left ankle sprainHyperten sionUreterolithiasisCongestive heart failureBenign prostatic hypertrophyAnticoagulatedAtrial fibrillationTobacco dependence * HPI: ???COVID-19 Screening:? He came to the office yyesterday with edema and bruising and pain in the left ankle and severe difficulty walking.? The x-ray reports of the left leg showed no fracture but do show significant edema.? He has been referred to orthopedic surgery clinic for stabilization of the severe sprain which will likely require able.? He will remain anticoagulated and have no change in his medications.? He denies any recent chest pain.? He was instructed to use acetaminophen for pain and to elevate the leg 0.9 use and to minimize weight bearing until the edema resolves. ?Questions?Have you had any new onset fever, chills, cough, congestion, sore throat, shortness of breath, muscle aches??No * ROS:?General/Constitutional:?pain?Left foot and ankle.?Chills?denies.?Fatigue?admits.?Fever?denies.?ENT:?Decreased hearing?denies.?Respiratory:?Cough?non-productive.?Cardiovascular:?Chest pain with exertion?denies.?Dyspnea on exertion?denies.?Shortness of breath?with exertion.?Gastrointestinal:?Constipation?denies.?Decreased appetite?denies.?Diarrhea?denies.?Heartburn?denies.?Nausea?denies.?Rectal bleeding?denies.?Vomiting?denies.?Hematology:?bruising?denies.?petechiae?denies.?Swollen glands?none have been noted.?Genitourinary:?Frequent urination?twice a night.?Musculoskeletal:?Muscle aches?denies.?Painful joints?Last ankle.?Sciatica?denies.?Weakness?denies.?Skin:?Itching?denies.?Rash?denies.?Skin lesion(s)?denies.?Neurologic:?Difficulty speaking?denies.?Dizziness?denies.?Headache?denies.?Low back pain?denies.?Psychiatric:?Depressed mood?denies.? * Medical History:? 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 He was born in [place]. * Medications:?TakingTerazosin HCl 10 MG Capsule TAKE [...] Allergies:?Iodinated Diagnos tic Agentsno[Allergies Verified] Objective: * Vitals:? * Examination: ???General Examination: ?GENERAL APPEARANCE:?pleasant, well nourished, well developed, in no acute distress, calm and relaxed, overweight, man.?HEAD:?atraumatic, normocephalic.?EYES:?eomi, perrla, anicteric, conjugate.?EARS:?normal.?NOSE:?septum intact.?ORAL CAVITY:?normal, unremarkable.?NECK/THYROID:?no jugular venous distention, no carotid bruit, thyroid normal.?LYMPH NODES:?no enlarged lymph nodes,spleen normal.?SKIN:?no suspicious lesions, anicteric.?HEART:?no clicks, gallops, murmurs, or rubs, irregular rhythm, S1, S2 normal, no s3, or vascular bruits.?LUNGS:?, diminished breath sounds throughout, no wheezes, rales, rhonchi, good air movement.?BREASTS:??no masses palpable bilaterally.?ABDOMEN:?bowel sounds normal, no ascites, no organomegaly, no mass, overweight.?RECTAL EXAM:?not examined.?MUSCULOSKELETAL:?Left ankle and foot edematous with bruising above the ankle size of foot, dorsum of foot and toes, significant pain to weight-bearing, gait antalgic.?PERIPHERAL PULSES:?normal.?NEUROLOGIC:?alert and oriented, cranial nerves 2-12 grossly intact, deep tendon reflexes 2+ symmetrical, motor strength normal upper and lower extremities, sensory exam intact.?PSYCH:?alert, oriented.? Assessment: * Assessment: 1.?Sprain of left ankle, uns pecified ligament, initial encounter - S93402A (Primary)???Notes :X-rays obtained today showed no fracture. Diffuse soft tissue edema was noted. This is a severe sprain that significantly limited ambulation. The left foot will need for mobilization and orthopedic care. He is referred for urgent orthopedic care. Until that happens he will stay at home and elevate the leg and avoid weightbearing. I have recommended acetaminophen for pain.???2.?Essential hypertension [...] of one half of a pound per week.???7.?Chronic atrial fibrillation - I48.20???Notes :His heart rate today was irregularly irregular at a controlled rate. No sign of congestive heart failure or tachycardia.???8.?Tobacco dependence - F17.200???Notes :He continues to smoke a few cigarettes daily. We made a plan to reduce smoking and then discontinue the use of tobacco.???9.?Anticoagulated - Z79.01???Notes :He is anticoagulated because of his atrial fibrillation. No major bleeding episodes have been witnessed. He was instructed to stop this medication 3 days prior to the procedure. He will resume once a day following.??? Plan: * Treatment: * Procedure Codes:? * Preventive Medicine:? ??Counseling:?Care goal follow-up plan:?Counseling [...] dangers of tobacco use and urged to quit.?08/03/2024 ?Patient Lifestyle Goals?Patient wants to quit ?Treatment Goals?Cut down by 1 cigarette a week, Set a quit date ?Barriers?Stress, Social smoker ?Self-Management Plan?Make a plan to cut down number of cigarettes over time and set a date to work towards quitting * Follow Up:?as scheduled ([place] son: OV) * Images: * Sign off status: Completed true * Provider:?Scott Hays MD Date:?10/2024 Generated for Braxton scott/Miguel/eTransmitting on:?08/17/2024 08:36 AM EST History and Physical [...]
== END 2024-08-17 09:24 | disposition home or self-care (01) ==
PROVIDERS: PCP Internal Medicine Medical Oncology; Visit Provider Physician Assistant
DX: S93.402A Sprain of unspecified ligament of left ankle, initial encounter (principal)
CPT/HCPCS: 99203

== ENCOUNTER → 2024-08-17 08:32 | Outpatient (BNVA) | payer MEDICARE, SELFPAY | PROVIDERS: PCP Internal Medicine Medical Oncology; Visit Provider Physician Assistant | DX: S93.402A Sprain of unspecified ligament of left ankle, initial encounter (principal); W19.XXXA Unspecified fall, initial encounter; Y93.01 Activity, walking, marching and hiking; Y92.9 Unspecified place or not applicable; Y99.9 Unspecified external cause status | CPT/HCPCS: 99202 ==

== ENCOUNTER 2024-09-07 06:24 | Outpatient (REF) | payer MEDICARE, SELFPAY ==
--- OUTSIDE RECORDS SUMMARY | 2024-09-07 06:27 | XMS_ITS | Patient Health Record ---
Author Organization [facility] Address [address] [place] [address] Care Team Providers Care Steward/Stewardess Wine Name Role Phone Scott Hays MD Primary Care Provider UnavailTed García Jr Unavailable Allergies Allergen (clinical drug ingredient) Drug/Non Drug Allergy documented on EMR Reaction Allergy Type Onset Date Status IVP DYE (uncoded) Unknown Allergy Ac tive Reason For Referral No Information Medications Medication SIG (Take, Route, Frequency, Duration) [...] Multivitamin Active hydroCHLOROthiazide 50 MG Orally Active Immunizations Vaccine Route Administration Date Status Comme nts Influenza Unknown 04/11/2020 Administered Influenza Unknown 05/21/2021 Administered Social History Tobacco Use: Social History Observation Description Date Details (start date - stop date) Current Smoker NA - NA Tobacco Use/Smoking Question Answer Notes Patient is [...] Never (0 point) Points 2 Interpretation Negative Section Notes: smokes cigarettes 10 a day; one glass of wine a week smokes cigarettes 10 a day; one glass of wine a week Problems Problem Type SNOMED Code ICD Code Onset Dates Problem Status W/U Status Risk Notes Problem 900263825 Colon cancer screening (Z12.11) Active confirmed Problem Iron deficiency anemia (58165127) Iron deficiency anemia (D50.9) Active confirmed Problem 01906607 Heme positive stool (R19.5) Active confirmed Problem 285923505 Anemia, unspecified type (D64.9) Active confirmed Problem Erosive gastritis (0158664676251455) Erosive gastritis (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) Active confirmed Problem 62983891836706651 intermediate card tender current use of diuretic (Z79.899) Active confirmed Plan Of Treatment Future Test Test Name Order Date COLONOSCOPY 11/21/2020 UPPER GI ENDOSCOPY 11/20/2021 COLONOSCOPY 11/20/2021 Insurance Providers Payer Name Payer Address Payer Phone Subscriber Number Group Number Insured Name Patient Relationship to Insured Coverage Start Date Coverage End Date MEDICARE OF [place] [address] [place] [address] [id number] UBALDO BROWN Self - patient is the insured MED[employer] ATTN CLAIMS [address] [place] [address] [id number] UBALDO BROWN Self - patient is the insured Medical (General) History Medical History History ICD Code nephrolithiasis BPH hypertension hyperlipidemia elevated BMI aortic stenosis Surgical History Surgery Date(Month/Year) TAVR procedure multiple ESWL/cystoscopies Colonoscopy 01/16 to 70 cm, patient decli larissa CT colonography Hospitalization History Reason Date(Month/Year) in and out of [facility] for aortic stenos is 2021
--- OUTSIDE RECORDS SUMMARY | 2024-09-07 06:28 | XMS_ITS ---
Author Organization Scott Hays III, MD Address [address] [place] [address] [place] [address] Care Team Providers Care Choir Teacher Name Role Phone Scott Hays Primary Care Provider [phone] REASON FOR VISIT Fall Social History Sex Assigned At : Social History Observation Description Sex Assigned At Male Encounters Encounter Location Date Provider Diagnosis Scott Hays III, MD [address] [place] [address] [place] [address] 08/02/2024 Scott Hays Plan Of Treatment Next Appt Details Provider Name:Scott Hays, 09/14/2024 10:45:00 AM, [address] [place] [address] [place], [address], Provider Name:Scott Hays, 01/17/2025 10:00:00 AM, [address] [place] [address] [place], [address], Progress Notes * Antolin BROWNkDOB: 2 (83 yo M)Acc No.[id number]:08/02/2024 Patient:?New BROWN :1940???Age:83 Y???Sex:Male Address:[address] [place] [address] * true * Date:? Generated for Braxton scott/Miguel/Cb on:?09/07/2024 06:27 AM EDT
--- OUTSIDE RECORDS SUMMARY | 2024-09-07 06:28 | XMS_ITS ---
Author Organization Scott Hays III, MD Address [address] [place] [address] [place] [address] Care Team Providers Care Porcelain Enamel Laborer Name Role Phone Scott Hays Primary Care [...] Date Provider Diagnosis Scott Hays III, MD [address] [place] [address] [place] [address] 08/03/2024 Scott Hays Sprain of left ankle [...] OV Provider Name:Scott Hays, 09/14/2024 10:45:00 AM, [address] [place] [address] [address], [place], [address], Provider Name:Scott Hays, 01/17/2025 10:00:00 AM, [address] [place] [address] [address], [place], [address], Progress Notes * Elvira BROWNOB: 2 (83 yo M)Acc No.[id number]:08/03/2024 Patient:?New BROWN Provider:?Scott Hays MD :1940???Age:83 Y???Sex:Male Lyndon e:08/03/2024 Address:[address] [place] [address] [place], [place] Subjective: * Chief Complaints: * ???Left ankle [...] colonoscopy 2010catract surgery 2018Aortic valve implant, Serial: [id number], Model: [id number], Size: 23MM, [facility] 10/02/2021quamous cell 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 * Medications:?TakingTerazosin HCl 10 MG Capsule TAKE [...] work towards quitting * Follow Up:?as scheduled ([place] son: OV) * Images: * Sign off status: Completed true * Provider:?Scott Hays MD Date:?10/2024 Generated for Abilioi sonia/Miguel/eTransmitting on:?09/07/2024 06:27 AM EDT History and Physical Notes * [...]
--- OUTSIDE RECORDS SUMMARY | 2024-09-07 06:28 | XMS_ITS ---
Author Organization Scott Hays III, MD Address [address] [place] [address] [place] [address] Care Team Providers Care Advertising Consultant Name Role Phone Scott Hays Primary Care Provider Allergies Allergen (clinical drug ingredient) Drug/Non Drug Allergy documented on EMR Reaction Allergy Type Onset Date Status Iodinated contrast media (substance) Iodinated Diagnostic Agents Unknown Drug Allergy Active Results Component Value Reference Range Notes XR ankle LT min 3V Reviewed date:08/03/2024 11:51:24 AM Interpretation: Performing Lab: Notes/Report: [address] [address] XRay Report Signed Patient: New Brown MR#: [id number] [birth year] : 1940 Acct:[id number] Age/Sex: 83 / M ADM Date: 08/02/24 Loc: HO.XRAY Attending Dr: Scott Hays MD Ordering Physician: Scott Hays MD Date of Service: 08/02/24 Procedure(s): XR ankle LT min 3V Accession Number(s): [id number] cc: Scott Hays MD EXAMINATION: XR ANKLE, [...] 08/02/24 1644 DD/ 1600 TD/TT: 08/02/24 1612 Train Attendant: [place] [address] XRay Report Signed Patient: Derrick Brown MR#: [id number] [birth year] : 1940 Acct:[id number] Age/Sex: 83 / M ADM Date: 08/02/24 Loc: HO.XRAY Attending Dr: Scott Hays MD Ordering Physician: Scott Hays MD Date of Service: 08/02/24 Procedure(s): XR ankle LT min 3V Accession Number(s): [id number] cc: Scott Hays MD EXAMINATION: XR ANKLE, [...] 08/02/24 1644 DD/ 1600 TD/TT: 08/02/24 161 Train Attendant: XR tibia fibula LT 2V Reviewed date:08/03/2024 11:51:24 AM Interpretation: Performing Lab: Notes/Report: [address] [address] XRay Report Signed Patient: New Brown MR#: [id number] [birth year] : 1940 Acct:[id number] Age/Sex: 83 / M ADM Date: 08/02/24 Loc: HO.XRJAZMIN Attending Dr: Scott Hays MD Ordering Physician: Scott Hays MD Date of Service: 08/02/24 Procedure(s): XR tibia fibula LT 2V Accession Number(s): [id number] cc: Scott Hays MD EXAMINATION: XR TIBIA [...] OV> 08/02/241644 DD/ 1552 TD/TT: 08/02/24 161 Train Attendant: [address] [address] XRay Report Signed Patient: Derrick Brown MR#: [id number] [birth year] : 1940 Acct:[id number] Age/Sex: 83 / M ADM Date: 08/02/24 Loc: HO.XRJAZMIN Attending Dr: Scott Hays MD Ordering Physician: Scott Hays MD Date of Service: 08/02/24 Procedure(s): XR tib ia fibula LT 2V Accession Number(s): [id number] cc: Scott Hays MD EXAMINATION: XR TIBIA [...] by: Cuong Farooq MD 08/02/2024 04:45 PM [facility] Dictated By: Cuong Farooq MD Signed By: <Electron ically signed by Cuong Farooq MD in OV> 08/02/24 1645 DD/ 1552 TD/TT: 08/02/24 1612 Train Attendant: XR foot LT min 3V Reviewed date:08/03/2024 11:51:24 AM Interpretation: Performing Lab: Notes/Report: [address] [address] XRay Report Signed Patient: New Brown MR#: [id number] [birth year] : 1940 Acct:[id number] Age/Sex: 83 / M ADM Date: 08/02/24 Loc: HO.XRAY Attending Dr: Scott Hays MD Ordering Physician: Scott Hays MD Date of Service: 08/02/24 Procedure(s): XR foot LT min 3V Accession Number(s): [id number] cc: Scott Hays MD EXAMINATION: XR FOOT, [...] 08/02/24 164 DD/ 1553 TD/TT: 08/02/24 1612 Train Attendant: [place] [address] XRay Report Signed Patient: Derrick Brown ick MR#: [id number] [birth year] : 1940 Acct:[id number] Age/Sex: 83 / M ADM Date: 08/02/24 Loc: HO.XRAY Attending Dr: Scott Hays MD Ordering Physician: Scott Hays MD Date of Service: 08/02/24 Procedure(s): XR foot LT min 3V Accession Number(s): [id number] cc: Scott Hays MD EXAMINATION: XR FOOT, [...] 08/02/24 164 DD/ 1553 TD/TT: 08/02/24 1612 Train Attendant: Reason For Referral Reason Consult and Treat Diagnosis 1 Left leg pain (M79.6 05) Diagnosis 2 Left foot pain (M79. 672) Diagnosis 3 Ankle pain (M25.579) Referral Organization Scott Hays III, MD Referring Provider First Name Scott Referring Provider Last Name Lis Referring Provider Speciality Internal M edicine Referred Provider [facility], Orthopedic Surgeons Referred Provider Specialty Orthopedic S maday General Notes DeannaChasity GINNING OPERATOR 08/03 10:28:48 AM > Ref/demo/progress note /X rays faxed to [facility] de[facility] asking for appt Deanna PICKARD Chasity [facility] 08/09/2024 10:56:41 I called [facility] [phone] spoke to front load trash truck driver pt has appt with Nubia ZAVALA on [...] Problem Status W/U Status Risk Notes Problem [id number] Sprain of left ankle, unspecified ligament, initial [...] Date Provider Diagnosis Scott Hays III, MD [address] [place] [address] [place] [address] 08/02/2024 Scott Hays Sprain of left ankle [...] 08/02/2024 08/02/2024, Consult and Treat, Orthopedic Surgeons [facility] Next Appt Details Follow Up: 1 D, Tomorrow shanti edward, Reason: Telehealth, To discuss X-ray results and further treatment plan Provider Name:Scott Hays, 09/14/2024 10:45:00 AM, [address] [place] [address] [address], [place], [address], Provider Name:Scott Hays, 01/17/2025 10:00:00 AM, [address] [place] [address] [address], [place], [address], Progress Notes * Antolin BROWNkDOB: 2 (83 yo M)Acc No.[id number]:08/02/2024 Patient:?New BROWN Provider:?Scott Hays MD :1940???Age:83 Y???Sex:Male Lyndon e:08/02/2024 Address:[address] [place] [address] [place], [id number] Subjective: * Chief Complaints: * ???Left lower [...] colonoscopy 2010catract surgery 2018Aortic valve implant, Serial: [id number], Model: [id number], Size: 23MM, [facility] 10/02/2021quamous cell removed from lower right [...] 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 * Medications:?TakingTerazosin HCl 10 MG Capsule TAKE [...] 3V (Performed Date - 08/02/2024) * Procedure Codes:?09511 MEASU RE BLOOD OXYGEN LEVEL * Preventive [...] Hays MD Date:?09/2024 Generated for Abilioi sonia/Miguel/eTransmitting on:?09/07/2024 06:27 AM [...] Provider Referred Provider Not es 08/02/2024 [facility], Orthopedic Surgeons Consult and Treat
--- OUTSIDE RECORDS SUMMARY | 2024-09-07 06:28 | XMS_ITS | Clinical Summary ---
Author Organization [facility] Address [address] [place] [address] Phone Care Team Providers Care Ordering Box Operator Name Role Phone Scott Hays MD Primary Care Provider [phone] Allergies Active Allergy Reactions Criticality Noted Date [...] the fall 2020-echo at the time at [facility] confirm severe aortic stenosis - Status [...] Description 11/01/2024 10:00 AM EDT Ancillary Procedure [facility] [address] [facility] [address] [place] [address] Health Maintenance Due Date Last [...] age to complete this topic Insurance MEDICARE [facility] Care Teams Ordering Box Operator Relationship Specialty Start Date End Date Scott Hays MD [address] [address] PCP - General 04/11/21
[2024-09-07 09:53] LABS: B Type Natriuretic Peptide 168 pg/mL (<100)
[2024-09-07 10:17] LABS: MANUAL DIFF FLAG NO
[2024-09-07 10:28] LABS: Basophils Absolute Auto 0.1 X10*3/uL (0.0-0.2); Eosinophils Absolute Auto 0.1 X10*3/uL (0.0-0.4); Eosinophils Percent Auto 0.8 % (0-4); Hematocrit 47.5 % (42.0-52.0); Hemoglobin 15.5 g/dl (14.0-18.0); Imm Gran Abs Auto 0.02 X10*3/uL (0.00-0.03); Imm Gran Pct Auto 0.3 % (0.0-0.4); Lymphocytes Absolute Auto 1.8 X10*3/uL (1.2-4.9); Lymphocytes Percent Auto 24.8 % (20-40); Mean Corpuscular HGB Conc 32.6 g/dl (31.0-36.0); Mean Corpuscular Hemoglobin 30.5 pg (27.0-33.0); Mean Corpuscular Volume 93.3 fL (80.0-98.0); Mean Platelet Volume 10.3 fL (9.4-12.4); Monocytes Absolute Auto 0.6 X10*3/uL (0.1-1.2); Monocytes Percent Auto 7.6 % (2-11); Neutrophils Absolute Auto 4.7 x10*3/uL (2.0-8.3); Neutrophils Percent Auto 65.5 % (45-73); Platelet Count 198 X10*3/uL (160-400); Red Blood Count 5.09 X10*6/uL (4.60-5.80); Red Cell Distribution Width 15.4 % (11.0-16.0); White Blood Count 7.2 X10*3/uL (4.8-10.8)
[2024-09-07 10:39] LABS: Alanine Aminotransferase 18 U/L (0-40); Albumin Level 3.7 g/dL (3.5-5.0); Alkaline Phosphatase 99 U/L (39-117); Anion Gap 12 (12-20); Aspartate Amino Transferase 28 U/L (5-37); Blood Urea Nitrogen 22 mg/dL (9-16); Calcium 9.4 mg/dL (8.4-10.2); Carbon Dioxide 28 mmol/L (22-29); Chloride 108 mmol/L (96-108); Cholesterol 159 mg/dL (<200); Estimated Glomerular Filt Rate > 60; Glucose Fasting 101 mg/dL (60-99); HDL Cholesterol 40 mg/dL (>40); LDL Cholesterol Calculated 105 mg/dL (<100); Potassium 4.1 mmol/L (3.3-5.1); Sodium 144 mmol/L (135-145); Total Protein 6.6 g/dL (6.5-8.0); Triglycerides 73 mg/dL (<150)
[2024-09-07 11:06] LABS: Prostate Specific Antigen 0.17 ng/mL (<0.05-4.0)
== END 2024-09-07 06:25 | disposition home or self-care (01) ==
LOC: HO.HMGCLDS 06:24
PROVIDERS: PCP Internal Medicine Medical Oncology; Visit Provider Internal Medicine Medical Oncology
DX: R50.9 Fever, unspecified (principal); I10 Essential (primary) hypertension; N40.0 Benign prostatic hyperplasia without lower urinary tract symptoms; E78.5 Hyperlipidemia, unspecified; E66.9 Obesity, unspecified; I48.20 Chronic atrial fibrillation, unspecified; Z12.5 Encounter for screening for malignant neoplasm of prostate
CPT/HCPCS: 36415; 80053; 80061; 83880; 84153; 85025

== ENCOUNTER 2025-01-10 06:29 | Outpatient (REF) | payer MEDICARE, SELFPAY ==
--- OUTSIDE RECORDS SUMMARY | 2024-08-03 07:30 | XMS_ITS ---
Author Organization Scott Hays III, MD Address [address] [place] [address] [place] [address] Care Team Providers Care Geodetic Survey Director Name Role Phone Scott Hays Primary Care Provider Allergies Allergen (clinical drug ingredient) Drug/Non Drug [...] Date Provider Diagnosis Scott Hays III, MD [address] [place] [address] [place] [address] 08/03/2024 Scott Hays Sprain of left ankle [...] as scheduled, Debbi son: OV Provider Name:Scott Hays, 01/17/2025 10:00:00 AM, [address] [place] [address] [place], [address], Progress Notes * Antolin BROWNkDOB: 2 (83 yo M)Acc No.[id number]:08/03/2024 Patient: New AVILES Provider: Abhijit Hays MD :1940 A ge:83 Y S ex:Male Date:08/03/2024 Address:[id number] Subjective: * Chief Complaints: * L eft [...] of cyst in the right groin colonoscopy 2010catract surgery 2018Aortic valve implant, Serial: [id number], Model: [id number], Size: 23MM, [facility] 10/02/2021quamous cell removed from lower right [...] Oseas. 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 He was born in [place]. * Medications: T akingTerazosin HCl 10 MG [...] Hays MD Date: 0 08/03/2024 Generated for Braxton scott/Miguel/Dayronitting on: 0 01/10/2025 06:31 AM EDT History and Physical Notes * [...]
--- OUTSIDE RECORDS SUMMARY | 2025-01-10 06:31 | XMS_ITS | Patient Health Record ---
Author Organization [facility] Address [address] [facility] [address] [place] [address] Care Team Providers Care Transmission Engineer Name Role Phone Scott Hays MD Primary Care Provider Unavailab Abdirahman Bird Unavailable [phone] Angelo Sharp Unavailable [phone] Reason For Referral No Information Medications Medication SIG (Take, Route, Frequency, Duration) Notes Start Date End Date Status Potassium Chloride Mona ER 1 0 MEQ 1 tablet with food Orally Twice a day Active Terazosin HCl 10 MG 1 capsule at bedtime Orally Once a day Active Glucosamine Chond Complex/MSM - as directed Orally Active Multivitamin - 1 tablet Orally Once a day Active Furosemide 20 MG 1 tablet Orally Once a day Active Aspirin 81 81 MG 1 tablet Orally Once a day Active hydroCHLOROthiazide 25 MG 1 tablet in th e morning Orally Once a day Active Eliquis 5 MG as directed Orally 02/09/2024 Active Omeprazole 20 MG 1 tablet 30 minutes before morning meal Orally Once a day; Duration: 30 day(s) 02/09/2024 Active Dutasteride-Tamsulosin HCl 0.5-0.4 MG 1 capsule Orally Once a day Active Lisinopril 5 MG 1 tablet Orally Once a day; Duration: 30 day(s) 02/09/2024 Active Social History Tobacco Use: Social History Observation Description Date Details (start date - stop date) Current Smoker NA - NA Tobacco Control (Standard) Question Answer Notes Tobacco use: Current smoker How many cigarettes a day do you smoke? 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) Active confirmed Problem Benign prostatic hypertrophy without outflow obstruction (270965561) Benign prostatic hyperplasia without lower urinary tract symptoms (N40.0) Active confirmed Problem Chronic atrial fibrillation (disorder) (233559988) Chronic atrial fibrillation, unspecified (I48.20) Active confirmed Problem Hyperlipidaemia (21036645) Hyperlipidemia, unspecified hyperlipidemia type (E78.5) Active confirmed Problem Essential hypertension (89141743) Hypertension, unspecified type (I10) Active confirmed Problem Encounter for surgical aftercare following surgery of skin or subcutaneous tissue (Z48.817) Active confirmed Vital Signs Heart Rate 58 /min 03/30/2024 Temperature 97.6 degrees Fahrenheit 03/30/2024 Respiratory Rate 18 /min 03/30/2024 Blood pressure diastolic 78 mm Hg 03/30/2024 Oximetry 97 % 03/30/2024 Height-cm 177.8 cm 03/30/2024 Weight-kg 89.81 kg 03/30/2024 Height 70 in 03/30/2024 Blood pressure systolic 132 mm Hg 03/30/2024 Weight 198 lbs 03/30/2024 BMI 28.41 kg/m2 03/30/2024 Encounters Encounter Location Date Provider Diagnosis [facility] [address] [address] 03/24/2024 Abdirahman Castle Atherosclerosis of [place] arteries of other extremities with ulceration I70.25 ; Encounter for surgical aftercare following surgery of skin or subcutaneous tissue Z48.817 ; Nicotine dependence, unspecified, uncomplicated F17.200 ; Overweight E66.3 ; Chronic atrial fibrillation, unspecified I48.20 ; Hyperlipidemia, unspecified E78.5 and Hypertension, unspecified type I10 [facility] [address] [address] 03/30/2024 Angelo Sharp Atherosclerosis of [place] arteries of other extremities with ulceration I70.25 ; Encounter for surgical aftercare following surgery of skin or subcutaneous tissue Z48.817 ; Nicotine dependence, unspecified, uncomplicated F17.200 ; Overweight E66.3 ; Chronic atrial fibrillation, unspecified I48.20 ; Hyperlipidemia, unspecified E78.5 and Hypertension, unspecified type I10 [facility] [address] [facility] [address] [place] [address] 02/09/2024 Abdirahman Castle Assessments Encounter Date Diagnosis (ICD Code) Assessment Notes Treatment Notes Treatment Clinical Notes Section Notes 03/24/2024 Atherosclerosis of [place] arteries of other extremities with ulceration (ICD-10 - I70.25) New presents for his two week follow up for his right leg surgical wound. He reports dressing changes regularly with HFB. He continues with Tubi for compression at 15-20 per recommendations of vascular.with no reported pain or discomfort. He had angioplasty on 02/25/24 to BLE with stents to left leg. He had a FU with vascular last week. He has no acute concerns at todays visit. On assessment today, New is noted to be afebrile and other VS were within normal limits. The patient denies pain or discomfort related to wound. We removed dressings, with no suggestive s/s of an underlying infectious process. There was no foul odor noted. The wound has improved since last visit, based on measurements and assessment. The wound is noted with callus to periwound. I discussed the indication for debridement and he was agreeable to plan. I performed debridement to wound to remove devitalized tissue as outlined above. He tolerated procedure well. He tolerated well. The wound site were then cleansed with wound cleanser and thereafter, we applied puracol onto the wound site and zinc to nayeli wound areas. The site were then covered with a dry dressing. Patient was educated on elevating their legs and protect wound site Used Tubi for compression 15-20 per vascular recommendations perform the above dressing changes regularly I recommneded changing from HFB to puracol with probably resolution of wound at next appointment FU next week S/S of infection reviewed and when to go to ED 03/24/2024 Encounter for surgical aftercare following surgery of skin or subcutaneous tissue (ICD-10 - Z48.817) 03/30/2024 Atherosclerosis of [place] arteries of other extremities with ulceration (ICD-10 - I70.25) New presents today for a follow up visit for treatment of 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 He is typically seen by my colleague Abdirahman Castle NP. He underwent an angioplasty on 02/24 to BLE with stent placement of the left leg. He had a follow up with vascular, they recommended compression stockings 15-20mmhg. He will have a follow up with vascular in the near future. He is followed by dermatology regularly. He is changing his dressing every other day applying HFB, reports no drainage from the wound in the last several days. He is wearing tubigrip daily and elevates his legs. He continues to have leg edema. He has no complaints today. On exam, vital signs stable, afebrile, pleasant. I removed the dressing and examined the wound located on the right anterior melgar. Wound is scabbed with no drainage, no signs of local infection.We applied skin prep and covered the wound with dsd. Tubigrip was applied to the right leg. New's wound is resolved. I recommended applying moisturizer daily and keeping the scab covered until it falls off naturally. He will plan to purchase compression stockings 15-20mmhg. Leg elevation encouraged. He will follow up with vascular and dermatology as recommended. He does not need any further follow up. Thank you for allowing us to participate in your care. I Angelo GARCIA-Joaquin, examined, evaluated and treated the patient. Dr. Faviola Hernadez was available for any question or concerns that I may have had. 03/30/2024 Encounter for surgical aftercare following surgery of skin or subcutaneous tissue (ICD-10 - Z48.817) 03/24/2024 Nicotine dependence, unspecified, uncomplicated (ICD-10 - F17.200) 03/30/2024 Nicotine dependence, unspecified, uncomplicated (ICD-10 - F17.200) 03/24/2024 Overweight (ICD-10 - E66.3) 03/24/2024 Chronic atrial fibrillation, unspecified (ICD-10 - I48.20) 03/30/2024 Overweight (ICD-10 - E66.3) 03/24/2024 Hyperlipidemia, unspecified (ICD-10 - E78.5) 03/30/2024 Chronic atrial fibrillation, unspecified (ICD-10 - I48.20) 03/24/2024 Hypertension, unspecified type (ICD-10 - I10) 03/30/2024 Hyperlipidemia, unspecified (ICD-10 - E78.5) 03/30/2024 Hypertension, unspecified type (ICD-10 - I10) 03/24/2024 Other I, Abdirahman Castle , MSN, TRAVELING OPERATOR, PARTS RUNNER-C, examined, evaluated , and treated the patient. Dr. Faviola Hernadez was available for any questions or concerns that I may have had. 03/30/2024 Other Plan Of Treatment No Information Insurance Providers Payer Name Payer Address Payer Phone Subscriber Number Group Number Insured Name Patient Relationship to Insured Coverage Start Date Coverage End Date Medicare [address] [place], [place] [id number] [place] Self - patient is the insured 7 [facility] [address] [place], [place] [phone] [id number] [place] Self - patient is the insured 7 Medical (General) History Medical History History ICD Code Atherosclerosis of [place] arteries of ot her extremities with ulceration I70.25 Essential (primary) hypertension I10 Hyperlipidemia, unspecified hyperlipidem ia type E78.5 Chronic atrial fibrillation, unspecified I48.20 Benign prostatic hyperplasia without low er urinary tract symptoms N40.0
--- OUTSIDE RECORDS SUMMARY | 2025-01-10 06:32 | XMS_ITS | Patient Health Record ---
Author Organization [facility] Address [address] [place] [address] Care Team Providers Care Wax Molder Name Role Phone Scott Hays MD Primary [...] Problem Status W/U Status Risk Notes Problem [id number] Colon cancer screening (Z12.11) Active confirmed Problem Iron deficiency anemia (D50.9) Active confirmed Problem 23467073 Heme positive stool (R19.5) Active confirmed Problem 796894521 Anemia, unspecified type (D64.9) Active confirmed Problem Erosive gastritis (6268985188203354) Erosive gastritis (K29.60) Active confirmed Problem 05603272909448488 assisted current use of diuretic (Z79.899) Active confirmed Plan Of Treatment Future Test Test Name Order Date COLONOSCOPY 11/21/2020 UPPER GI ENDOSCOPY 11/20/2021 COLONOSCOPY 11/20/2021 Insurance Providers Payer Name Payer Address Payer Phone Subscriber Number Group Number Insured Name Patient Relationship to Insured Coverage Start Date Coverage End Date MEDICARE OF [place] [address] [place] [address] [phone] [id number] UBALDO BROWN Self - patient is the insured [employer] ATT[employer] CLAIMS [address] [place] [address] [id number] UBALDO BROWN Self - patient is the insured Medical (General) History Medical History History ICD Code nephrolithiasis BPH hypertension hyperlipidemia elevated BMI aortic stenosis Surgical History Surgery Date(Month/Year) TAVR procedure multiple ESWL/cystoscopies Colonoscopy 01/16 to 70 cm, patient decli larissa CT colonography Hospitalization History Reason Date(Month/Year) in and out of [facility] for aortic stenos is 2021
--- OUTSIDE RECORDS SUMMARY | 2025-01-10 06:32 | XMS_ITS | Clinical Summary ---
Author Organization [facility] Address [address] [place] [address] Phone Care Team Providers Care Ticket Seller Name Role Phone Scott Hays MD Primary Care Provider [phone] Allergies Active Allergy Reactions Criticality Noted Date Comments Iodinated Contrast Media Flushing,Nausea And Vomiting 04/15/2021 Medications apixaban (ELIQUIS) 5 mg tablet Take 1 [...] mouth 1 (one) time each day. 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 Rodriguez - Preprocedural cardiac cath of note showed no obstructive coronary disease - Echocardiogram: 11/01/2024, Mild concentric LV hypertrophy with normal cavity size and systolic function, normal regional wall motion with an ejection fraction of 65 to 70%. Mildly dilated right ventricle with mildly reduced systolic function, biatrial enlargement status post TAVR valve. The valve is well seated. Mild to moderate right atrial enlargement. Trace likely central AI. Acceleration time is normal at 79 ms, but gradients are higher than expected for this type of valve. DVI ratio is 0.39 indicating that the high gradients across the valve are not related to true stenosis but rather high flow state or hyperdynamic state rather than true aortic stenosis. Increased gradients of nonstenotic origin. Mild tricuspid regurgitation only, but there is evidence of pulmonary hypertension. Hypertension 04/11/2021 Overview (06/12/2024): Last Assessment & [...] be getting lab work prior. Atrial fibrillation (CMS/HCC V24, CMS/HCC V28) 1 Overview (06/12/2024): - Auto rate controlled and on Eliquis for CVA prophylaxis Last Assessment & Plan: Continue Eliquis 5 twice daily for CVA prophylaxis Encounters Date Type Department Care Team Description 11/16/2024 9:50 AM EDT Office Visit [facility] - [address] [place] [address] Zulema Kramer MD Atrial fibrillation, unspecified type (CMS/HCC V24, CMS/HCC V28) (Primary Dx); S/P TAVR (transcatheter aortic valve replacement); Primary hypertension; Bradycardia; Preop cardiovascular exam 11/01/2024 10:00 AM EDT Ancillary Procedure [facility] - [address] [place] [address] S/P TAVR (transcatheter aortic valve replacement) from Last 3 Months Immunizations Name Administration Dates Next Due Influenza [...] Types Packs/Day Years Used Date Smoking Tobacco: Every Day Cigarettes Smokeless Tobacco: Never Tobacco Cessation:Ready to Q uit: Not Asked; Counseling Given: Not Answered Alcohol Use Standard Drinks/Week Comments Not Currently 0 (1 standard drink = 0.6 oz pur e alcohol) Sex and Gender Information Value Date Recorded Sex Assigned at Not on file Legal Sex Male 3:57 PM EST Gender Identity Not on file Sexual Orientation Not on file Obstetrics History Last Filed Vital Signs Vital Sign Reading Time Taken Comments Blood Pressure 140/70 11/16/2024 9:42 AM EDT Pulse 49 11/16/2024 9:42 AM EDT Temperature - - Respiratory Rate - - Oxygen Saturation 96% 11/16/2024 9:42 AM EDT Inhaled Oxygen Concentration - - Weight 93 kg (205 lb) 11/16/2024 9:42 AM EDT Height 175.3 cm (5' 9 ) 11/16/2024 9:42 AM EDT Body Mass Index 30.27 11/16/2024 9:42 AM EDT Plan of Treatment Upcoming Encounters Date Type Department Care Team (Late st Contact Info) Description 11/07/2025 10:00 AM EDT Ancillary Procedure [facility] - [facility] [address] [facility] [address] [place] [address] Health Maintenance Due Date Last Done Comments Cholesterol Screening (Lipid Panel) 06/08/2022 Depression Screening 06/08/2022 Falls Risk Assessment 06/08/2022 Hypertension/CHF/CAD Annual BMP Blood Test 06/08/2022 Social Influencers of Health Screening 06/08/2022 Medicare Annual Wellness Visit 01/10/2024 01/09/2023 COVID-19 Vaccine ( season) 2024 03/10/2024, 03/27/2023, 04/06/2022, Additional history exists Influenza Vaccine (#1) 2025 4, 03/27/2023, 03/21/2022, Additional history exists DTaP,Tdap,and Td Vaccines (2 - Td or Tdap) 12/20/2031 2021 Zoster Vaccines Completed 01/28/2018, 10/27/2017 Pneumococcal Vaccine: 50+ Years Completed 12/24/2022 RSV Immunization Adult Patients Completed 04/03/2023 HIB Vaccines Aged Out No longer eligi [...] age to complete this topic Meningococcal B Vaccine Aged Out No l onger eligible based on patient's age to complete this topic RSV Immunization Patients Under 20 months Aged Out No longer eligible based on patient's age to complete this topic Varicella Vaccines Aged Out No longer eligible based on patient's age to complete this topic Procedures Procedure Name Priority Date/Time Associated Diagnosis Comments ECG 12-LEAD Routine 11/16/2024 9:56 AM EDT Atrial fibrillation, unspecified type (CMS/HCC V24, CMS/HCC V28) TRANSTHORACIC ECHOCARDIOGRAM (TTE) COMPLETE Routine 11/01/2024 10:39 AM EDT S/P TAVR (transcatheter aortic valve replacement) from Last 3 Months Results * ECG 12 lead (11/16/2024 9:56 AM EDT) Ventricular Rate ECG 49 BPM GEMUSE Atrial Rate 288 BPM GEMUSE QRS Duration 138 ms GEMUSE Q-T Interval 484 ms GEMUSE QTc 437 ms GEMUSE R [place] 134 degrees GEMUSE T [place] -5 degrees GEMUSE ECG Interpretation Atrial fibrillation with slow ventricular response with premature ventricular or aberrantly conducted complexes Right bundle branch block Septal infarct , age undetermined Possible Lateral infarct , age undetermined Abnormal ECG When compared with ECG of 01-AUG-2003 09:31, Atrial fibrillation has replaced Sinus rhythm Right bundle branch block is now Present Septal infarct is now Present Confirmed by ZULEMA KRAMER ([id number]) on 11/16/2024 4:12:33 PM GEMUSE 11/16/2024 9:56 AM EDT 11/16/2024 4:12 PM EDT us Zulema Kramer MD ECG ORDERABLES Final Result GEMUSE * (ABNORMAL) TRANSTHORACIC ECHOCARDIOGRAM (TTE) COMPLETE (11/01/2024 10:39 AM EDT) Left Atrium Minor [place] 6.6 cm CV PACS Left Atrium Major [place] 7.6 cm CV PACS LA Area Sys (A2C) 32 cm2 CV PACS LA Area Sys (A4C) 37 cm2 CV PACS LA Volume (BP) 140 mL CV PACS RA Area 27.7 cm2 CV PACS RA 2D Volume 86 mL CV PACS AV Mean Gradient 27 mmHg CV PACS Ao VTI 103.0 cm CV PACS AV Peak Marquez 3.6 m/s CV PACS AV Peak Gradient 51 mmHg CV PACS AV Area Continuity Equation 1.1 cm2 CV PACS AV Area Peak Velocity 1.3 cm2 CV PACS Aortic Sinus Valsalva 3.1 cm CV PACS Ascending Aorta 3.6 cm CV PACS IVC Proximal 2.5 cm CV PACS IVC Proximal 1.1 cm CV PACS IVSD 1.0 0.6 - 1.0 cm CV PACS LVIDD 5.8 4.2 - 5.8 cm CV PACS LVIDS 4.6(A) 2.5 - 4.0 cm CV PACS LVOT Diameter 1.9 cm CV PACS LVOT Mean Marquez 1.1 m/s CV PACS LVOT Mean Grad 5 mmHg CV PACS LVOT Mean Grad 5 mmHg CV PACS LVOT Peak VTI 39.9 cm CV PACS LVOT Peak Marquez 1.6 m/s CV PACS LVOT Peak Gradient 11 mmHg CV PACS LVPWD 1.1(A) 0.6 - 1.0 cm CV PACS LVOT Area 2.8 cm2 CV PACS LVOT Stroke Volume 113 mL CV PACS MV Mean Gradient 1 mmHg CV PACS MV VTI 44.1 cm CV PACS Mitral Valve Max Velocity 1.2 m/s CV PACS MV Peak Gradient 6 mmHg CV PACS MV Area Continuity Equation 2.[address] End Max Velocity 1.1 m/s CV PACS PA End Diastolic Pressure 5 mmHg CV PACS PV Acceleration Time 83 ms CV PACS RV Diastolic Basal Dimension 4.9(A) 2.5 - 4.1 cm CV PACS RV S' 13 cm/s CV PACS TAPSE 27 mm CV PACS TR Peak Velocity 3.26 m/s CV PACS TR Peak Gradient 43 mmHg CV PACS Relative Wall Thickness ratio 0.38 CV PACS LVOT:AV VTI Index 0.39 CV PACS FS 21 % CV PACS LV Mass 2D 248 g CV PACS MV VTI:LVOT VTI ratio 1.1 CV PACS LVOT flow 312 mL/s CV PACS AV Velocity Ratio 0.44 CV PACS BSA 2.1 m2 CV PACS LA Volume Index (BP) 68 mL/m2 CV PACS LVIDD Index 2.80 cm/m2 CV PACS LVIDS Index 2.22 cm/m2 CV PACS LV Mass Index 2D 120(A) 50 - 102 g/m2 CV PACS LVOT Stroke Index 55 mL/m2 CV PACS RA 2D Volume Index 42(A) 18 - 32 mL/m2 CV PACS ABDULKADIR Index (VTI) 0.53 cm2/m2 CV PACS ABDULKADIR Index (Pk Marquez) 0.63 cm2/m2 CV PACS Ascending Aorta Index 1.74 cm/m2 CV PACS Right Ventricular Peak Systolic Pressure 83 mmHg CV PACS Est. RA Pressure 40 mmHg CV PACS Anatomical Region Laterality Modality Ultrasound Narrative 11/06/2024 11:13 AM EDT Left ventricle cavity size is normal. Left ventricular systolic function is in the normal range with an ejection fraction of 65-70%. No regional LV wall motion abnormalities noted. Left ventricle wall thickness is normal. Right ventricle cavity is normal. Right ventricular systolic function is normal. A 23 mm TAVR bioprosthetic aortic valve is present. Prosthetic valve appears well-seated.Moderate stenosis 51mmHG peak 27mmHG mean gradient. Increased from 2023 Tricuspid valve demonstrates moderate regurgitation with a centrally directed jet. PPM right heart and atrial fib PULMONARY SYSTOLIC PRESSURE 42-55MMhg BIATRIAL ENLARGEMENT Left Ventricle Left ventricle cavity size is normal. Wall thickness is normal. Systolic function is normal with an ejection fraction of 65-70%. There are no regional LV wall motion abnormalities. Unable to assess diastolic function. Right Ventricle Right ventricle cavity appears normal. Systolic function is normal. Left Atrium Left atrium cavity is severely dilated. Right Atrium Right atrium cavity is normal. IVC/SVC Inferior vena cava structure is normal. RA pressures is estimated to be 8 mmHg (IVC diameter >21 mm and decreases >50% during inspiration). Mitral Valve The leaflets are mildly thickened. There is mild annular calcification. There is no significant mitral valve regurgitation. There is no significant stenosis noted. Tricuspid Valve Tricuspid valve structure is normal. There is moderate regurgitation with a central jet. There is no significant tricuspid valve stenosis. Aortic Valve The aortic valve is trileaflet. The leaflets are not thickened and exhibit normal excursion. The valve has been surgically replaced. There is a 23 mm TAVR Local.comward Jannet 3 bioprosthetic valve. The prosthetic valve appears well-seated. Mean PG 23mmHg AT 79ms There is no regurgitation or stenosis. Pulmonic Valve The pulmonic valve was not well visualized. There is mild pulmonic valve regurgitation. No significant pulmonary valve stenosis noted. Ascending Aorta The aorta appears normal in size. Pericardium Pericardium appears normal. There is no pericardial effusion. Study Details Overall the study quality was adequate. The underlying ECG rhythm was atrial fibrillation. Zulema Kramer MD CV ECHO PROCEDURES Final Result from Last 3 Months Insurance MEDICARE [facility] Care Teams Ticket Seller Relationship Specialty Start Date End Date Scott Hays MD [address] [address] PCP - General 04/11/21
[2025-01-10 09:10] LABS: B Type Natriuretic Peptide 197 pg/mL (<100)
[2025-01-10 10:13] LABS: MANUAL DIFF FLAG NO
[2025-01-10 10:41] LABS: Hematocrit 49.6 % (42.0-52.0); Hemoglobin 16.3 g/dl (14.0-18.0); Imm Gran Abs Auto 0.02 X10*3/uL (0.00-0.03); Imm Gran Pct Auto 0.3 % (0.0-0.4); Lymphocytes Absolute Auto 1.9 X10*3/uL (1.2-4.9); Mean Corpuscular HGB Conc 32.9 g/dl (31.0-36.0); Mean Corpuscular Hemoglobin 30.5 pg (27.0-33.0); Mean Corpuscular Volume 92.7 fL (80.0-98.0); NRBC Abs Auto 0.000 X10*3/uL (0.0-0.012); NRBC Pct Auto 0.0 /100WBC (0.0-0.2); Platelet Count 178 X10*3/uL (160-400); Red Blood Count 5.35 X10*6/uL (4.60-5.80); White Blood Count 6.7 X10*3/uL (4.8-10.8)
[2025-01-10 10:51] LABS: Alanine Aminotransferase 18 U/L (0-40); Albumin Level 4.0 g/dL (3.5-5.0); Alkaline Phosphatase 97 U/L (39-117); Anion Gap 13 (12-20); Aspartate Amino Transferase 30 U/L (5-37); Blood Urea Nitrogen 26 mg/dL (9-16); Calcium 9.2 mg/dL (8.4-10.2); Carbon Dioxide 27 mmol/L (22-29); Chloride 107 mmol/L (96-108); Cholesterol 181 mg/dL (<200); Estimated Glomerular Filt Rate > 60; HDL Cholesterol 45 mg/dL (>40); Potassium 4.4 mmol/L (3.3-5.1); Sodium 143 mmol/L (135-145); Total Protein 6.4 g/dL (6.5-8.0); Triglycerides 72 mg/dL (<150)
[2025-01-10 11:05] LABS: Prostate Specific Antigen 0.20 ng/mL (<0.05-4.0)
== END 2025-01-10 06:30 | disposition home or self-care (01) ==
LOC: HO.HMGCLDS 06:29
PROVIDERS: PCP Internal Medicine Medical Oncology; Visit Provider Emergency Medicine
DX: N40.0 Benign prostatic hyperplasia without lower urinary tract symptoms (principal); E78.5 Hyperlipidemia, unspecified; Z12.5 Encounter for screening for malignant neoplasm of prostate
CPT/HCPCS: 36415; 80053; 80061; 83880; 84153; 85025

== ENCOUNTER 2025-04-12 06:30 | Outpatient (REF) | payer MEDICARE, SELFPAY ==
--- OUTSIDE RECORDS SUMMARY | 2024-08-03 07:30 | XMS_ITS ---
Author Organization Scott Hays III, MD Address [address] [place] [address] [place] [address] Care Team Providers Care Cotton Farmer Name Role Phone Dr. Scott Hays III Primary Care Provider [phone] Allergies Allergen (clinical drug ingredient) Drug/Non Drug Allergy documented on EMR Reaction Allergy Type Onset Date Status Iodinated contrast media (substance) Iodinated Diagnostic Agents Unknown Drug Allergy Active REASON FOR VISIT Left ankle sprain, Hypertension, Ureterolithiasis, Congestive heart failure, Benign prostatic hypertrophy, Anticoagulated, Atrial fibrillation, Tobacco dependence Medications Medication SIG (Take, Route, Frequency, Duration) Notes Start Date End Date Status Terazosin HCl 10 MG TAKE ONE CAPSULE BY MOUTH EVERY DAY AT BEDTIME Active Amoxicillin 500 MG TAKE 4 CAPSULES BY MOUTH BEFORE DENTAL WORK Active Eliquis 5 MG TAKE ONE TABLET BY MOUTH TWICE A DAY Active Omeprazole 20 MG 1 capsule 30 minutes before morning meal Orally Once a day 11/18/2021 Active Potassium Chloride ER 20 MEQ TAKE ONE TA BLET BY MOUTH EVERY DAY WITH FOOD Active Multivitamin Active Dutasteride 0.5 MG TAKE ONE CAPSULE BY MOUTH EVERY DAY Active Glucosamine Chondr 1500 Complx Active hydroCHLOROthiazide 25 MG TAKE ONE TABLE T BY MOUTH EVERY DAY Active Furosemide 20 MG TAKE TWO TABLETS BY MOUTH ONCE DAILY Oral Active Aspirin 81 81 MG 1 tablet Orally Once a day Active Lisinopril 5 MG 1 tablet Orally Once a day Active Social History Tobacco Use: Social History Observation Description Date Details (start date - stop date) Current Smoker NA - NA Sex Assigned At : Social History Observation Description Sex Assigned At Male Tobacco Use/Smoking Question Answer Notes Patient is a current smoker How often do you smoke cigarettes? some days, bu t not every day How many cigarettes a day do you smoke? 5 or les s How soon after you wake up d o you smoke your first cigarette? after 60 minutes Are you interested in quitting? Ready to quit Additional Findings: Tobacco User Light cigarett e smoker ((1-9 cigs/day) Additional Findings: Tobacco Non-User Ex-cigaret te smoker Encounters Encounter Location Date Provider Diagnosis Scott Hays III, MD [address] [place] [address] DR [place], [place] [address] 08/03/2024 Scott Hays Sprain of left ankle , unspecified ligament, initial encounter S93.402A ; Essential hypertension I10 ; BPH w/o urinary obs/LUTS N40.0 ; Ureterolithiasis N20.1 ; Hyperlipidemia E78.5 ; Overweight E66.3 ; Chronic atrial fibrillation I48.20 ; Tobacco dependence F17.200 and Anticoagulated Z79.01 Assessments Encounter Date Diagnosis (ICD Code) Assessment Notes T reatment Notes Treatment Clinical Notes 08/03/2024 Sprain of left ankle , unspecified ligament, initial encounter (ICD-10 - S93.402A) X-rays obtained today showed no fracture. Diffuse soft tissue edema was noted. This is a severe sprain that significantly limited ambulation. The left foot will need for mobilization and orthopedic care. He is referred for urgent orthopedic care. Until that happens he will stay at home and elevate the leg and avoid weightbearing. I have recommended acetaminophen for pain. 08/03/2024 Essential hypertensi on (ICD-10 - I10) His blood pressure is stable. No change in his regimen was needed today. 08/03/2024 BPH w/o urinary obs/LUTS (ICD-10 - N40.0) He rises frrom sleep once or twice a night. He is trying to limit nocturnal fluids. We discussed lifestyle modifications he could make to reduce nocturia. 08/03/2024 Ureterolithiasis (ICD-10 - N20.1) Since his last visit he has had no episodes of renal colic or hematuria. 08/03/2024 Hyperlipidemia (ICD- 10 - E78.5) Comprehensive blood work has been ordered prior to his next visiit. 08/03/2024 Overweight (ICD-10 - E66.3) He has gained 3 pounds. We discussed his weight loss strategy and detail. He will lose weight at a rate of one half of a pound per week. 08/03/2024 Chronic atrial fibrillation (ICD-10 - I48.20) His heart rate today was irregularly irregular at a controlled rate. No sign of congestive heart failure or tachycardia. 08/03/2024 Tobacco dependence (ICD-10 - F17.200) He continues to smoke a few cigarettes daily. We made a plan to reduce smoking and then discontinue the use of tobacco. 08/03/2024 Anticoagulated (ICD- 10 - Z79.01) He is anticoagulated because of his atrial fibrillation. No major bleeding episodes have been witnessed. He was instructed to stop this medication 3 days prior to the procedure. He will resume once a day following. Plan Of Treatment Medication Medication Name Sig Start Date Stop Date Notes Terazosin HCl 10 MG TAKE ONE CAPSULE BY MOUTH EVERY DAY AT BEDTIME Amoxicillin 500 MG TAKE 4 CAPSULES BY M OUTH BEFORE DENTAL WORK Eliquis 5 MG TAKE ONE TABLET BY M OUTH TWICE A DAY Omeprazole 20 MG 1 capsule 30 minutes before morning meal Orally Once a day 11/18/2021 Potassium Chloride ER 20 MEQ TAKE ONE TA BLET BY MOUTH EVERY DAY WITH FOOD Multivitamin Dutasteride 0.5 MG TAKE ONE CAPSULE BY MOUTH EVERY DAY Glucosamine Chondr 1500 Complx hydroCHLOROthiazide 25 MG TAKE ONE TABLE T BY MOUTH EVERY DAY Furosemide 20 MG TAKE TWO TABLETS BY MOUTH ONCE DAILY Oral Aspirin 81 81 MG 1 tablet Orally Once a day Lisinopril 5 MG 1 tablet Orally Once a day Next Appt Details Follow Up: as scheduled, Debbi son: OV Provider Name:Scott Hays , 04/20/2025 09:30:00 AM, [address] [place] [address] [address], [place], [address], Provider Name:Scott Hays , 01/18/2026 10:00:00 AM, [address] [place] [address] [place], [address], Progress Notes * Elvira BROWNOB: 2 (83 yo M)Acc No.[id number]:08/03/2024 Patient: New AVILES Provider: Abhijit Hays MD :1940 A ge:83 Y S ex:Male Date:08/03/2024 Address:[address] [place] [address] [address], [id number] Subjective: * Chief Complaints: * L eft ankle sprainHypertensionUreterolithiasisCongestive heart failureBenign prostatic hypertrophyAnticoagulatedAtrial fibrillationTobacco dependence * HPI: C OVID-19 Screening: He came to the office yyesterday with edema and bruising and pain in the left ankle and severe difficulty walking. The x-ray reports of the left leg showed no fracture but do show significant edema. He has been referred to orthopedic surgery clinic for stabilization of the severe sprain which will likely require able. He will remain anticoagulated and have no change in his medications. He denies any recent chest pain. He was instructed to use acetaminophen for pain and to elevate the leg 0.9 use and to minimize weight bearing until the edema resolves. Questions H ave you had any new onset fever, chills, cough, congestion, sore throat, shortness of breath, muscle aches? N o * ROS: G eneral/Constitutional: pain L eft foot and ankle. C hills d enies. F atigue a dmits. F ever d enies. E NT: Decreased hearing d enies. R espiratory: Cough n on-productive. C ardiovascular: Chest pain with exertion d enies. D yspnea on exertion?denies. S hortness of breath w ith exertion. G astrointestinal: Constipation d enies. D ecreased appetite d enies.?Diarrhea d enies. H eartburn d enies. N ausea d enies. R ectal bleeding?denies. V omiting d enies. H ematology: bruising d enies. p etechiae d enies. S wollen glands n one have been noted. G enitourinary: Frequent urination t wice a night. M usculoskeletal: Muscle aches d enies. P ainful joints L ast ankle.?Sciatica d enies. W eakness d enies. S kin: Itching d enies. R shama d enies. S kin lesion(s)?denies. N eurologic: Difficulty speaking d enies. D izziness d enies.?Headache d enies. L ow back pain d enies. P sychiatric: Depressed mood d enies. 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 M other: 74 yrs, hyroid removed at early age, breast cancer, diagnosed with Cancer. 1 son(s) , 1 daughter(s) - healthy. . He has no siblings. * Social History: T obacco Use: T obacco Use/Smoking P atient is a c urrent smoker H ow often do you smoke cigarettes? s ome days, but not every day H ow many cigarettes a day do you smoke? 5 or less H ow soon after you wake up do you smoke your first cigarette? a fter 60 minutes A re you interested in quitting? R eulogio to quit A dditional Findings: Tobacco User L ight cigarette smoker ((1-9 cigs/day) A dditional Findings: Tobacco Non-User E x-cigarette smoker Lynda everett is and has two children a son, Kenan, and a daughter, Oseas. 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 He was born in [place]. * Medications: T akingTerazosin HCl 10 MG Capsule TAKE ONE CAPSULE BY MOUTH EVERY DAY AT BEDTIME Eliquis 5 MG Tablet TAKE ONE TABLET BY MOUTH TWICE A DAY Omeprazole 20 MG Capsule Delayed Release 1 capsule 30 minutes before morning meal Orally Once a day Potassium Chloride ER 20 MEQ Tablet Extended Release TAKE ONE TABLET BY MOUTH EVERY DAY WITH FOOD Lisinopril 5 MG Tablet 1 tablet Orally Once a day Furosemide 20 MG Tablet TAKE TWO TABLETS BY MOUTH ONCE DAILY Oral Aspirin 81 81 MG Tablet Delayed Release 1 tablet Orally Once a day Multivitamin Glucosamine Chondr 1500 Complx hydroCHLOROthiazide 25 MG Tablet TAKE ONE TABLET BY MOUTH EVERY DAY Dutasteride 0.5 MG Capsule TAKE ONE CAPSULE BY MOUTH EVERY DAY Taking Terazosin HCl 10 MG Capsule TAKE ONE CAPSULE BY MOUTH EVERY DAY AT BEDTIME Taking Eliquis 5 MG Tablet TAKE ONE TABLET BY MOUTH TWICE A DAY Taking Omeprazole 20 MG Capsule Delayed Release 1 capsule 30 minutes before morning meal Orally Once a day Taking Potassium Chloride ER 20 MEQ Tablet Extended Release TAKE ONE TABLET BY MOUTH EVERY DAY WITH FOOD Taking Lisinopril 5 MG Tablet 1 tablet Orally Once a day Taking Furosemide 20 MG Tablet TAKE TWO TABLETS BY MOUTH ONCE DAILY Oral Taking Aspirin 81 81 MG Tablet Delayed Release 1 tablet Orally Once a day Taking Multivitamin Taking Glucosamine Chondr 1500 Complx Taking hydroCHLOROthiazide 25 MG Tablet TAKE ONE TABLET BY MOUTH EVERY DAY Taking Dutasteride 0.5 MG Capsule TAKE ONE CAPSULE BY MOUTH EVERY DAY DiscontinuedAmoxicillin 500 MG Capsule TAKE 4 CAPSULES BY MOUTH BEFORE DENTAL WORK Medication List reviewed and reconciled with the patientDiscontinued Amoxicillin 500 MG Capsule TAKE 4 CAPSULES BY MOUTH BEFORE DENTAL WORK Medication List reviewed and reconciled with the patient * Allergies: I odinated Diagnostic Agentsno[Allergies Verified] Objective: * Vitals: * Examination: G eneral Examination: GENERAL APPEARANCE: p leasant, well nourished, well developed, in no acute distress, calm and relaxed, overweight, man. HEAD: a traumatic, normocephalic. EYES: e stewart, perrla, anicteric, conjugate. EARS: n ormal. NOSE: s eptum intact. ORAL CAVITY: n ormal, unremarkable. NECK/THYROID: n o jugular venous distention, no carotid bruit, thyroid normal. LYMPH NODES: n o enlarged lymph nodes,spleen normal. SKIN: n o suspicious lesions, anicteric. HEART: n o clicks, gallops, murmurs, or rubs, irregular rhythm, S1, S2 normal, no s3, or vascular bruits. LUNGS: , diminished breath sounds throughout, no wheezes, rales, rhonchi, good air movement. BREASTS: no masses palpable bilaterally. ABDOMEN: b owel sounds normal, no ascites, no organomegaly, no mass, overweight. RECTAL EXAM: n ot examined. MUSCULOSKELETAL: L eft ankle and foot edematous with bruising above the ankle size of foot, dorsum of foot and toes, significant pain to weight-bearing, gait antalgic. PERIPHERAL PULSES: n ormal. NEUROLOGIC: a lert and oriented, cranial nerves 2-12 grossly intact, deep tendon reflexes 2+ symmetrical, motor strength normal upper and lower extremities, sensory exam intact. PSYCH: a lert, oriented. Assessment: * Assessment: 1. S prain of left ankle, unspecified ligament, initial encounter - S93.402A (Primary) ? N otes :X-rays obtained today showed no fracture. Diffuse soft tissue edema was noted. This is a severe sprain that significantly limited ambulation. The left foot will need for mobilization and orthopedic care. He is referred for urgent orthopedic care. Until that happens he will stay at home and elevate the leg and avoid weightbearing. I have recommended acetaminophen for pain. 2 . E ssential hypertension - I10 N otes :His blood pressure is stable. No change in his regimen was needed today. 3 . B PH w/o urinary obs/LUTS - N40.0 N otes :He rises frrom sleep once or twice a night. He is trying to limit nocturnal fluids. We discussed lifestyle modifications he could make to reduce nocturia. 4 . U reterolithiasis - N20.1 N otes :Since his last visit he has had no episodes of renal colic or hematuria. 5 . H yperlipidemia - E78.5 N otes :Comprehensive blood work has been ordered prior to his next visiit. 6 . O verweight - E66.3 N otes :He has gained 3 pounds. We discussed his weight loss strategy and detail. He will lose weight at a rate of one half of a pound per week. 7 . C hronic atrial fibrillation - I48.20 N otes :His heart rate today was irregularly irregular at a controlled rate. No sign of congestive heart failure or tachycardia. 8 . T obacco dependence - F17.200 N otes :He continues to smoke a few cigarettes daily. We made a plan to reduce smoking and then discontinue the use of tobacco. 9 . A nticoagulated - Z79.01 N otes :He is anticoagulated because of his atrial fibrillation. No major bleeding episodes have been witnessed. He was instructed to stop this medication 3 days prior to the procedure. He will resume once a day following. Plan: * Treatment: * Procedure Codes: * Preventive Medicine: Counseling: C are goal follow-up plan: Counseling for abnormal BMI given Y es Above Normal BMI Follow-up D ietary management education, guidance, and counseling, Dietary needs education, Exercise promotion: strength training, Exercise promotion: stretching, Feeding regime, Giving encouragement to exercise, Lifestyle education regarding diet, Nutrition / feeding management, Nutrition therapy, Prescribed activity/exercise education, Prescribed diet education, Prescribed dietary intake, Special diet education, Weight monitoring , Intervention, Order not done: Medical or Other reason not done S moking/Tobacco Use Patient counseled on the dangers of tobacco use and urged to quit. 0 08/03/2024 Patient Lifestyle Goals P atient wants to quit Treatment Goals C ut down by 1 cigarette a week, Set a quit date Barriers S tress, Social smoker Self-Management Plan M aida a plan to cut down number of cigarettes over time and set a date to work towards quitting * Follow Up: a s scheduled (Reason: OV) * Images: * Sign off status: Completed true * Provider: Abhijit Hays MD Date: 0 08/03/2024 Generated for Abilioi sonia/Miguel/eTransmitting on: 1 06:34 AM EDT History and Physical Notes * HPI (History of Present Illness) Category Sub-Category Detail Notes COVID-19 Screening Questions Have you had any new onset fever, chills, cough, congestion, sore throat, shortness of breath, muscle aches?: No Examination Category Sub-Category Detail Notes General Examination GENERAL APPEARANCE: pleasant , well nourished, well developed, in no acute distress, calm and relaxed, overweight, man HEAD: atraumatic, normocep halic EYES: eomi, perrla, anicte dayana, conjugate EARS: normal NOSE: septum intact NECK/THYROID: no jugular venous di stention, no carotid bruit, thyroid normal HEART: no clicks, gallops, murmurs, or rubs, irregular rhythm, S1, S2 normal, no s3, or vascular bruits LUNGS: , diminished breath sounds throughout, no wheezes, rales, rhonchi, good air movement ABDOMEN: bowel sounds normal, no ascites, no organomegaly, no mass, overweight NEUROLOGIC: alert and oriented, cranial nerves 2-12 grossly intact, deep tendon reflexes 2+ symmetrical, motor strength normal upper and lower extremities, sensory exam intact SKIN: no suspicious lesion s, anicteric PERIPHERAL PULSES: normal BREASTS: no masses palpable b ilaterally MUSCULOSKELETAL: Left ankle and foot edematous with bruising above the ankle size of foot, dorsum of foot and toes, significant pain to weight-bearing, gait antalgic LYMPH NODES: no enlarged lymph no aidee,spleen normal RECTAL EXAM: not examined PSYCH: alert, oriented ORAL CAVITY: normal, unremarkable
--- OUTSIDE RECORDS SUMMARY | 2024-09-14 06:45 | XMS_ITS ---
Author Organization Scott Hays III, MD Address [address] [place] [address] [place] [id number] Care Team Providers Care Spanish Speaking Nanny Name Role Phone Dr. Scott Hays III Primary Care Provider Allergies Allergen (clinical drug ingredient) Drug/Non Drug Allergy documented on EMR Reaction Allergy Type Onset Date Status Iodinated contrast media (substance) Iodinated Diagnostic Agents Unknown Drug Allergy Active REASON FOR VISIT rifght iliac crest muscle pain, noct x1, breathing not bad at all, no leg edema, Hypertension, Benign prostatic hypertrophy, Congestive heart failure, Ureterolithiasis, Tobacco dependence, Atrial fibrillation, Anticoagulated Medications Medication SIG (Take, Route, Frequency, Duration) Notes Start Date End Date Status Lisinopril 5 MG 1 tablet Orally Once a day Active Furosemide 20 MG TAKE TWO TABLETS BY MOUTH ONCE DAILY Oral Active Potassium Chloride ER 20 MEQ TAKE ONE TA BLET BY MOUTH EVERY DAY WITH FOOD Active Eliquis 5 MG TAKE ONE TABLET BY MOUTH TWICE A DAY Active Omeprazole 20 MG 1 capsule 30 minutes before morning meal Orally Once a day 11/18/2021 Active Terazosin HCl 10 MG TAKE ONE CAPSULE BY MOUTH EVERY DAY AT BEDTIME Active Amoxicillin 500 MG TAKE 4 CAPSULES BY MOUTH BEFORE DENTAL WORK Active Dutasteride 0.5 MG TAKE ONE CAPSULE BY MOUTH EVERY DAY Active Glucosamine Chondr 1500 Complx Active hydroCHLOROthiazide 25 MG TAKE ONE TABLE T BY MOUTH EVERY DAY Active Aspirin 81 81 MG 1 tablet [...] Problem Status W/U Status Risk Notes Problem [id number] Lumbar paraspinal muscle spasm (M62.830) Active confirmed He will rest and use acetaminophen and heat. He does not improve rapidly he will have a muscle relaxer. Vital Signs Temperature 97.2 degrees Fahrenheit 09/15/19 25 Blood pressure systolic 140 mm Hg 09/15/19 25 Blood pressure diastolic 83 mm Hg 025 Heart Rate 42 /min 09/14/2024 Height 70 in 09/14/2024 Weight 200 lbs 09/14/2024 BMI 28.69 kg/m2 09/14/[address] Hays made patient hi s 1 year follow up with Dr Tracy for 11/16/2024 at 9:50am [address] [facility] [address] [place], [place] . pt also has echocardiogram scheduled at that office for 11/01/2024 at 10[address] in [address] all this information was mailed and called to patient Encounters Encounter Location Date Provider Diagnosis Scott Hays III, MD [address] [place] [address] [place] [id number] 09/14/2024 Scott Hays Essential hypertensi on I10 ; Lumbar paraspinal muscle spasm M62.830 ; BPH w/o urinary obs/LUTS N40.0 ; Hyperlipidemia E78.5 ; Ureterolithiasis N20.1 ; Overweight E66.3 ; Anticoagulated Z79.01 ; Former smoker Z87.891 ; CHF (congestive heart failure) I50.9 and Critical aortic valve stenosis I35.0 Assessments Encounter Date Diagnosis (ICD Code) Assessment Notes T reatment Notes Treatment Clinical Notes 09/14/2024 Essential hypertensi on (ICD-10 - I10) His systolic blood pressure remains slightly elevated. We have discussed the level of pain he is in. Follow-up appointment has been made. He will continue on current medications at this time. I stressed the importance of sodium restriction weight loss and physical activity. 09/14/2024 Lumbar paraspinal muscle spasm (ICD-10 - M62.830) He will rest and use acetaminophen and heat. He does not improve rapidly he will have a muscle relaxer. 09/14/2024 BPH w/o urinary obs/LUTS (ICD-10 - N40.0) He rises from sleep twice a night to urinate. He does not restrict fluid intake after 5 PM. We have discussed the lifestyle modification she could make to reduce nocturia. 09/14/2024 Hyperlipidemia (ICD- 10 - E78.5) His total cholesterol was 159. No change in his medications was made today. I recommended aggressive weight loss. 09/14/2024 Ureterolithiasis (ICD-10 - N20.1) Since his last visit he has had no episodes of renal colic or hematuria. 09/14/2024 Overweight (ICD-10 - E66.3) He has gained 3 pounds. We discussed his weight loss strategy and detail. He will lose weight at a rate of one half of a pound per week. 09/14/2024 Anticoagulated (ICD- 10 - Z79.01) He is anticoagulated because of his atrial fibrillation. No major bleeding episodes have been witnessed. He was instructed to stop this medication 3 days prior to the procedure. He will resume once a day following. 09/14/2024 Former smoker (ICD-1 0 - Z87.891) He has a plan to prevent relapse from time to stress and illness. 09/14/2024 CHF (congestive hear t failure) (ICD-10 - I50.9) His heart failure is well compensated he is asymptomatic today. 09/14/2024 Critical aortic valv e stenosis (ICD-10 - I35.0) His aortic stenosis has been read repaired via TAVR. A cardiac murmur was audible today. He has an appointment with cardiology next week. He was told under no circumstances to miss that appointment. Plan Of Treatment Medication Medication Name Sig Start Date Stop Date Notes Lisinopril 5 MG 1 tablet Orally Once a day Furosemide 20 MG TAKE TWO TABLETS BY MOUTH ONCE DAILY Oral Potassium Chloride ER 20 MEQ TAKE ONE TA BLET BY MOUTH EVERY DAY WITH FOOD Eliquis 5 MG TAKE ONE TABLET BY M OUTH TWICE A DAY Omeprazole 20 MG 1 capsule 30 minutes before morning meal Orally Once a day 11/18/2021 Terazosin HCl 10 MG TAKE ONE CAPSULE BY MOUTH EVERY DAY AT BEDTIME Amoxicillin 500 MG TAKE 4 CAPSULES BY M OUTH BEFORE DENTAL WORK Dutasteride 0.5 MG TAKE ONE CAPSULE BY MOUTH EVERY DAY Glucosamine Chondr 1500 Complx hydroCHLOROthiazide 25 MG TAKE ONE TABLE T BY MOUTH EVERY DAY Aspirin 81 81 MG 1 tablet Orally Once a day Multivitamin Pending Test Test Name Order Date PROFILE, FASTING (COMPREHENSIVE METABOLI C) 09/14/2024 BRAIN NATRIURETIC PEPTIDE (BNP) 09/15/19 25 PSA, TOTAL 09/14/2024 CBC w DIFF 09/14/2024 Lipid Panel 09/14/2024 Next Appt Details Follow Up: 3 Months, Reason: ov review labs Provider Name:Scott Hays , 04/20/2025 09:30:00 AM, [address] [place] [address] [address], [place], [phone], Provider Name:Scott Hays , 01/18/2026 10:00:00 AM, [address] [place] [address] [address], [place], [phone], Progress Notes * Antolin BROWNkDOB: 2 (83 yo M)Acc No.[id number]:09/14/2024 Progress Notes Patient: Yvette MARLOW New Provider: Abhijit Hays MD :1940 A ge:83 Y S ex:Male Date:09/14/2024 Address:[address] [id number] Subjective: * Chief Complaints: * R ifght iliac crest muscle painNoct x1, breathing not bad at all, no leg edemaHypertensionBenign prostatic hypertrophyCongestive heart failureUreterolithiasisTobacco dependenceAtrial fibrillationAnticoagulated * HPI: C OVID-19 Screening: Questions H ave you had any new onset fever, chills, cough, congestion, sore throat, shortness of breath, muscle aches? N o He comes to the office for an unscheduled visit because of a 48 hour history of pain to the right of his lower lumbar spine in the muscles that attach to the pelvic brim. He has had no antecedent trauma or recent exercise. He experiences right lower back pain with rotating his spine to the left or bending forward. Upon examination it was muscle spasm. He is going to try heat rest and ibuprofen. He is going to follow up with me every other day. If he worsens he will be given a referral to pain management and dexamethasone. He will useAcetaminophen. He is experiencing nocturia once at night. He has been compliant with all his medications. Upon examination today there was a 2/6 holosystolic murmur.He has continued to smoke 10 cigarettes daily. * ROS: G eneral/Constitutional: pain L ower right back for 48 hours. C hills d enies. F atigue a dmits. F ever d enies. E NT: Decreased hearing m ild. R espiratory: Cough n on-productive. C ardiovascular: Chest pain with exertion d enies. D yspnea on exertion?denies. S hortness of breath d enies. G astrointestinal: Constipation d enies. D ecreased appetite d enies.?Diarrhea d enies. H eartburn d enies. N ausea d enies. R ectal bleeding?denies. V omiting d enies. H ematology: bruising d enies. p etechiae d enies. S wollen glands n one have been noted. G enitourinary: Frequent urination t wice a night. M usculoskeletal: Muscle aches d enies. P ainful joints d enies. S ciatica d enies. W eakness d enies. S kin: Itching d enies. R shama d enies. S kin lesion(s)?denies. N eurologic: Difficulty speaking d enies. D izziness d enies.?Headache d enies. L ow back pain d enies. P sychiatric: Depressed mood d enies. 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 He was born in [place]. * Medications: T akingDutasteride 0.5 MG Capsule TAKE ONE CAPSULE BY MOUTH EVERY DAY hydroCHLOROthiazide 25 MG Tablet TAKE ONE TABLET BY MOUTH EVERY DAY Terazosin HCl 10 MG Capsule TAKE ONE [...] a day Multivitamin Glucosamine Chondr 1500 Complx Medication List reviewed and reconciled with the patientTaking Dutasteride 0.5 MG Capsule TAKE ONE CAPSULE BY MOUTH EVERY DAY Taking hydroCHLOROthiazide 25 MG Tablet TAKE ONE TABLET BY MOUTH EVERY DAY Taking Terazosin HCl [...] Taking Multivitamin Taking Glucosamine Chondr 1500 Complx Medication List reviewed and reconciled with the patient * Allergies: I odinated Diagnostic Agentsno[Allergies Verified] Objective: * Vitals: H t: 70, Wt:200, BMI:28.69, BP:140/83, HR:42, Temp:97.2, Ht-cm: 177.8, Wt-k.72. Per Dr Hays made patient his 1 year follow up with Dr Tracy for 11/16/2024 at 9:50am [address] [facility] [address] [place] [address] . pt also has echocardiogram scheduled at that office for 11/01/2024 at 10am in [address] all this information was mailed and called to patient. * P ast Orders: Lab:B Type Natriuretic Pepti de * Collection Date 09/07/2024 01/06/2024 09/10/2023 Collection Time 06:32 AM 06:34 AM 07:32 AM Order Date 09/07/2024 01/06/2024 09/10/2023 B Type Natriuretic Peptide 168 H (Ref Range: <100 pg/mL) 129 H (Ref Range: <100 pg/mL) 91 (Ref Range: <100 pg/mL) * Lab:Lipid Panel * Collection Date 09/07/2024 01/06/2024 09/10/2023 Collection Time 06:32 AM 06:37 AM 07:32 AM Order Date 09/07/2024 01/06/2024 09/10/2023 Triglycerides 73 (Ref Range: <150 mg/dL) 62 (Ref Range: <150 mg/dL) 80 (Ref Range: <150 mg/dL) Cholesterol 159 (Ref Range: <200 mg/dL) 160 (Ref Range: <200 mg/dL) 190 (Ref Range: <200 mg/dL) LDL Cholesterol Calculated 105 H (Ref Range: <100 mg/dL) 109 H (Ref Range: <100 mg/dL) 133 H (Ref Range: <100 mg/dL) HDL Cholesterol 40 L (Ref Range: >40 mg/dL) 39 L (Ref Range: >40 mg/dL) 41 (Ref Range: >40 mg/dL) * Lab:Prostate Specific Antige n * Collection Date 09/07/2024 06/09/2023 08/28/2022 Collection Time 06:32 AM 09:08 AM 08:10 AM Order Date 09/07/2024 06/09/2023 08/28/2022 Prostate Specific Antigen 0.17 (Ref Range: <0.05-4.0 ng/mL) 0.19 (Ref Range: <0.05-4.0 ng/mL) 0.19 (Ref Range: <0.05-4.0 ng/mL) * Lab:Complete Blood Count Aut o Diff * Collection Date 09/07/2024 01/06/2024 09/10/2023 Collection Time 06:32 AM 06:37 AM 07:32 AM Order Date 09/07/2024 01/06/2024 09/10/2023 White Blood Count 7.2 (Ref Range: 4.8-10.8 X10*3/uL) 6.8 (Ref Range: 4.8-10.8 X10*3/uL) 7.2 (Ref Range: 4.8-10.8 X10*3/uL) Red Blood Count 5.09 (Ref Range: 4.60-5.80 X10*6/uL) 5.03 (Ref Range: 4.60-5.80 X10*6/uL) 5.50 (Ref Range: 4.60-5.80 X10*6/uL) Hemoglobin 15.5 (Ref Range: 14.0-18.0 g/dl) 16.0 (Ref Range: 14.0-18.0 g/dl) 16.7 (Ref Range: 14.0-18.0 g/dl) Hematocrit 47.5 (Ref Range: 42.0-52.0 %) 46.9 (Ref Range: 42.0-52.0 %) 50.2 (Ref Range: 42.0-52.0 %) Mean Corpuscular Volume 93.3 (Ref Range: 80.0-98.0 fL) 93.2 (Ref Range: 80.0-98.0 fL) 91.3 (Ref Range: 80.0-98.0 fL) Mean Corpuscular Hemoglobin 30.5 (Ref Range: 27.0-33.0 pg) 31.8 (Ref Range: 27.0-33.0 pg) 30.4 (Ref Range: 27.0-33.0 pg) Mean Corpuscular HGB Conc 32.6 (Ref Range: 31.0-36.0 g/dl) 34.1 (Ref Range: 31.0-36.0 g/dl) 33.3 (Ref Range: 31.0-36.0 g/dl) Red Cell Distribution Width 15.4 (Ref Range: 11.0-16.0 %) 15.3 (Ref Range: 11.0-16.0 %) 15.8 (Ref Range: 11.0-16.0 %) Platelet Count 198 (Ref Range: 160-400 X10*3/uL) 190 (Ref Range: 160-400 X10*3/uL) 198 (Ref Range: 160-400 X10*3/uL) Mean Platelet Volume 10.3 (Ref Range: 9.4-12.4 fL) 10.1 (Ref Range: 9.4-12.4 fL) 10.4 (Ref Range: 9.4-12.4 fL) Neutrophils Percent Auto 65.5 (Ref Range: 45-73 %) 63.1 (Ref Range: 45-73 %) 57.2 (Ref Range: 45-73 %) Imm Gran Pct Auto 0.3 (Ref Range: 0.0-0.4 %) 0.3 (Ref Range: 0.0-0.4 %) 0.1 (Ref Range: 0.0-0.4 %) Lymphocytes Percent Auto 24.8 (Ref Range: 20-40 %) 27.0 (Ref Range: 20-40 %) 33.8 (Ref Range: 20-40 %) Monocytes Percent Auto 7.6 (Ref Range: 2-11 %) 7.1 (Ref Range: 2-11 %) 6.6 (Ref Range: 2-11 %) Eosinophils Percent Auto 0.8 (Ref Range: 0-4 %) 1.5 (Ref Range: 0-4 %) 1.0 (Ref Range: 0-4 %) Basophils Percent Auto 1.0 (Ref Range: 0-2 %) 1.0 (Ref Range: 0-2 %) 1.3 (Ref Range: 0-2 %) NRBC Pct Auto 0.0 (Ref Range: 0.0-0.2 /100WBC) 0.0 (Ref Range: 0.0-0.2 /100WBC) 0.0 (Ref Range: 0.0-0.2 /100WBC) Neutrophils Absolute Auto 4.7 (Ref Range: 2.0-8.3 x10*3/uL) 4.3 (Ref Range: 2.0-8.3 x10*3/uL) 4.1 (Ref Range: 2.0-8.3 x10*3/uL) Imm Gran Abs Auto 0.02 (Ref Range: 0.00-0.03 X10*3/uL) 0.02 (Ref Range: 0.00-0.03 X10*3/uL) 0.01 (Ref Range: 0.00-0.03 X10*3/uL) Lymphocytes Absolute Auto 1.8 (Ref Range: 1.2-4.9 X10*3/uL) 1.8 (Ref Range: 1.2-4.9 X10*3/uL) 2.4 (Ref Range: 1.2-4.9 X10*3/uL) Monocytes Absolute Auto 0.6 (Ref Range: 0.1-1.2 X10*3/uL) 0.5 (Ref Range: 0.1-1.2 X10*3/uL) 0.5 (Ref Range: 0.1-1.2 X10*3/uL) Eosinophils Absolute Auto 0.1 (Ref Range: 0.0-0.4 X10*3/uL) 0.1 (Ref Range: 0.0-0.4 X10*3/uL) 0.1 (Ref Range: 0.0-0.4 X10*3/uL) Basophils Absolute Auto 0.1 (Ref Range: 0.0-0.2 X10*3/uL) 0.1 (Ref Range: 0.0-0.2 X10*3/uL) 0.1 (Ref Range: 0.0-0.2 X10*3/uL) NRBC Abs Auto 0.000 (Ref Range: 0.0-0.012 X10*3/uL) 0.000 (Ref Range: 0.0-0.012 X10*3/uL) 0.000 (Ref Range: 0.0-0.012 X10*3/uL) * Lab:[facility] [place] [facility] * Collection Date 09/07/2024 01/06/2024 09/10/2023 Collection Time 06:32 AM 06:37 AM 07:32 AM Order Date 09/07/2024 01/06/2024 09/10/2023 Sodium 144 (Ref Range: 135-145 mmol/L) 142 (Ref Range: 135-145 mmol/L) 143 (Ref Range: 135-145 mmol/L) Bilirubin Total 1.0 (Ref Range: 0.0-1.0 mg/dL) 1.1 H (Ref Range: 0.0-1.0 mg/dL) 1.2 H (Ref Range: 0.0-1.0 mg/dL) Aspartate Amino Transferase 28 (Ref Range: 5-37 U/L) 22 (Ref Range: 5-37 U/L) 23 (Ref Range: 5-37 U/L) Alanine Aminotransferase 18 (Ref Range: 0-40 U/L) 22 (Ref Range: 0-40 U/L) 19 (Ref Range: 0-40 U/L) Total Protein 6.6 (Ref Range: 6.5-8.0 g/dL) 6.2 L (Ref Range: 6.5-8.0 g/dL) 6.6 (Ref Range: 6.5-8.0 g/dL) Albumin Level 3.7 (Ref Range: 3.5-5.0 g/dL) 3.7 (Ref Range: 3.5-5.0 g/dL) 3.9 (Ref Range: 3.5-5.0 g/dL) Alkaline Phosphatase 99 (Ref Range: 39-117 U/L) 96 (Ref Range: 39-117 U/L) 99 (Ref Range: 39-117 U/L) Potassium 4.1 (Ref Range: 3.3-5.1 mmol/L) 3.6 (Ref Range: 3.3-5.1 mmol/L) 3.8 (Ref Range: 3.3-5.1 mmol/L) Chloride 108 (Ref Range: 96-108 mmol/L) 108 (Ref Range: 96-108 mmol/L) 106 (Ref Range: 96-108 mmol/L) Carbon Dioxide 28 (Ref Range: 22-29 mmol/L) 26 (Ref Range: 22-29 mmol/L) 26 (Ref Range: 22-29 mmol/L) Anion Gap 12 (Ref Range: 12-20) 12 (Ref Range: 12-20) 15 (Ref Range: 12-20) Blood Urea Nitrogen 22 H (Ref Range: 9-16 mg/dL) 23 H (Ref Range: 9-16 mg/dL) 24 H (Ref Range: 9-16 mg/dL) Creatinine 0.85 (Ref Range: 0.5-1.4 mg/dL) 0.93 (Ref Range: 0.5-1.4 mg/dL) 0.88 (Ref Range: 0.5-1.4 mg/dL) Estimated Glomerular Filt Rate > 60 > 60 > 60 Glucose Fasting 101 H (Ref Range: 60-99 mg/dL) 119 H (Ref Range: 60-99 mg/dL) 99 (Ref Range: 60-99 mg/dL) Calcium 9.4 (Ref Range: 8.4-10.2 mg/dL) 9.0 (Ref Range: 8.4-10.2 mg/dL) 9.7 (Ref Range: 8.4-10.2 mg/dL) ???Imaging:XR ankle LT min 3V (Order Date - 08/02/2024) (Performed Date - 08/02/2024) ???Imaging:XR tibia fibula LT 2V (Order Date 08/02/2024) (Performed Date - 08/02/2024) ???Imaging:XR foot LT min 3V (Order Date - 08/02/2024) (Performed Date - 08/02/2024) * Examination: G eneral Examination: GENERAL APPEARANCE: p natalia, well nourished, well developed, in no acute [...] suspicious lesions, anicteric. HEART: n o clicks, gallops,2/6 systolic murmur, or rubs, regular rhythm, S1, S2 normal, no s3, or vascular bruits, Regular rhythm with no premature beats. LUNGS: c lear to auscultation . BREASTS: no masses palpable bilaterally. ABDOMEN: b owel sounds normal, no ascites, no organomegaly, no mass, overweight. RECTAL EXAM: n ot examined. MUSCULOSKELETAL: e xtremities unremarkable, no clubbing, cyanosis or edema, Muscle spasm right lumbar muscle column above the iliac crest, shipyard painter helper rotation of the spine or anterior flexion. PERIPHERAL PULSES: n ormal. NEUROLOGIC: a lert and oriented, cranial nerves 2-12 grossly intact, deep tendon reflexes 2+ symmetrical, motor strength normal upper and lower extremities, sensory exam intact. PSYCH: a lert, oriented. Assessment: * Assessment: 1. L umbar paraspinal muscle spasm - M62.830 (Primary) N otes :He will rest and use acetaminophen and heat. He does not improve rapidly he will have a muscle relaxer. 2 . E ssential hypertension - I10 N otes :His systolic blood pressure remains slightly elevated. We have discussed the level of pain he is in. Follow-up appointment has been made. He will continue on current medications at this time. I stressed the importance of sodium restriction weight loss and physical activity. 3 . B PH w/o urinary obs/LUTS - N40.0 N otes :He rises from sleep twice a night to urinate. He does not restrict fluid intake after 5 PM. We have discussed the lifestyle modification she could make to reduce nocturia. 4 . H yperlipidemia - E78.5 N otes :His total cholesterol was 159. No change in his medications was made today. I recommended aggressive weight loss. 5 . U reterolithiasis - N20.1 N otes :Since his last visit he has had no episodes of renal colic or hematuria. 6 . O verweight - E66.3 N otes :He has gained 3 pounds. We discussed his weight loss strategy and detail. He will lose weight at a rate of one half of a pound per week. 7 . A nticoagulated - Z79.01 N otes :He is anticoagulated because of his atrial fibrillation. No major bleeding episodes have been witnessed. He was instructed to stop this medication 3 days prior to the procedure. He will resume once a day following. 8 . F ormer smoker - Z87.891 N otes :He has a plan to prevent relapse from time to stress and illness. 9 . C HF (congestive heart failure) - I50.9 N otes :His heart failure is well compensated he is asymptomatic today. 1 0. C ritical aortic valve stenosis - I35.0 N otes :His aortic stenosis has been read repaired via TAVR. A cardiac murmur was audible today. He has an appointment with cardiology next week. He was told under no circumstances to miss that appointment. Plan: * Treatment: 2. B PH w/o urinary obs/LUTS L AB: PROFILE, FASTING (COMPREHENSIVE METABOLIC) L AB: BRAIN NATRIURETIC PEPTIDE (BNP) L AB: PSA, TOTAL L AB: CBC w DIFF L AB: Lipid Panel 3. H yperlipidemia L AB: PROFILE, FASTING (COMPREHENSIVE METABOLIC) L AB: BRAIN NATRIURETIC PEPTIDE (BNP) L AB: PSA, TOTAL L AB: CBC w DIFF L AB: Lipid Panel 4. O thers Continue Dutasteride Capsule, 0.5 MG, TAKE ONE CAPSULE BY MOUTH EVERY DAY; C ontinue hydroCHLOROthiazide Tablet, 25 MG, TAKE ONE TABLET BY MOUTH EVERY DAY; C ontinue Terazosin HCl Capsule, 10 MG, TAKE ONE CAPSULE BY MOUTH EVERY DAY AT BEDTIME; C ontinue Amoxicillin Capsule, 500 MG, TAKE 4 CAPSULES BY MOUTH BEFORE DENTAL WORK; C ontinue Eliquis Tablet, 5 MG, TAKE ONE TABLET BY MOUTH TWICE A DAY; C ontinue Omeprazole Capsule Delayed Release, 20 MG, 1 capsule 30 minutes before morning meal, Orally, Once a day; C ontinue Potassium Chloride ER Tablet Extended Release, 20 MEQ, TAKE ONE TABLET BY MOUTH EVERY DAY WITH FOOD; C ontinue Lisinopril Tablet, 5 MG, 1 tablet, Orally, Once a day; C ontinue Furosemide Tablet, 20 MG, TAKE TWO TABLETS BY MOUTH ONCE DAILY, Oral; C ontinue Aspirin 81 Tablet Delayed Release, 81 MG, 1 tablet, Orally, Once a day; C ontinue Multivitamin; C ontinue Glucosamine Chondr 1500 Complx. * Procedure Codes: * Preventive Medicine: Counseling: C are goal follow-up plan: Counseling for abnormal BMI given Y es Above Normal BMI Follow-up D ietary management education, guidance, and counseling, Dietary needs education S moking/Tobacco Use Patient counseled on the dangers of tobacco use and urged to quit. 0 09/14/2024 * Follow Up: 3 Months (Reason: ov review labs) * Images: * Sign off status: Completed true * Provider: Abhijit Hays MD Date: 0 09/14/2024 Generated for Braxton scott/Miguel/eTransmitting on: 1 06:34 AM EDT History and [...] carotid bruit, thyroid normal HEART: no clicks, gallops,2 /6 systolic murmur, or rubs, regular rhythm, S1, S2 normal, no s3, or vascular bruits, Regular rhythm with no premature beats LUNGS: clear to auscultatio n ABDOMEN: bowel sounds normal, no ascites, no organomegaly, no mass, overweight NEUROLOGIC: alert and oriented, cranial nerves 2-12 grossly intact, deep tendon reflexes 2+ symmetrical, motor strength normal upper and lower extremities, sensory exam intact SKIN: no suspicious lesion s, anicteric PERIPHERAL PULSES: normal BREASTS: no masses palpable b ilaterally MUSCULOSKELETAL: extremities unremark able, no clubbing, cyanosis or edema, Muscle spasm right lumbar muscle column above the iliac crest, shipyard painter helper rotation of the spine or anterior flexion LYMPH NODES: no enlarged lymph no aidee,spleen normal RECTAL EXAM: not examined PSYCH: alert, oriented ORAL CAVITY: normal, unremarkable
--- OUTSIDE RECORDS SUMMARY | 2024-10-25 05:56 | XMS_ITS ---
Author Organization Scott Hays III, MD Address [address] [place] [address] [place] [address] Care Team Providers Care Material Handler Name Role Phone Dr. Scott Hays III Primary Care Provider REASON FOR VISIT Refills Medications Medication SIG (Take, Route, Fr equency, Duration) Notes Start Date End Date Status Lisinopril 5 MG 2 tablets Orally Once a day Active Social History Sex Assigned At : Social History Observation Description Sex Assigned At Male Encounters Encounter Location Date Provider Diagnosis Scott Hays III, MD [address] [place] [address] [place] [address] 10/25/2024 Scott Hays Plan Of Treatment Medication Medication Name Sig Start Date Stop Date Notes Lisinopril 5 MG 2 tablets Orally Once a day Next Appt Details Provider Name:Scott Hays , 04/20/2025 09:30:00 AM, [address] [place] [address] [place], [address], Provider Name:Scott Hays , 01/18/2026 10:00:00 AM, [address] [place] [address] [place], [address], Progress Notes * Elvira BROWNOB: 2 (83 yo M)Acc No.[id number]:10/25/2024 Patient: New AVILES :1940 A ge:83 Y S ex:Male Address:[address] [place], [place] [address], [place] [address] * Refills Continue Lisinopril Tablet, 5 MG, Orally, 2 tablets, Once a day * true * Date: Generated for Braxton scott/Miguel/Dayronitting on: 06:35 AM EDT
--- OUTSIDE RECORDS SUMMARY | 2025-01-17 06:00 | XMS_ITS ---
Author Organization Scott Hays III, MD Address [address] [place] [address] [place] [id number] Care Team Providers Care Health Information Tech Name Role Phone Dr. Scott Hays III Primary Care Provider [phone] Allergies Allergen (clinical drug ingredient) Drug/Non Drug Allergy documented on EMR Reaction Allergy Type Onset Date Status Iodinated contrast media (substance) Iodinated Diagnostic Agents Unknown Drug Allergy Active REASON FOR VISIT annual exam Medications Medication SIG (Take, Route, Frequency, Duration) Notes Start Date End Date Status Aspirin 81 81 MG 1 tablet Orally Once a day Active Furosemide 20 MG TAKE TWO TABLETS BY MOUTH ONCE DAILY Oral Active Glucosamine Chondr 1500 Complx Active Multivitamin Active hydroCHLOROthiazide 25 MG TAKE ONE TABLE T BY MOUTH EVERY DAY Active Dutasteride 0.5 MG TAKE ONE CAPSULE BY MOUTH EVERY DAY Active Potassium Chloride ER 20 MEQ TAKE ONE TA BLET BY MOUTH EVERY DAY WITH FOOD Active Terazosin HCl 10 MG TAKE ONE CAPSULE BY MOUTH EVERY DAY AT BEDTIME Active Omeprazole 20 MG 1 capsule Orally Onc e a day Active Amoxicillin 500 MG TAKE 4 CAPSULES BY MOUTH BEFORE DENTAL WORK Active Lisinopril 5 MG 1 tablets Orally Onc e a day Active Eliquis 5 MG TAKE ONE TABLET BY MOUTH TWICE A DAY Active Social History Tobacco Use: Social History Observation Description Date Details (start date - stop date) Current Smoker NA - NA Sex Assigned At : Social History Observation Description Sex Assigned At Male Tobacco Control (Standard) Question Answer Notes Tobacco use: Current smoker How often do you smoke cigarettes? Every day How many cigarettes a day do you smoke? 5 or les s How soon after you wake up d o you smoke your first cigarette? 6-30 minutes Are you interested in quitting? Thinking about q uitting Additional Findings: Tobacco user Light cigarett e smoker (1-9 cigs/day) AUDIT-C (Standard) Question Answer Notes Did you have a drink containing alcohol in the p ast year? 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 We also noticed an irregular abnormal suspicious lesion over his left olecranon. I instructed him to show this to the tool lapper hand make arrangements for its evaluation. Vital Signs Temperature 98.2 degrees Fahrenheit 01/18/20 25 Blood pressure systolic 136 mm Hg 01/18/20 25 Blood pressure diastolic 68 mm Hg 025 Heart Rate 46 /min 01/17/2025 Height 70 in 01/17/2025 Weight 199 lbs 01/17/2025 BMI 28.55 kg/m2 01/17/2025 Encounters Encounter Location Date Provider Diagnosis Scott Hays III, MD [address] [place] [address] [place] [id number] 01/17/2025 Scott Hays Tobacco dependence F17.200 ; Other obesity due to excess calories E66.09 ; Essential hypertension I10 ; BPH w/o urinary obs/LUTS N40.0 ; Hyperlipidemia E78.5 ; Lipoma D17.9 ; Anticoagulated Z79.01 ; Peripheral arterial disease I73.9 ; Critical aortic valve stenosis I35.0 ; CHF (congestive heart failure) I50.9 ; Chronic atrial fibrillation I48.20 and Skin lesion L98.9 Assessments Encounter Date Diagnosis (ICD Code) Assessment Notes Treat ment Notes Treatment Clinical Notes 01/17/2025 Tobacco dependence (ICD-10 - F17.200) He continues to smoke a few cigarettes daily. We made a plan to reduce smoking and then discontinue the use of tobacco. 01/17/2025 Other obesity due to excess calories (ICD-10 - E66.09) 01/17/2025 Essential hypertension (ICD-10 - I10) His systolic blood pressure remains slightly elevated. We have discussed the level of pain he is in. Follow-up appointment has been made. He will continue on current medications at this time. I stressed the importance of sodium restriction weight loss and physical activity. 01/17/2025 BPH w/o urinary obs/LUTS (ICD-10 - N40.0) He rises from sleep twice a night to urinate. He does not restrict fluid intake after 5 PM. We have discussed the lifestyle modification she could make to reduce nocturia. 01/17/2025 Hyperlipidemia (ICD-10 - E78.5) His total cholesterol was 159. No change in his medications was made today. I recommended aggressive weight loss. 01/17/2025 Lipoma (ICD-10 - D17.9) The size has not changed and it will be observed. 01/17/2025 Anticoagulated (ICD-10 - Z79.01) He is anticoagulated because of his atrial fibrillation. No major bleeding episodes have been witnessed. He was instructed to stop this medication 3 days prior to the procedure. He will resume once a day following. 01/17/2025 Peripheral arterial disease (ICD-10 - I73.9) At the end of this week. He is going to have an arteriogram with a procedure to correct the obstruction in the superficial femoral artery. 01/17/2025 Critical aortic valve stenosis (ICD-10 - I35.0) His aortic stenosis has been read repaired via TAVR. A cardiac murmur was audible today. He has an appointment with cardiology next week. He was told under no circumstances to miss that appointment. 01/17/2025 CHF (congestive heart failure) (ICD-10 - I50.9) His heart failure is well compensated he is asymptomatic today. 01/17/2025 Chronic atrial fibrillation (ICD-10 - I48.20) His heart rate today was irregularly irregular at a controlled rate. No sign of congestive heart failure or tachycardia. 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 We also noticed an irregular abnormal suspicious lesion over his left olecranon. I instructed him to show this to the tool lapper hand make arrangements for its evaluation. Plan Of Treatment Medication Medication Name Sig Start Date Stop Date Notes Aspirin 81 81 MG 1 tablet Orally Once a day Furosemide 20 MG TAKE TWO TABLETS BY MOUTH ONCE DAILY Oral Glucosamine Chondr 1500 Complx Multivitamin hydroCHLOROthiazide 25 MG TAKE ONE TABLE T BY MOUTH EVERY DAY Dutasteride 0.5 MG TAKE ONE CAPSULE BY MOUTH EVERY DAY Potassium Chloride ER 20 MEQ TAKE ONE TA BLET BY MOUTH EVERY DAY WITH FOOD Terazosin HCl 10 MG TAKE ONE CAPSULE BY MOUTH EVERY DAY AT BEDTIME Omeprazole 20 MG 1 capsule Orally Once a day Amoxicillin 500 MG TAKE 4 CAPSULES BY M OUTH BEFORE DENTAL WORK Lisinopril 5 MG 1 tablets Orally Once a day Eliquis 5 MG TAKE ONE TABLET BY M OUTH TWICE A DAY Pending Test Test Name Order Date PROFILE, FASTING (COMPREHENSIVE METABOLI C) 01/17/2025 BRAIN NATRIURETIC PEPTIDE (BNP) 01/18/20 25 CBC w DIFF 01/17/2025 Lipid Panel 01/17/2025 Next Appt Details Follow Up: 3 Months, Reason: OV Provider Name:Scott Hays , 04/20/2025 09:30:00 AM, [address] [place] [address] [address], [place], [id number], Provider Name:Scott Hays , 01/18/2026 10:00:00 AM, [address] [place] [address] [address], [place], [phone], Progress Notes * Antolin BROWNkDOB: 2 (84 yo M)Acc No.[id number]:01/17/2025 Progress Notes Patient: Yvette KASHMIR New Provider: Abhijit Hays MD :1940 A ge:84 Y S ex:Male Date:01/17/2025 Address:[id number] Subjective: * Chief Complaints: * A nnual exam * HPI: D epression Screening: He returns for T age of 84, for his annual visit. Next Thursday. He has an appointment with his endovascular specialist to review the situation with his veins. He had many questions about his vaccinations including coronavirus. He is going to his tool lapper hand next week for Mohs surgery on his right ear to remove a small squamous cell carcinoma. On examination today he still had the 1/6 systolic ejection murmur.He has discussed closing his left atrial appendage with his inseam trimming machine operator, but she told him he needs to remain anticoagulated. PHQ-9 L ittle interest or pleasure in doing things?Not at all F eeling down, depressed, or hopeless N ot at all T rouble falling or staying asleep, or sleeping too much N ot at all F eeling tired or having little energy S everal days P oor appetite or overeating N ot at all F eeling bad about yourself or that you are a failure, or have let yourself or your family down N ot at all T rouble concentrating on things, such as reading the newspaper or watching television N ot at all M oving or speaking so slowly that other people could have noticed; or the opposite, being so fidgety or restless that you have been moving around a lot more than usual N ot at all T houghts that you would be better off or of hurting yourself in some way N ot at all T otal Score 1 I nterpretation M inimal Depression C OVID-19 Screening: Questions H ave you had any new onset fever, chills, cough, congestion, sore throat, shortness of breath, muscle aches? N o S KYLIE Questions: SDOH Questions I n the past year have you been worried about losing your housing? N o I n the past year have you or any family members you live with been unable to get any of the following when it was really needed? Check all that apply: D ecline to answer F all Risk Screening: Fall History H ave you had any falls with injury in the past year? Y es H ave you had two or more falls in the past year? N o F all Risk Assessment: O ne fall with injury in the past year * ROS: G eneral/Constitutional: pain o nly normal aches and pains. C hills d enies.?Fatigue a dmits. F ever d enies. E NT: Decreased hearing m ild. R espiratory: Cough n on-productive. C ardiovascular: Chest pain with exertion d enies. D yspnea on exertion?denies. S hortness of breath d enies. G astrointestinal: Constipation o ccasional. D ecreased appetite d enies. D iarrhea d enies. H eartburn d enies. N ausea d enies. R ectal bleeding d enies. V omiting d enies. H ematology: bruising d enies. p etechiae d enies. S wollen glands n one have been noted. G enitourinary: Frequent urination o nce a night. M usculoskeletal: Muscle aches d [...] colonoscopy 2010catract surgery 2018Aortic valve implant, Serial: [id number], Model: [id number], Size: 23MM, [facility] 10/02/2021quamous cell removed from lower right leg [...] Social History: T obacco Use: T obacco Control (Standard) T obacco use: C urrent smoker H ow often do you smoke cigarettes? E very day H ow many cigarettes a day do you smoke? 5 or less H ow soon after you wake up do you smoke your first cigarette? 6 -30 minutes A re you interested in quitting? T hinking about quitting A dditional Findings: Tobacco user L ight cigarette smoker (1-9 cigs/day) D rugs/Alcohol: D rugs H ave you used drugs other than those for medical reasons in the past 12 months? N o D rug/Alcohol: A KAREN-C (Standard) D id you have a drink containing alcohol in the past year? N o P oints 0 I nterpretation N egative H marguerite is and has two children a son, Kenan, and a daughter, Oseas. 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 He was born in [place]. * Medications: T akingDutasteride 0.5 MG Capsule TAKE ONE CAPSULE BY MOUTH EVERY DAY hydroCHLOROthiazide 25 MG Tablet TAKE ONE TABLET BY MOUTH EVERY DAY Terazosin HCl 10 MG Capsule TAKE ONE CAPSULE BY MOUTH EVERY DAY AT BEDTIME Potassium Chloride ER 20 MEQ Tablet Extended Release TAKE ONE TABLET BY MOUTH EVERY DAY WITH FOOD Furosemide 20 MG Tablet TAKE TWO TABLETS BY MOUTH ONCE DAILY Oral Aspirin 81 81 MG Tablet Delayed Release 1 tablet Orally Once a day Multivitamin Glucosamine Chondr 1500 Complx Omeprazole 20 MG Capsule Delayed Release 1 capsule Orally Once a day Lisinopril 5 MG Tablet 1 tablets Orally Once a day Eliquis 5 MG Tablet TAKE ONE TABLET BY MOUTH TWICE A DAY Taking Dutasteride 0.5 MG Capsule TAKE ONE CAPSULE BY MOUTH EVERY DAY Taking hydroCHLOROthiazide 25 MG Tablet TAKE ONE TABLET BY MOUTH EVERY DAY Taking Terazosin HCl 10 MG Capsule TAKE ONE CAPSULE BY MOUTH EVERY DAY AT BEDTIME Taking Potassium Chloride ER 20 MEQ Tablet Extended Release TAKE ONE TABLET BY MOUTH EVERY DAY WITH FOOD Taking Furosemide 20 MG Tablet TAKE TWO TABLETS BY MOUTH ONCE DAILY Oral Taking Aspirin 81 81 MG Tablet Delayed Release 1 tablet Orally Once a day Taking Multivitamin Taking Glucosamine Chondr 1500 Complx Taking Omeprazole 20 MG Capsule Delayed Release 1 capsule Orally Once a day Taking Lisinopril 5 MG Tablet 1 tablets Orally Once a day Taking Eliquis 5 MG Tablet TAKE ONE TABLET BY MOUTH TWICE A DAY DiscontinuedAmoxicillin 500 MG Capsule TAKE 4 CAPSULES BY MOUTH BEFORE DENTAL WORK Medication List reviewed and reconciled with the patientDiscontinued Amoxicillin 500 MG Capsule TAKE 4 CAPSULES BY MOUTH BEFORE DENTAL WORK Medication List reviewed and reconciled with the patient * Allergies: I odinated Diagnostic Agentsno[Allergies Verified] Objective: * Vitals: H t: 70, Wt:199, BMI:28.55, BP:136/68, HR:46, Temp:98.2, Ht-cm: 177.8, Wt-k.26. * P ast Orders: Lab:Prostate Specific Antige n * Collection Date 01/10/2025 09/07/2024 06/09/2023 Collection Time 06:53 AM 06:32 AM 09:08 AM Order Date 01/10/2025 09/07/2024 06/09/2023 Prostate Specific Antigen 0.20 (Ref Range: <0.05-4.0 ng/mL) 0.17 (Ref Range: <0.05-4.0 ng/mL) 0.19 (Ref Range: <0.05-4.0 ng/mL) * Lab:Complete Blood Count Aut o Diff * Collection Date 01/10/2025 09/07/2024 01/06/2024 Collection Time 06:53 AM 06:32 AM 06:37 AM Order Date 01/10/2025 09/07/2024 01/06/2024 White Blood Count 6.7 (Ref Range: 4.8-10.8 X10*3/uL) 7.2 (Ref Range: 4.8-10.8 X10*3/uL) 6.8 (Ref Range: 4.8-10.8 X10*3/uL) Red Blood Count 5.35 (Ref Range: 4.60-5.80 X10*6/uL) 5.09 (Ref Range: 4.60-5.80 X10*6/uL) 5.03 (Ref Range: 4.60-5.80 X10*6/uL) Hemoglobin 16.3 (Ref Range: 14.0-18.0 g/dl) 15.5 (Ref Range: 14.0-18.0 g/dl) 16.0 (Ref Range: 14.0-18.0 g/dl) Hematocrit 49.6 (Ref Range: 42.0-52.0 %) 47.5 (Ref Range: 42.0-52.0 %) 46.9 (Ref Range: 42.0-52.0 %) Mean Corpuscular Volume 92.7 (Ref Range: 80.0-98.0 fL) 93.3 (Ref Range: 80.0-98.0 fL) 93.2 (Ref Range: 80.0-98.0 fL) Mean Corpuscular Hemoglobin 30.5 (Ref Range: 27.0-33.0 pg) 30.5 (Ref Range: 27.0-33.0 pg) 31.8 (Ref Range: 27.0-33.0 pg) Mean Corpuscular HGB Conc 32.9 (Ref Range: 31.0-36.0 g/dl) 32.6 (Ref Range: 31.0-36.0 g/dl) 34.1 (Ref Range: 31.0-36.0 g/dl) Red Cell Distribution Width 16.9 H (Ref Range: 11.0-16.0 %) 15.4 (Ref Range: 11.0-16.0 %) 15.3 (Ref Range: 11.0-16.0 %) Platelet Count 178 (Ref Range: 160-400 X10*3/uL) 198 (Ref Range: 160-400 X10*3/uL) 190 (Ref Range: 160-400 X10*3/uL) Mean Platelet Volume 9.9 (Ref Range: 9.4-12.4 fL) 10.3 (Ref Range: 9.4-12.4 fL) 10.1 (Ref Range: 9.4-12.4 fL) Neutrophils Percent Auto 62.7 (Ref Range: 45-73 %) 65.5 (Ref Range: 45-73 %) 63.1 (Ref Range: 45-73 %) Imm Gran Pct Auto 0.3 (Ref Range: 0.0-0.4 %) 0.3 (Ref Range: 0.0-0.4 %) 0.3 (Ref Range: 0.0-0.4 %) Lymphocytes Percent Auto 28.2 (Ref Range: 20-40 %) 24.8 (Ref Range: 20-40 %) 27.0 (Ref Range: 20-40 %) Monocytes Percent Auto 6.8 (Ref Range: 2-11 %) 7.6 (Ref Range: 2-11 %) 7.1 (Ref Range: 2-11 %) Eosinophils Percent Auto 1.1 (Ref Range: 0-4 %) 0.8 (Ref Range: 0-4 %) 1.5 (Ref Range: 0-4 %) Basophils Percent Auto 0.9 (Ref Range: 0-2 %) 1.0 (Ref Range: 0-2 %) 1.0 (Ref Range: 0-2 %) NRBC Pct Auto 0.0 (Ref Range: 0.0-0.2 /100WBC) 0.0 (Ref Range: 0.0-0.2 /100WBC) 0.0 (Ref Range: 0.0-0.2 /100WBC) Neutrophils Absolute Auto 4.2 (Ref Range: 2.0-8.3 x10*3/uL) 4.7 (Ref Range: 2.0-8.3 x10*3/uL) 4.3 (Ref Range: 2.0-8.3 x10*3/uL) Imm Gran Abs Auto 0.02 (Ref Range: 0.00-0.03 X10*3/uL) 0.02 (Ref Range: 0.00-0.03 X10*3/uL) 0.02 (Ref Range: 0.00-0.03 X10*3/uL) Lymphocytes Absolute Auto 1.9 (Ref Range: 1.2-4.9 X10*3/uL) 1.8 (Ref Range: 1.2-4.9 X10*3/uL) 1.8 (Ref Range: 1.2-4.9 X10*3/uL) Monocytes Absolute Auto 0.5 (Ref Range: 0.1-1.2 X10*3/uL) 0.6 (Ref Range: 0.1-1.2 X10*3/uL) 0.5 (Ref [...] 0.000 (Ref Range: 0.0-0.012 X10*3/uL) * Lab:Romeo Lizama Brianne l Fast * Collection Date 01/10/2025 09/07/2024 01/06/2024 Collection Time 06:53 AM 06:32 AM 06:37 AM Order Date 01/10/2025 09/07/2024 01/06/2024 Sodium 143 (Ref Range: 135-145 mmol/L) 144 (Ref Range: 135-145 mmol/L) 142 (Ref Range: 135-145 mmol/L) Bilirubin Total 0.9 (Ref Range: 0.0-1.0 mg/dL) 1.0 (Ref Range: 0.0-1.0 mg/dL) 1.1 H (Ref Range: 0.0-1.0 mg/dL) Aspartate Amino Transferase 30 (Ref Range: 5-37 U/L) 28 (Ref Range: 5-37 U/L) 22 (Ref Range: 5-37 U/L) Alanine Aminotransferase 18 (Ref Range: 0-40 U/L) 18 (Ref Range: 0-40 U/L) 22 (Ref Range: 0-40 U/L) Total Protein 6.4 L (Ref Range: 6.5-8.0 g/dL) 6.6 (Ref Range: 6.5-8.0 g/dL) 6.2 L (Ref Range: 6.5-8.0 g/dL) Albumin Level 4.0 (Ref Range: 3.5-5.0 g/dL) 3.7 (Ref Range: 3.5-5.0 g/dL) 3.7 (Ref Range: 3.5-5.0 g/dL) Alkaline Phosphatase 97 (Ref Range: 39-117 U/L) 99 (Ref Range: 39-117 U/L) 96 (Ref Range: 39-117 U/L) Potassium 4.4 (Ref Range: 3.3-5.1 mmol/L) 4.1 (Ref Range: 3.3-5.1 mmol/L) 3.6 (Ref Range: 3.3-5.1 mmol/L) Chloride 107 (Ref Range: 96-108 mmol/L) 108 (Ref Range: 96-108 mmol/L) 108 (Ref Range: 96-108 mmol/L) Carbon Dioxide 27 (Ref Range: 22-29 mmol/L) 28 (Ref Range: 22-29 mmol/L) 26 (Ref Range: 22-29 mmol/L) Anion Gap 13 (Ref Range: 12-20) 12 (Ref Range: 12-20) 12 (Ref Range: 12-20) Blood Urea Nitrogen 26 H (Ref Range: 9-16 mg/dL) 22 H (Ref Range: 9-16 mg/dL) 23 H (Ref Range: 9-16 mg/dL) Creatinine 1.04 (Ref Range: 0.5-1.4 mg/dL) 0.85 (Ref Range: 0.5-1.4 mg/dL) 0.93 (Ref Range: 0.5-1.4 mg/dL) Estimated Glomerular Filt Rate > 60 > 60 > 60 Glucose Fasting 107 H (Ref Range: 60-99 mg/dL) 101 H (Ref Range: 60-99 mg/dL) 119 H (Ref Range: 60-99 mg/dL) Calcium 9.2 (Ref Range: 8.4-10.2 mg/dL) 9.4 (Ref Range: 8.4-10.2 mg/dL) 9.0 (Ref Range: 8.4-10.2 mg/dL) * Lab:B Type Natriuretic Pepti de * Collection Date 01/10/2025 09/07/2024 01/06/2024 Collection Time 06:53 AM 06:32 AM 06:34 AM Order Date 01/10/2025 09/07/2024 01/06/2024 B Type Natriuretic Peptide 197 H (Ref Range: <100 pg/mL) 168 H (Ref Range: <100 pg/mL) 129 H (Ref Range: <100 pg/mL) * Lab:Lipid Panel * Collection Date 01/10/2025 09/07/2024 01/06/2024 Collection Time 06:53 AM 06:32 AM 06:37 AM Order Date 01/10/2025 09/07/2024 01/06/2024 Triglycerides 72 (Ref Range: <150 mg/dL) 73 (Ref Range: <150 mg/dL) 62 (Ref Range: <150 mg/dL) Cholesterol 181 (Ref Range: <200 mg/dL) 159 (Ref Range: <200 mg/dL) 160 (Ref Range: <200 mg/dL) LDL Cholesterol Calculated 122 H (Ref Range: <100 mg/dL) 105 H (Ref Range: <100 mg/dL) 109 H (Ref Range: <100 mg/dL) HDL Cholesterol 45 (Ref Range: >40 mg/dL) 40 L (Ref Range: >40 mg/dL) 39 L (Ref Range: >40 mg/dL) * Examination: G eneral Examination: GENERAL APPEARANCE: p leasant, well nourished, well developed, in no acute distress, calm and relaxed, overweight, man. HEAD: a traumatic, normocephalic. EYES: e stewart, perrla, anicteric, conjugate. EARS: S nadege she right ear. NOSE: s eptum intact. ORAL CAVITY: n ormal, unremarkable. NECK/THYROID: n o jugular venous distention, no carotid bruit, thyroid normal. LYMPH NODES: n o enlarged lymph nodes,spleen normal. SKIN: n o suspicious lesions, anicteric, Suspicious lesion and left elbow. HEART: n o clicks, gallops, murmurs, or rubs, regular rhythm, S1, S2 normal, no s3, or vascular bruits. LUNGS: c lear to auscultation . BREASTS: no masses palpable bilaterally. ABDOMEN: b owel sounds normal, no ascites, no organomegaly, no mass, centripital obesity. RECTAL EXAM: n ot examined. MUSCULOSKELETAL: e xtremities unremarkable, no clubbing, cyanosis or edema, Moderate lipoma left supraclavicular fossa. PERIPHERAL PULSES: n ormal. NEUROLOGIC: a lert and oriented, cranial nerves 2-12 grossly intact, deep tendon reflexes 2+ symmetrical, motor strength normal upper and lower extremities, sensory exam intact. PSYCH: a lert, oriented. Assessment: * Assessment: 1. T obacco dependence - F17.200 (Primary) N otes :He continues to smoke a few cigarettes daily. We made a plan to reduce smoking and then discontinue the use of tobacco. 2 . O ther obesity due to excess calories - E66.09 3 . E ssential hypertension - I10 N otes :His systolic blood pressure remains slightly elevated. We have discussed the level of pain he is in. Follow-up appointment has been made. He will continue on current medications at this time. I stressed the importance of sodium restriction weight loss and physical activity. 4 . B PH w/o urinary obs/LUTS - N40.0 N otes :He rises from sleep twice a night to urinate. He does not restrict fluid intake after 5 PM. We have discussed the lifestyle modification she could make to reduce nocturia. 5 . H yperlipidemia - E78.5 N otes :His total cholesterol was 159. No change in his medications was made today. I recommended aggressive weight loss. 6 . L ipoma - D17.9 N otes :The size has not changed and it will be observed. 7 . A nticoagulated - Z79.01 N otes :He is anticoagulated because of his atrial fibrillation. No major bleeding episodes have been witnessed. He was instructed to stop this medication 3 days prior to the procedure. He will resume once a day following. 8 . P eripheral arterial disease - I73.9 N otes :At the end of this week. He is going to have an arteriogram with a procedure to correct the obstruction in the superficial femoral artery. 9 . C ritical aortic valve stenosis - I35.0 N otes :His aortic stenosis has been read repaired via TAVR. A cardiac murmur was audible today. He has an appointment with cardiology next week. He was told under no circumstances to miss that appointment. 1 0. C HF (congestive heart failure) - I50.9 N otes :His heart failure is well compensated he is asymptomatic today. 1 1. C hronic atrial fibrillation - I48.20 N otes :His heart rate today was irregularly irregular at a controlled rate. No sign of congestive heart failure or tachycardia. 1 2. 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 We also noticed an irregular abnormal suspicious lesion over his left olecranon. I instructed him to show this to the tool lapper hand make arrangements for its evaluation. Plan: * Treatment: * Labs: * L ab: PROFILE, FASTING (COMPREHENSIVE METABOLIC) L ab: BRAIN NATRIURETIC PEPTIDE (BNP) L ab: CBC w DIFF L ab: Lipid Panel * Procedure Codes: * Preventive Medicine: Counseling: C are goal follow-up plan: Counseling for abnormal BMI given Y es Above Normal BMI Follow-up D ietary management education, guidance, and counseling, Dietary needs education S moking/Tobacco Use Patient counseled on the dangers of tobacco use and urged to quit. 0 01/17/2025 Patient Lifestyle Goals P atient wants to quit Treatment Goals S et a quit date, Cut down by 1 cigarette a week Barriers S ocial smoker, Stress Self-Management Plan M aida a plan to cut down number of cigarettes over time and set a date to work towards quitting * Follow Up: 3 Months (Reason: OV) * Images: * Sign off status: Completed true * Provider: Abhijit Hays MD Date: 0 01/17/2025 Generated for Abilioi sonia/Miguel/eTransmitting on: 1 06:34 AM EDT History and Physical Notes * HPI (History of Present Illness) Category Sub-Category Detail Notes Depression Screening PHQ-9 Little inte rest or pleasure in doing things: Not at all Feeling down, depressed, or hopeless: No t at all Trouble falling or staying asleep, or sl eeping too much: Not at all Feeling tired or having little energy: S everal days Poor appetite or overeating: Not at all Feeling bad about yourself o r that you are a failure, or have let yourself or your family down: Not at all Trouble concentrating on thi ngs, such as reading the newspaper or watching television: Not at all Moving or speaking so slowly that other people could have noticed; or the opposite, being so fidgety or restless that you have been moving around a lot more than usual: Not at all Thoughts that you would be b oksana off or of hurting yourself in some way: Not at all Total Score: 1 Interpretation: Minimal Depression Fall Risk Screening Fall History Have you had any falls with injury in the past year?: Yes Have you had two or more falls in the st year?: No Fall Risk Assessment:: One fall with inj ury in the past year COVID-19 Screening Questions Have you had any new onset fever, chills, cough, congestion, sore throat, shortness of breath, muscle aches?: No SDOH Questions SDOH Questions In the past year have you been worried about losing your housing?: No In the past year have you or any family members you live with been unable to get any of the following when it was really needed? Check all that apply:: Decline to answer Examination Category Sub-Category Detail Notes General Examination GENERAL APPEARANCE: pleasant , well nourished, well developed, in no acute distress, calm and relaxed, overweight, man HEAD: atraumatic, normocep halic EYES: eomi, perrla, anicte dayana, conjugate EARS: Sari she right ea r NOSE: septum intact NECK/THYROID: no jugular venous di stention, no carotid bruit, thyroid normal HEART: no clicks, gallops, murmurs, or rubs, regular rhythm, S1, S2 normal, no s3, or vascular bruits LUNGS: clear to auscultatio n ABDOMEN: bowel sounds normal, no ascites, no organomegaly, no mass, centripital obesity NEUROLOGIC: alert and oriented, cranial nerves 2-12 grossly intact, deep tendon reflexes 2+ symmetrical, motor strength normal upper and lower extremities, sensory exam intact SKIN: no suspicious lesion s, anicteric, Suspicious lesion and left elbow PERIPHERAL PULSES: normal BREASTS: no masses palpable b ilaterally MUSCULOSKELETAL: extremities unremark able, no clubbing, cyanosis or edema, Moderate lipoma left supraclavicular fossa LYMPH NODES: no enlarged lymph no aidee,spleen normal RECTAL EXAM: not examined PSYCH: alert, oriented ORAL CAVITY: normal, unremarkable
--- OUTSIDE RECORDS SUMMARY | 2025-03-23 06:29 | XMS_ITS ---
Author Organization Scott Hays III, MD Address [address] [place] [address] [place] [address] Care Team Providers Care Fitness Center Attendant Name Role Phone Dr. Scott Hays III Primary Care Provider REASON FOR VISIT Refills Medications Medication SIG (Take, Route, Frequency, Duration) Notes Start Date End Date Status Potassium Chloride ER 20 MEQ 1 tablet with food Orally Once a day for 90 days Active Social History Sex Assigned At : Social History Observation Description Sex Assigned At Male Encounters Encounter Location Date Provider Diagnosis Scott Hays III, MD [address] [place] [address] [place] [address] 03/23/2025 Scott Hays Plan Of Treatment Medication Medication Name Sig Start Date Stop Date Notes Potassium Chloride ER 20 MEQ 1 tablet wi th food Orally Once a day for 90 days Next Appt Details Provider Name:Scott Hays , 04/20/2025 09:30:00 AM, [address] [place] [address] [place], [address], Provider Name:Scott Hays , 01/18/2026 10:00:00 AM, [address] [place] [address] [place], [address], Progress Notes * Elvira BROWNOB: 2 (84 yo M)Acc No.[id number]:03/23/2025 Patient: New AVILES :1940 A ge:84 Y S ex:Male Address:[address] [place] [address], [place] [address] * Refills Refill Potassium Chloride ER Tablet Extended Release, 20 MEQ, Orally, 90 Tablet, 1 tablet with food, Once a day, 90 days, Refills=3 * true * Date: Generated for Braxton scott/Mgiuel/Jarvissmitting on: 1 06:34 AM EDT
--- OUTSIDE RECORDS SUMMARY | 2025-04-12 06:34 | XMS_ITS | Patient Health Record ---
Author Organization [facility] Address [address] [place] [address] Care Team Providers Care Hospitalist Medical Director Name Role Phone Scott Hays MD [facility] Allergies Allergen (clinical drug [...] at 5:00 p.m. the day before the procedure; Duration: 1 day 11/21/2020 Active Glucosamine Chondr Complex Active Eliquis 5 MG as directed Orally Active Omeprazole 20 MG 1 capsule 30 minutes before morning meal Orally Once a day; Duration: 30 day(s) Active Furosemide 20 MG 1 tablet Orally Once a day; Duration: 30 day(s) Active Terazosin HCl 10 MG [...] Problem Status W/U Status Risk Notes Problem Colon cancer screening (191281759) Colon cancer screening (Z12.11) Active confirmed Problem Iron deficiency anemia (79291233) Iron deficiency anemia (D50.9) Active confirmed Problem Abnormal feces (103722458) Heme positive stool (R19.5) Active confirmed Problem Anemia (922454888) Anemia, unspecified type (D64.9) Active confirmed Problem Erosive gastritis (00732584876254 00) Erosive gastritis (K29.60) Active confirmed Problem Long-term current use of drug therapy (152744515) 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 (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.899) Active confirmed Plan Of Treatment Future Test Test Name Order Date COLONOSCOPY 11/21/2020 UPPER GI ENDOSCOPY 11/20/2021 COLONOSCOPY 11/20/2021 Insurance Providers Payer Name Payer Address Payer Phone Subscriber Number Group Number Insured Name Patient Relationship to Insured Coverage Start Date Coverage End Date MEDICARE OF [place] [address] [place] [address] [id number] UBALDO BROWN Self - patient is the insured [employer] ATTN CLAIMS [address] [place] [address] [id number] UBALDO BROWN Self - patient is the insured Medical (General) History Medical History History ICD Code nephrolithiasis BPH hypertension hyperlipidemia elevated BMI aortic stenosis Surgical History Surgery Date(Month/Year) TAVR procedure multiple ESWL/cystoscopies Colonoscopy 01/16 to 70 cm, patient decli larissa CT colonography Hospitalization History Reason Date(Month/Year) in and out of [facility] for aortic stenos is 2021
--- OUTSIDE RECORDS SUMMARY | 2025-04-12 06:34 | XMS_ITS | Clinical Summary ---
Author Organization [facility] Address [address] [place] [address] Phone Care Team Providers Care Weave Defect Charting Clerk Name Role Phone Scott Hays MD Primary Care Provider [phone] Allergies Active Allergy Reactions Criticality Noted Date [...] by mouth 1 (one) time each day. 05/28/20 22 Active omeprazole (PriLOSEC) [address] capsule Take 1 capsule (20 mg total) by mouth 1 (one) time each day. Active glucos sul 2KCl/msm/chond/C /Mn (GLUCOSAMINE CHONDROITIN ORAL) Take 500 mg by mouth 2 (two) times a day. Active terazosin (HYTRIN) 10 mg capsule Take 1 capsule (10 mg total) by mouth at bedtime. Active hydroCHLOROthiaz garrett (HYDRODIURIL) 50 mg tablet Take 0.5 tablets (25 mg total) by mouth 1 (one) time each day. 04/15/20 21 Active multivit-min/iro n/folic acid/K (ADULTS MULTIVITAMIN ORAL) Take 1 tablet by mouth 1 (one) time each day. Active lisinopriL (PRINIVIL,ZESTRI L) 10 mg tablet TAKE ONE TABLET BY MOUTH EVERY DAY 90 tablet 1 10/26/19 25 Active furosemide (LASIX) 20 mg tablet TAKE TWO TABLETS BY MOUTH EVERY DAY 180 tablet 1 01/20/20 25 Active potassium chloride (KLOR-CON) 10 mEq CR tablet TAKE ONE TABLET BY MOUTH EVERY DAY 90 tablet 3 03/28/20 25 Active potassium chloride (KLOR-CON) 10 mEq CR tablet TAKE ONE TABLET BY MOUTH EVERY DAY 90 tablet 1 09/15/19 25 025 Discontinued Active Problems Problem Noted Date Diagnosed Date [...] the fall 2020-echo at the time at [facility] confirm severe aortic stenosis - Status post [...] 5 twice daily for CVA prophylaxis Immunizations Immunization Administration Dates Next Due Influenza Quadravalent, 0.5m [...] Description 11/07/2025 10:00 AM EDT Ancillary Procedure [facility] [address] [place] [address] Health Maintenance Due Date Last Done Comments Cholesterol Screening (Lipid Panel) 06/08/2022 Falls Risk Assessment 06/08/2022 Hypertension/CHF/CAD Annual BMP Blood Test 06/08/2022 Social Influencers of Health Screening 06/08/2022 Medicare Annual Wellness Visit 01/10/2024 01/09/2023 Depression Screening 06/29/2024 COVID-19 Vaccine ( season) 2025 03/10/2024, 03/27/2023, 04/06/2022, Additional history exists Influenza Vaccine (#1) 2025 , 03/27/2023, 03/21/2022, Additional history exists DTaP,Tdap,and Td Vaccines (2 - Td or Tdap) 12/20/2031 2021 Zoster Vaccines Completed 01/28/2018, 10/27/2017 Pneumococcal Vaccine: 50+ Years Completed 12/24/2022, 04/15/2014 RSV Immunization Adult Patients Completed 04/03/2023 HIB [...] age to complete this topic Insurance MEDICARE [facility] Care Teams Weave Defect Charting Clerk Relationship Specialty Start Date End Date Scott Hays MD [address] [facility] [address] [place] [address] PCP - General 04/11/21
--- OUTSIDE RECORDS SUMMARY | 2025-04-12 06:34 | XMS_ITS | Patient Health Record ---
Author Organization Scott Hays III, MD Address [address] [place] [address] [place] [address] Care Team Providers Care Transactional Attorney Name Role Phone Dr. Scott Hays III Primary Care Provider [phone] Allergies Allergen (clinical drug ingredient) Drug/Non Drug Allergy documented on EMR Reaction Allergy Type Onset Date Status Iodinated contrast media (substance) Iodinated Diagnostic Agents Unknown Drug Allergy Active Results Component Value Reference Range Notes XR ankle LT min 3V Reviewed date:08/03/2024 11:51:24 AM Interpretation: Performing Lab: Notes/Report: [address] [address] XRay Report Signed Patient: New Andino MR#: [id number] [birth year] : 1940 Acct:[id number] Age/Sex: 83 / M ADM Date: 08/02/24 Loc: HO.XRAY Attending Dr: Scott Hays MD Ordering Physician: Scott Hays MD Date of Service: 08/02/24 Procedure(s): XR ankle LT min 3V Accession Number(s): [id number] cc: Scott Hays MD EXAMINATION: XR ANKLE, [...] 08/02/24 1644 DD/ 1600 TD/TT: 08/02/24 1612 [employer] Machine Servicer Repairer: [place] [address] XRay Report Signed Patient: Derrick Andino MR#: [id number] [birth year] : 1940 Acct:[id number] Age/Sex: 83 / M ADM Date: 08/02/24 Loc: HO.XRAY Attending Dr: Scott Hays MD Ordering Physician: Scott Hays MD Date of Service: 08/02/24 Procedure(s): XR ank le LT min 3V Accession Number(s): [id number] cc: Scott Hays MD EXAMINATION: XR ANKLE, [...] 08/02/24 1644 DD/ 1600 TD/TT: 08/02/24 1612 Coin Machine Servicer Repairer: XR tibia fibula LT 2V Reviewed date:08/03/2024 11:51:24 AM Interpretation: Performing Lab: Notes/Report: [address] [address] XRay Report Signed Patient: New Andino MR#: [id number] [birth year] : 1940 Acct:[id number] Age/Sex: 83 / M ADM Date: 08/02/24 Loc: HO.XRAY Attending Dr: Scott Hays MD Ordering Physician: Scott Hays MD Date of Service: 08/02/24 Procedure(s): XR tibia fibula LT 2V Accession Number(s): [id number] cc: Scott Hays MD EXAMINATION: XR TIBIA [...] by: Cuong Farooq MD 08/02/2024 04:45 PM [facility] Dictated By: Cuong Farooq MD Signed By: <Electronically signed by Cuong Farooq MD in OV> 08/02/24 1645 DD/ 1552 TD/TT: 08/02/24 1612 Coin Machine Servicer Repairer: [address] [address] XRay Report Signed Patient: Derrick Andino MR#: [id number] [birth year] : 1940 Acct:[id number] Age/Sex: 83 / M ADM Date: 08/02/24 Loc: HO.XRAY Attending Dr: Scott Hays MD Ordering Physician: Scott Hays MD Date of Service: 08/02/24 Procedure(s): XR tib ia fibula LT 2V Accession Number(s): [id number] cc: Scott Hays MD EXAMINATION: XR TIBIA [...] by: Cuong Farooq MD 08/02/2024 04:45 PM [facility] Dictated By: Cuong Farooq MD Signed By: <Electronically signed by Cuong Farooq MD in OV> 08/02/24 1645 DD/ 1552 TD/TT: 08/02/24 1612 Coin Machine Servicer Repairer: XR foot LT min 3V Reviewed date:08/03/2024 11:51:24 AM Interpretation: Performing Lab: Notes/Report: [address] [address] XRay Report Signed Patient: New Andino MR#: [id number] [birth year] : 1940 Acct:[id number] Age/Sex: 83 / M ADM Date: 08/02/24 Loc: HO.XRAY Attending Dr: Scott Hays MD Ordering Physician: Scott Hays MD Date of Service: 08/02/24 Procedure(s): XR foot LT min 3V Accession Number(s): [id number] cc: Scott Hays MD EXAMINATION: XR FOOT, [...] signed by Cuong Farooq MD in OV> 08/02/241646 DD/ 52 TD/TT: 08/02/24 161 Coin Machine Servicer Repairer: [address] [address] XRay Report Signed Patient: Derrick Andino MR#: [id number] [birth year] : 1940 Acct:[id number] Age/Sex: 83 / M ADM Date: 08/02/24 Loc: HO.XRAY Attending Dr: Scott Hays MD Ordering Physician: Scott Hays MD Date of Service: 08/02/24 Procedure(s): XR junior t LT min 3V Accession Number(s): [id number] cc: Scott Hays MD EXAMINATION: XR FOOT, LEFT CLINICAL INFORMATION: PERIPHERAL EDEMA, LE FT LEG PAIN COMPARISON: None available. TECHNIQUE: AP, [...] signed by Cuong Farooq MD in OV> 08/02/241646 DD/ 155 TD/TT: 08/02/24 161 Coin Machine Servicer Repairer: Complete Blood Count Auto Di ff Reviewed date:09/11/2024 10:07:34 AM Interpretation: Performing Lab:[facility], [address] [place] [phone] Notes/Report: White Blood Count 7.2 4.8-10.8 X10*3/uL Red Blood Count 5.09 4.60-5.80 X10*6/uL Hemoglobin 15.5 14.0-18.0 g/dl Hematocrit 47.5 42.0-52.0 % Mean Corpuscular Volume 93.3 80.0-98.0 fL Mean Corpuscular Hemoglobin 30.5 27.0-33.0 pg Mean Corpuscular HGB Conc 32.6 31.0-36.0 g/dl Red Cell Distribution Width 15.4 11.0-16.0 % Platelet Count 198 160-400 X10*3/uL Mean Platelet Volume 10.3 9.4-12.4 fL Neutrophils Percent Auto 65.5 45-73 % Imm Gran Pct Auto 0.3 0.0-0.4 % Lymphocytes Percent Auto 24.8 20-40 % Monocytes Percent Auto 7.6 2-11 % Eosinophils Percent Auto 0.8 0-4 % Basophils Percent Auto 1.0 0-2 % NRBC Pct Auto 0.0 0.0-0.2 /100WBC Neutrophils Absolute Auto 4.7 2.0-8.3 x10*3/u L Imm Gran Abs Auto 0.02 0.00-0.03 X10*3/uL Lymphocytes Absolute Auto 1.8 1.2-4.9 X10*3/u L Monocytes Absolute Auto 0.6 0.1-1.2 X10*3/uL Eosinophils Absolute Auto 0.1 0.0-0.4 X10*3/u L Basophils Absolute Auto 0.1 0.0-0.2 X10*3/uL NRBC Abs Auto 0.000 0.0-0.012 X10*3/uL Comprehensive [place]. Panel Fa st Reviewed date:09/11/2024 10:07:34 AM Interpretation: Performing Lab:[facility], [address] [place] [phone] Notes/Report: Sodium 144 135-145 mmol/L Potassium 4.1 3.3-5.1 mmol/L Chloride 108 96-108 mmol/L Carbon Dioxide 28 22-29 mmol/L Anion Gap 12 12-20 Blood Urea Nitrogen 22 9-16 mg/dL Creatinine 0.85 0.5-1.4 mg/dL Estimated Glomerular Filt Rate > 60 Chronic Kidney Disease: Estimated GFR < 60 mL/min/1.73m2 Severe Kidney Disease: Estimated GFR < 15 mL/min/1.73m2 Glucose Fasting 101 60-99 mg/dL A fasting glucose from 100-125 mg/dl is considered impaired (pre-diabetes). Calcium 9.4 8.4-10.2 mg/dL Bilirubin Total 1.0 0.0-1.0 mg/dL Aspartate Amino Transferase 28 5-37 U/L Alanine Aminotransferase 18 0-40 U/L Total Protein 6.6 6.5-8.0 g/dL Albumin Level 3.7 3.5-5.0 g/dL Alkaline Phosphatase 99 39-117 U/L B Type Natriuretic Peptide Reviewed date:09/11/2024 10:07:34 AM Interpretation: Performing Lab:[facility], [address] [place] [phone] Notes/Report: B Type Natriuretic Peptide 168 <100 pg/mL Lipid Panel Reviewed date:09/11/2024 10:07:34 AM Interpretation: Performing Lab:[facility], [address] [place] [phone] Notes/Report: Triglycerides 73 <150 mg/dL Desirable Triglyceride: less than 150 mg/dL Borderline High Triglyceride 150-199 mg/dL High Triglyceride: 200-499 mg/dL Very High Triglyceride: greater than or equal to 5OO mg/dL Cholesterol 159 <200 mg/dL Desirable Cholesterol: less than 200 mg/dL Borderline High Cholesterol: 200-239 mg/dL High Cholesterol: greater than 239 mg/dL LDL Cholesterol Calculated 105 <100 mg/dL Desirable LDL: less than 100 mg/dL Near Optimal/Above Optimal LDL: 110-129 mg/dL Borderline High LDL: 130-159 mg/dL High LDL: 160-189 mg/dL Very High LDL: greater than or equal to 190 mg/dL HDL Cholesterol 40 >40 mg/dL Desirable HDL: greater than 40 mg/dL Note: This HDL assay may give artificially low results in patients with liver disease. Prostate Specific Antigen Reviewed date:09/11/2024 10:07:34 AM Interpretation: Performing Lab:[facility], [address] [place] [phone] Notes/Report: Prostate Specific Antigen 0.17 <0.05-4.0 ng/mL PSA methodology: Pereira Alinity i Chemiluminescent Microparticle Immunoassay (CMIA) Complete Blood Count Auto Di ff Reviewed date:01/10/2025 08:10:43 PM Interpretation: Performing Lab:[address] [address] Notes/Report: White Blood Count 6.7 4.8-10.8 X10*3/uL Red Blood Count 5.35 4.60-5.80 X10*6/uL Hemoglobin 16.3 14.0-18.0 g/dl Hematocrit 49.6 42.0-52.0 % Mean Corpuscular Volume 92.7 80.0-98.0 fL Mean Corpuscular Hemoglobin 30.5 27.0-33.0 pg Mean Corpuscular HGB Conc 32.9 31.0-36.0 g/dl Red Cell Distribution Width 16.9 11.0-16.0 % Platelet Count 178 160-400 X10*3/uL Mean Platelet Volume 9.9 9.4-12.4 fL Neutrophils Percent Auto 62.7 45-73 % Imm Gran Pct Auto 0.3 0.0-0.4 % Lymphocytes Percent Auto 28.2 20-40 % Monocytes Percent Auto 6.8 2-11 % Eosinophils Percent Auto 1.1 0-4 % Basophils Percent Auto 0.9 0-2 % NRBC Pct Auto 0.0 0.0-0.2 /100WBC Neutrophils Absolute Auto 4.2 2.0-8.3 x10*3/u L Imm Gran Abs Auto 0.02 0.00-0.03 X10*3/uL Lymphocytes Absolute Auto 1.9 1.2-4.9 X10*3/u L Monocytes Absolute Auto 0.5 0.1-1.2 X10*3/uL Eosinophils Absolute Auto 0.1 0.0-0.4 X10*3/u L Basophils Absolute Auto 0.1 0.0-0.2 X10*3/uL NRBC Abs Auto 0.000 0.0-0.012 X10*3/uL Comprehensive [place]. Panel Fa st Reviewed date:01/10/2025 08:10:43 PM Interpretation: Performing Lab:[facility], [address] [place] [phone] Notes/Report: Sodium 143 135-145 mmol/L Potassium 4.4 3.3-5.1 mmol/L Chloride 107 96-108 mmol/L Carbon Dioxide 27 22-29 mmol/L Anion Gap 13 12-20 Blood Urea Nitrogen 26 9-16 mg/dL Creatinine 1.04 0.5-1.4 mg/dL Estimated Glomerular Filt Rate > 60 Chronic Kidney Disease: Estimated GFR < 60 mL/min/1.73m2 Severe Kidney Disease: Estimated GFR < 15 mL/min/1.73m2 Glucose Fasting 107 60-99 mg/dL A fasting glucose from 100-125 mg/dl is considered impaired (pre-diabetes). Calcium 9.2 8.4-10.2 mg/dL Bilirubin Total 0.9 0.0-1.0 mg/dL Aspartate Amino Transferase 30 5-37 U/L Alanine Aminotransferase 18 0-40 U/L Total Protein 6.4 6.5-8.0 g/dL Albumin Level 4.0 3.5-5.0 g/dL Alkaline Phosphatase 97 39-117 U/L B Type Natriuretic Peptide Reviewed date:01/10/2025 08:10:43 PM Interpretation: Performing Lab:[facility], [address] [place] [phone] Notes/Report: B Type Natriuretic Peptide 197 <100 pg/mL Lipid Panel Reviewed date:01/10/2025 08:10:43 PM Interpretation: Performing Lab:[facility], [address] [place] [phone] Notes/Report: Triglycerides 72 <150 mg/dL Desirable Triglyceride: less than 150 mg/dL Borderline High Triglyceride 150-199 mg/dL High Triglyceride: 200-499 mg/dL Very High Triglyceride: greater than or equal to 5OO mg/dL Cholesterol 181 <200 mg/dL Desirable Cholesterol: less than 200 mg/dL Borderline High Cholesterol: 200-239 mg/dL High Cholesterol: greater than 239 mg/dL LDL Cholesterol Calculated 122 <100 mg/dL Desirable LDL: less than 100 mg/dL Near Optimal/Above Optimal LDL: 110-129 mg/dL Borderline High LDL: 130-159 mg/dL High LDL: 160-189 mg/dL Very High LDL: greater than or equal to 190 mg/dL HDL Cholesterol 45 >40 mg/dL Desirable HDL: greater than 40 mg/dL Note: This HDL assay may give artificially low results in patients with liver disease. Prostate Specific Antigen Reviewed date:01/10/2025 08:10:43 PM Interpretation: Performing Lab:[facility], [address] [place] [phone] Notes/Report: Prostate Specific Antigen 0.20 <0.05-4.0 ng/mL PSA methodology: Pereira Alinity i Chemiluminescent Microparticle Immunoassay (CMIA) Reason For Referral Reason Consult and Treat Diagnosis 1 Left leg pain (M79.6 05) Diagnosis 2 Left foot pain (M79. 672) Diagnosis 3 Ankle pain (M25.579) Referral Organization Scott Hays III, MD Referring Provider First Name Scott Referring Provider Last Name Lis Referring Provider Speciality Internal M edicine Referred Provider [facility], [facility] Sur[facility] Referred Provider Specialty Orthopedic S urgery General Notes Chasity Huerta [facility] 08/03 10:28:48 AM > Ref/demo/progress note /X rays faxed to [facility] asking for appt MELLYDeanna Villegas Suzanne [facility] 08/09/2024 10:56:41 I called [facility] [phone] spoke to lead front desk agent pt has appt with Nubia ZAVALA on 08/17/2024 at 9am Referral Priority Routine Referral Appointment Date 08/17/2024 Medications Medication SIG (Take, Route, Frequency, Duration) Notes Start Date End Date Status hydroCHLOROthiazide 25 MG TAKE ONE TABLE T BY MOUTH EVERY DAY Active Dutasteride 0.5 MG TAKE ONE CAPSULE BY MOUTH EVERY DAY Active Terazosin HCl 10 MG TAKE ONE CAPSULE BY MOUTH EVERY DAY AT BEDTIME Active Aspirin 81 81 MG 1 tablet Orally Once a day Active Furosemide 20 MG TAKE TWO TABLETS BY MOUTH ONCE DAILY Oral Active Amoxicillin 500 MG TAKE 4 CAPSULES BY MOUTH BEFORE DENTAL WORK Active Glucosamine Chondr 1500 Complx Active Potassium Chloride ER 20 MEQ 1 tablet wi th food Orally Once a day for 90 days Active Multivitamin Active Lisinopril 5 MG 1 tablets Orally Onc e a day Active Eliquis 5 MG TAKE ONE TABLET BY MOUTH TWICE A DAY Active Omeprazole 20 MG 1 capsule Orally Onc e a day Active Immunizations Vaccine Route Administration Date Status Comme nts Influenza Unknown 04/02/2013 Administered Influenza Unknown 04/15/2014 Administered Pneumococcal Unknown 04/15/2014 Administered Tetanus and Diphtheria Toxoids Adsorbed IM Intramuscular 04/20/2014 Administered Influenza Unknown 03/18/2015 Administered PCV13 Unknown 05/09/2015 Administered Influenza Unknown 03/10/2016 Administered Influenza no Preserv 3 and > Unknown 03/08/2021 Administered SHINGRIX Unknown 10/27/2017 Administered COVID PFIZER Unknown 08/04/2020 Administered COVID PFIZER Unknown 04/22/2021 Administered Tdap Unknown 2021 Administered SHINGRIX Unknown 01/28/2018 Administered COVID PFIZER Unknown 11/19/2021 Administered COVID- 19 Vaccine Unknown 04/06/2022 Administered Fluzone High-Dose (HD-IIV3) Unknown 03/03/2017 Administered RSV Adjuvant Unknown 04/03/2023 Administered Flu-IIv3 Unknown 03/10/2024 Administered Comirnaty Pfizer COVID-19 12+ Unknown 03/27/2023 Administered Comirnaty Pfizer COVID-19 12+ Unknown 03/10/2024 Administered Fluzone High-Dose (HD-IIV3) Unknown 03/10/2016 Administered COVID Pfizer Bivalent Unknown 04/06/2022 Administered Influenza-iiv4 p-free high dose Unknown 03/08/2021 Administered Fluzone High-Dose (HD-IIV3) Unknown 03/09/2018 Administered Flu-IIv3 Unknown 03/02/2019 Administered PCV20 Unknown 12/24/2022 Administered Social History Tobacco Use: Social History [...] Problem Status W/U Status Risk Notes Problem 48991695 Hyperlipidemia (E78.5) Active confirmed His total cholesterol was 159. No change in his medications was made today. I recommended aggressive weight loss. Problem 301751137 Obesity (E66.9) Active confirmed Problem 864625049 Overweight (E66.3) Active confirmed He has gained 3 pounds. We discussed his weight loss strategy and detail. He will lose weight at a rate of one half of a pound per week. Problem Hematuria (92784332) Hematuria (R31.9) Active confirmed He has had no hematuria since the resumption of his anticoagulant. He will resume the 81 mg of aspirin daily. 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 We also noticed an irregular abnormal suspicious lesion over his left olecranon. I instructed him to show this to the program proposals coordinator make arrangements for its evaluation. Problem Obesity due to excess calories (285503963) Other obesity due to excess calories (E66.09) Active confirmed Problem 25056188 Ureterolithiasi s (N20.1) Active confirmed Since his last visit he has had no episodes of renal colic or hematuria. Problem 089710577 Anticoagulated (Z79.01) Active confirmed He is anticoagulated because of his atrial fibrillation. No major bleeding episodes have been witnessed. He was instructed to stop this medication 3 days prior to the procedure. He will resume once a day following. Problem 22690583 Essential hypertension (I10) Active confirmed His systolic blood pressure remains slightly elevated. We have discussed the level of pain he is in. Follow-up appointment has been made. He will continue on current medications at this time. I stressed the importance of sodium restriction weight loss and physical activity. Problem 58645558 Tobacco dependence (F17.200) Active confirmed He continues to smoke a few cigarettes daily. We made a plan to reduce smoking and then discontinue the use of tobacco. Problem 483389876 BPH w/o urinary obs/LUTS (N40.0) Active confirmed He rises from sleep twice a night to urinate. He does not restrict fluid intake after 5 PM. We have discussed the lifestyle modification she could make to reduce nocturia. Problem Congestive heart failure (79306094) CHF (congestive heart failure) (I50.9) Active confirmed His heart failure is well compensated he is asymptomatic today. Problem 525919676 Peripheral arterial disease (I73.9) Active confirmed At the end o f this week. He is going to have an arteriogram with a procedure to correct the obstruction in the superficial femoral artery. 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 Problem 297759978 Chronic atrial fibrillation (I48.20) Active confirmed His heart rate today was irregularly irregular at a controlled rate. No sign of congestive heart failure or tachycardia. Problem 825812810 Critical aortic valve stenosis (I35.0) Active confirmed His aortic stenosis has been read repaired via TAVR. A cardiac murmur was audible today. He has an appointment with cardiology next week. He was told under no circumstances to miss that appointment. Problem 32104811209289673 Skin lesion of right leg (L98.9) Active confirmed Her wound is healing now that the blood flow has been improved. Problem 92424540041817179 Lumbar paraspinal muscle spasm (M62.830) Active confirmed He will rest and use acetaminophen and heat. He does not improve rapidly he will have a muscle relaxer. Problem 31830336165991943 Sprain of left ankle, unspecified ligament, initial [...] have recommended acetaminophen for pain. Vital Signs Heart Rate 46 /min 01/17/2025 Temperature 98.2 degrees Fahrenheit 01/17/2025 Oximetry 97.0 % 08/02/2024 Blood pressure diastolic 68 mm Hg 01/17/2025 Height 70 in 01/17/2025 Blood pressure systolic 136 mm Hg 01/17/2025 Weight 199 lbs 01/17/2025 BMI 28.55 kg/m2 01/17/2025 Encounters Encounter Location Date Provider Diagnosis Scott Hays III, MD [address] [place] [address] [address], [place] [phone] 05/18/2024 Scott Hays Peripheral edema R60 .9 ; Critical aortic valve stenosis I35.0 ; Essential hypertension I10 ; BPH w/o urinary obs/LUTS N40.0 ; Hyperlipidemia E78.5 ; Chronic atrial fibrillation I48.20 ; Overweight E66.3 and Former smoker Z87.891 Scott Hays III, MD [address] [place] [address] [place] [address] 08/02/2024 Scott Hays Sprain of left ankle , unspecified ligament, initial encounter S93.402A ; Essential hypertension I10 ; BPH w/o urinary obs/LUTS N40.0 ; Ureterolithiasis N20.1 ; Hyperlipidemia E78.5 ; Overweight E66.3 ; Critical aortic valve stenosis I35.0 ; CHF (congestive heart failure) I50.9 ; Tobacco dependence F17.200 and Anticoagulated Z79.01 Scott Hays III, MD [address] [place] [address] [place] [address] 08/03/2024 Scott Hays Sprain of left ankle , unspecified ligament, initial encounter S93.402A ; Essential hypertension I10 ; BPH w/o urinary obs/LUTS N40.0 ; Ureterolithiasis N20.1 ; Hyperlipidemia E78.5 ; Overweight E66.3 ; Chronic atrial fibrillation I48.20 ; Tobacco dependence F17.200 and Anticoagulated Z79.01 Scott Hays III, MD [address] [place] [address] [place] [address] 09/14/2024 Scott Hays Essential hypertensi on I10 ; Lumbar paraspinal muscle spasm M62.830 ; BPH w/o urinary obs/LUTS N40.0 ; Hyperlipidemia E78.5 ; Ureterolithiasis N20.1 ; Overweight E66.3 ; Anticoagulated Z79.01 ; Former smoker Z87.891 ; CHF (congestive heart failure) I50.9 and Critical aortic valve stenosis I35.0 Scott Hays III, MD [address] [place] [address] [place] [address] 01/17/2025 Scott Hays Tobacco dependence F17.200 ; Other obesity due to excess calories E66.09 ; Essential hypertension I10 ; BPH w/o urinary obs/LUTS N40.0 ; Hyperlipidemia E78.5 ; Lipoma D17.9 ; Anticoagulated Z79.01 ; Peripheral arterial disease I73.9 ; Critical aortic valve stenosis I35.0 ; CHF (congestive heart failure) I50.9 ; Chronic atrial fibrillation I48.20 and Skin lesion L98.9 Scott Hays III, MD [address] [place] [address] [address] [place] [address] 08/02/2024 Scott Hays III, MD [address] [place] [address] [address] [place] [address] 10/25/2024 Scott Hays III, MD [address] [place] [address] [address] [place] [address] 03/23/2025 Scott Hays Assessments Encounter Date Diagnosis (ICD Code) Assessment Notes T reatment Notes Treatment Clinical Notes 05/18/2024 Peripheral edema (ICD-10 - R60.9) His peripheral edema has resolved. There are no new open areas on his feet.He is scheduled for a vascular procedures later this week. 05/18/2024 Critical aortic valv e stenosis (ICD-10 - I35.0) His aortic stenosis has been read repaired via TAVR. He is very pleased with the result. 08/02/2024 Essential hypertensi on (ICD-10 - I10) His blood pressure is stable. No change in his regimen was needed today. 08/02/2024 Sprain of left ankle , unspecified [...] in his regimen was needed today. 08/03/2024 Sprain of left ankle , unspecified [...] weightbearing. I have recommended acetaminophen for pain. 09/14/2024 Essential hypertensi on (ICD-10 - I10) [...] rapidly he will have a muscle relaxer. 01/17/2025 Other obesity due to excess calories (ICD-10 - E66.09) 01/17/2025 Tobacco dependence (ICD-10 - F17.200) He continues to smoke a few cigarettes daily. We made a plan to reduce smoking and then discontinue the use of tobacco. 05/18/2024 Essential hypertensi on (ICD-10 - I10) His blood pressure is 134/55. No change in his regimen was needed today. 08/02/2024 BPH w/o urinary obs/LUTS (ICD-10 - N40.0) He rises frrom sleep once or twice a night. He is trying to limit nocturnal fluids. We discussed lifestyle modifications he could make to reduce nocturia. 08/03/2024 BPH w/o urinary obs/LUTS (ICD-10 - N40.0) He rises frrom sleep once or twice a night. He is trying to limit nocturnal fluids. We discussed lifestyle modifications he could make to reduce nocturia. 09/14/2024 BPH w/o urinary obs/LUTS (ICD-10 - N40.0) He rises from sleep twice a night to urinate. He does not restrict fluid intake after 5 PM. We have discussed the lifestyle modification she could make to reduce nocturia. 01/17/2025 Essential hypertensi on (ICD-10 - I10) His systolic blood pressure remains slightly elevated. We have discussed the level of pain he is in. Follow-up appointment has been made. He will continue on current medications at this time. I stressed the importance of sodium restriction weight loss and physical activity. 05/18/2024 BPH w/o urinary obs/LUTS (ICD-10 - N40.0) He rises frrom sleep once or twice a night. He is trying to limit nocturnal fluids. We discussed lifestyle modifications he could make to reduce nocturia. 08/02/2024 Ureterolithiasis (ICD-10 - N20.1) Since his last visit he has had no episodes of renal colic or hematuria. 08/03/2024 Ureterolithiasis (ICD-10 - N20.1) Since his last visit he has had no episodes of renal colic or hematuria. 09/14/2024 Hyperlipidemia (ICD- 10 - E78.5) His total cholesterol was 159. No change in his medications was made today. I recommended aggressive weight loss. 01/17/2025 BPH w/o urinary obs/LUTS (ICD-10 - N40.0) He rises from sleep twice a night to urinate. He does not restrict fluid intake after 5 PM. We have discussed the lifestyle modification she could make to reduce nocturia. 05/18/2024 Hyperlipidemia (ICD- 10 - E78.5) Comprehensive blood work has been ordered prior to his next visiit. 08/02/2024 Hyperlipidemia (ICD- 10 - E78.5) Comprehensive blood work has been ordered prior to his next visiit. 08/03/2024 Hyperlipidemia (ICD- 10 - E78.5) Comprehensive blood work has been ordered prior to his next visiit. 09/14/2024 Ureterolithiasis (ICD-10 - N20.1) Since his last visit he has had no episodes of renal colic or hematuria. 01/17/2025 Hyperlipidemia (ICD- 10 - E78.5) His total cholesterol was 159. No change in his medications was made today. I recommended aggressive weight loss. 05/18/2024 Chronic atrial fibrillation (ICD-10 - I48.20) His heart rate today was irregularly irregular at a controlled rate. No sign of congestive heart failure or tachycardia. 08/02/2024 Overweight (ICD-10 - E66.3) He has gained 3 pounds. We discussed his weight loss strategy and detail. He will lose weight at a rate of one half of a pound per week. 08/03/2024 Overweight (ICD-10 - E66.3) He has gained 3 pounds. We discussed his weight loss strategy and detail. He will lose weight at a rate of one half of a pound per week. 09/14/2024 Overweight (ICD-10 - E66.3) He has gained 3 pounds. We discussed his weight loss strategy and detail. He will lose weight at a rate of one half of a pound per week. 01/17/2025 Lipoma (ICD-10 - D17.9) The size has not changed and it will be observed. 05/18/2024 Overweight (ICD-10 - E66.3) He has gained 3 pounds. We discussed his weight loss strategy and detail. He will lose weight at a rate of one half of a pound per week. 08/02/2024 Critical aortic valv e stenosis (ICD-10 - I35.0) His aortic stenosis has been read repaired via TAVR. He is very pleased with the result. 08/03/2024 Chronic atrial fibrillation (ICD-10 - I48.20) His heart rate today was irregularly irregular at a controlled rate. No sign of congestive heart failure or tachycardia. 09/14/2024 Anticoagulated (ICD- 10 - Z79.01) He is anticoagulated because of his atrial fibrillation. No major bleeding episodes have been witnessed. He was instructed to stop this medication 3 days prior to the procedure. He will resume once a day following. 01/17/2025 Anticoagulated (ICD- 10 - Z79.01) He is anticoagulated because of his atrial fibrillation. No major bleeding episodes have been witnessed. He was instructed to stop this medication 3 days prior to the procedure. He will resume once a day following. 05/18/2024 Former smoker (ICD-1 0 - Z87.891) He has a plan to prevent relapse from time to stress and illness. 08/02/2024 CHF (congestive hear t failure) (ICD-10 - I50.9) His heart failure is well compensated he is asymptomatic today. 08/03/2024 Tobacco dependence (ICD-10 - F17.200) He continues to smoke a few cigarettes daily. We made a plan to reduce smoking and then discontinue the use of tobacco. 09/14/2024 Former smoker (ICD-1 0 - Z87.891) He has a plan to prevent relapse from time to stress and illness. 01/17/2025 Peripheral arterial disease (ICD-10 - I73.9) At the end of this week. He is going to have an arteriogram with a procedure to correct the obstruction in the superficial femoral artery. 08/02/2024 Tobacco dependence (ICD-10 - F17.200) He [...] will resume once a day following. 09/14/2024 CHF (congestive hear t failure) (ICD-10 - I50.9) His heart failure is well compensated he is asymptomatic today. 01/17/2025 Critical aortic valv e stenosis (ICD-10 - I35.0) His aortic stenosis has been read repaired via TAVR. A cardiac murmur was audible today. He has an appointment with cardiology next week. He was told under no circumstances to miss that appointment. 08/02/2024 Anticoagulated (ICD- 10 - Z79.01) He is anticoagulated because of his atrial fibrillation. No major bleeding episodes have been witnessed. He was instructed to stop this medication 3 days prior to the procedure. He will resume once a day following. 09/14/2024 Critical aortic valv e stenosis (ICD-10 - I35.0) His aortic stenosis has been read repaired via TAVR. A cardiac murmur was audible today. He has an appointment with cardiology next week. He was told under no circumstances to miss that appointment. 01/17/2025 CHF (congestive hear t failure) (ICD-10 - [...] instructed him to show this to the program proposals coordinator make arrangements for its evaluation. Plan Of Treatment Pending Test Test Name Order Date ELECTROLYTES 03/25/2021 PROFILE, FASTING (COMPREHENSIVE METABOLI C) 03/16/2023 PROFILE, FASTING (COMPREHENSIVE METABOLI C) 09/24/2017 PROFILE, FASTING (COMPREHENSIVE METABOLI C) 06/24/2017 PROFILE, FASTING (COMPREHENSIVE METABOLI C) 01/17/2025 PROFILE, FASTING (COMPREHENSIVE METABOLI C) 02/23/2019 PROFILE, FASTING (COMPREHENSIVE METABOLI C) 09/14/2024 PROFILE, FASTING (COMPREHENSIVE METABOLI C) 01/09/2023 PROFILE, FASTING (COMPREHENSIVE METABOLI C) 05/18/2024 PROFILE, FASTING (COMPREHENSIVE METABOLI C) 05/28/2018 PROFILE, FASTING (COMPREHENSIVE METABOLI C) 10/31/2021 PROFILE, FASTING (COMPREHENSIVE METABOLI C) 06/05/2020 PROFILE, FASTING (COMPREHENSIVE METABOLI C) 08/08/2022 PROFILE, FASTING (COMPREHENSIVE METABOLI C) 09/17/2023 PROFILE, FASTING (COMPREHENSIVE METABOLI C) 01/08/2022 PROFILE, FASTING (COMPREHENSIVE METABOLI C) 06/15/2023 PROFILE, RANDOM (COMPREHENSIVE METABOLIC ) 09/29/2019 PROFILE, RANDOM (COMPREHENSIVE METABOLIC ) 03/22/2021 PROFILE, RANDOM (COMPREHENSIVE METABOLIC ) 09/03/2020 PROFILE, RANDOM (COMPREHENSIVE METABOLIC ) 11/18/2021 PROFILE, RANDOM (COMPREHENSIVE METABOLIC ) 03/12/2021 BUN 03/25/2021 URIC ACID 06/05/2020 LIPID PANEL 06/05/2020 LIPID PANEL 03/16/2023 LIPID PANEL 09/24/2017 LIPID PANEL 06/24/2017 LIPID PANEL 02/23/2019 LIPID PANEL 01/09/2023 LIPID PANEL 05/28/2018 LIPID PANEL 10/31/2021 LIPID PANEL 08/08/2022 TSH (THYROID STIMULATING HORMONE) 2020 BRAIN NATRIURETIC PEPTIDE (BNP) 03/12/20 21 BRAIN NATRIURETIC PEPTIDE (BNP) 06/15/20 23 BRAIN NATRIURETIC PEPTIDE (BNP) 03/16/20 23 BRAIN NATRIURETIC PEPTIDE (BNP) 01/18/20 25 BRAIN NATRIURETIC PEPTIDE (BNP) 09/15/19 25 BRAIN NATRIURETIC PEPTIDE (BNP) 05/18/20 24 BRAIN NATRIURETIC PEPTIDE (BNP) 03/22/20 21 BRAIN NATRIURETIC PEPTIDE (BNP) 09/17/19 24 PSA, TOTAL 10/31/2021 PSA, TOTAL 08/08/2022 PSA, TOTAL 06/05/2020 PSA, TOTAL 09/29/2019 PSA, TOTAL 03/16/2023 PSA, TOTAL 06/24/2017 PSA, TOTAL 02/23/2019 PSA, TOTAL 09/14/2024 PSA, TOTAL 05/18/2024 PSA, TOTAL 05/28/2018 MICROALBUMIN, RANDOM 10/31/2021 CBC w DIFF 05/18/2024 CBC w DIFF 01/08/2022 CBC w DIFF 05/28/2018 CBC w DIFF 08/08/2022 CBC w DIFF 03/12/2021 CBC w DIFF 06/05/2020 CBC w DIFF 10/31/2021 CBC w DIFF 09/24/2017 CBC w DIFF 09/29/2019 CBC w DIFF 01/17/2025 CBC w DIFF 09/03/2020 CBC w DIFF 11/18/2021 CBC w DIFF 03/16/2023 CBC w DIFF 01/09/2023 CBC w DIFF 06/24/2017 CBC w DIFF 02/23/2019 CBC w DIFF 09/14/2024 URINE CULTURE 06/18/2022 PARATHYROID HORMONE INTACT 03/25/2021 CBC WITH AUTO DIFF 09/17/2023 CBC WITH AUTO DIFF 06/15/2023 Lipid Panel 09/14/2024 Lipid Panel 05/18/2024 Lipid Panel 09/17/2023 Lipid Panel 01/08/2022 Lipid Panel 06/15/2023 Lipid Panel 01/17/2025 Next Appt Details Provider Name:Scott Hays , 04/20/2025 09:30:00 AM, [address] [place] [id number] PATSY REYNA, [place], [phone], Provider Name:Scott Hays , 01/18/2026 10:00:00 AM, [address] [place] [address] PATSY REYNA, [place], [phone], Insurance Providers Payer Name Payer Address Payer Phone Subscriber Number Group Number Insured Name Patient Relationship to Insured Coverage Start Date Coverage End Date MEDICARE NGS [address] [facility] [place] [address] [id number] [place] Self - patient is the insured [facility] [address] [place], [place] [phone] [phone] [id number] [place] Self - patient is the insured Medical (General) History Medical History History ICD Code renal lithiasis hypertension benign prostatic hyperplasia (BPH) overweight colonoscopy every ten years next 2020 left supraclavicular lipoma former smoker 2018 Skin lesion, right melgar Surgical History Surgery Date(Month/Year) Repair of right superficial femoral felix ry 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
--- OUTSIDE RECORDS SUMMARY | 2025-04-12 06:34 | XMS_ITS | Patient Health Record ---
Author Organization [facility] Address [address] [place] [address] Care Team Providers Care Director Of Pharmacy Name Role Phone Scott Hays MD Primary Care Provider Unavailab sofi CorrineAbdirahman Unavailable [phone] Reason For Referral No Information Medications Medication [...] Status W/U Status Risk Notes Problem Overweight (901096289) Overweight (E66.3) Active confirmed Problem Hyperlipidemia (32155175) Hyperlipidemia, unspecified (E78.5) Active confirmed Problem Tobacco user (112008424) Nicotine dependence, unspecified, uncomplicated (F17.200) Active confirmed Problem Essential hypertension (80604394) Essential (primary) hypertension (I10) Active confirmed Problem Ischemic ulcer of skin (disorder) (92999546324231) 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) Active confirmed Problem Benign prostatic hypertrophy without outflow obstruction (927142475) Benign prostatic hyperplasia without lower urinary tract symptoms (N40.0) Active confirmed Problem Chronic atrial fibrillation (disorder) (758038779) Chronic atrial fibrillation, unspecified (I48.20) Active confirmed Problem Hyperlipidaemia (58495448) Hyperlipidemia, unspecified hyperlipidemia type (E78.5) Active confirmed Problem Essential hypertension (93455190) Hypertension, unspecified type (I10) Active confirmed Problem Encounter for surgical aftercare following surgery of skin or subcutaneous tissue (Z48.817) Active confirmed Plan Of Treatment No Information Insurance Providers Payer Name Payer Address Payer Phone Subscriber Number Group Number Insured Name Patient Relationship to Insured Coverage Start Date Coverage End Date Medicare [address] [place], [place] [id number] [place] Self - patient is the insured 7 [facility] [address] [place], [place] [id number] [phone] [id number] [place] Self - patient is the insured 7 Medical (General) History Medical History History ICD Code Atherosclerosis of big sandy arteries of ot her extremities with ulceration I70.25 Essential (primary) hypertension I10 Hyperlipidemia, unspecified hyperlipidem ia type E78.5 Chronic atrial fibrillation, unspecified I48.20 Benign prostatic hyperplasia without low er urinary tract symptoms N40.0
[2025-04-12 10:15] LABS: MANUAL DIFF FLAG NO
[2025-04-12 10:21] LABS: Hematocrit 49.1 % (42.0-52.0); Hemoglobin 16.6 g/dl (14.0-18.0); Imm Gran Abs Auto 0.02 X10*3/uL (0.00-0.03); Imm Gran Pct Auto 0.3 % (0.0-0.4); Lymphocytes Absolute Auto 1.6 X10*3/uL (1.2-4.9); Mean Corpuscular HGB Conc 33.8 g/dl (31.0-36.0); Mean Corpuscular Hemoglobin 31.4 pg (27.0-33.0); Mean Corpuscular Volume 92.8 fL (80.0-98.0); NRBC Abs Auto 0.000 X10*3/uL (0.0-0.012); NRBC Pct Auto 0.0 /100WBC (0.0-0.2); Platelet Count 187 X10*3/uL (160-400); Red Blood Count 5.29 X10*6/uL (4.60-5.80); White Blood Count 6.8 X10*3/uL (4.8-10.8)
[2025-04-12 10:47] LABS: Alanine Aminotransferase 20 U/L (0-40); Albumin Level 4.1 g/dL (3.5-5.0); Alkaline Phosphatase 98 U/L (39-117); Anion Gap 12 (12-20); Aspartate Amino Transferase 29 U/L (5-37); Blood Urea Nitrogen 20 mg/dL (9-16); Calcium 9.3 mg/dL (8.4-10.2); Carbon Dioxide 27 mmol/L (22-29); Chloride 107 mmol/L (96-108); Cholesterol 180 mg/dL (<200); Estimated Glomerular Filt Rate > 60; HDL Cholesterol 43 mg/dL (>40); Potassium 4.0 mmol/L (3.3-5.1); Sodium 142 mmol/L (135-145); Total Protein 6.5 g/dL (6.5-8.0); Triglycerides 94 mg/dL (<150)
[2025-04-12 14:05] LABS: NT Pro B Type Natriuretic Pept 570.0 pg/mL (<300)
== END 2025-04-12 06:31 | disposition home or self-care (01) ==
LOC: HO.HMGCLDS 06:30
PROVIDERS: PCP Internal Medicine Medical Oncology; Visit Provider Internal Medicine Medical Oncology
DX: Z00.00 Encounter for general adult medical examination without abnormal findings (principal); N40.0 Benign prostatic hyperplasia without lower urinary tract symptoms; E78.5 Hyperlipidemia, unspecified; I50.9 Heart failure, unspecified
CPT/HCPCS: 36415; 80053; 80061; 83880; 85025